=== PATIENT | female | born 1980 | race Caucasian/White ===

== ENCOUNTER 2017-06-18 19:14 | Emergency (ER) | payer OTHER ==
[~2017-06-18] VITALS: Ht 152.4 cm; Wt 79.8 kg
[2017-06-18 19:29] VITALS: Ht 152.4 cm; Wt 79.8 kg
[2017-06-18] MEDS ORDERED: ONDANSETRON INJ 2 MG/ML 2 ML VIAL IV STA (19:58)
[2017-06-18] MEDS ORDERED: SODIUM CHLORIDE 0.9% 1000ML 1,000 ML IV STA ×2 (19:58)
[2017-06-18] MEDS: HYDROmorphone INJ 2 MG/ML SYR/VIAL IV PRN ×2 (20:09→20:34)
[2017-06-18 20:10] LABS: URINE APPEARANCE CLEAR (CLEAR); URINE BILIRUBIN NEG (NEG); URINE COLOR YELLOW; URINE NITRITE NEG (NEG); URINE PH 6.5 (4.5-7.5); URINE SPECIFIC GRAVITY 1.011 (1.000-1.030); UROBILINOGEN NEG (NEG); ZZUR CULT IF INDIC CLEAN CATCH NO
[2017-06-18 20:11] LABS: HEMATOCRIT 41.1 % (37-47); MEAN CELL VOLUME 90.9 fL (80-100); MEAN CORPUSCULAR HEMOGLOBIN 30.3 pg (25-34); MEAN CORPUSCULAR HGB CONC 33.3 g/dl (32-36); MEAN PLATELET VOLUME 9.2 fL (7.4-10.4); PLATELET COUNT 303 K/uL (130-400); RED BLOOD COUNT 4.52 M/uL (4.2-5.4); WHITE BLOOD COUNT 5.73 K/uL (4.8-10.8)
[2017-06-18 20:19] LABS: MANUAL MICROSCOPIC REQUIRED? NO; REVIEW REQ? NO
[2017-06-18 20:36] LABS: ALB/GLOB RATIO 0.9 (0.9-2); BUN/CREATININE RATIO 13.2 (10-20); CALCIUM 9.4 mg/dl (8.5-10.1); CREATININE 0.98 mg/dl (0.60-1.20); POTASSIUM 3.8 mmol/L (3.5-5.1); PREG INTERNAL NEGATIVE QC NEG CLEAR BACKGROUND; PREG INTERNAL POSITIVE QC POS CONTROL LINE
--- NOTE | 2017-06-18 20:39 | DIAGNOSTIC IMAGING REPORT ---
ABDOMEN 2VIEW W/PA CHEST RTN CLINICAL HISTORY: ABDOMINAL PAIN/GI pain COMPARISON STUDY: No previous studies for comparison. FINDINGS: The soft tissues, psoas shadows, renal outlines and intestinal gas pattern appear normal. There is no evidence for bowel obstruction. There is no evidence for free intraperitoneal air. No abnormal abdominal calcifications are seen. A frontal view of the chest was performed and is unremarkable. IMPRESSION: Normal study. The above report was generated using voice recognition software. It may contain grammatical, syntax or spelling errors. Electronically signed by: Cruz Wilson M.D. 06/18/2017 8:37 PM Dictated Date/Time: 06/18/2017 8:37 PM
[2017-06-18 21:14] LABS: BASO % 0.3 %; BASO ABS # 0.02 K/uL (0-0.2); COMPLETE YES; EOS % 2.1 %; IG% 0.2 %; LYMPH % 52.7 %; LYMPH ABS # 3.02 K/uL (1.2-3.4); MONO % 4.9 %; NEUT % 39.8 %
[2017-06-18] MEDS ORDERED: LAMO200T38 PO (21:20)
[2017-06-18] MEDS ORDERED: AMPH20TA2 PO (21:20)
[2017-06-18] MEDS ORDERED: [UNRECOGNIZED DRUG - REMARK] (21:20)
[2017-06-18] MEDS ORDERED: ALPR-411 PO (21:20)
[2017-06-18] MEDS ORDERED: CITA10TA8 PO (21:20)
[2017-06-18] MEDS ORDERED: HYDROmorphone INJ 2 MG/ML SYR/VIAL IV STA (21:44)
[2017-06-18] MEDS ORDERED: ONDANSETRON HOME PACK 4MG OD TAB PO ONE (22:45)
[2017-06-18] MEDS ORDERED: OXYCODONE IR HOME PACK PO ONE (22:45)
--- NOTE | 2017-06-18 22:48 | EMERGENCY ROOM VISIT NOTE ---
History Report prepared by Francie: Gregoria Ramos Under the Supervision of: Dr. Ashwin Aguilar M.D. First contact with patient: 19:53 Chief Complaint: ABDOMINAL PAIN Stated Complaint: VOMITING, SEVERE STOMACH PAIN, NAUSEA Nursing Triage Summary: pt reports LUQ abdominal pain started at 1000 pt reports nausea hx of pancreatitis History of Present Illness The patient is a 36 year old female who presents to the Emergency Room with complaints of an episode of abdominal pain starting three hours ago. The patient notes a history of pancreatitis and states she was hospitalized in February of this year. She states that today she has been lethargic and she had diarrhea this morning. The patient reports that she went to an event today and noticed that she felt bloated, which she thought was odd since she hadn't eaten much today. She states on the way back to her boyfriend's place they stopped for ice cream. She reports that a half hour after the ice cream she started vomiting and having severe abdominal pain. She notes that the pain goes into her back. The patient currently rates her pain as an 8.5/10. She states that yesterday she felt fine. The patient denies urinary symptoms, vaginal discharge, cough, congestion, and chance of . The patient notes a history of a cholecystectomy, appendectomy, and a hernia repair. Source of History: patient Onset: 3 hours ago Position: abdomen Symptom Intensity: 8.5/10 Quality: other (bloating) Timing: other (episode) Associated Symptoms: + vomiting, + back pain, + diarrhea, No cough, No urinary symptoms Note: The patient complains of being lethargic. The patient denies vaginal discharge, congestion, and chance of . Review of Systems See HPI for pertinent positives & negatives. A total of 10 systems reviewed and were otherwise negative. Past Medical & Surgical Medical Problems: (1) Pancreatitis Surgical Problems: (1) H/O hernia repair (2) Hx of appendectomy (3) Hx of cholecystectomy Family History Patient reports no known family medical history. Social History Smoking Status: Never Smoker Alcohol Use: none Drug Use: none Marital Status: in relationship Housing Status: lives alone Occupation Status: employed Current/Historical Medications Scheduled Amphetamine-Dextroamphetamine 20MG (Adderall 20MG), 1 TAB PO DAILY Citalopram Hydrobromide (Celexa), 1 TAB PO DAILY Miscellaneous Medications Alprazolam (Xanax), 0.5 MG PO Lamotrigine (Lamictal), 200 MG PO [unknown seizure med] Allergies Coded Allergies: Ketorolac Tromethamine (Unverified Allergy, Unknown, rash, 06/18/17) Morphine (Unverified Allergy, Unknown, rash, 06/18/17) Tramadol (Unverified Allergy, Unknown, rash, 06/18/17) Uncoded Allergies: PENICILLIN (Allergy, Unknown, rash, 06/18/17) Physical Exam Vital Signs Date Time Temp Pulse Resp B/P (MAP) Pulse Ox O2 Delivery O2 Flow Rate FiO2 06/18/17 21:44 86 20 98 06/18/17 21:30 117/76 06/18/17 21:14 78 19 98 06/18/17 21:06 111/84 06/18/17 20:57 85 06/18/17 20:38 113/75 06/18/17 19:29 36.7 92 20 111/68 98 Room Air Physical Exam GENERAL: Patient is in no acute distress. HEENT: No acute trauma, normocephalic atraumatic, mucous membranes moist, no nasal congestion, no scleral icterus. NECK: No stridor, no adenopathy, no meningismus, trachea is midline. LUNGS: Clear to auscultation bilaterally, no wheeze, no rhonchi, breath sounds equal. HEART: Without murmurs gallops or rubs, regular rate and rhythm. ABDOMEN: Tender in the epigastrium and the entire left side. Soft. No peritonitis. No distention. Bandage to mid abdomen consistent with the recent abscess drainage. EXTREMITIES: No cyanosis or edema, full range of motion of all the joints without pain or difficulty, no signs for acute trauma. NEUROLOGIC: Oriented x 3, no acute motor or sensory deficits, no focal weakness. SKIN: No rash, no jaundice, no diaphoresis. Medical Decision & Procedures ER Provider Diagnostic Interpretation: Radiology results as stated below per my review and radiologist interpretation: ABDOMEN 2VIEW W/PA CHEST RTN CLINICAL HISTORY: ABDOMINAL PAIN/GI pain COMPARISON STUDY: No previous studies for comparison. FINDINGS: The soft tissues, psoas shadows, renal outlines and intestinal gas pattern appear normal. There is no evidence for bowel obstruction. There is no evidence for free intraperitoneal air. No abnormal abdominal calcifications are seen. A frontal view of the chest was performed and is unremarkable. IMPRESSION: Normal study. The above report was generated using voice recognition software. It may contain grammatical, syntax or spelling errors. Electronically signed by: Cruz Wilson M.D. 06/18/2017 8:37 PM Dictated Date/Time: 06/18/2017 8:37 PM Laboratory Results 06/18/17 19:45 Red Blood Count 4.52, Mean Corpuscular Volume 90.9, Mean Corpuscular Hemoglobin 30.3, Mean Corpuscular Hemoglobin Concent 33.3, Mean Platelet Volume 9.2, Neutrophils (%) (Auto) 39.8, Lymphocytes (%) (Auto) 52.7, Monocytes (%) (Auto) 4.9, Eosinophils (%) (Auto) 2.1, Basophils (%) (Auto) 0.3, Neutrophils # (Auto) 2.28, Lymphocytes # (Auto) 3.02, Monocytes # (Auto) 0.28, Eosinophils # (Auto) 0.12, Basophils # (Auto) 0.02 06/18/17 19:45 Test 06/18/17 19:45 06/18/17 22:01 White Blood Count 5.73 K/uL (4.8-10.8) Red Blood Count 4.52 M/uL (4.2-5.4) Hemoglobin 13.7 g/dL (12.0-16.0) Hematocrit 41.1 % (37-47) Mean Corpuscular Volume 90.9 fL (80-100) Mean Corpuscular Hemoglobin 30.3 pg (25-34) Mean Corpuscular Hemoglobin Concent 33.3 g/dl (32-36) Platelet Count 303 K/uL (130-400) Mean Platelet Volume 9.2 fL (7.4-10.4) Neutrophils (%) (Auto) 39.8 % Lymphocytes (%) (Auto) 52.7 % Monocytes (%) (Auto) 4.9 % Eosinophils (%) (Auto) 2.1 % Basophils (%) (Auto) 0.3 % Neutrophils # (Auto) 2.28 K/uL (1.4-6.5) Lymphocytes # (Auto) 3.02 K/uL (1.2-3.4) Monocytes # (Auto) 0.28 K/uL (0.11-0.59) Eosinophils # (Auto) 0.12 K/uL (0-0.5) Basophils # (Auto) 0.02 K/uL (0-0.2) RDW Standard Deviation 42.6 fL (36.4-46.3) RDW Coefficient of Variation 12.8 % (11.5-14.5) Immature Granulocyte % (Auto) 0.2 % Immature Granulocyte # (Auto) 0.01 K/uL (0.00-0.02) Urine Color YELLOW Urine Appearance CLEAR (CLEAR) Urine pH 6.5 (4.5-7.5) Urine Specific [place] 1.011 (1.000-1.030) Urine Protein NEG (NEG) Urine Glucose (UA) NEG (NEG) Urine Ketones NEG (NEG) Urine Occult Blood NEG (NEG) Urine Nitrite NEG (NEG) Urine Bilirubin NEG (NEG) Urine Urobilinogen NEG (NEG) Urine Leukocyte Esterase NEG (NEG) Anion Gap 5.0 mmol/L (3-11) Est Creatinine Clear Calc Drug Dose 75.6 ml/min Estimated GFR () 87.2 Estimated GFR (Non- 75.3 BUN/Creatinine Ratio 13.2 (10-20) Calcium Level 9.4 mg/dl (8.5-10.1) Total Bilirubin 0.3 mg/dl (0.2-1) Aspartate Amino Transf (AST/SGOT) 32 U/L (15-37) Alanine Aminotransferase (ALT/SGPT) 30 U/L (12-78) Alkaline Phosphatase 118 U/L (45-117) Total Protein 7.8 gm/dl (6.4-8.2) Albumin 3.8 gm/dl (3.4-5.0) Globulin 4.0 gm/dl (2.5-4.0) Albumin/Globulin Ratio 0.9 (0.9-2) Human Chorionic Gonadotropin, Qual NEG (NEG) Chemistry Specimen Hemolysis Lipase 304 U/L (73-393) Laboratory results reviewed by me. Medications Administered Medications (Trade) Dose Ordered Sig/Jannie Route Start Time Stop Time Status Last Admin Dose Admin Ondansetron HCl (Zofran Inj) 4 mg NOW STAT IV 06/18/17 19:58 06/18/17 20:00 DC 06/18/17 20:09 4 MG Sodium Chloride 1,000 ml @ 200 mls/hr Q5H STAT IV 06/18/17 19:58 06/19/17 00:57 06/18/17 19:58 200 MLS/HR Sodium Chloride 1,000 ml @ 999 mls/hr Q1H1M STAT IV 06/18/17 19:58 06/18/17 20:58 DC 06/18/17 20:10 999 MLS/HR Hydromorphone HCl (Dilaudid Inj) 0.5 mg Q15M PRN IV 06/18/17 20:00 07/02/17 19:59 06/18/17 20:34 0.5 MG Hydromorphone HCl (Dilaudid Inj) 1 mg NOW STAT IV 06/18/17 21:44 06/18/17 21:46 DC 06/18/17 22:16 1 MG ED Course 1953: The patient was evaluated in room A10. A complete history and physical exam was performed. 1957: Ordered NSS 1000 ml @ 999 mls/hr IV, NSS 1000 ml @ 200 mls/hr IV, Zofran Inj 4 mg IV. 1999: Ordered Dilaudid Inj 0.5 mg PRN IV pain. 2142: I reevaluated the patient and she is still in pain. 2143: Dilaudid Inj 0.5 mg was given for pain. 2229: Reevaluated the patient. Discussed results and discharge instructions: she verbalized understanding and agreement. The patient is ready for discharge. Medical Decision Differential diagnoses pancreatis, bowel obstruction, UTI, viral illness, pneumonia, dehydration, renal failure, . There is no leukocytosis or concerning anemia. No significant electrolyte abnormality, kidney failure or hepatitis. Initial lipase was mildly elevated, a repeat a few hours later showed the lipase to be normal. Urinalysis does not show hematuria or infection. Obstruction series does not show free air, pneumonia or bowel obstruction. On exam, there was no peritonitis. The patient was not febrile or toxic. The patient received IV saline, IV Zofran and IV Dilaudid. She required an additional dose of IV Dilaudid. She is comfortable. The patient's illness is likely viral as she did not feel well today and did have diarrhea earlier. She was reassured. I do think she can be discharged home with a bland diet, Zofran, a few oxycodone for severe pain. Rest and hydration were encouraged. She will follow with her doctors office. If worsening, she will return for reassessment or see the nearest ER if not in this area. [place] Drug Monitoring Program Search Results: patient reviewed within database Drug Monitoring Findings: The patient had 24 Tramadol tablet filled on May 25. Impression Primary Impression: Epigastric abdominal pain Additional Impression: Vomiting Scribe Attestation The scribe's documentation has been prepared under my direction and personally reviewed by me in its entirety. I confirm that the note above accurately reflects all work, treatment, procedures, and medical decision making performed by me. Departure Information Dispostion Home / Self-Care Referrals No Doctor, Assigned (PCP) Forms Call Back Authorization, HOME CARE DOCUMENTATION FORM, IMPORTANT VISIT INFORMATION Patient Instructions My [facility] [place] [employer] Additional Instructions bland diet for next 2 days---crackers, soup, toast, gatorade oxy ir 1 tab every 4 hours for severe pain zofran 1 tab every 6 hours for nausea rest stay well hydrated return of see nearest ER if worsening xrays and lab testing today were ok as discussed Problem Qualifiers
[2017-06-18 22:54] VITALS: BP 102/72; PULSE 91; TEMP 36.7; O2SAT 94
[2017-07-15] MEDS ORDERED: PANT40TA PO (10:57)
== END 2017-06-18 23:41 | disposition home or self-care (01) ==
LOC: C.EDB 19:16 → C.EDA 23:41
DX: R10.13 Epigastric pain (principal); R11.10 Vomiting, unspecified; K86.1 Other chronic pancreatitis; Z90.49 Acquired absence of other specified parts of digestive tract; Z98.890 Other specified postprocedural states; Z79.899 Other long term (current) drug therapy; Z88.5 Allergy status to narcotic agent

== ENCOUNTER 2017-06-21 23:39 | Emergency (ER) | payer OTHER ==
[~2017-06-21] VITALS: Ht 152.4 cm; Wt 82.3 kg
[~2017-06-21 23:39] MED LIST: ALPR-411 PO; AMPH20TA2 PO; CITA10TA8 PO; LAMO200T38 PO; [UNRECOGNIZED DRUG - REMARK]
[2017-06-21 23:45] VITALS: TEMP 36.7; Ht 152.4 cm; Wt 82.3 kg
[2017-06-21] MEDS ORDERED: ONDANSETRON INJ 2 MG/ML 2 ML VIAL IV STA (23:57)
[2017-06-22] MEDS ORDERED: ACETAMINOPHEN IV 100 ML IV ONE
[2017-06-22] MEDS ORDERED: SODIUM CHLORIDE 0.9% 1000ML 1,000 ML IV ONE
[2017-06-22 00:07] VITALS: O2SAT 98
[2017-06-22 00:45] LABS: BASO % 0.6 %; BASO ABS # 0.04 K/uL (0-0.2); COMPLETE YES; EOS % 1.3 %; HEMATOCRIT 35.8 % (37-47); IG% 0.3 %; LYMPH % 34.4 %; LYMPH ABS # 2.32 K/uL (1.2-3.4); MEAN CELL VOLUME 89.3 fL (80-100); MEAN CORPUSCULAR HEMOGLOBIN 30.4 pg (25-34); MEAN CORPUSCULAR HGB CONC 34.1 g/dl (32-36); MEAN PLATELET VOLUME 8.9 fL (7.4-10.4); MONO % 6.2 %; NEUT % 57.2 %; PLATELET COUNT 259 K/uL (130-400); RED BLOOD COUNT 4.01 M/uL (4.2-5.4); WHITE BLOOD COUNT 6.75 K/uL (4.8-10.8)
[2017-06-22 01:01] LABS: INR 0.9 (0.9-1.1); PROTHROMBIN TIME (PATIENT) 9.9 SECONDS (9.0-12.0)
[2017-06-22 01:23] LABS: CALCIUM 7.7 mg/dl (8.5-10.1); CREATININE 0.85 mg/dl (0.60-1.20); MAGNESIUM 1.8 mg/dl (1.8-2.4); POTASSIUM 3.6 mmol/L (3.5-5.1)
[2017-06-22 01:29] LABS: URINE APPEARANCE CLEAR (CLEAR); URINE BILIRUBIN NEG (NEG); URINE COLOR ORANGE; URINE EPITHELIAL CELL AUTO >30 /lpf (0-5); URINE NITRITE NEG (NEG); URINE SPECIFIC GRAVITY 1.018 (1.000-1.030); UROBILINOGEN NEG (NEG)
[2017-06-22 01:34] LABS: ALB/GLOB RATIO 0.9 (0.9-2); PHOSPHORUS 2.2 mg/dl (2.5-4.9); THYROID STIMULATING HORMONE 0.69 uIu/ml (0.300-4.500)
[2017-06-22 01:49] LABS: MANUAL MICROSCOPIC REQUIRED? NO; REVIEW REQ? YES
[2017-06-22 01:54] LABS: BENZODIAZEPINE, URINE POS (NEG); COCAINE,URINE NEG (NEG); PHENCYCLIDINE, URINE NEG (NEG)
[2017-06-22 02:18] VITALS: BP 130/81; PULSE 77; O2SAT 98
--- NOTE | 2017-06-22 04:54 | EMERGENCY ROOM VISIT NOTE ---
History First contact with patient: 23:43 Chief Complaint: SEIZURE Stated Complaint: SEIZURE Nursing Triage Summary: pt brought to main ED from home by ALS services for a seizure. pt has seizure hx and takes lamictal, states she has not missed any dose. last seizure was 6 weeks ago. pt reports tonight she got up to go to the bathroom and "I must have hit my head on the skin." SO reports seizure lasted <5 minutes with full body shaking. pt denies incontinence, states "I never do that." cut noted to bridge of nose, dried blood on left side of face. at this time pt c/o headache, nose pain/pressure, and nausea. pt alert and oriented x4. breathing WNL. no active bleeding from cut on nose at this time. History of Present Illness The patient is a 36 year old female who presents to the Emergency Room with complaints of seizure episode that occurred just prior to arrival. The patient arrives via ALS. She evidently has a history of epilepsy and states that she takes Lamictal for this on a daily basis. The patient states that she was in her bed, and got up to use the bathroom. She remembers being on the floor in the bathroom covered in blood. She is complaining of nasal and left-sided facial pain. According to the patient's significant other she had seizure-like activity with full body shaking for 1-2 minutes. The patient did not defecate herself or urinary herself. She did not have injury to her tongue. The patient states that she has had seizures for years and usually follows with neurology in [facility]. The patient lives in the [facility] but is visiting her boyfriend locally. She rates her discomfort a 9/10 primarily across her nose and left side of her face. She does not report other pain and has not taken anything [id number] for her symptoms. She denies chance of . Review of Systems More than 10 systems were reviewed and otherwise negative with the exception of history of present illness. Past Medical/Surgical History Medical Problems: (1) Pancreatitis Surgical Problems: (1) H/O hernia repair (2) Hx of appendectomy (3) Hx of cholecystectomy Family History Patient reports no known family medical history. Social History Smoking Status: Never Smoker Alcohol Use: none Drug Use: none Marital Status: in relationship Housing Status: lives alone Occupation Status: employed Current/Historical Medications Scheduled Citalopram Hydrobromide (Celexa), 10 MG PO DAILY Lamotrigine (Lamictal), 200 MG PO BID Scheduled PRN Alprazolam (Xanax), 0.5 MG PO UD PRN for Anxiety Physical Exam Vital Signs Date Time Temp Pulse Resp B/P (MAP) Pulse Ox O2 Delivery O2 Flow Rate FiO2 06/22/17 02:18 77 18 130/81 98 06/22/17 00:45 85 18 111/79 97 Room Air 06/22/17 00:07 98 Room Air 06/22/17 00:07 97 Room Air 06/22/17 00:07 98 Room Air 06/21/17 23:45 36.7 84 18 135/96 98 Room Air 06/21/17 23:45 88 Pain Rating (0-10): 8.0 Physical Exam VITALS: Vitals are noted on the nurse's note and reviewed by myself. Vital signs stable. GENERAL: Well-developed, well-nourished, white female, who is in no acute distress and resting comfortably. Patient is cooperative with the examination. GCS 15. HEAD: Normocephalic atraumatic. EARS: External ear normal. External auditory canals clear, tympanic membranes pearly garcia without erythema or effusion bilaterally. EYES: Pupils equal round and reactive to light and accommodation. Conjunctivae without injection, sclerae without icterus. Extraocular movements intact. NOSE: Patent, turbinates without inflammation or discharge. There is a very small linear laceration over the bridge of the nose. This laceration measures approximately 1.0 cm in length. It does not cause gaping of the skin and will not require formal closure. MOUTH: Mucous membranes moist. Tonsils are not enlarged. Pharynx without erythema, blood, or exudate. Uvula midline. Airway patent. No obvious dental injury. No injury to the tongue or lips. NECK: Supple without nuchal rigidity. No lymphadenopathy. No thyromegaly. Cervical spine is nontender. HEART: Regular rate and rhythm without murmurs gallops or rubs. LUNGS: Clear to auscultation bilaterally without wheezes, rales or rhonchi. No retractions or accessory muscle use. ABDOMEN: Positive normal bowel sounds x 4. Soft, nontender, without masses or organomegaly. No guarding or rebound tenderness. MUSCULOSKELETAL: No muscle atrophy, erythema, or edema noted. Full range of motion without joint tenderness in all extremities. NEURO: Patient was alert and oriented to person place and time. CN II through XII grossly intact. Deep tendon reflexes 2+ throughout. Medical Decision & Procedures ER Provider Diagnostic Interpretation: Preliminary Findings Only See Final Report For Complete Findings CT HEAD: Comparison: None. No evidence of acute infarct, hemorrhage, mass or edema. No acute osseous abnormality. Preliminary Findings Only See Final Report For Complete Findings CT FACIAL: No facial bone fracture identified. Globes and orbits are intact. Minimal mucosal thickening of the paranasal sinuses. Laboratory Results 06/22/17 00:27 Red Blood Count 4.01, Mean Corpuscular Volume 89.3, Mean Corpuscular Hemoglobin 30.4, Mean Corpuscular Hemoglobin Concent 34.1, Mean Platelet Volume 8.9, Neutrophils (%) (Auto) 57.2, Lymphocytes (%) (Auto) 34.4, Monocytes (%) (Auto) 6.2, Eosinophils (%) (Auto) 1.3, Basophils (%) (Auto) 0.6, Neutrophils # (Auto) 3.86, Lymphocytes # (Auto) 2.32, Monocytes # (Auto) 0.42, Eosinophils # (Auto) 0.09, Basophils # (Auto) 0.04 06/22/17 00:27 Test 06/22/17 00:27 06/22/17 01:04 White Blood Count 6.75 K/uL (4.8-10.8) Red Blood Count 4.01 M/uL (4.2-5.4) Hemoglobin 12.2 g/dL (12.0-16.0) Hematocrit 35.8 % (37-47) Mean Corpuscular Volume 89.3 fL (80-100) Mean Corpuscular Hemoglobin 30.4 pg (25-34) Mean Corpuscular Hemoglobin Concent 34.1 g/dl (32-36) Platelet Count 259 K/uL (130-400) Mean Platelet Volume 8.9 fL (7.4-10.4) Neutrophils (%) (Auto) 57.2 % Lymphocytes (%) (Auto) 34.4 % Monocytes (%) (Auto) 6.2 % Eosinophils (%) (Auto) 1.3 % Basophils (%) (Auto) 0.6 % Neutrophils # (Auto) 3.86 K/uL (1.4-6.5) Lymphocytes # (Auto) 2.32 K/uL (1.2-3.4) Monocytes # (Auto) 0.42 K/uL (0.11-0.59) Eosinophils # (Auto) 0.09 K/uL (0-0.5) Basophils # (Auto) 0.04 K/uL (0-0.2) RDW Standard Deviation 40.8 fL (36.4-46.3) RDW Coefficient of Variation 12.4 % (11.5-14.5) Immature Granulocyte % (Auto) 0.3 % Immature Granulocyte # (Auto) 0.02 K/uL (0.00-0.02) Prothrombin Time 9.9 SECONDS (9.0-12.0) Prothromb Time International Ratio 0.9 (0.9-1.1) Activated Partial Thromboplast Time 26.0 SECONDS (21.0-31.0) Partial Thromboplastin Ratio 1.0 Anion Gap 5.0 mmol/L (3-11) Est Creatinine Clear Calc Drug Dose 88.7 ml/min Estimated GFR () 103.6 Estimated GFR (Non- 89.4 BUN/Creatinine Ratio 16.0 (10-20) Bedside Glucose 114 mg/dl (70-90) Calcium Level 7.7 mg/dl (8.5-10.1) Phosphorus Level 2.2 mg/dl (2.5-4.9) Magnesium Level 1.8 mg/dl (1.8-2.4) Total Bilirubin 0.2 mg/dl (0.2-1) Aspartate Amino Transf (AST/SGOT) 19 U/L (15-37) Alanine Aminotransferase (ALT/SGPT) 25 U/L (12-78) Alkaline Phosphatase 98 U/L (45-117) Total Protein 6.4 gm/dl (6.4-8.2) Albumin 3.1 gm/dl (3.4-5.0) Globulin 3.3 gm/dl (2.5-4.0) Albumin/Globulin Ratio 0.9 (0.9-2) Thyroid Stimulating Hormone (TSH) 0.690 uIu/ml (0.300-4.500) Ethyl Alcohol mg/dL < 3.0 mg/dl (0-3) Urine Color ORANGE Urine Appearance CLEAR (CLEAR) Urine pH 7.0 (4.5-7.5) Urine Specific [place] 1.018 (1.000-1.030) Urine Protein 1+ (NEG) Urine Glucose (UA) NEG (NEG) Urine Ketones NEG (NEG) Urine Occult Blood 3+ (NEG) Urine Nitrite NEG (NEG) Urine Bilirubin NEG (NEG) Urine Urobilinogen NEG (NEG) Urine Leukocyte Esterase TRACE (NEG) Urine WBC (Auto) 1-5 /hpf (0-5) Urine RBC (Auto) >30 /hpf (0-4) Urine Hyaline Casts (Auto) 1-5 /lpf (0-5) Urine Epithelial Cells (Auto) >30 /lpf (0-5) Urine Bacteria (Auto) NEG (NEG) Urine Yeast (Auto) (NONE PRSENT) Urine Opiates Screen NEG (NEG) Urine Methadone, Qualitative NEG (NEG) Urine Barbiturates NEG (NEG) Urine Phencyclidine (PCP) Level NEG (NEG) Ur Amphetamine/Methamphetamine NEG (NEG) MDMA (Ecstasy) Screen NEG (NEG) Urine Benzodiazepines Screen POS (NEG) Urine Cocaine Metabolite NEG (NEG) Urine Marijuana (THC) NEG (NEG) Medications Administered Medications (Trade) Dose Ordered Sig/Jannie Route Start Time Stop Time Status Last Admin Dose Admin Ondansetron HCl (Zofran Inj) 4 mg NOW STAT IV 06/21/17 23:57 06/22/17 00:02 DC 06/22/17 00:16 4 MG Acetaminophen 100 ml @ 400 mls/hr NOW ONCE IV 06/22/17 00:00 06/22/17 00:14 DC 06/22/17 00:18 400 MLS/HR Sodium Chloride 1,000 ml @ 999 mls/hr Q1H1M ONCE IV 06/22/17 00:00 06/22/17 01:00 DC 06/22/17 00:16 999 MLS/HR ED Course Physical exam and history were performed. Nursing notes, EMR, and Medication List were personally reviewed. Patient appears to have had a report of seizure episode at her boyfriend's house this morning. On examination the patient is alert, oriented, and answering questions appropriately. She is able to spontaneously move her arms and legs without difficulty. She appears to have injury to the bridge of her nose as well as reports of left-sided facial discomfort. IV access was established and labs were obtained. Her wounds were cleansed and dressed by nursing. The patient was complaining of nausea and was given 4 mg IV Zofran [address] scan of the head was performed and the patient was placed on the cardiac rehabilitation specialist. She was cared for under seizure precautions. The patient's blood work is as above and was reviewed. She does not have a significantly elevated white blood cell count, gross anemia, bandemia, or significant electrolyte imbalance. Lipase and transaminases are nondiagnostic. Urine is without evidence of infection. CT scan did not show evidence of acute intracranial abnormality. The patient drug abuse screen was positive for benzodiazepines, which evidently she has prescribed for her. I did review the patient's [place] drug monitoring profile. She has had 39 controlled substance prescriptions given to her in the last 1 year. The patient requested pain medications on 5 separate occasions over the course of 2 hours while here in the ER. She is evidently allergic to Toradol, morphine, and tramadol. I explained that we would not be able to provide her additional pain medication. The patient's [facility] medical record was reviewed. The patient has eventually no showed for appointments with neurology for several months. According to the [facility] records the patient has not had refills on her seizure medication since 2013. She does regularly use their facility for pain- related complaints, and no longer receives narcotics through their facility. 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 Overall the patient appears stable for discharge home. She does not have significant acute traumatic injuries. She may use [id number] analgesics for pain control as I do not feel narcotics are appropriate at this time. The patient and I had a lengthy discussion about the importance of following with her neurologist for further care and management. She was otherwise invited back to the ER with any new, worsening, or concerning symptoms. She was understanding and rated her discomfort an 8/10 at the time of departure. She was discharged home under the care of her boyfriend who is able to watch her this evening. The chart was completed utilizing [employer] Voice Recognition Software. Grammatical errors, random word insertions, pronoun errors, and incomplete sentences are an occasional consequence of this system due to software limitations, ambient noise, and hardware issues. Any formal questions or concerns about the content, text, or information contained within the body of this dictation should be directly addressed to the provider for clarification. . Medical Decision Differential diagnosis: Etiologies such as infection, hypoglycemia, electrolyte abnormalities, cardiac sources, intracerebral event, trauma, toxicologic, neurologic, as well as others were entertained. [place] Drug Monitoring Program Search Results: patient reviewed within database, see additional documentation Head Trauma GCS Score: 15 Medication Reconcilliation Current Medication List: was personally reviewed by me Blood Pressure Screening Blood pressure disposition: Referred to PCP Impression Primary Impression: Seizure Additional Impressions: Facial injury Nasal laceration Departure Information Dispostion Home / Self-Care Condition GOOD Forms HOME CARE DOCUMENTATION FORM, IMPORTANT VISIT INFORMATION Patient Instructions [facility] Additional Instructions You were seen and evaluated today on an emergency basis only. This is not a substitute for, or an effort to provide, complete comprehensive medical care. It is not possible to recognize and treat all injuries or illnesses in a single emergency department visit. For this reason it is recommended that you followup with Neurology for ongoing care and evaluation. Continue medications as prescribed. You are welcome to return to the emergency department anytime with new, worsening, or concerning symptoms. Problem Qualifiers
--- NOTE | 2017-06-22 07:03 | DIAGNOSTIC IMAGING REPORT ---
MAXILLOFACIAL CT WITHOUT CONTRAST CLINICAL HISTORY: Seizure. Left-sided facial injury. COMPARISON STUDY: None. TECHNIQUE: A maxillofacial CT was performed without IV contrast. Coronal and sagittal reformats were viewed. A dose lowering technique was utilized adhering to the principles of ALARA. FINDINGS: No acute facial fracture is identified. The globes are intact. There is no retrobulbar hematoma. There is mild to moderate polypoid mucosal thickening of the sinuses. Alignment of the temporomandibular joints is anatomic. IMPRESSION: No acute facial fracture. Electronically signed by: Calvin Waller M.D. 06/22/2017 7:02 AM Dictated Date/Time: 06/22/2017 6:59 AM
--- NOTE | 2017-06-22 07:25 | DIAGNOSTIC IMAGING REPORT ---
HEAD CT NONCONTRAST CT DOSE: 638.56 mGycm HISTORY: SEIZURE TECHNIQUE: Multiaxial CT images of the head were performed without the use of intravenous contrast. Automated exposure control was utilized for this study. A dose lowering technique was utilized adhering to the principles of ALARA. Comparison: None. Findings: Small retention cysts within the right sphenoid sinus. The mastoid air cells are clear. The calvarium and skull base are intact. The ventricles and sulci are within normal limits. There is no mass, hematoma, midline shift, or acute infarct. Impression: No acute intracranial abnormality. If this is the patient's first reported seizure then a follow-up nonemergent brain MRI is recommended for further evaluation. Electronically signed by: Malcom Esteban M.D. 06/22/2017 7:24 AM Dictated Date/Time: 06/22/2017 7:20 AM
[2017-06-24 12:28] LABS: HYDROXYETHYLFLURAZEPAM CONF NEGATIVE NG/ML (CUTOFF=50); HYDROXYMIDAZOLAM NEGATIVE NG/ML (CUTOFF=50); HYDROXYTRIAZOLAM CONF NEGATIVE NG/ML (CUTOFF=50); TEMAZEPAM CONF NEGATIVE NG/ML (CUTOFF=50)
[2017-07-15] MEDS ORDERED: PANT40TA PO (10:57)
== END 2017-06-22 02:18 | disposition home or self-care (01) ==
LOC: EDBD 23:39 → C.EDA 23:40
DX: G40.909 Epilepsy, unspecified, not intractable, without status epilepticus (principal); S01.21XA Laceration without foreign body of nose, initial encounter; S09.93XA Unspecified injury of face, initial encounter; W19.XXXA Unspecified fall, initial encounter; Y92.89 Other specified places as the place of occurrence of the external cause; Z79.899 Other long term (current) drug therapy

== ENCOUNTER 2017-07-14 11:56 | Inpatient (IN) | payer OTHER ==
[~2017-07-14] VITALS: Ht 154.9 cm; Wt 84.0 kg
[~2017-07-14 11:56] MED LIST changes: -AMPH20TA2 PO; -[UNRECOGNIZED DRUG - REMARK]
[2017-07-14] MEDS ORDERED: SODIUM CHLORIDE 0.9% 1000ML 1,000 ML IV STA (12:11)
[2017-07-14] MEDS ORDERED: ONDANSETRON INJ 2 MG/ML 2 ML VIAL IV STA ×2 (12:11→14:57)
[2017-07-14] MEDS ORDERED: MoRPHine SULFATE 10 MG/ML CARP/VIAL IV STA (12:11)
[2017-07-14 12:40] LABS: URINE APPEARANCE CLEAR (CLEAR); URINE BILIRUBIN NEG (NEG); URINE COLOR YELLOW; URINE EPITHELIAL CELL AUTO >30 /lpf (0-5); URINE NITRITE NEG (NEG); URINE SPECIFIC GRAVITY 1.014 (1.000-1.030); UROBILINOGEN NEG (NEG); ZZUR CULT IF INDIC CLEAN CATCH YES
[2017-07-14 12:51] LABS: BASO % 0.4 %; BASO ABS # 0.02 K/uL (0-0.2); COMPLETE YES; EOS % 3.1 %; HEMATOCRIT 34.3 % (37-47); IG% 0.2 %; LYMPH % 31.1 %; LYMPH ABS # 1.51 K/uL (1.2-3.4); MEAN CELL VOLUME 90.5 fL (80-100); MEAN CORPUSCULAR HEMOGLOBIN 31.4 pg (25-34); MEAN CORPUSCULAR HGB CONC 34.7 g/dl (32-36); MEAN PLATELET VOLUME 8.9 fL (7.4-10.4); MONO % 3.9 %; NEUT % 61.3 %; PLATELET COUNT 224 K/uL (130-400); RED BLOOD COUNT 3.79 M/uL (4.2-5.4); WHITE BLOOD COUNT 4.85 K/uL (4.8-10.8)
[2017-07-14 12:54] LABS: MANUAL MICROSCOPIC REQUIRED? NO; REVIEW REQ? YES
[2017-07-14] MEDS ORDERED: LAMO100T16 PO (12:55)
[2017-07-14] MEDS ORDERED: PRLSR20 PO (12:55)
[2017-07-14 13:04] LABS: BUN/CREATININE RATIO 16.5 (10-20); CALCIUM 8.8 mg/dl (8.5-10.1); CREATININE 0.72 mg/dl (0.60-1.20); POTASSIUM 3.9 mmol/L (3.5-5.1)
--- NOTE | 2017-07-14 14:28 | DIAGNOSTIC IMAGING REPORT ---
ABDOMINAL ULTRASOUND, RIGHT UPPER QUADRANT HISTORY: abd pain in epigastric region . COMPARISON: None. FINDINGS: Pancreas: The pancreatic tail is obscured by overlying bowel gas. The remaining portions of the pancreas are within normal limits. Peripancreatic lymph node which measure subcentimeter in short axis diameter. This measures 1.4 x 0.9 cm. Therefore, this does not meet sonographic criteria for pathology. Liver: Unremarkable. Gallbladder: The gallbladder is surgically absent. CBD: 5 mm. Right kidney: No hydronephrosis. IMPRESSION: No significant abnormality identified within the right upper quadrant. Electronically signed by: Malcom Esteban M.D. 07/14/2017 2:27 PM Dictated Date/Time: 07/14/2017 2:25 PM
--- NOTE | 2017-07-14 14:40 | EMERGENCY ROOM VISIT NOTE ---
History Report prepared by Francie: Robyn Jain Under the Supervision of: Dr. Matt Ayala D.O. First contact with patient: 11:58 Stated Complaint: VOMITING History of Present Illness The patient is a 36 year old female who presents to the Emergency Room with complaints of intermittent vomiting for the past 3.5 hours. She woke up this morning with LUQ abdominal pain. She rates her pain as a 7/10 in severity. Her pain radiates into her upper back. 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 She has a history of pancreatitis and has had similar symptoms with that. The patient denies drinking any alcohol. Admits to a previous cholecystectomy and appendectomy. She notes that she has had close to 10 previous admissions for pancreatitis. Generally follows up with [facility]. She does admit to dark tarry stools earlier today. Admits to previous scopes. Denies any blood thinners. Previous cholecystectomy. 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 A total of 10 systems reviewed and were otherwise negative. Past Medical & Surgical Medical Problems: (1) Pancreatitis Surgical Problems: (1) H/O hernia repair (2) Hx of appendectomy (3) Hx of cholecystectomy Family History Patient reports no known family medical history. Social History Smoking Status: Never Smoker Alcohol Use: none Drug Use: none Marital Status: in relationship Housing Status: lives alone Occupation Status: employed Current/Historical Medications Scheduled Lamotrigine (Lamictal), 100 MG PO DAILY Omeprazole (Prilosec), 20 MG PO DAILY Scheduled PRN Alprazolam (Xanax), 0.5 MG PO UD PRN for Anxiety Allergies Coded Allergies: Ketorolac Tromethamine (Unverified Allergy, Unknown, rash, 07/14/17) Morphine (Unverified Allergy, Unknown, rash, 07/14/17) Penicillins (Verified Allergy, Unknown, rash, 07/14/17) Tramadol (Unverified Allergy, Unknown, rash, 06/22/17) Physical Exam Vital Signs Date Time Temp Pulse Resp B/P (MAP) Pulse Ox O2 Delivery O2 Flow Rate FiO2 07/14/17 12:03 36.8 92 20 143/86 97 Room Air Physical Exam GENERAL: alert, sitting up in bed, vomit within bag, well appearing, well nourished, minimal distress, non-toxic EYE EXAM: normal conjunctiva OROPHARYNX: no exudate, no erythema, lips, buccal mucosa, and tongue normal and mucous membranes are moist NECK: supple, no nuchal rigidity, no adenopathy, non-tender LUNGS: Clear to auscultation. Normal chest wall mechanics HEART: no murmurs, S1 normal and S2 normal ABDOMEN: abdomen soft, non-tender, normo-active bowel sounds, no masses, no rebound or guarding. BACK: Back is symmetrical on inspection and there is no deformity, no midline tenderness, no CVA tenderness. SKIN: no rashes and no bruising RECTAL: gross hem + UPPER EXTREMITIES: upper extremities are grossly normal. LOWER EXTREMITIES: No pitting edema. NEURO EXAM: Normal sensorium, cranial nerves II-XII grossly intact, normal speech, no gross weakness of arms, no gross weakness of legs. Medical Decision & Procedures ER Provider Diagnostic Interpretation: Radiology results as stated below per my review and the radiologist's interpretation: ABDOMINAL ULTRASOUND, RIGHT UPPER QUADRANT HISTORY: abd pain in epigastric region . COMPARISON: None. FINDINGS: Pancreas: The pancreatic tail is obscured by overlying bowel gas. The remaining portions of the pancreas are within normal limits. Peripancreatic lymph node which measure subcentimeter in short axis diameter. This measures 1.4 x 0.9 cm. Therefore, this does not meet sonographic criteria for pathology. Liver: Unremarkable. Gallbladder: The gallbladder is surgically absent. CBD: 5 mm. Right kidney: No hydronephrosis. IMPRESSION: No significant abnormality identified within the right upper quadrant. Electronically signed by: Malcom Esteban M.D. 07/14/2017 2:27 PM Dictated Date/Time: 07/14/2017 2:25 PM Laboratory Results 07/14/17 12:30 Red Blood Count 3.79, Mean Corpuscular Volume 90.5, Mean Corpuscular Hemoglobin 31.4, Mean Corpuscular Hemoglobin Concent 34.7, Mean Platelet Volume 8.9, Neutrophils (%) (Auto) 61.3, Lymphocytes (%) (Auto) 31.1, Monocytes (%) (Auto) 3.9, Eosinophils (%) (Auto) 3.1, Basophils (%) (Auto) 0.4, Neutrophils # (Auto) 2.97, Lymphocytes # (Auto) 1.51, Monocytes # (Auto) 0.19, Eosinophils # (Auto) 0.15, Basophils # (Auto) 0.02 07/14/17 12:30 Test 07/14/17 12:20 07/14/17 12:30 07/14/17 15:09 Urine Color YELLOW Urine Appearance CLEAR (CLEAR) Urine pH 6.0 (4.5-7.5) Urine Specific [place] 1.014 (1.000-1.030) Urine Protein NEG (NEG) Urine Glucose (UA) NEG (NEG) Urine Ketones NEG (NEG) Urine Occult Blood TRACE (NEG) Urine Nitrite NEG (NEG) Urine Bilirubin NEG (NEG) Urine Urobilinogen NEG (NEG) Urine Leukocyte Esterase TRACE (NEG) Urine WBC (Auto) 1-5 /hpf (0-5) Urine RBC (Auto) 0-4 /hpf (0-4) Urine Hyaline Casts (Auto) 1-5 /lpf (0-5) Urine Epithelial Cells (Auto) >30 /lpf (0-5) Urine Bacteria (Auto) NEG (NEG) Urine Yeast (Auto) BUDDING (NONE PRSENT) Urine Test NEG (NEG) White Blood Count 4.85 K/uL (4.8-10.8) Red Blood Count 3.79 M/uL (4.2-5.4) Hemoglobin 11.9 g/dL (12.0-16.0) Hematocrit 34.3 % (37-47) Mean Corpuscular Volume 90.5 fL (80-100) Mean Corpuscular Hemoglobin 31.4 pg (25-34) Mean Corpuscular Hemoglobin Concent 34.7 g/dl (32-36) Platelet Count 224 K/uL (130-400) Mean Platelet Volume 8.9 fL (7.4-10.4) Neutrophils (%) (Auto) 61.3 % Lymphocytes (%) (Auto) 31.1 % Monocytes (%) (Auto) 3.9 % Eosinophils (%) (Auto) 3.1 % Basophils (%) (Auto) 0.4 % Neutrophils # (Auto) 2.97 K/uL (1.4-6.5) Lymphocytes # (Auto) 1.51 K/uL (1.2-3.4) Monocytes # (Auto) 0.19 K/uL (0.11-0.59) Eosinophils # (Auto) 0.15 K/uL (0-0.5) Basophils # (Auto) 0.02 K/uL (0-0.2) RDW Standard Deviation 41.9 fL (36.4-46.3) RDW Coefficient of Variation 12.7 % (11.5-14.5) Immature Granulocyte % (Auto) 0.2 % Immature Granulocyte # (Auto) 0.01 K/uL (0.00-0.02) Anion Gap 7.0 mmol/L (3-11) Est Creatinine Clear Calc Drug Dose 104.0 ml/min Estimated GFR () 126.6 Estimated GFR (Non- 109.3 BUN/Creatinine Ratio 16.5 (10-20) Calcium Level 8.8 mg/dl (8.5-10.1) Total Bilirubin 0.3 mg/dl (0.2-1) Direct Bilirubin 0.1 mg/dl (0-0.2) Aspartate Amino Transf (AST/SGOT) 53 U/L (15-37) Alanine Aminotransferase (ALT/SGPT) 80 U/L (12-78) Alkaline Phosphatase 111 U/L (45-117) Total Protein 7.1 gm/dl (6.4-8.2) Albumin 3.6 gm/dl (3.4-5.0) Lipase 196 U/L (73-393) Laboratory results per my review. Medications Administered Medications (Trade) Dose Ordered Sig/Jannie Route Start Time Stop Time Status Last Admin Dose Admin Sodium Chloride 1,000 ml @ 999 mls/hr Q1H1M STAT IV 07/14/17 12:11 07/14/17 13:11 DC 07/14/17 12:31 999 MLS/HR Morphine Sulfate (MoRPHine SULFATE INJ) 6 mg NOW STAT IV 07/14/17 12:11 07/14/17 12:12 DC 07/14/17 12:32 6 MG Ondansetron HCl (Zofran Inj) 4 mg NOW STAT IV 07/14/17 12:11 07/14/17 12:12 DC 07/14/17 12:31 4 MG Ondansetron HCl (Zofran Inj) 4 mg NOW STAT IV 07/14/17 14:57 07/14/17 14:58 DC 07/14/17 14:57 4 MG Pantoprazole Sodium 80 mg/ Dextrose 120 ml @ 480 mls/hr ONE ONCE IV 07/14/17 15:15 07/14/17 15:29 DC 07/14/17 15:15 480 MLS/HR ED Course ED COURSE: Vital signs were reviewed and showed hypertensive. The patients medical record was reviewed The above diagnostic studies were performed and reviewed. ED treatments and interventions as stated above. 1158: The patient was evaluated in room C7. A complete history and physical examination was performed. 1211: Zofran 4 mg IV, Morphine sulfate 6 mg IV, NSS 1000 ml @ 999 mls/hr IV 1448: The patient states that she has been having dark tarry stools. She just had a large, bloody bowel movement. 1452: I discussed the case with BILL Castillo with GI. She will come to the ED to evaluate the patient. 1453: Upon reevaluation, the patient had another large bloody bowel movement. I discussed my findings with the patient and she understands and agrees with the treatment plan. Based on the patients age, coexisting illnesses, exam and lab findings the decision to treat as an inpatient was made. The patient remained stable while under my care. The patient will be evaluated for further management. 1457: Zofran 4 mg IV, Protonix IV bolus/drip 1502: I reviewed the patient's case with Dr. Abreu. [facility] will evaluate the patient for further management. Medical Decision Differential diagnoses includes but is not limited to gastritis, peptic ulcer disease, GERD, gallbladder disease, pancreatitis, small bowel obstruction, acute coronary syndrome, pericarditis, ischemic bowel, irritable bowel disease, irritable bowel syndrome, appendicitis, diverticulitis, malignancy, hernia, urinary tract infection, torsion, /ectopic , perforation, trauma, infectious. Patient is a 36-year-old female who presents to ER for epigastric abdominal pain associated with nausea and vomiting. She notes this feels like her previous bouts pancreatitis. No fevers. Previous cholecystectomy and appendectomy. No alcohol. Labs show a normal lipase. LFTs show a slight transaminitis. Ultrasound was unremarkable. Previous cholecystectomy. Denies alcohol. No blood thinners. Admits to dark tarry stools earlier today. 2 large bowel movements of bright red blood. Discussed with Chyna SANCHEZ as she has seen DANIEL Hoyt. They will evaluate her. Discussed with internal medicine. Patient was typed and screened. Internal medicine placed a CT abdomen and pelvis. Vitals remain stable. Patient was admitted to internal medicine with a GI bleed on Protonix drip and bolus without history of varices or on blood thinners. Medication Reconcilliation Current Medication List: was personally reviewed by me Blood Pressure Screening Patient's blood pressure: Elevated blood pressure Blood pressure disposition: Elevated BP felt to be situational Consults Time Called: 1450 Consulting Physician: BILL Castillo Returned Call: 1452 I discussed the case with BILL Castillo with GI. She will come to the ED to evaluate the patient. Additional Consults: Time Called: 1500 Consulted Physician: Dr. Abreu Returned Call: 1502 Additional Comments: I reviewed the patient's case with Dr. Abreu. [facility] will evaluate the patient for further management. Impression Primary Impression: GI bleed Additional Impression: Pancreatitis Scribe Attestation The scribe's documentation has been prepared under my direction and personally reviewed by me in its entirety. I confirm that the note above accurately reflects all work, treatment, procedures, and medical decision making performed by me. Departure Information Dispostion Being Evaluated By Hospitalist Referrals Thien Kohli D.O. (PCP) Problem Qualifiers Primary Impression: GI bleed GI bleed type/associated pathology: unspecified gastrointestinal hemorrhage type Qualified Codes: K92.2 - Gastrointestinal hemorrhage, unspecified Additional Impression: Pancreatitis Chronicity: acute Pancreatitis type: unspecified pancreatitis type Acute pancreatitis complication: unspecified Qualified Codes: K85.90 - Acute pancreatitis without necrosis or infection, unspecified
--- NOTE | 2017-07-14 15:13 | History and Physical ---
History & Physical Date & Time of Service: Jul 14, 2017 at 15:13 Chief Complaint: Vomiting Primary Care Physician: No Doctor, Assigned History of Present Illness Source: patient This is 36 yo F with hx of anxiety disorder , conversion disorder , Pseudoseizures , reported to be narcotic pain meds dependent -follows with GI at [place] presents to [facility] ED as she noticed two episodes of dark stool at home this morning associated with Nausea /vomiting and abdominal pain pt does not take Aspirin , takes Advil liquid gel occasionally during her period for lower abdominal cramps her last period was approx 23 days back , took advil 2 tabs every 6 hrs ( mentions of taking it with meals ) did not had any bleeding episode in past 1 week pt takes Nexium for her acid reflux , does not report any worsening of acid reflux in the ER she had another episode of bloody bowel movement no dizzy spell her HB remains stable , with stable vitals no tachycardia or hypotension normal BUN /Cr pt mentions that she had similar episode on March this yr was seen in ER in [place] , was discharged and asked to have EGD as out pt pt says she was never contacted to schedule for the EGD Family History Patient reports no known family medical history. Social History Smoking Status: Never Smoker Drug Use: none Marital Status: in relationship Occupational Status: employed Allergies Coded Allergies: Ketorolac Tromethamine (Unverified Allergy, Unknown, rash, 07/14/17) Morphine (Unverified Allergy, Unknown, rash, 07/14/17) Penicillins (Verified Allergy, Unknown, rash, 07/14/17) Tramadol (Unverified Allergy, Unknown, rash, 06/22/17) Home Medications Scheduled Lamotrigine (Lamictal), 100 MG PO DAILY Omeprazole (Prilosec), 20 MG PO DAILY Scheduled PRN Alprazolam (Xanax), 0.5 MG PO UD PRN for Anxiety Review of Systems Constitutional: + weakness, + fatigue Abdomen: + pain, + nausea, + vomiting, + GI bleeding Physical Exam Vital Signs Date Time Temp Pulse Resp B/P (MAP) Pulse Ox O2 Delivery O2 Flow Rate FiO2 07/14/17 12:03 36.8 92 20 143/86 97 Room Air General Appearance: no apparent distress Head: normocephalic, atraumatic Eyes: PERRL, EOMI, sclerae normal Neck: thyroid normal Respiratory/Chest: chest non-tender, lungs clear Cardiovascular: regular rate, rhythm Abdomen/GI: soft, + tenderness (in epigastric area ) Extremities/Musculoskelatal: no pedal edema Neurologic/Psych: no motor/sensory deficits, alert, normal mood/affect, + abnormal cerebellar tests Skin: normal color, warm/dry, no rash Diagnostics Laboratory Results Results Past 24 Hours Test 07/14/17 12:20 07/14/17 12:30 07/14/17 15:09 Range/Units Urine Color YELLOW Urine Appearance CLEAR CLEAR Urine pH 6.0 4.5-7.5 Urine Specific [place] 1.014 1.000-1.030 Urine Protein NEG NEG Urine Glucose (UA) NEG NEG Urine Ketones NEG NEG Urine Occult Blood TRACE NEG Urine Nitrite NEG NEG Urine Bilirubin NEG NEG Urine Urobilinogen NEG NEG Urine Leukocyte Esterase TRACE NEG Urine WBC (Auto) 1-5 0-5 /hpf Urine RBC (Auto) 0-4 0-4 /hpf Urine Hyaline Casts (Auto) 1-5 0-5 /lpf Urine Epithelial Cells (Auto) >30 0-5 /lpf Urine Bacteria (Auto) NEG NEG Urine Yeast (Auto) BUDDING NONE PRSENT Urine Test NEG NEG White Blood Count 4.85 4.8-10.8 K/uL Red Blood Count 3.79 4.2-5.4 M/uL Hemoglobin 11.9 12.0-16.0 g/dL Hematocrit 34.3 37-47 % Mean Corpuscular Volume 90.5 80-100 fL Mean Corpuscular Hemoglobin 31.4 25-34 pg Mean Corpuscular Hemoglobin Concent 34.7 32-36 g/dl Platelet Count 224 130-400 K/uL Mean Platelet Volume 8.9 7.4-10.4 fL Neutrophils (%) (Auto) 61.3 % Lymphocytes (%) (Auto) 31.1 % Monocytes (%) (Auto) 3.9 % Eosinophils (%) (Auto) 3.1 % Basophils (%) (Auto) 0.4 % Neutrophils # (Auto) 2.97 1.4-6.5 K/uL Lymphocytes # (Auto) 1.51 1.2-3.4 K/uL Monocytes # (Auto) 0.19 0.11-0.59 K/uL Eosinophils # (Auto) 0.15 0-0.5 K/uL Basophils # (Auto) 0.02 0-0.2 K/uL RDW Standard Deviation 41.9 36.4-46.3 fL RDW Coefficient of Variation 12.7 11.5-14.5 % Immature Granulocyte % (Auto) 0.2 % Immature Granulocyte # (Auto) 0.01 0.00-0.02 K/uL Sodium Level 139 136-145 mmol/L Potassium Level 3.9 3.5-5.1 mmol/L Chloride Level 105 98-107 mmol/L Carbon Dioxide Level 27 21-32 mmol/L Anion Gap 7.0 3-11 mmol/L Blood Urea Nitrogen 12 7-18 mg/dl Creatinine 0.72 0.60-1.20 mg/dl Est Creatinine Clear Calc Drug Dose 104.0 ml/min Estimated GFR () 126.6 Estimated GFR (Non- 109.3 BUN/Creatinine Ratio 16.5 10-20 Random Glucose 108 70-99 mg/dl Calcium Level 8.8 8.5-10.1 mg/dl Total Bilirubin 0.3 0.2-1 mg/dl Direct Bilirubin 0.1 0-0.2 mg/dl Aspartate Amino Transf (AST/SGOT) 53 15-37 U/L Alanine Aminotransferase (ALT/SGPT) 80 12-78 U/L Alkaline Phosphatase 111 45-117 U/L Total Protein 7.1 6.4-8.2 gm/dl Albumin 3.6 3.4-5.0 gm/dl Lipase 196 73-393 U/L Microbiology Results 07/14/17 Urine Culture, Received Pending Diagnostic Radiology ABDOMINAL ULTRASOUND, RIGHT UPPER QUADRANT IMPRESSION: No significant abnormality identified within the right upper quadrant. CT ABDOMEN /PELVIS : IMPRESSION: 1. No CT evidence of gastrointestinal hemorrhage. No evidence of acute intra-abdominal pathology. 2. Nonobstructive 2 mm calculus in the right kidney. Impression Assessment and Plan GI BLEED : not sure of the etiology reports of dark tarry stool at home and blood per rectum in ER no further bowel movement since admission H&H stable with normal BUN /cr doubt of any brisk bleeding CT abdomen /pelvis shows no evidence of GI bleed or diverticulosis pt had multiple visit in [facility], ER with similar episodes Had multiple EGDs - 03/2014, 11/2014, 12/2015 -normal study appreciate input form GI will continue with IV Protonix gtt , plan is to transition to PO Protonix tomorrow if no further GI bleed and H&H remains stable out pt GI work up ABDOMINAL PAIN : not sure of the etiology abdominal exam benign CT abdomen /pelvis -no pathology noted pt continues to asked for IV Dilaudid with request to increase dosing hx of narcotic pain dependency -no NSAID's due to concern for GI bleed will order IV Tylenol plan to transition to her oral regimen of pain meds tomorrow HX OF PSEUDOSEIZURE : cont Lamictal DEPRESSION /ANXIETY DISORDER: PRN Xanax as per home regimen FULL CODE DVT PROPHYLAXIS : SCD AND TEDS DISPOSITION : possible discharge home tomorrow if no further episode of GI bleed pt likes to establish care with [facility] out pt follow up with GI for further work up Level of Care Telemetry Resuscitation Status FULL RESUSCITATION VTE Prophylaxis VTE Risk Assessment Done? Y/N: Yes Risk Level: Moderate Given or contraindicated: T.E.D. Stockings, SCD's
[2017-07-14] MEDS ORDERED: OPTIRAY 320 IV PRN (15:15)
[2017-07-14] MEDS ORDERED: PANTOprazole INJ 80 MG in DEXTROSE 5% 100ML IV ONE (15:15)
[2017-07-14] MEDS ORDERED: HYDROmorphone INJ 1 MG/ML SYR IV STA (15:28)
[2017-07-14] MEDS ORDERED: ONDANSETRON INJ 2 MG/ML 2 ML VIAL IV PRN (15:30)
[2017-07-14] MEDS ORDERED: PANTOprazole INJ 40 MG in DEXTROSE 5% 100ML IV SCH (15:30)
--- NOTE | 2017-07-14 15:37 | Gastrointestinal Consultation ---
Gastrointestinal Consultation Date of Consultation: Jul 14, 2017 Attending Physician: ED Physician Consulting Physician: Dr. Edouard Reason for Consultation: Hematochezia History of Present Illness Patient is a 36 year old female of Dr. Thien Kohli, in [place] with a hx of recurrent, idiopathic, recurrent pancreatitis as well as epileptic seizures, obesity, anxiety. She has undergone EUS previously but not ERCP, she estimates that she has had approx 10 episodes of acute pancreatitis since 2004 (then at [facility]) while going to College at [employer]. Her most recent episode was October 2016 at [place]. The patient lives in [place], [place]. She was feeling well until this morning at 0830 after eating yogurt for breakfast around 0800. She had Eaten [employer] pizza for supper last night. The pain began abruptly at 0830 this morning, accompanied by nausea, sweating and bloody diarrhea. The pain initially was all LUQ then a few hrs later it had migrated to the periumbilical area as well as the LUQ. Since that time, she had a total of 3 bloody moderately large volume red/black BMs with some clots. One of these BMs was a few minutes ago, here in the ED. In addition to the diarrhea , she vomited about 6 or 7 times since this started, though the vomiting has stopped since arriving here and she did not have any hematemesis. She tells me that she experienced rectally once in March or April 2017 and experienced similar bloody diarrhea. At that time, she presented to the [facility] ED and was released with the plan to undergo endoscopy but she tells me that she was never contacted and this never occurred. She also mentions that she has had intermittent episodes abdominal pain ever since studying in [employer] in 2014. On arrival, she had elevated AST 53, ALT 80. Her Alk phos, bili, lipase, BUN and WBCs are normal. She is awake, alert, oriented, and continues in moderate to severe LUQ and periumbilical abdominal pain. She has had improvement in the nausea and resolution of the vomiting with Zofran. A Protonix bolus was given and drip is ordered. Past Medical/Surgical History Medical Problems: (1) Epigastric abdominal pain Status: Acute (2) GI bleed Status: Acute (3) Seizure Status: Acute (4) Vomiting Status: Acute Past Medical History: 1. Seizures 2. Recurrent acute pancreatitis Past Surgical History: 1. EUS 2. Appendectomy 3. Cholecystectomy 4. Left foot surgery Family History Patient reports no known family medical history. Social History Smoking Status: Never Smoker Alcohol Use: none Drug Use: none Marital Status: in relationship Housing Status: lives alone Occupation Status: employed Allergies Coded Allergies: Ketorolac Tromethamine (Unverified Allergy, Unknown, rash, 07/14/17) Morphine (Unverified Allergy, Unknown, rash, 07/14/17) Penicillins (Verified Allergy, Unknown, rash, 07/14/17) Tramadol (Unverified Allergy, Unknown, rash, 06/22/17) Current Medications Home Meds and Scripts Medications Dose Route/Sig Max Daily Dose Days Date Category Prilosec (Omeprazole) 20 Mg Capcr 20 Mg PO DAILY 07/14/17 Reported Lamictal (Lamotrigine) 100 Mg Tab 100 Mg PO DAILY 07/14/17 Reported Xanax (Alprazolam) 0.5 Mg Tab 0.5 Mg PO UD PRN 06/18/17 Reported Review of Systems Constitutional: + sweats, No fever, No chills, No weight loss, No weakness Eyes: No eye pain, No redness ENT: No sore throat, No trouble swallowing, No pain on swallowing Respiratory: No cough, No wheezing, No shortness of breath, No dyspnea on exertion Cardiac: No chest pain, No edema, No palpitations Abdomen: + see HPI, + pain, + nausea, + vomiting, + diarrhea, + GI bleeding Neuro: No memory loss, No weakness, No numbness/tingling, No vertigo, No balance problems Psych: No depression symptoms, No anxiety, No insomnia Heme: No abnormal bleeding/bruising, No night sweats Endo: No excessive thirst, No excessive urination Skin: No rash, No itch, No new/changing skin lesions, No jaundice Physical Exam Date Time Temp Pulse Resp B/P (MAP) Pulse Ox O2 Delivery O2 Flow Rate FiO2 07/14/17 12:03 36.8 92 20 143/86 97 Room Air General Appearance: no apparent distress Eyes: normal inspection, EOMI Neck: supple, no adenopathy, thyroid normal Respiratory/Chest: chest non-tender, lungs clear, normal breath sounds, no accessory muscle use Cardiovascular: regular rate, rhythm, no JVD, no murmur Abdomen: normal bowel sounds, soft, no organomegaly, + tenderness (moderate LUQ and periumbilical tenderness) Extremities: normal inspection, no pedal edema, normal capillary refill Neurologic/Psych: alert, normal mood/affect, oriented x 3 Skin: normal color, no jaundice, warm/dry, no rash Laboratory Results Last 24 Hours Test 07/14/17 12:20 07/14/17 12:30 Urine Color YELLOW Urine Appearance CLEAR Urine pH 6.0 Urine Specific [place] 1.014 Urine Protein NEG Urine Glucose (UA) NEG Urine Ketones NEG Urine Occult Blood TRACE Urine Nitrite NEG Urine Bilirubin NEG Urine Urobilinogen NEG Urine Leukocyte Esterase TRACE Urine WBC (Auto) 1-5 /hpf Urine RBC (Auto) 0-4 /hpf Urine Hyaline Casts (Auto) 1-5 /lpf Urine Epithelial Cells (Auto) >30 /lpf Urine Bacteria (Auto) NEG Urine Yeast (Auto) BUDDING Urine Test NEG White Blood Count 4.85 K/uL Red Blood Count 3.79 M/uL Hemoglobin 11.9 g/dL Hematocrit 34.3 % Mean Corpuscular Volume 90.5 fL Mean Corpuscular Hemoglobin 31.4 pg Mean Corpuscular Hemoglobin Concent 34.7 g/dl Platelet Count 224 K/uL Mean Platelet Volume 8.9 fL Neutrophils (%) (Auto) 61.3 % Lymphocytes (%) (Auto) 31.1 % Monocytes (%) (Auto) 3.9 % Eosinophils (%) (Auto) 3.1 % Basophils (%) (Auto) 0.4 % Neutrophils # (Auto) 2.97 K/uL Lymphocytes # (Auto) 1.51 K/uL Monocytes # (Auto) 0.19 K/uL Eosinophils # (Auto) 0.15 K/uL Basophils # (Auto) 0.02 K/uL RDW Standard Deviation 41.9 fL RDW Coefficient of Variation 12.7 % Immature Granulocyte % (Auto) 0.2 % Immature Granulocyte # (Auto) 0.01 K/uL Sodium Level 139 mmol/L Potassium Level 3.9 mmol/L Chloride Level 105 mmol/L Carbon Dioxide Level 27 mmol/L Anion Gap 7.0 mmol/L Blood Urea Nitrogen 12 mg/dl Creatinine 0.72 mg/dl Est Creatinine Clear Calc Drug Dose 104.0 ml/min Estimated GFR () 126.6 Estimated GFR (Non- 109.3 BUN/Creatinine Ratio 16.5 Random Glucose 108 mg/dl Calcium Level 8.8 mg/dl Total Bilirubin 0.3 mg/dl Direct Bilirubin 0.1 mg/dl Aspartate Amino Transf (AST/SGOT) 53 U/L Alanine Aminotransferase (ALT/SGPT) 80 U/L Alkaline Phosphatase 111 U/L Total Protein 7.1 gm/dl Albumin 3.6 gm/dl Lipase 196 U/L Impression Patient is a 36 year old female with hx of recurrent pancreatitis. She is experiencing the pain similar to pancreatitis and has mildly elevated LFTs, though lipase is normal. Pancreatic US is also normal. Evidence to suggest pancreatitis is limited, however, she is being admitted for hematochezia. Differentials considered are hemorrhoidal, diverticular, ischemic colitis. Though BUN is normal, upper GI bleeding from ulcer, small bowel AVM are also considered. Plan 1. One 1mg dose of dilaudid here iin the ED for pain. 2. Agree with Protonix drip and bolus. 3. IV fluids. 4. Ice chips po only. 5. Monitor outputs and Hb closely. 6. She will need eventual colonoscopy, though I am not sure of the timing. She should also have EGD as she has the upper abdomen pain with this rectal bleeding -especially if Hb drops. I have seen , examined and agree with the plan as outlined by BILL Xiong as above. -exam reveals soft abd -CT scan failed to show any evidence of inflammation around the pancreas around upper quadrant, and no evidence of ischemic bowel. -She's had no continued rectal bleeding and is tolerating liquid diet without issues. -Continue conservative care, this may be functional bowel disease less likely peptic ulcer disease or pancreaticobiliary pathology, not advance to solid food until not taking IV pain medication -Will need outpatient versus inpatient upper endoscopy if she is still here on Monday we'll plan on doing an upper endoscopy at that time.
[2017-07-14 16:46] LABS: INR 0.9 (0.9-1.1); PROTHROMBIN TIME (PATIENT) 9.8 SECONDS (9.0-12.0)
--- NOTE | 2017-07-14 16:57 | DIAGNOSTIC IMAGING REPORT ---
ABD/PELVIS IV CONTRAST ONLY CLINICAL HISTORY: 36 years-old Female presenting with abdominal pain /GI bleed . TECHNIQUE: Multidetector CT of the abdomen and pelvis was performed after the administration of intravenous contrast. IV contrast: 91 mL of Optiray 320. A dose lowering technique was used consistent with the principles of ALARA (as low as reasonably achievable). COMPARISON: Ultrasound performed earlier the same day. CT DOSE (mGy.cm): The estimated cumulative dose is 388.18 mGy.cm. 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 Lung bases: Lung bases clear. Normal heart size. No pericardial or pleural effusion. Liver: Normal morphology. No liver lesion. Patent hepatic vasculature. Biliary: Slight prominence of intrahepatic bile ducts likely a reservoir effect in the post cholecystectomy state. No dilatation of the common bile duct. Gallbladder surgically absent. Pancreas: Normal. Spleen: Normal. Adrenal glands: Normal. Kidneys and ureters: Nonobstructing 2 mm calculus at the interpolar region of the right kidney. Renal parenchyma normal. No hydronephrosis. Ureters normal. Bladder: Normal. Pelvic organs: Uterus and ovaries normal. Surgical clip noted in the region of the left adnexa, possibly along the fallopian tube. Bowel: Postsurgical changes of appendectomy. No bowel obstruction. Allowing for under distention of bowel, no convincing evidence of intraluminal high density material to suggest extravasated intravenous contrast to correlate with the patient's gastrointestinal hemorrhage. Peritoneal cavity: No free fluid or intraperitoneal gas. Vasculature: Aorta and IVC patent and normal in caliber. Lymph nodes: No enlarged lymph nodes in the abdomen or pelvis. Abdominal wall: Focal skin thickening along the midline lower abdomen may relate to injection of medication (series 2 image 61). Small fat-containing umbilical hernia. Musculoskeletal: Normal. IMPRESSION: 1. No CT evidence of gastrointestinal hemorrhage. No evidence of acute intra-abdominal pathology. 2. Nonobstructive 2 mm calculus in the right kidney. Electronically signed by: Abdi Lomas M.D. 07/14/2017 4:55 PM Dictated Date/Time: 07/14/2017 4:49 PM
[2017-07-14 17:46] VITALS: BP 119/79; PULSE 79; TEMP 37; O2SAT 97; Ht 154.9 cm; Wt 84.0 kg
[2017-07-14] MEDS ORDERED: HYDROmorphone INJ 1 MG/ML SYR IV PRN (18:00)
[2017-07-14 19:13] VITALS: BP 114/71; PULSE 79; TEMP 36.6; O2SAT 97
[2017-07-14 20:00] VITALS: O2SAT 97
[2017-07-14] MEDS ORDERED: INFLUENZA ADMINISTRATION CHARGE ONE (20:45)
[2017-07-14] MEDS ORDERED: INFLUENZA VIRUS QUAD VACCINE 0.5 ML SYR IM. ONE (20:45)
[2017-07-14] MEDS: HYDROmorphone INJ 1 MG/ML SYR IV PRN (21:30)
[2017-07-14] MEDS: PANTOprazole INJ 40 MG in DEXTROSE 5% 100ML IV SCH (21:31)
[2017-07-14 22:56] LABS: HEMATOCRIT 34.2 % (37-47)
[2017-07-14] MEDS: ALPRAZOLAM 0.5 MG TAB PO PRN (23:27)
[2017-07-14 23:38] VITALS: BP 121/74; PULSE 93; TEMP 36.7; O2SAT 97
[2017-07-15] MEDS: HYDROmorphone INJ 1 MG/ML SYR IV PRN ×3 (01:22→07:54)
[2017-07-15] MEDS: PANTOprazole INJ 40 MG in DEXTROSE 5% 100ML IV SCH ×2 (02:02→06:52)
[2017-07-15 04:18] VITALS: BP 114/68; PULSE 84; TEMP 36.7; O2SAT 98
[2017-07-15 06:11] LABS: HEMATOCRIT 33.7 % (37-47); MEAN CELL VOLUME 90.6 fL (80-100); MEAN CORPUSCULAR HEMOGLOBIN 31.5 pg (25-34); MEAN CORPUSCULAR HGB CONC 34.7 g/dl (32-36); MEAN PLATELET VOLUME 9.6 fL (7.4-10.4); PLATELET COUNT 182 K/uL (130-400); RED BLOOD COUNT 3.72 M/uL (4.2-5.4); WHITE BLOOD COUNT 4.79 K/uL (4.8-10.8)
[2017-07-15 06:49] LABS: BUN/CREATININE RATIO 9.5 (10-20); CREATININE 0.78 mg/dl (0.60-1.20); POTASSIUM 3.2 mmol/L (3.5-5.1)
[2017-07-15 07:27] VITALS: BP 135/84; PULSE 86; TEMP 36.7; O2SAT 97
[2017-07-15 08:00] VITALS: O2SAT 94
[2017-07-15] MEDS: ALPRAZOLAM 0.5 MG TAB PO PRN (10:33)
[2017-07-15] MEDS ORDERED: PANT40TA PO (10:57)
--- NOTE | 2017-07-15 10:58 | Discharge Instructions ---
Discharge Instructions Date of Service Jul 15, 2017. Admission Reason for Admission: Gi Bleed Discharge Discharge Diagnosis / Problem: ABDOMINAL PAIN /EPISODE OF GI BLEED RESOLVED Discharge Goals Goal(s): Decrease discomfort, Increase independence, Diagnostic testing Activity Recommendations Activity Limitations: resume your previous activity . Instructions / Follow-Up Instructions / Follow-Up HOSPITAL FOLLOW UP 07/19/2017 1:00 PM Dana Lovett DO [facility] Current Hospital Diet Patient's current hospital diet: Regular Diet Discharge Diet Recommended Diet: Regular Diet Pending Studies Studies pending at discharge: no Medical Emergencies . Who to Call and When: Medical Emergencies: If at any time you feel your situation is an emergency, please call 911 immediately. . Non-Emergent Contact Non-Emergency issues call your: Primary Care Provider . . "Provider Documentation" section prepared by Teresa Abreu. . VTE Core Measure Inpt VTE Proph given/why not?: Elba Baeza, SCD's
--- NOTE | 2017-07-15 11:00 | Progress Note ---
Progress Note Date of Service Jul 15, 2017. Progress Note PT's H&H and vitals remains stable no episode of GI bleed advanced diet to regular d/c PPI gtt daily Protonix PO D/C IV Dilaudid-no abdominal pathology noted in CT Abdomen stable to be discharged home today d/w pt over phone , pt will be seen later today in agreement with plan out pt follow up with family medicine scheduled with Dr Wan at [facility] on 07/19/2017 @ 1:00 PM will be discharged home if able to tolerated regular diet at lunch
[2017-07-15 12:20] VITALS: BP 116/74; PULSE 85; TEMP 36.8; O2SAT 95
--- NOTE | 2017-07-15 20:51 | Discharge Summary ---
Discharge Summary Date of Service Jul 15, 2017. Discharge Summary Admission Date: Jul 14, 2017 at 15:08 Discharge Date: Jul 15, 2017 Discharge Disposition: Home Principal Diagnosis: ABDOMINAL PAIN /EPISODE OF GI BLEED RESOLVED Consultations: GI Medication Reconciliation New Medications: Pantoprazole Sodium (Protonix) 40 Mg Tab 1 TAB PO DAILY for 30 Days, #30 TAB 5 Refills Continued Medications: Alprazolam (Xanax) 0.5 Mg Tab 0.5 MG PO UD PRN for Anxiety Lamotrigine (Lamictal) 100 Mg Tab 100 MG PO DAILY, TAB Discontinued Medications: Omeprazole (Prilosec) 20 Mg Capcr 20 MG PO DAILY, CAP Admission Information HPI (per Admitting provider): This is 36 yo F with hx of anxiety disorder , conversion disorder , Pseudoseizures , reported to be narcotic pain meds dependent -follows with GI at [place] presents to [facility] ED as she noticed two episodes of dark stool at home this morning associated with Nausea /vomiting and abdominal pain pt does not take Aspirin , takes Advil liquid gel occasionally during her period for lower abdominal cramps her last period was approx 23 days back , took advil 2 tabs every 6 hrs ( mentions of taking it with meals ) did not had any bleeding episode in past 1 week pt takes Nexium for her acid reflux , does not report any worsening of acid reflux in the ER she had another episode of bloody bowel movement no dizzy spell her HB remains stable , with stable vitals no tachycardia or hypotension normal BUN /Cr pt mentions that she had similar episode on March this yr was seen in ER in [place] , was discharged and asked to have EGD as out pt pt says she was never contacted to schedule for the EGD Physical Exam (per Admitting): General Appearance: no apparent distress Head: normocephalic, atraumatic Eyes: PERRL, EOMI, sclerae normal Neck: thyroid normal Respiratory/Chest: chest non-tender, lungs clear Cardiovascular: regular rate, rhythm Abdomen/GI: soft, + tenderness (in epigastric area ) Extremities/Musculoskelatal: no pedal edema Neurologic/Psych: no motor/sensory deficits, alert, normal mood/affect, + abnormal cerebellar tests Skin: normal color, warm/dry, no rash Hospital Course GI BLEED : no further bowel movement since admission H&H stable with normal BUN /cr doubt of any brisk bleeding CT abdomen /pelvis shows no evidence of GI bleed or diverticulosis pt had multiple visit [place] [facility] with similar episodes Had multiple EGDs - 03/2014, 11/2014, 12/2015 -normal study appreciate input form GI out pt EGD diet advanced to regular tolerating well stable to be discharged home today ABDOMINAL PAIN : CT abdomen /pelvis -no pathology noted pt continues to asked for IV Dilaudid with request to increase dosing hx of narcotic pain dependency will D/c all narcotics pt is counselled stable to be discharged home today HX OF PSEUDOSEIZURE : cont Lamictal DEPRESSION /ANXIETY DISORDER: PRN Xanax as per home regimen FULL CODE DVT PROPHYLAXIS : SCD AND TEDS DISPOSITION : discharge home today establish family physician follow up at [facility] Total time spent on discharge = 35 mi ns This includes examination of the patient, discharge planning, medication reconciliation, and communication with other providers. Discharge Instructions Discharge Instructions Date of Service Jul 15, 2017. Admission Reason for Admission: Gi Bleed Discharge Discharge Diagnosis / Problem: ABDOMINAL PAIN /EPISODE OF GI BLEED RESOLVED Discharge Goals Goal(s): Decrease discomfort, Increase independence, Diagnostic testing Activity Recommendations Activity Limitations: resume your previous activity . Instructions / Follow-Up Instructions / Follow-Up HOSPITAL FOLLOW UP 07/19/2017 1:00 PM Dana Lovett, [facility] Current Hospital Diet Patient's current hospital diet: Regular Diet Discharge Diet Recommended Diet: Regular Diet Pending Studies Studies pending at discharge: no Medical Emergencies . Who to Call and When: Medical Emergencies: If at any time you feel your situation is an emergency, please call 911 immediately. . Non-Emergent Contact Non-Emergency issues call your: Primary Care Provider . . "Provider Documentation" section prepared by Teresa Abreu. . VTE Core Measure Inpt VTE Proph given/why not?: Elba Baeza, SCD's Additional Copies To Dana Lovett D.O.
[2017-07-16] MEDS ORDERED: PANTOprazole SOD 40 MG TAB PO SCH (09:00)
== END 2017-07-15 12:34 | disposition home or self-care (01) | DRG 379 ==
LOC: EDBD 11:56 → C.EDC 11:57 → C.2T 15:08 → ENRESERV 15:47
PROVIDERS: ADMIT Hospitalist; ATTEND Hospitalist
DX: K92.1 Melena (principal); R10.9 Unspecified abdominal pain; F32.9 Major depressive disorder, single episode, unspecified; F41.9 Anxiety disorder, unspecified; E66.9 Obesity, unspecified; Z79.899 Other long term (current) drug therapy; Z68.35 Body mass index [BMI] 35.0-35.9, adult

== ENCOUNTER 2017-08-28 08:03 | Emergency (ER) | payer OTHER ==
[~2017-08-28] VITALS: Ht 154.9 cm; Wt 87.7 kg
[~2017-08-28 08:03] MED LIST changes: -CITA10TA8 PO; +CITA40TA12 PO; +LAMO100T16 PO; -LAMO200T38 PO; +PANT40TA PO
[2017-08-28 08:07] VITALS: TEMP 36.7; Ht 154.9 cm; Wt 87.7 kg
--- NOTE | 2017-08-28 08:20 | EMERGENCY ROOM VISIT NOTE ---
History First contact with patient: 08:05 Chief Complaint: FLANK PAIN Stated Complaint: NAUSEA/FLANK PAIN History of Present Illness The patient is a 36 year old female who presents to the Emergency Room with complaints of right-sided flank pain and nausea and vomiting that awoke her at 0400 today. She has passed a renal stone from the right 4 years ago and states this feels exactly the same. Rates pain at 9/10 currently. She also reports blood in her urine. LMP was 2 weeks ago, states no chance she could be . She reports pain on the right side in the back (CVA) radiating anteriorly to her right flank. She also reports burning on urination. She states her urine was dark yesterday despite adequate water intake. She is requesting zofran and dilauded, has adverse reaction to morphine. Review of Systems See HPI for pertinent positives and negatives. A total of ten systems were reviewed and were otherwise negative. Constitutional: No fever, No chills, No sweats, No weight loss, No weakness , No fatigue, No problem reported Eyes: No worsening of vision, No eye pain, No redness, No discharge, No diplopia, No problem reported ENT: No hearing loss, No unusual epistaxis, No nasal symptoms, No sore throat, No tinnitus, No dental problems, No trouble swallowing, No problem reported Respiratory: No cough, No sputum, No wheezing, No shortness of breath, No dyspnea on exertion, No dyspnea at rest, No hemoptysis, No problem reported Cardiovascular: No chest pain, No orthopnea, No PND, No edema, No claudication, No palpitations, No problem reported Abdomen: + pain, + nausea, + vomiting Genitourinary - Female: + dysuria, + urinary frequency, + hematuria Integumentary: No rash, No itch, No new/changing skin lesions, No color change, No bleeding, No problem reported Past Medical/Surgical History Medical Problems: (1) Pancreatitis Surgical Problems: (1) H/O hernia repair (2) Hx of appendectomy (3) Hx of cholecystectomy Family History Patient reports no known family medical history. Social History Smoking Status: Never Smoker Alcohol Use: none Drug Use: none Marital Status: in relationship Housing Status: lives alone Occupation Status: employed Current/Historical Medications Scheduled Citalopram Hydrobromide (Celexa), 40 MG PO DAILY Dicyclomine Hcl (Dicyclomine Hcl), 1 CAP PO TID Lamotrigine (Lamictal), 100 MG PO DAILY Pantoprazole (Protonix), 40 MG PO DAILY Sulfamethoxazole-Trimethoprim (Bactrim Ds 800MG/160MG), 1 TAB PO BID Scheduled PRN Alprazolam (Xanax), 1 MG PO TID PRN for Anxiety Physical Exam Vital Signs Date Time Temp Pulse Resp B/P (MAP) Pulse Ox O2 Delivery O2 Flow Rate FiO2 08/28/17 13:20 85 20 132/84 98 Room Air 08/28/17 12:35 76 18 132/85 97 Room Air 08/28/17 10:31 72 18 132/85 97 Room Air 08/28/17 08:07 36.7 90 18 127/80 98 Room Air Physical Exam see below General Appearance: WD/WN, + mild distress Head: normocephalic, atraumatic Eyes: normal inspection, EOMI, sclerae normal ENT: hearing grossly normal, pharynx normal Neck: supple, no adenopathy Respiratory/Chest: chest non-tender, lungs clear, normal breath sounds, no respiratory distress, no accessory muscle use Cardiovascular: regular rate, rhythm, no gallop, no murmur, normal peripheral pulses Abdomen / GI: normal bowel sounds, soft, + tenderness Back: normal inspection, + right CVA tenderness, + pertinent finding ( tattoo on lower back ) Extremities: no calf tenderness, no pedal edema Neurologic/Psych: no motor/sensory deficits, alert, normal mood/affect, normal reflexes, oriented x 3 Medical Decision & Procedures ER Provider Diagnostic Interpretation: ABDOMEN AND PELVIS CT WITHOUT CONTRAST CT DOSE: 1221.01 mGy.cm HISTORY: Right flank pain, PMH of renal calculi TECHNIQUE: Multiaxial CT images of the abdomen and pelvis were performed without the use of intravenous and oral contrast according to the standard department stone protocol. A dose lowering technique was utilized adhering to the principles of ALARA. COMPARISON STUDY: Abdomen and pelvis CT 08/11/2017. FINDINGS: The lung bases are clear. No pneumoperitoneum. No pneumatosis. Healing nondisplaced right anterior seventh and eighth rib fractures are again noted. Old, healed left anterior rib fractures. There are few punctate bilateral renal calculi, unchanged. No ureteral stones. No hydronephrosis. Cholecystectomy. The unenhanced liver again demonstrates a slightly nodular contour suggestive of early cirrhosis. No hepatic or splenic masses on this noncontrast study. The unenhanced adrenal glands and pancreas are unremarkable. No retroperitoneal lymphadenopathy. Bilateral ovarian cysts with the largest on the left measuring 2.7 cm. The right ovarian cyst measures 2.3 cm. No significant pelvic free fluid. Bladder wall thickening is likely due to underdistention. Suboptimal evaluation for bowel pathology due to the lack of intravenous and oral contrast. However, there is no definite bowel wall thickening or obstruction. The appendix appears surgically absent. IMPRESSION: 1. Stable bilateral nephrolithiasis. No ureteral stones. No hydronephrosis. 2. Redemonstration of the healing right anterior seventh and eighth rib fractures. 3. No definite bowel wall thickening or obstruction. 4. Evidence for prior appendectomy. 5. Bladder wall thickening is likely due to underdistention. Recommend correlation with urinalysis. ABDOMINAL ULTRASOUND, RIGHT UPPER QUADRANT HISTORY: Right upper quadrant abdominal pain. COMPARISON: Right upper quadrant ultrasound July 14, [address] of the abdomen and pelvis August 28, 2017. FINDINGS: Liver is sonographically normal. Common bile duct is slightly dilated, measuring 7 mm, status post cholecystectomy. No common bile duct calculi are identified although the distal common bile duct is obscured. There is no right hydronephrosis. The pancreatic body is normal. The head and tail are partially obscured. A 4 mm right renal calculus is noted. There is no right hydronephrosis. IMPRESSION: 1. Borderline dilatation of the common bile duct. This is likely related to prior cholecystectomy although could be correlated with obstructive liver function tests. 2. Right-sided nephrolithiasis. No right hydronephrosis. Laboratory Results 08/28/17 08:10 Red Blood Count 4.30, Mean Corpuscular Volume 90.2, Mean Corpuscular Hemoglobin 30.5, Mean Corpuscular Hemoglobin Concent 33.8, Mean Platelet Volume 8.8, Neutrophils (%) (Auto) 40.6, Lymphocytes (%) (Auto) 44.7, Monocytes (%) (Auto) 6.4, Eosinophils (%) (Auto) 7.1, Basophils (%) (Auto) 1.0, Neutrophils # (Auto) 1.71, Lymphocytes # (Auto) 1.88, Monocytes # (Auto) 0.27, Eosinophils # (Auto) 0.30, Basophils # (Auto) 0.04 08/28/17 08:10 Test 08/28/17 08:10 08/28/17 08:15 White Blood Count 4.21 K/uL (4.8-10.8) Red Blood Count 4.30 M/uL (4.2-5.4) Hemoglobin 13.1 g/dL (12.0-16.0) Hematocrit 38.8 % (37-47) Mean Corpuscular Volume 90.2 fL (80-100) Mean Corpuscular Hemoglobin 30.5 pg (25-34) Mean Corpuscular Hemoglobin Concent 33.8 g/dl (32-36) Platelet Count 262 K/uL (130-400) Mean Platelet Volume 8.8 fL (7.4-10.4) Neutrophils (%) (Auto) 40.6 % Lymphocytes (%) (Auto) 44.7 % Monocytes (%) (Auto) 6.4 % Eosinophils (%) (Auto) 7.1 % Basophils (%) (Auto) 1.0 % Neutrophils # (Auto) 1.71 K/uL (1.4-6.5) Lymphocytes # (Auto) 1.88 K/uL (1.2-3.4) Monocytes # (Auto) 0.27 K/uL (0.11-0.59) Eosinophils # (Auto) 0.30 K/uL (0-0.5) Basophils # (Auto) 0.04 K/uL (0-0.2) RDW Standard Deviation 41.9 fL (36.4-46.3) RDW Coefficient of Variation 12.8 % (11.5-14.5) Immature Granulocyte % (Auto) 0.2 % Immature Granulocyte # (Auto) 0.01 K/uL (0.00-0.02) Anion Gap 7.0 mmol/L (3-11) Est Creatinine Clear Calc Drug Dose 115.6 ml/min Estimated GFR () 131.6 Estimated GFR (Non- 113.6 BUN/Creatinine Ratio 13.1 (10-20) Calcium Level 8.8 mg/dl (8.5-10.1) Total Bilirubin 0.9 mg/dl (0.2-1) Direct Bilirubin 0.3 mg/dl (0-0.2) Aspartate Amino Transf (AST/SGOT) 85 U/L (15-37) Alanine Aminotransferase (ALT/SGPT) 113 U/L (12-78) Alkaline Phosphatase 128 U/L (45-117) Total Protein 7.4 gm/dl (6.4-8.2) Albumin 3.6 gm/dl (3.4-5.0) Lipase 147 U/L (73-393) Urine Color SARKIS Urine Appearance CLEAR (CLEAR) Urine pH (4.5-7.5) Urine Specific Steele 1.022 (1.000-1.030) Urine Protein POS (NEG) Urine Glucose (UA) (NEG) Urine Ketones (NEG) Urine Occult Blood (NEG) Urine Nitrite (NEG) Urine Bilirubin (NEG) Urine Urobilinogen (NEG) Urine Leukocyte Esterase (NEG) Urine RBC >30 /hpf (0-4) Urine WBC 5-10 /hpf (0-5) Urine Epithelial Cells >30 /lpf (0-5) Urine Bacteria NEG (NEG) Urine Test NEG (NEG) Medications Administered Medications (Trade) Dose Ordered Sig/Jannie Route Start Time Stop Time Status Last Admin Dose Admin Ondansetron HCl (Zofran Inj) 4 mg NOW STAT IV 08/28/17 08:26 08/28/17 08:36 DC 08/28/17 08:40 4 MG Ondansetron HCl (Zofran Inj) 4 mg Q4H PRN IV 08/28/17 08:30 09/27/17 08:29 08/28/17 12:35 4 MG Hydromorphone HCl (Dilaudid Inj) 0.5 mg STK-MED ONCE .ROUTE 08/28/17 08:39 08/28/17 08:40 DC 08/28/17 08:41 0.5 MG Sodium Chloride 999 ml @ 999 mls/hr Q1H IV 08/28/17 09:45 08/28/17 10:44 DC 08/28/17 09:36 999 MLS/HR Hydromorphone HCl (Dilaudid Inj) 0.5 mg NOW STAT IV 08/28/17 10:15 08/28/17 10:16 DC 08/28/17 10:33 0.5 MG Trimethoprim/ Sulfamethoxazole (Septra Ds 800/ 160MG Tab) 1 tab NOW STAT PO 08/28/17 12:58 08/28/17 12:59 DC 08/28/17 13:16 1 TAB ED Course 0815: obtained full H&P from patient 0830: ordered CT for stone, zofran 4 mg and dilauded 0.5 mg IV, and 1L bolus NSS 0930: patient reassessed, still reports continued pain. 1015: patient updated with scan results and laboratory results. Hepatic/RUQ USS ordered for elevated LFTs. second dose of 0.5 dilauded given 1240: Dr. ayala discussed the patient's case with Josseline Meyer, Gastroenterology [employer] who saw the patient. She feels that the patient is okay to go home. 1256: Upon reevaluation, the patient is resting comfortably. Dr. Ayala discussed findings with the patient and she understands and agrees with the treatment plan. Based on the patients age, coexisting illnesses, exam and lab findings the decision to treat as an outpatient was made. The patient remained stable while under our care. The patient appeared well at the time of discharge. 1258: ordered Trimethoprim/Sulfamethoxazole 1 tab PO. Medical Decision Prior records/ancillary studies reviewed. Triage Nursing notes reviewed. Additional history obtained from the family. The patient's history was concerning for right flank pain. Differential diagnosis: Etiologies such as renal colic, appendicitis, diverticulitis, mesenteric ischemia, aortic pathology, infections, inflammatory bowel disease, PUD, biliary pathology, UTI, as well as others were entertained. Physical examination findings: As above. ER treatment provided: zofran, 0.5 mg dilauded x 2 On reassessment the patient felt minimally better. Diagnostic interpretation by me: The labs revealed hypokalemia Urinalysis revealed negative . There was no sign of UTI. Imaging studies: CT of the abdomen and pelvis as above. Consultation: By the evaluation outlined above emergent etiologies such as appendicitis, diverticulitis, mesenteric ischemia, aortic pathology, infections, inflammatory bowel disease, PUD, biliary pathology, UTI, as well as others were deemed relatively unlikely. The patient was informed about the findings as listed above. All questions were answered and she was pleased with the treatment. Return instructions were outlined and the patient was discharged in stable condition. Outpatient prescription management: Sulfamethoxazole-Trimethoprim (Bactrim Ds 800MG/160MG) 1 Tab Tab 1 TAB PO BID for 7 Days, #14 TAB Prov: Matt Ayala DO Dicyclomine Hcl (DICYCLOMINE HCL) 10 Mg Cap 1 CAP PO TID for 10 Days, #30 CAP 0 Refills Prov: Matt Ayala DO The patient was referred back to their primary care physician for follow-up in 2 to 3 days for a recheck of the current condition. Blood Pressure Screening Patient's blood pressure: Normal blood pressure Impression Primary Impression: Right flank pain Departure Information Dispostion Home / Self-Care Condition GOOD Prescriptions Sulfamethoxazole-Trimethoprim (Bactrim Ds 800MG/160MG) 1 Tab Tab 1 TAB PO BID for 7 Days, #14 TAB Prov: Matt Ayala DO 08/28/17 Dicyclomine Hcl (DICYCLOMINE HCL) 10 Mg Cap 1 CAP PO TID for 10 Days, #30 CAP 0 Refills Prov: Matt Ayala, 08/28/17 Referrals No Doctor, Assigned (PCP) Patient Instructions ED Flank Pain Uncertain Cause, [facility] Resident Tracking Resident Involvement: Resident Care Provided Care Provided: Adult ED
[2017-08-28] MEDS ORDERED: ONDANSETRON INJ 2 MG/ML 2 ML VIAL IV STA (08:26)
[2017-08-28] MEDS ORDERED: HYDROmorphone INJ 0.5 MG/0.5 ML SYR IV STA ×3 (08:26→10:15)
[2017-08-28 08:30] LABS: BASO ABS # 0.04 K/uL (0-0.2); COMPLETE YES; EOS % 7.1 %; HEMATOCRIT 38.8 % (37-47); IG% 0.2 %; LYMPH % 44.7 %; LYMPH ABS # 1.88 K/uL (1.2-3.4); MEAN CELL VOLUME 90.2 fL (80-100); MEAN CORPUSCULAR HEMOGLOBIN 30.5 pg (25-34); MEAN CORPUSCULAR HGB CONC 33.8 g/dl (32-36); MEAN PLATELET VOLUME 8.8 fL (7.4-10.4); MONO % 6.4 %; NEUT % 40.6 %; PLATELET COUNT 262 K/uL (130-400); WHITE BLOOD COUNT 4.21 K/uL (4.8-10.8)
[2017-08-28] MEDS ORDERED: ONDANSETRON INJ 2 MG/ML 2 ML VIAL IV PRN (08:30)
[2017-08-28] MEDS ORDERED: HYDROmorphone INJ 0.5 MG/0.5 ML SYR ONE (08:39)
[2017-08-28 08:45] LABS: MANUAL MICROSCOPIC REQUIRED? YES; REVIEW REQ? NO
[2017-08-28] MEDS ORDERED: SODIUM CHLORIDE 0.9% 1000ML 1,000 ML IV ONE (08:45)
[2017-08-28 08:46] LABS: URINE COLOR AMBER
[2017-08-28 08:46] LABS: BUN/CREATININE RATIO 13.1 (10-20); CALCIUM 8.8 mg/dl (8.5-10.1); CREATININE 0.69 mg/dl (0.60-1.20); POTASSIUM 3.1 mmol/L (3.5-5.1)
[2017-08-28 08:48] LABS: URINE APPEARANCE CLEAR (CLEAR); URINE SPECIFIC GRAVITY 1.022 (1.000-1.030)
[2017-08-28 08:51] LABS: SULFASALICYLIC ACID POS (NEG)
[2017-08-28 08:54] LABS: URINE RBC >30 /hpf (0-4)
[2017-08-28 08:57] LABS: URINE BACTERIA NEG (NEG)
[2017-08-28 09:00] LABS: ZZUR CULT IF INDIC CLEAN CATCH NO
--- NOTE | 2017-08-28 09:08 | DIAGNOSTIC IMAGING REPORT ---
ABDOMEN AND PELVIS CT WITHOUT CONTRAST CT DOSE: 1221.01 mGy.cm HISTORY: Right flank pain, PMH of renal calculi TECHNIQUE: Multiaxial CT images of the abdomen and pelvis were performed without the use of intravenous and oral contrast according to the standard department stone protocol. A dose lowering technique was utilized adhering to the principles of ALARA. COMPARISON STUDY: Abdomen and pelvis CT 08/11/2017. FINDINGS: The lung bases are clear. No pneumoperitoneum. No pneumatosis. Healing nondisplaced right anterior seventh and eighth rib fractures are again noted. Old, healed left anterior rib fractures. There are few punctate bilateral renal calculi, unchanged. No ureteral stones. No hydronephrosis. Cholecystectomy. The unenhanced liver again demonstrates a slightly nodular contour suggestive of early cirrhosis. No hepatic or splenic masses on this noncontrast study. The unenhanced adrenal glands and pancreas are unremarkable. No retroperitoneal lymphadenopathy. Bilateral ovarian cysts with the largest on the left measuring 2.7 cm. The right ovarian cyst measures 2.3 cm. No significant pelvic free fluid. Bladder wall thickening is likely due to underdistention. Suboptimal evaluation for bowel pathology due to the lack of intravenous and oral contrast. However, there is no definite bowel wall thickening or obstruction. The appendix appears surgically absent. IMPRESSION: 1. Stable bilateral nephrolithiasis. No ureteral stones. No hydronephrosis. 2. Redemonstration of the healing right anterior seventh and eighth rib fractures. 3. No definite bowel wall thickening or obstruction. 4. Evidence for prior appendectomy. 5. Bladder wall thickening is likely due to underdistention. Recommend correlation with urinalysis. Electronically signed by: Malcom Esteban M.D. 08/28/2017 9:06 AM Dictated Date/Time: 08/28/2017 9:00 AM
[2017-08-28] MEDS ORDERED: ALPR1TAB3 PO (09:14)
[2017-08-28] MEDS ORDERED: SODIUM CHLORIDE 0.9% 1000ML 1,000 ML IV SCH (09:45)
--- NOTE | 2017-08-28 11:53 | DIAGNOSTIC IMAGING REPORT ---
ABDOMINAL ULTRASOUND, RIGHT UPPER QUADRANT HISTORY: Right upper quadrant abdominal pain. COMPARISON: Right upper quadrant ultrasound July 14, [address] of the abdomen and pelvis August 28, 2017. FINDINGS: Liver is sonographically normal. Common bile duct is slightly dilated, measuring 7 mm, status post cholecystectomy. No common bile duct calculi are identified although the distal common bile duct is obscured. There is no right hydronephrosis. The pancreatic body is normal. The head and tail are partially obscured. A 4 mm right renal calculus is noted. There is no right hydronephrosis. IMPRESSION: 1. Borderline dilatation of the common bile duct. This is likely related to prior cholecystectomy although could be correlated with obstructive liver function tests. 2. Right-sided nephrolithiasis. No right hydronephrosis. Electronically signed by: Calvin Waller M.D. 08/28/2017 11:52 AM Dictated Date/Time: 08/28/2017 11:50 AM
[2017-08-28] MEDS ORDERED: DICY10CA12 PO (12:40)
[2017-08-28] MEDS ORDERED: SULFAMETHOXAZOLE/TRIMETHOPRIM DS 800/160MG TAB PO STA (12:58)
[2017-08-28] MEDS ORDERED: SULF800T23 PO (12:59)
[2017-08-28 13:20] VITALS: BP 132/84; PULSE 85; O2SAT 98
--- NOTE | 2017-08-28 14:29 | EMERGENCY ROOM VISIT NOTE ---
History Report prepared by Francie: Roxana Culp Under the Supervision of: Dr. Matt Ayala D.O. First contact with patient: 08:04 Chief Complaint: FLANK PAIN Stated Complaint: NAUSEA/FLANK PAIN History of Present Illness The patient is a 36 year old female who presents to the Emergency Room with complaints of persistent right sided flank pain that began four hours prior to arrival. She currently rates her discomfort as a 10/10 in severity. The patient states that she has a history kidney stones, noting that her pain today feels similar to her pain she has had with previous kidney stones. She additionally reports nausea and vomiting. The patient states that she has been experiencing hematuria and burning with urination. She states that her last menstrual period was two weeks ago and denies any chance of . The patient notes that she was recently evaluated in the emergency department for abdominal pain, but states that her pain today feels different. She states that her pain is worsened with bending, turning, and twisting. She states that her pain today radiates into her right flank. The patient reports that she vomited 3-4 times today. The patient denies headache, change in vision, fevers , chest pain, shortness of breath, diarrhea, and melena. Source of History: patient Onset: four hours prior to arrival Position: other (right sided flank pain) Symptom Intensity: 10/10 Timing: other (persistent) Associated Symptoms: + nausea, + vomiting, + urinary symptoms (hematuria, burning with urination) Review of Systems See HPI for pertinent positives & negatives. A total of 10 systems reviewed and were otherwise negative. Past Medical & Surgical Medical Problems: (1) Pancreatitis Surgical Problems: (1) H/O hernia repair (2) Hx of appendectomy (3) Hx of cholecystectomy Family History Patient reports no known family medical history. Social History Smoking Status: Never Smoker Alcohol Use: none Drug Use: none Marital Status: in relationship Housing Status: lives alone Occupation Status: employed Current/Historical Medications Scheduled Citalopram Hydrobromide (Celexa), 40 MG PO DAILY Dicyclomine Hcl (Dicyclomine Hcl), 1 CAP PO TID Lamotrigine (Lamictal), 100 MG PO DAILY Pantoprazole (Protonix), 40 MG PO DAILY Sulfamethoxazole-Trimethoprim (Bactrim Ds 800MG/160MG), 1 TAB PO BID Scheduled PRN Alprazolam (Xanax), 1 MG PO TID PRN for Anxiety Allergies Coded Allergies: Ketorolac Tromethamine (Unverified Allergy, Unknown, rash, 08/28/17) Morphine (Unverified Allergy, Unknown, rash, 08/28/17) Penicillins (Verified Allergy, Unknown, rash, 08/28/17) Physical Exam Vital Signs Date Time Temp Pulse Resp B/P (MAP) Pulse Ox O2 Delivery O2 Flow Rate FiO2 08/28/17 13:20 85 20 132/84 98 Room Air 08/28/17 12:35 76 18 132/85 97 Room Air 08/28/17 10:31 72 18 132/85 97 Room Air 08/28/17 08:07 36.7 90 18 127/80 98 Room Air Physical Exam GENERAL: Sitting up in bed, disheveled, texting, alert, well appearing, well nourished, no distress, non-toxic EYE EXAM: normal conjunctiva. OROPHARYNX: no exudate, no erythema, lips, buccal mucosa, and tongue normal and mucous membranes are moist NECK: supple, no nuchal rigidity, no adenopathy, non-tender LUNGS: Clear to auscultation. Normal chest wall mechanics HEART: no murmurs, S1 normal and S2 normal ABDOMEN: abdomen soft, non-tender, normo-active bowel sounds, no masses, no rebound or guarding. BACK: Back is symmetrical on inspection and there is no deformity, acute reproducible tenderness in lower lumbar right paraspinal region SKIN: no rashes and no bruising UPPER EXTREMITIES: upper extremities are grossly normal. LOWER EXTREMITIES: No pitting edema. Calves are equal bilaterally NEURO EXAM: Normal sensorium, cranial nerves II-XII grossly intact, normal speech, no gross weakness of arms, no gross weakness of legs. Medical Decision & Procedures ER Provider Diagnostic Interpretation: Radiology results as stated below per my review and the radiologist's interpretation: ABDOMEN AND PELVIS CT WITHOUT CONTRAST CT DOSE: 1221.01 mGy.cm HISTORY: Right flank pain, PMH of renal calculi TECHNIQUE: Multiaxial CT images of the abdomen and pelvis were performed without the use of intravenous and oral contrast according to the standard department stone protocol. A dose lowering technique was utilized adhering to the principles of ALARA. COMPARISON STUDY: Abdomen and pelvis CT 08/11/2017. FINDINGS: The lung bases are clear. No pneumoperitoneum. No pneumatosis. Healing nondisplaced right anterior seventh and eighth rib fractures are again noted. Old, healed left anterior rib fractures. There are few punctate bilateral renal calculi, unchanged. No ureteral stones. No hydronephrosis. Cholecystectomy. The unenhanced liver again demonstrates a slightly nodular contour suggestive of early cirrhosis. No hepatic or splenic masses on this noncontrast study. The unenhanced adrenal glands and pancreas are unremarkable. No retroperitoneal lymphadenopathy. Bilateral ovarian cysts with the largest on the left measuring 2.7 cm. The right ovarian cyst measures 2.3 cm. No significant pelvic free fluid. Bladder wall thickening is likely due to underdistention. Suboptimal evaluation for bowel pathology due to the lack of intravenous and oral contrast. However, there is no definite bowel wall thickening or obstruction. The appendix appears surgically absent. IMPRESSION: 1. Stable bilateral nephrolithiasis. No ureteral stones. No hydronephrosis. 2. Redemonstration of the healing right anterior seventh and eighth rib fractures. 3. No definite bowel wall thickening or obstruction. 4. Evidence for prior appendectomy. 5. Bladder wall thickening is likely due to underdistention. Recommend correlation with urinalysis. Electronically signed by: Malcom Esteban M.D. 08/28/2017 9:06 AM Dictated Date/Time: 08/28/2017 9:00 AM ABDOMINAL ULTRASOUND, RIGHT UPPER QUADRANT HISTORY: Right upper quadrant abdominal pain. COMPARISON: Right upper quadrant ultrasound July 14, [address] of the abdomen and pelvis August 28, 2017. FINDINGS: Liver is sonographically normal. Common bile duct is slightly dilated, measuring 7 mm, status post cholecystectomy. No common bile duct calculi are identified although the distal common bile duct is obscured. There is no right hydronephrosis. The pancreatic body is normal. The head and tail are partially obscured. A 4 mm right renal calculus is noted. There is no right hydronephrosis. IMPRESSION: 1. Borderline dilatation of the common bile duct. This is likely related to prior cholecystectomy although could be correlated with obstructive liver function tests. 2. Right-sided nephrolithiasis. No right hydronephrosis. Electronically signed by: Calvin Waller M.D. 08/28/2017 11:52 AM Dictated Date/Time: 08/28/2017 11:50 AM Laboratory Results 08/28/17 08:10 Red Blood Count 4.30, Mean Corpuscular Volume 90.2, Mean Corpuscular Hemoglobin 30.5, Mean Corpuscular Hemoglobin Concent 33.8, Mean Platelet Volume 8.8, Neutrophils (%) (Auto) 40.6, Lymphocytes (%) (Auto) 44.7, Monocytes (%) (Auto) 6.4, Eosinophils (%) (Auto) 7.1, Basophils (%) (Auto) 1.0, Neutrophils # (Auto) 1.71, Lymphocytes # (Auto) 1.88, Monocytes # (Auto) 0.27, Eosinophils # (Auto) 0.30, Basophils # (Auto) 0.04 08/28/17 08:10 Test 08/28/17 08:10 08/28/17 08:15 White Blood Count 4.21 K/uL (4.8-10.8) Red Blood Count 4.30 M/uL (4.2-5.4) Hemoglobin 13.1 g/dL (12.0-16.0) Hematocrit 38.8 % (37-47) Mean Corpuscular Volume 90.2 fL (80-100) Mean Corpuscular Hemoglobin 30.5 pg (25-34) Mean Corpuscular Hemoglobin Concent 33.8 g/dl (32-36) Platelet Count 262 K/uL (130-400) Mean Platelet Volume 8.8 fL (7.4-10.4) Neutrophils (%) (Auto) 40.6 % Lymphocytes (%) (Auto) 44.7 % Monocytes (%) (Auto) 6.4 % Eosinophils (%) (Auto) 7.1 % Basophils (%) (Auto) 1.0 % Neutrophils # (Auto) 1.71 K/uL (1.4-6.5) Lymphocytes # (Auto) 1.88 K/uL (1.2-3.4) Monocytes # (Auto) 0.27 K/uL (0.11-0.59) Eosinophils # (Auto) 0.30 K/uL (0-0.5) Basophils # (Auto) 0.04 K/uL (0-0.2) RDW Standard Deviation 41.9 fL (36.4-46.3) RDW Coefficient of Variation 12.8 % (11.5-14.5) Immature Granulocyte % (Auto) 0.2 % Immature Granulocyte # (Auto) 0.01 K/uL (0.00-0.02) Anion Gap 7.0 mmol/L (3-11) Est Creatinine Clear Calc Drug Dose 115.6 ml/min Estimated GFR () 131.6 Estimated GFR (Non- 113.6 BUN/Creatinine Ratio 13.1 (10-20) Calcium Level 8.8 mg/dl (8.5-10.1) Total Bilirubin 0.9 mg/dl (0.2-1) Direct Bilirubin 0.3 mg/dl (0-0.2) Aspartate Amino Transf (AST/SGOT) 85 U/L (15-37) Alanine Aminotransferase (ALT/SGPT) 113 U/L (12-78) Alkaline Phosphatase 128 U/L (45-117) Total Protein 7.4 gm/dl (6.4-8.2) Albumin 3.6 gm/dl (3.4-5.0) Lipase 147 U/L (73-393) Urine Color SARKIS Urine Appearance CLEAR (CLEAR) Urine pH (4.5-7.5) Urine Specific [place] 1.022 (1.000-1.030) Urine Protein POS (NEG) Urine Glucose (UA) (NEG) Urine Ketones (NEG) Urine Occult Blood (NEG) Urine Nitrite (NEG) Urine Bilirubin (NEG) Urine Urobilinogen (NEG) Urine Leukocyte Esterase (NEG) Urine RBC >30 /hpf (0-4) Urine WBC 5-10 /hpf (0-5) Urine Epithelial Cells >30 /lpf (0-5) Urine Bacteria NEG (NEG) Urine Test NEG (NEG) Laboratory results per my review. Medications Administered Medications (Trade) Dose Ordered Sig/Jannie Route Start Time Stop Time Status Last Admin Dose Admin Ondansetron HCl (Zofran Inj) 4 mg NOW STAT IV 08/28/17 08:26 08/28/17 08:36 DC 08/28/17 08:40 4 MG Ondansetron HCl (Zofran Inj) 4 mg Q4H PRN IV 08/28/17 08:30 08/28/17 13:43 DC 08/28/17 12:35 4 MG Hydromorphone HCl (Dilaudid Inj) 0.5 mg STK-MED ONCE .ROUTE 08/28/17 08:39 08/28/17 08:40 DC 08/28/17 08:41 0.5 MG Sodium Chloride 999 ml @ 999 mls/hr Q1H IV 08/28/17 09:45 08/28/17 10:44 DC 08/28/17 09:36 999 MLS/HR Hydromorphone HCl (Dilaudid Inj) 0.5 mg NOW STAT IV 08/28/17 10:15 08/28/17 10:16 DC 08/28/17 10:33 0.5 MG Trimethoprim/ Sulfamethoxazole (Septra Ds 800/ 160MG Tab) 1 tab NOW STAT PO 08/28/17 12:58 08/28/17 12:59 DC 08/28/17 13:16 1 TAB ED Course ED COURSE: Vital signs were reviewed and showed normal vitals The patients medical record was reviewed The above diagnostic studies were performed and reviewed. ED treatments and interventions as stated above. 0806: The patient was evaluated in room B6 by Dr. Barton, Vehicle Body Sander. A complete history and physical examination was performed. 0826: Ordered Zofran Inj 4 mg IV, Dilaudid Inj 0.5 mg IV. 0831: The patient was evaluated in B6. A complete history and physical examination was performed. 0945: Ordered Sodium Chloride 999 ml @ 999 msl/hr IV. 1015: Ordered Dilaudid Inj 0.5 mg IV. 1204: I reevaluated the patient and updated her at this time. 1240: I discussed the patient's case with Josseline Meyer, Gastroenterology AUDIO VIDEO TECH who saw the patient. She feels that the patient is okay to go home. 1256: Upon reevaluation, the patient is resting comfortably.I discussed my findings with the patient and she understands and agrees with the treatment plan. Based on the patients age, coexisting illnesses, exam and lab findings the decision to treat as an outpatient was made. The patient remained stable while under my care. The patient appeared well at the time of discharge. 1258: ordered Trimethoprim/Sulfamethoxazole 1 tab PO. Medical Decision Differential diagnoses includes but is not limited to gastritis, peptic ulcer disease, GERD, gallbladder disease, pancreatitis, small bowel obstruction, acute coronary syndrome, pericarditis, ischemic bowel, irritable bowel disease, irritable bowel syndrome, appendicitis, diverticulitis, malignancy, hernia, urinary tract infection, torsion, /ectopic (if female), perforation, trauma, infectious. Patient is a 36-year-old female who presents to ER for right flank pain starting in her back radiating to right lower quadrant. She notes this feels exactly her previous kidney stones. CBC was unremarkable. BMP shows a mild hypokalemia at 3.1. LFTs were slightly elevated at 85/113. Recent LFTs in the past 2 visits were normal prior to this they were elevated and this was consistent with it. Lipase is normal. UA shows hematuria, white cells and epithelial cells. was negative. Ultrasound showed no obvious stone CBD. Previous cholecystectomy has previously documented. Discussed with GI who evaluated her at bedside. Recommended following up as an outpatient. Patient was given 2 doses of IV narcotics. She was given Bactrim due to the hematuria and possible UTI. She was discharged follow-up with GI. Discussed with Pt concerning signs and symptoms to watch out for. Pt was instructed to follow up with their PCP and discussed with the patient their option to return to the ED at anytime for persistent or worsening symptoms. The appropriate anticipatory guidance and out-patient management, including indications for return to the emergency department, were explained at length to the patient and understood. Medication Reconcilliation Current Medication List: was personally reviewed by me Blood Pressure Screening Patient's blood pressure: Normal blood pressure Blood pressure disposition: Did not require urgent referral Consults Time Called: 1235 Consulting Physician: Oswaldo Castillo Returned Call: 1240 I discussed the patient's case with Oswaldo Castillo who saw the patient. She feels that the patient is okay to go home. Impression Primary Impression: Right flank pain Additional Impressions: Transaminitis Hematuria Scribe Attestation The scribe's documentation has been prepared under my direction and personally reviewed by me in its entirety. I confirm that the note above accurately reflects all work, treatment, procedures, and medical decision making performed by me. Departure Information Dispostion Home / Self-Care Prescriptions Sulfamethoxazole-Trimethoprim (Bactrim Ds 800MG/160MG) 1 Tab Tab 1 TAB PO BID for 7 Days, #14 TAB Prov: Matt Ayala, DO 08/28/17 Dicyclomine Hcl (DICYCLOMINE HCL) 10 Mg Cap 1 CAP PO TID for 10 Days, #30 CAP 0 Refills Prov: AyalaMatt, DO 08/28/17 Referrals No Doctor, Assigned (PCP) Forms HOME CARE DOCUMENTATION FORM, IMPORTANT VISIT INFORMATION Patient Instructions ED Flank Pain Uncertain Cause, My [facility] Additional Instructions Please follow up with your primary care doctor or GI with in the next 24 hours. Any worsening of your symptoms, please return to the ED immediately. This includes any fevers greater than 100.4, worsening pain, chest pain, shortness breath, persistent nausea, vomiting, unable to eat or drink, dark tarry stools, blood in your stool, or any other concerning signs or symptoms from your standpoint. You were given medications during this visit that will inhibit your ability to drive, operate machinery and work. Please do NOT drive, operate machinery, drink alcohol or work for the next 12hrs. Please take the antibiotics as prescribed. Please have the hematuria and elevated LFTs/transaminitis followed up on. Problem Qualifiers Additional Impressions: Hematuria Hematuria type: unspecified type Qualified Codes: R31.9 - Hematuria, unspecified
== END 2017-08-28 13:20 | disposition home or self-care (01) ==
LOC: EDBD 08:03 → C.EDB 08:03
DX: R10.9 Unspecified abdominal pain (principal); R74.0 Nonspecific elevation of levels of transaminase and lactic acid dehydrogenase [LDH]; R31.9 Hematuria, unspecified; K85.90 Acute pancreatitis without necrosis or infection, unspecified; Z87.442 Personal history of urinary calculi; Z90.49 Acquired absence of other specified parts of digestive tract

== ENCOUNTER → 2017-09-12 | Outpatient (CLI) | payer OTHER ==
[~2017-09-12] MED LIST changes: -ALPR-411 PO; +ALPR1TAB3 PO; +DICY10CA12 PO
[2017-09-12 17:35] LABS: URINE APPEARANCE CLOUDY (CLEAR); URINE BILIRUBIN NEG (NEG); URINE COLOR YELLOW; URINE EPITHELIAL CELL AUTO >30 /lpf (0-5); URINE NITRITE NEG (NEG); URINE PH 6.5 (4.5-7.5); URINE SPECIFIC GRAVITY 1.024 (1.000-1.030); UROBILINOGEN NEG (NEG)
[2017-09-12 17:45] LABS: MANUAL MICROSCOPIC REQUIRED? NO; REVIEW REQ? YES
== END | disposition home or self-care (01) ==
LOC: C.LABBFT 15:45
PROVIDERS: ATTEND Physician Assistant Medical
DX: R74.0 Nonspecific elevation of levels of transaminase and lactic acid dehydrogenase [LDH] (principal); R31.9 Hematuria, unspecified

== ENCOUNTER 2017-10-09 01:10 | Emergency (ER) | payer OTHER ==
[~2017-10-09] VITALS: Ht 154.9 cm; Wt 87.2 kg
[~2017-10-09 01:10] MED LIST changes: -ALPR1TAB3 PO
[2017-10-09 01:15] VITALS: Ht 154.9 cm; Wt 87.2 kg
[2017-10-09] MEDS ORDERED: SODIUM CHLORIDE 0.9% 1000ML 1,000 ML IV STA (01:28)
[2017-10-09] MEDS ORDERED: ONDANSETRON INJ 2 MG/ML 2 ML VIAL ONE (02:06)
[2017-10-09 02:09] LABS: BASO % 0.5 %; BASO ABS # 0.03 K/uL (0-0.2); EOS % 4.3 %; EOS ABS # 0.28 K/uL (0-0.5); HEMATOCRIT 37.5 % (37-47); HEMOGLOBIN 13.1 g/dL (12.0-16.0); IG# 0.01 K/uL (0.00-0.02); LYMPH % 33.4 %; LYMPH ABS # 2.16 K/uL (1.2-3.4); MEAN CELL VOLUME 89.5 fL (80-100); MEAN CORPUSCULAR HEMOGLOBIN 31.3 pg (25-34); MEAN CORPUSCULAR HGB CONC 34.9 g/dl (32-36); MEAN PLATELET VOLUME 9.2 fL (7.4-10.4); MONO % 6.2 %; NEUT % 55.4 %; NEUT ABS # 3.59 K/uL (1.4-6.5); PLATELET COUNT 257 K/uL (130-400); RED CELL DISTRIBUTION WIDTH CV 13.2 % (11.5-14.5); WHITE BLOOD COUNT 6.47 K/uL (4.8-10.8)
[2017-10-09 02:42] LABS: ALBUMIN 3.5 gm/dl (3.4-5.0); ALKALINE PHOSPHATASE 132 U/L (45-117); ALT/SGPT 64 U/L (12-78); BLOOD UREA NITROGEN 5 mg/dl (7-18); CALCIUM 8.7 mg/dl (8.5-10.1); CARBON DIOXIDE 25 mmol/L (21-32); CREATININE 0.83 mg/dl (0.60-1.20); GLUCOSE 129 mg/dl (70-99); SODIUM 141 mmol/L (136-145); TOTAL PROTEIN 7.7 gm/dl (6.4-8.2)
[2017-10-09] MEDS ORDERED: TRAMADOL HCL 50 MG TAB PO STA (03:29)
[2017-10-09 03:35] LABS: AST/SGOT 27 U/L (15-37)
[2017-10-09 03:43] LABS: MONOSPOT NEG (NEG)
[2017-10-09] MEDS ORDERED: FENTANYL CITRATE INJ 50 MCG/1 ML 2 ML VIAL IV STA (04:00)
[2017-10-09] MEDS ORDERED: POTASSIUM CHLORIDE 10 MEQ TABCR PO STA (04:23)
[2017-10-09] MEDS ORDERED: DOXYCYCLINE HYCLATE 100 MG CAP PO ONE (04:30)
[2017-10-09] MEDS ORDERED: TRAMADOL HCL 50 MG HOME PACK PO ONE (04:45)
[2017-10-09] MEDS ORDERED: DOXY100C2 PO (04:46)
[2017-10-09 04:49] VITALS: BP 110/90; PULSE 82; TEMP 36.8; O2SAT 99
--- NOTE | 2017-10-09 04:54 | EMERGENCY ROOM VISIT NOTE ---
History First contact with patient: 01:22 Chief Complaint: NASAL PAIN/INJURY Stated Complaint: POSSIBLE ABSCESS - VERY PAINFUL IN RIGHT NOSTRIL History of Present Illness The patient is a 36 year old female who presents to the Emergency Room with complaints of right upper quadrant discomfort with fatigue for the past few weeks has a history of cirrhosis. Patient also complains of nose infection. Patient states her boyfriend's dog as been looking her nose and has dry skin to the area. Patient denies chest pain, dyspnea, fever, chills, cough, congestion , vomiting, diarrhea. Patient states she was treated for hep C in the past. Patient states she had a few alcohol drinks tonight nothing overly concerning. There is a history of a tick bite. Review of Systems See HPI for pertinent positives & negatives. A total of 10 systems reviewed and were otherwise negative. Past Medical/Surgical History Medical Problems: (1) Pancreatitis Surgical Problems: (1) H/O hernia repair (2) Hx of appendectomy (3) Hx of cholecystectomy Family History Patient reports no known family medical history. Social History Smoking Status: Never Smoker Alcohol Use: none Drug Use: none Marital Status: in relationship Housing Status: lives alone Occupation Status: employed Current/Historical Medications Scheduled Doxycycline Hyclate (Vibramycin), 100 MG PO BID Lamotrigine (Lamictal), 200 MG PO DAILY Pantoprazole (Protonix), 40 MG PO DAILY Scheduled PRN Alprazolam (Xanax), 1 MG PO TID PRN for Anxiety Physical Exam Vital Signs Date Time Temp Pulse Resp B/P (MAP) Pulse Ox O2 Delivery O2 Flow Rate FiO2 10/09/17 04:04 86 18 116/96 99 Room Air 10/09/17 02:59 81 18 127/70 99 Room Air 10/09/17 02:07 Room Air 10/09/17 02:07 Room Air 10/09/17 01:15 36.5 97 18 147/94 100 Room Air Physical Exam VITALS: Vitals are noted on the nurse's note and reviewed by myself. Vital signs stable. GENERAL: White female, in no acute distress, nondiaphoretic, well-developed well -nourished. SKIN: Tip of nose erythematous and edematous concerning for infection without palpable abscess The rest of the skin was without rashes, erythema, edema, or bruising. There is no tenting of the skin. Capillary reflex less than 2 seconds. HEAD: Normocephalic atraumatic. EARS: External auditory canals clear, tympanic membranes pearly garcia without erythema or effusion bilaterally. EYES: Pupils equal round and reactive to light and accommodation. Conjunctivae without injection, sclerae without icterus. Extraocular movements intact. NOSE: Patent, turbinates without abscess or discharge. No sinus tenderness. MOUTH: Mucous membranes moist. Pharynx without erythema or exudate. Uvula midline. Airway patent. Tongue does not deviate. NECK: Supple without nuchal rigidity. No lymphadenopathy. No thyromegaly. Cervical spine is nontender. No JVD. HEART: Regular rate and rhythm without murmurs gallops or rubs. LUNGS: Clear to auscultation bilaterally without wheezes, rales or rhonchi. No dullness to percussion. No retractions or accessory muscle use. ABDOMEN: Positive bowel sounds x 4. Normal tympanic percussion. Soft, minimally tender right upper quadrant, no CVA tenderness, without masses or organomegaly. Jj sign negative. No guarding or rebound tenderness. MUSCULOSKELETAL: No muscle atrophy, erythema, or edema noted. NEURO: Patient was alert and oriented to person place and time. Normal sensation to light and sharp touch. No focal neurological deficits. Medical Decision & Procedures Laboratory Results 10/09/17 01:56 Red Blood Count 4.19, Mean Corpuscular Volume 89.5, Mean Corpuscular Hemoglobin 31.3, Mean Corpuscular Hemoglobin Concent 34.9, Mean Platelet Volume 9.2, Neutrophils (%) (Auto) 55.4, Lymphocytes (%) (Auto) 33.4, Monocytes (%) (Auto) 6.2, Eosinophils (%) (Auto) 4.3, Basophils (%) (Auto) 0.5, Neutrophils # (Auto) 3.59, Lymphocytes # (Auto) 2.16, Monocytes # (Auto) 0.40, Eosinophils # (Auto) 0.28, Basophils # (Auto) 0.03 10/09/17 01:56 10/09/17 03:01 Test 10/09/17 01:56 10/09/17 02:05 10/09/17 03:01 White Blood Count 6.47 K/uL (4.8-10.8) Red Blood Count 4.19 M/uL (4.2-5.4) Hemoglobin 13.1 g/dL (12.0-16.0) Hematocrit 37.5 % (37-47) Mean Corpuscular Volume 89.5 fL (80-100) Mean Corpuscular Hemoglobin 31.3 pg (25-34) Mean Corpuscular Hemoglobin Concent 34.9 g/dl (32-36) Platelet Count 257 K/uL (130-400) Mean Platelet Volume 9.2 fL (7.4-10.4) Neutrophils (%) (Auto) 55.4 % Lymphocytes (%) (Auto) 33.4 % Monocytes (%) (Auto) 6.2 % Eosinophils (%) (Auto) 4.3 % Basophils (%) (Auto) 0.5 % Neutrophils # (Auto) 3.59 K/uL (1.4-6.5) Lymphocytes # (Auto) 2.16 K/uL (1.2-3.4) Monocytes # (Auto) 0.40 K/uL (0.11-0.59) Eosinophils # (Auto) 0.28 K/uL (0-0.5) Basophils # (Auto) 0.03 K/uL (0-0.2) RDW Standard Deviation 43.0 fL (36.4-46.3) RDW Coefficient of Variation 13.2 % (11.5-14.5) Immature Granulocyte % (Auto) 0.2 % Immature Granulocyte # (Auto) 0.01 K/uL (0.00-0.02) Anion Gap 8.0 mmol/L (3-11) Est Creatinine Clear Calc Drug Dose 95.8 ml/min Estimated GFR () 106.6 Estimated GFR (Non- 92.0 BUN/Creatinine Ratio 5.6 (10-20) Calcium Level 8.7 mg/dl (8.5-10.1) Total Bilirubin 0.2 mg/dl (0.2-1) Alanine Aminotransferase (ALT/SGPT) 64 U/L (12-78) Alkaline Phosphatase 132 U/L (45-117) Troponin I < 0.015 ng/ml (0-0.045) Total Protein 7.7 gm/dl (6.4-8.2) Albumin 3.5 gm/dl (3.4-5.0) Thyroid Stimulating Hormone (TSH) 1.830 uIu/ml (0.300-4.500) Human Chorionic Gonadotropin, Qual NEG (NEG) Ethyl Alcohol mg/dL < 3.0 mg/dl (0-3) Urine Color YELLOW Urine Appearance CLEAR (CLEAR) Urine pH 5.5 (4.5-7.5) Urine Specific [place]y 1.016 (1.000-1.030) Urine Protein NEG (NEG) Urine Glucose (UA) NEG (NEG) Urine Ketones NEG (NEG) Urine Occult Blood 2+ (NEG) Urine Nitrite NEG (NEG) Urine Bilirubin NEG (NEG) Urine Urobilinogen NEG (NEG) Urine Leukocyte Esterase NEG (NEG) Urine WBC (Auto) 1-5 /hpf (0-5) Urine RBC (Auto) 10-30 /hpf (0-4) Urine Hyaline Casts (Auto) 0 /lpf (0-5) Urine Epithelial Cells (Auto) 10-20 /lpf (0-5) Urine Bacteria (Auto) NEG (NEG) Direct Bilirubin < 0.1 mg/dl (0-0.2) Aspartate Amino Transf (AST/SGOT) 27 U/L (15-37) Lyme Disease IgG Antibody NEG (NEG) Monoscreen NEG (NEG) Medications Administered Medications (Trade) Dose Ordered Sig/Jannie Route Start Time Stop Time Status Last Admin Dose Admin Sodium Chloride 1,000 ml @ 999 mls/hr Q1H1M STAT IV 10/09/17 01:28 10/09/17 02:28 DC 10/09/17 01:28 999 MLS/HR Ondansetron HCl (Zofran Inj) 4 mg STK-MED ONCE .ROUTE 10/09/17 02:06 10/09/17 02:07 DC 10/09/17 02:06 4 MG Tramadol HCl (Ultram Tab) 50 mg ONE STAT PO 10/09/17 03:29 10/09/17 03:31 DC 10/09/17 03:38 50 MG Fentanyl Citrate (Fentanyl Inj) 50 mcg NOW STAT IV 10/09/17 04:00 10/09/17 04:01 DC 10/09/17 04:11 50 MCG Potassium Chloride (Klor-Con M10) 40 meq NOW STAT PO 10/09/17 04:23 10/09/17 04:24 DC 10/09/17 04:28 40 MEQ Doxycycline Hyclate (Vibramycin Cap) 100 mg ONE ONCE PO 10/09/17 04:30 10/09/17 04:31 DC 10/09/17 04:29 100 MG ED Course Prior records/ancillary studies reviewed and summarized above. Nursing notes reviewed. The patient's history was concerning for fatigue, nasal tip infection and abdominal discomfort. Differential diagnosis: Etiologies such as metabolic, infection, hypo/hyperglycemia, electrolyte abnormalities, cardiac sources, intracerebral event, toxicologic, neurologic, as well as others were entertained. Physical examination: As above. ER treatment provided: IV Lock Ultram, doxycycline On reassessment the patient felt better. Diagnostics interpretation by me: The labs revealed equivocal Lyme's test. Hypokalemia as his request orally, mild hyperglycemia without DKA Imaging studies: US GALLBLADDER: Absent gallbladder. Common bile duct measures 6 mm. No hydronephrosis involving the right kidney. Liver is coarse with increased echotexture, measuring 15.4 cm in length. No abnormal masses, ascites or fluid collections. Radiologist: Qasim Harris M.D. Exam and history seem consistent with nasal tip cellulitis with possible Lyme's disease. Patient was advised to follow-up family care for definitive results for the Lyme's test. She is advised take antibiotics for nose infection and for the possible Lyme's disease. She is advised to return to the ER immediately for abdominal pain, fevers, vomiting, worsening signs or symptoms or as needed. Patient did not have acute abdomen on exam. She is well- appearing. She is tolerating fluids. By the evaluation outlined above emergent etiologies such as cardiac sources, intracerebral event, toxologic, neurologic, abnormalities blood glucose, metabolic, as well as others were deemed relatively unlikely. The pt informed about the findings as listed above. All questions were answered and pleased with the treatment. Return instructions were outlined and the patient was discharged in stable condition. Outpatient prescription management: Doxycycline Referral: The patient was referred back to ENT and primary care physician for follow-up in 2 to 3 days for a recheck of the current condition. Case reviewed with my attending Medical Decision As above Medication Reconcilliation Current Medication List: was personally reviewed by me Blood Pressure Screening Patient's blood pressure: Normal blood pressure Impression Primary Impression: Abdominal pain Additional Impressions: Cellulitis of nasal tip Fatigue Hypokalemia Hyperglycemia Departure Information Dispostion Home / Self-Care Condition GOOD Prescriptions Doxycycline Hyclate (VIBRAMYCIN) 100 Mg Cap 100 MG PO BID for 28 Days, #56 CAP Prov: Flavia Eaton ., SONIA 10/09/17 Forms WORK / SCHOOL INSTRUCTIONS, HOME CARE DOCUMENTATION FORM, IMPORTANT VISIT INFORMATION Patient Instructions My [facility], Borrelia Antibody Blood Additional Instructions DO NOT drive, drink alcohol, operate machinery, or perform dangerous activities today. You were given medications in the ER that can affect your ability to safely function or operate a vehicle. Repeat your blood sugar with family care. It was Slightly high today. Doxycycline 100mg: Take one pill twice daily for 28 days for your infection. Take with food, but avoid dairy. Avoid prolonged sun exposure since this medication makes you temporarily more susceptible to sunburns. All antibiotics can cause diarrhea. If this occurs and you feel worse or it does not resolve in 1-2 days follow up with your doctor or return to the Emergency Department as this could be signs of serious underlying problems. Any medication can cause an allergic reaction, stop the pills immediately and return to the ER for rash, hives, breathing difficulties, or swelling. Rest and drink plenty of fluids. Avoid strenuous activity until your symptoms resolve. Continue current medications. Return to the ER for worsening abdominal pain, chest pain, difficulty breathing , persistent fevers, vomiting, worsening of your condition, or as needed. Follow-up with family care in 2-3 days and ENT. Call for an appointment. Review your Lyme test results with your family care doctor. Problem Qualifiers Primary Impression: Abdominal pain Abdominal location: right upper quadrant Qualified Codes: R10.11 - Right upper quadrant pain
--- NOTE | 2017-10-09 09:57 | DIAGNOSTIC IMAGING REPORT ---
ULTRASOUND RIGHT UPPER QUADRANT ABDOMEN CLINICAL HISTORY: Right upper quadrant abdominal pain. COMPARISON STUDY: Abdominal ultrasound and abdominal CT dated 08/28/2017. TECHNIQUE: Real-time, grayscale, and color flow sonography of the right upper quadrant of the abdomen was performed. Images are reviewed in the transverse and longitudinal planes. FINDINGS: Liver: The liver is normal in size and slightly heterogeneous in echotexture. There is no intrahepatic biliary ductal dilatation. The main portal vein is patent. Gallbladder: The gallbladder is surgically absent. The common bile duct measures up to 0.6 cm in diameter. Pancreas: Visualized portions of the pancreatic head and body are normal in appearance. Right kidney: Survey images of the right kidney demonstrate normal size and echotexture. There is no hydronephrosis. Ascites: None. IMPRESSION: No acute sonographic abnormality is identified in the right upper quadrant noting status post cholecystectomy. Electronically signed by: Ashwin Kathleen M.D. 10/09/2017 9:56 AM Dictated Date/Time: 10/09/2017 9:55 AM
[2018-01-06] MEDS ORDERED: LAMO200T35 PO ×2 (01:56→20:46)
[2018-01-06] MEDS ORDERED: ALPR1TAB3 PO ×2 (09:14→20:46)
[2018-01-08] MEDS ORDERED: OXYC-57 PO ×2 (11:51→12:04)
[2018-01-08] MEDS ORDERED: ONDA4TAB10 SL (12:06)
[2018-02-08] MEDS ORDERED: ZLF50 PO (12:14)
[2018-02-08] MEDS ORDERED: OXYC-57 PO (12:14)
[2018-02-08] MEDS ORDERED: KLN1 PO (12:17)
[2018-02-08] MEDS ORDERED: HYDR25SU20 PR (12:25)
[2018-03-06] MEDS ORDERED: ONDA4TAB10 SL (17:01)
[2018-03-12] MEDS ORDERED: ONDA4TAB10 SL (14:40)
[2018-03-31] MEDS ORDERED: OXYC-737 PO (14:43)
[2018-04-30] MEDS ORDERED: TRAM-453 PO (19:43)
[2018-04-30] MEDS ORDERED: SULF800T23 PO (19:43)
[2018-04-30] MEDS ORDERED: ONDA4TAB10 SL (19:44)
[2018-05-02] MEDS ORDERED: BUPRTAB51 PO (08:53)
[2018-05-02] MEDS ORDERED: PRLSR20 PO (08:53)
[2018-05-02] MEDS ORDERED: LAMO100T16 PO (08:53)
[2018-05-02] MEDS ORDERED: ALPR-411 PO (14:52)
[2018-05-02] MEDS ORDERED: ACET-1256 PO (15:11)
[2018-05-02] MEDS ORDERED: CYAN100T PO (19:03)
[2018-05-02] MEDS ORDERED: MULT-513 PO (19:03)
[2018-05-02] MEDS ORDERED: CRFL PO (22:41)
== END 2017-10-09 04:48 | disposition home or self-care (01) ==
LOC: C.EDB 01:11 → C.EDC 04:48
DX: R10.11 Right upper quadrant pain (principal); J34.0 Abscess, furuncle and carbuncle of nose; R53.83 Other fatigue; E87.6 Hypokalemia; R73.9 Hyperglycemia, unspecified; Z90.49 Acquired absence of other specified parts of digestive tract; Z90.89 Acquired absence of other organs

== ENCOUNTER 2017-11-06 15:12 | Emergency (ER) | payer OTHER ==
[~2017-11-06] VITALS: Ht 154.9 cm; Wt 88.0 kg
[~2017-11-06 15:12] MED LIST changes: +ALPR1TAB3 PO; -CITA40TA12 PO; -DICY10CA12 PO; +DOXY100C2 PO; -LAMO100T16 PO; +LAMO200T35 PO
[2017-11-06 15:23] VITALS: TEMP 36.9; Ht 154.9 cm; Wt 88.0 kg
[2017-11-06] MEDS ORDERED: MoRPHine SULFATE 4 MG/ML 1 ML CARP\\VIAL IV STA (17:51)
[2017-11-06] MEDS ORDERED: ONDANSETRON INJ 2 MG/ML 2 ML VIAL IV STA (17:51)
[2017-11-06] MEDS ORDERED: CITA40TA4 PO (18:29)
[2017-11-06 18:53] LABS: BASO % 0.3 %; BASO ABS # 0.02 K/uL (0-0.2); EOS % 1.2 %; EOS ABS # 0.07 K/uL (0-0.5); HEMATOCRIT 37.6 % (37-47); HEMOGLOBIN 13.1 g/dL (12.0-16.0); IG# 0.01 K/uL (0.00-0.02); LYMPH % 28.2 %; LYMPH ABS # 1.67 K/uL (1.2-3.4); MEAN CELL VOLUME 90.2 fL (80-100); MEAN CORPUSCULAR HEMOGLOBIN 31.4 pg (25-34); MEAN CORPUSCULAR HGB CONC 34.8 g/dl (32-36); MEAN PLATELET VOLUME 9.2 fL (7.4-10.4); MONO % 5.1 %; NEUT ABS # 3.86 K/uL (1.4-6.5); PLATELET COUNT 249 K/uL (130-400); RED CELL DISTRIBUTION WIDTH CV 12.7 % (11.5-14.5); RED CELL DISTRIBUTION WIDTH SD 41.7 fL (36.4-46.3); WHITE BLOOD COUNT 5.93 K/uL (4.8-10.8)
[2017-11-06] MEDS ORDERED: DiphenhydrAMINE HCL 50 MG/ML VIAL IV STA (18:57)
[2017-11-06] MEDS ORDERED: DiphenhydrAMINE HCL 50 MG/ML VIAL ONE (18:58)
[2017-11-06 19:10] LABS: ALBUMIN 3.5 gm/dl (3.4-5.0); ALT/SGPT 52 U/L (12-78); AST/SGOT 25 U/L (15-37); BLOOD UREA NITROGEN 4 mg/dl (7-18); CALCIUM 8.5 mg/dl (8.5-10.1); CARBON DIOXIDE 28 mmol/L (21-32); CREATININE 0.71 mg/dl (0.60-1.20); GLUCOSE 83 mg/dl (70-99); LIPASE 267 U/L (73-393); POTASSIUM 3.3 mmol/L (3.5-5.1); SODIUM 138 mmol/L (136-145)
[2017-11-06 19:13] LABS: ALKALINE PHOSPHATASE 115 U/L (45-117); TOTAL PROTEIN 7.6 gm/dl (6.4-8.2)
[2017-11-06] MEDS ORDERED: ALUMINUM/MAGNESIUM SUSP 30 ML UDC PO STA (19:24)
[2017-11-06] MEDS ORDERED: LIDOCAINE HCL 2% VISC SOLN 20 ML UDC PO STA (19:24)
--- NOTE | 2017-11-06 20:05 | DIAGNOSTIC IMAGING REPORT ---
SACRUM COCCYX MIN 2 VIEWS CLINICAL HISTORY: Pain status post trauma COMPARISON STUDY: No previous studies for comparison. FINDINGS: No sacral fractures are visualized. No destructive lesions are visualized. A metallic density as visualized in left hemipelvis, likely representing a surgical clip. IMPRESSION: No fractures are visualized. Electronically signed by: Jerrell Gomez M.D. 11/06/2017 8:03 PM Dictated Date/Time: 11/06/2017 8:02 PM
[2017-11-06] MEDS ORDERED: ONDANSETRON HOME PACK 4MG OD TAB PO ONE (20:15)
[2017-11-06 20:54] VITALS: BP 129/85; PULSE 78; O2SAT 98
--- NOTE | 2017-11-06 23:54 | EMERGENCY ROOM VISIT NOTE ---
History Report prepared by Francie: Ghulam Diallo Under the Supervision of: Dr. Mitch Stokes M.D. First contact with patient: 17:43 Chief Complaint: ABDOMINAL PAIN Stated Complaint: UPSET STOMACH, ABD PAINS (BROUGHT BY AMBULANCE) History of Present Illness The patient is a 37 year old female who presents to the Emergency Room with complaints of persistent abdominal pain that began last night. The patient describes her pain as a "sharp" sensation and notes that it is localized in the middle and left upper quadrant or her abdomen. This sensation is worsened by eating. There is radiation of the pain directly into her back. The patient is also experiencing persistent vomiting, and diarrhea. She denies noticing any blood or melena with the bouts of diarrhea. She was admitted to [facility] last week for Pancreatitis, and was treated with IV fluids and Morphine. She states that she did have a CAT scan of her abdomen pelvis when admitted. She states she does well with Morphine and is not allergic. The patient has a follow-up with Gastroenterology on the 01 of December to find a cause of her pancreatitis. She is not a drinker and has a history of cholecystectomy. Source of History: patient Onset: Last night Position: abdomen (LUQ) Quality: sharp Timing: other (persistent) Modifying Factors (Worsening): eating Associated Symptoms: + vomiting, + diarrhea, No melena, No hematochezia Review of Systems See HPI for pertinent positives & negatives. A total of 10 systems reviewed and were otherwise negative. Past Medical & Surgical Medical Problems: (1) Pancreatitis Surgical Problems: (1) H/O hernia repair (2) Hx of appendectomy (3) Hx of cholecystectomy Family History Patient reports no known family medical history. Social History Smoking Status: Never Smoker Alcohol Use: none Drug Use: none Marital Status: in relationship Housing Status: lives alone Occupation Status: employed Current/Historical Medications Scheduled Citalopram (Citalopram Hydrobromide), 1 TAB PO DAILY Lamotrigine (Lamictal), 200 MG PO DAILY Scheduled PRN Alprazolam (Xanax), 1 MG PO TID PRN for Anxiety Allergies Coded Allergies: Ibuprofen (Unverified Allergy, Unknown, UNKNOWN, 11/06/17) Ketorolac Tromethamine (Unverified Allergy, Unknown, rash, 10/09/17) Morphine (Unverified Allergy, Unknown, rash, 10/09/17) Penicillins (Verified Allergy, Unknown, rash, 10/09/17) Physical Exam Vital Signs Date Time Temp Pulse Resp B/P (MAP) Pulse Ox O2 Delivery O2 Flow Rate FiO2 11/06/17 20:54 78 18 129/85 98 11/06/17 19:20 18 96 Room Air 11/06/17 15:23 36.9 98 18 134/90 98 Room Air Physical Exam Constitutional: Vital signs reviewed. Eyes: Pupils are equal round reactive to light. Conjunctiva are noninjected. ENT: Pharynx is clear without erythema or exudate. Mucous membranes are moist. Neck supple without meningeal signs. Respiratory: Clear to auscultation bilaterally. Breath sounds are equal bilaterally. Cardiovascular: Regular rate and rhythm. No rubs or gallops. GI: Soft, nondistended. There is tenderness to the epigastric region and left upper quadrant. There is no guarding. Bowel sounds are present. Musculoskeletal: No peripheral edema. No CVA tenderness. Integumentary: No cyanosis. Neurological: The patient is awake and alert. No focal deficits. Psychiatric: Normal affect. Medical Decision & Procedures ER Provider Diagnostic Interpretation: Radiology results as stated below per my review and the radiologist's interpretation: SACRUM COCCYX MIN 2 VIEWS CLINICAL HISTORY: Pain status post trauma COMPARISON STUDY: No previous studies for comparison. FINDINGS: No sacral fractures are visualized. No destructive lesions are visualized. A metallic density as visualized in left hemipelvis, likely representing a surgical clip. IMPRESSION: No fractures are visualized. Electronically signed by: Jerrell Gomez M.D. 11/06/2017 8:03 PM Dictated Date/Time: 11/06/2017 8:02 PM Laboratory Results 11/06/17 18:35 Red Blood Count 4.17, Mean Corpuscular Volume 90.2, Mean Corpuscular Hemoglobin 31.4, Mean Corpuscular Hemoglobin Concent 34.8, Mean Platelet Volume 9.2, Neutrophils (%) (Auto) 65.0, Lymphocytes (%) (Auto) 28.2, Monocytes (%) (Auto) 5.1, Eosinophils (%) (Auto) 1.2, Basophils (%) (Auto) 0.3, Neutrophils # (Auto) 3.86, Lymphocytes # (Auto) 1.67, Monocytes # (Auto) 0.30, Eosinophils # (Auto) 0.07, Basophils # (Auto) 0.02 11/06/17 18:35 Test 11/06/17 18:30 11/06/17 18:35 Urine Color YELLOW Urine Appearance CLEAR (CLEAR) Urine pH 8.5 (4.5-7.5) Urine Specific [place] 1.014 (1.000-1.030) Urine Protein NEG (NEG) Urine Glucose (UA) NEG (NEG) Urine Ketones NEG (NEG) Urine Occult Blood NEG (NEG) Urine Nitrite NEG (NEG) Urine Bilirubin NEG (NEG) Urine Urobilinogen NEG (NEG) Urine Leukocyte Esterase TRACE (NEG) Urine WBC (Auto) 5-10 /hpf (0-5) Urine RBC (Auto) 0-4 /hpf (0-4) Urine Hyaline Casts (Auto) 1-5 /lpf (0-5) Urine Epithelial Cells (Auto) >30 /lpf (0-5) Urine Bacteria (Auto) NEG (NEG) Urine Test NEG (NEG) White Blood Count 5.93 K/uL (4.8-10.8) Red Blood Count 4.17 M/uL (4.2-5.4) Hemoglobin 13.1 g/dL (12.0-16.0) Hematocrit 37.6 % (37-47) Mean Corpuscular Volume 90.2 fL (80-100) Mean Corpuscular Hemoglobin 31.4 pg (25-34) Mean Corpuscular Hemoglobin Concent 34.8 g/dl (32-36) Platelet Count 249 K/uL (130-400) Mean Platelet Volume 9.2 fL (7.4-10.4) Neutrophils (%) (Auto) 65.0 % Lymphocytes (%) (Auto) 28.2 % Monocytes (%) (Auto) 5.1 % Eosinophils (%) (Auto) 1.2 % Basophils (%) (Auto) 0.3 % Neutrophils # (Auto) 3.86 K/uL (1.4-6.5) Lymphocytes # (Auto) 1.67 K/uL (1.2-3.4) Monocytes # (Auto) 0.30 K/uL (0.11-0.59) Eosinophils # (Auto) 0.07 K/uL (0-0.5) Basophils # (Auto) 0.02 K/uL (0-0.2) RDW Standard Deviation 41.7 fL (36.4-46.3) RDW Coefficient of Variation 12.7 % (11.5-14.5) Immature Granulocyte % (Auto) 0.2 % Immature Granulocyte # (Auto) 0.01 K/uL (0.00-0.02) Anion Gap 7.0 mmol/L (3-11) Est Creatinine Clear Calc Drug Dose 111.5 ml/min Estimated GFR () 127.9 Estimated GFR (Non- 110.4 BUN/Creatinine Ratio 5.7 (10-20) Calcium Level 8.5 mg/dl (8.5-10.1) Total Bilirubin 0.3 mg/dl (0.2-1) Direct Bilirubin < 0.1 mg/dl (0-0.2) Aspartate Amino Transf (AST/SGOT) 25 U/L (15-37) Alanine Aminotransferase (ALT/SGPT) 52 U/L (12-78) Alkaline Phosphatase 115 U/L (45-117) Total Protein 7.6 gm/dl (6.4-8.2) Albumin 3.5 gm/dl (3.4-5.0) Lipase 267 U/L (73-393) Laboratory results as reviewed by me. Medications Administered Medications (Trade) Dose Ordered Sig/Jannie Route Start Time Stop Time Status Last Admin Dose Admin Morphine Sulfate (MoRPHine SULFATE INJ) 4 mg ONE STAT IV 11/06/17 17:51 11/06/17 17:52 DC 11/06/17 18:52 4 MG Ondansetron HCl (Zofran Inj) 4 mg NOW STAT IV 11/06/17 17:51 11/06/17 17:52 DC 11/06/17 18:52 4 MG Diphenhydramine HCl (Benadryl Inj) 50 mg NOW STAT IV 11/06/17 18:57 11/06/17 18:58 DC 11/06/17 19:00 50 MG Lidocaine HCl (Viscous Lidocaine 2% Soln) 10 ml NOW STAT PO 11/06/17 19:24 11/06/17 19:25 DC 11/06/17 20:06 10 ML Al Hydroxide/Mg Hydroxide (Maalox Susp) 30 ml NOW STAT PO 11/06/17 19:24 11/06/17 19:25 DC 11/06/17 20:06 30 ML Ondansetron HCl (ZOFRAN ODT 4MG Home Pack) 1 homepack UD ONCE PO 11/06/17 20:15 11/06/17 20:16 DC 11/06/17 20:45 1 HOMEPACK ED Course 174: The patient was evaluated in room B12. A complete history and physical exam was performed. 1750: Ordered Zofran 4 mg IV, Morphine Sulfate 4 mg IV. 1854: The nursing staff has informed me that the patient developed some itching with the Morphine, even though she said she does well with Morphine. I will order Benadryl. 1856: Ordered Benadryl 50 mg IV. 1904: I checked on the patient. She was having some itching, but there is no significant erythema or any evidence of hives. 1922: The patient is now asking for an x-ray of her tailbone because she fell 1 month ago and is still having pain. 1923: Ordered Maalox Susp 30 mL PO, Lidocaine HCl 10 mL PO. 2012: I checked on the patient at this time. I updated her on test results. I recommended that she follow up with her PCP and GI as soon as possible. She requested another pain shot. I did not think this was a good idea given her previous allergic reaction to Morphine today. The patient will be discharged home. 2014: Ordered Zofran 1 homepack PO. Medical Decision This is a 37-year-old female who presents with upper abdominal pain. Differential diagnosis includes pancreatitis, peptic ulcer disease, duodenitis, gastritis, foodborne illness, gastroenteritis. I did perform a limited focused review of portions of the patient's old chart on the electronic medical record. The patient was in the hospital on October 09 for abdominal pain. Per HPI, the patient was admitted to [facility] last week for pancreatitis. I did evaluate the patient as noted above. The patient is presenting with upper abdominal pain. She was just admitted for pancreatitis last week. She states the pain is identical to the pain she had then. She is requesting something for pain and states that she can take morphine and is not allergic to it. IV access was established. The patient was treated with IV morphine and Zofran. I did order and personally review the patient's urine analysis as described above. Urine (test was negative. I did order and review the patient' s blood work as noted in the electronic medical record. Her white blood cell count was not elevated. Her lipase was not elevated as well. The patient developed itching and some mild erythema to her arm after the morphine. She was given Benadryl 50 mg IV. On reassessment the itching and erythema went away. She had told the nurse that she wished to have a tailbone x-ray as she fell about a month ago on her buttocks. I did order a x-ray of the sacrum and coccyx which was unremarkable. I did obtain records from [facility]. She did have an elevated lipase at that time. She did have a CT scan of the end pelvis which showed a normal pancreas. I did not feel any further imaging was indicated at this time. She was given a GI cocktail. She requested more pain medication but she is allergic to fentanyl and she requested more morphine but I did not feel this was prudent given her reaction to it earlier. She also asked for a prescription for tramadol to go home with but I felt this was not prudent as well. The [facility] physicians had noted that she has a history of drug abuse. I did recommend she follow up closely with her doctor and tissue rewinder. She was discharged and given return instructions as outlined below. Medication Reconcilliation Current Medication List: was personally reviewed by me Blood Pressure Screening Patient's blood pressure: Elevated blood pressure Impression Primary Impression: Upper abdominal pain Additional Impression: Allergic reaction to drug Scribe Attestation The scribe's documentation has been prepared under my direct and personally reviewed by me in its entirety. I confirm that the note above accurately reflects all work, treatment, procedures, and medical decision making performed by me. Departure Information Dispostion Home / Self-Care Referrals No Doctor, Assigned (PCP) Forms Call Back Authorization, HOME CARE DOCUMENTATION FORM, IMPORTANT VISIT INFORMATION Patient Instructions My [facility] Additional Instructions You have been examined and treated today on an emergency basis only. This is not a substitute for, or an effort to provide, complete comprehensive medical care. It is impossible to recognize and treat all injuries or illnesses in a single emergency department visit. It is therefore important that you follow up closely with your physician. Call as soon as possible for an appointment. Return for worsening symptoms or if you develop fever, black or tarry stools or any other concerning symptoms. Problem Qualifiers Additional Impression: Allergic reaction to drug Encounter type: initial encounter Qualified Codes: T78.40XA - Allergy, unspecified, initial encounter
== END 2017-11-06 20:50 | disposition home or self-care (01) ==
LOC: C.EDB 15:13
DX: R10.10 Upper abdominal pain, unspecified (principal); T40.2X5A Adverse effect of other opioids, initial encounter; K85.90 Acute pancreatitis without necrosis or infection, unspecified

== ENCOUNTER 2017-11-24 13:25 | Emergency (ER) | payer OTHER ==
[~2017-11-24] VITALS: Ht 154.9 cm; Wt 87.0 kg
[~2017-11-24 13:25] MED LIST changes: -DOXY100C2 PO; -PANT40TA PO
[2017-11-24 13:34] VITALS: TEMP 37.3; Ht 154.9 cm; Wt 87.0 kg
[2017-11-24] MEDS ORDERED: FAMOTIDINE 20MG/5ML IV PUSH IV STA (13:44)
[2017-11-24] MEDS ORDERED: SODIUM CHLORIDE 0.9% 1000ML 1,000 ML IV ONE (13:45)
[2017-11-24] MEDS ORDERED: ONDANSETRON INJ 2 MG/ML 2 ML VIAL IV PRN (13:45)
--- NOTE | 2017-11-24 13:50 | EMERGENCY ROOM VISIT NOTE ---
History First contact with patient: 13:34 Chief Complaint: ABDOMINAL PAIN Stated Complaint: ABDOMINAL PAIN Nursing Triage Summary: Pt c/o LUQ pain. 1 year history of pancreatitis. [facility]. Pt was feeling well on discharge then started to have abd pain this AM after eating a grilled cheese at 10am. Report she has been nauseous and vomiting. History of Present Illness The patient is a 37 year old female who presents to the Emergency Room with complaints of epigastric abdominal pain that she describes as a burning sensation that radiates to her back. This started at approximately 10 AM this morning. The patient was admitted earlier this week for 3 days for pancreatitis at [facility]. Her last bowel movement was this morning and reportedly normal. She reports having 5 episodes of vomiting this morning. No coffee-ground emesis. No bright red blood in her emesis. She denies any fever or chills. Review of Systems 10 system review performed and negative unless noted in HPI or below Past Medical/Surgical History Medical Problems: (1) Pancreatitis Surgical Problems: (1) H/O hernia repair (2) Hx of appendectomy (3) Hx of cholecystectomy Family History Patient reports no known family medical history. Social History Smoking Status: Never Smoker Alcohol Use: none Drug Use: none Marital Status: in relationship Housing Status: lives alone Occupation Status: employed Current/Historical Medications Scheduled Citalopram (Citalopram Hydrobromide), 40 MG PO DAILY Lamotrigine (Lamictal), 200 MG PO DAILY Scheduled PRN Acetaminophen (Tylenol), 1,000 MG PO Q6 PRN for Headache or Pain Alprazolam (Xanax), 1 MG PO TID PRN for Anxiety Hydrocodone/Acetaminophen 5MG/325MG ([place] 5MG/325MG), 1-2 TABLET PO Q4H PRN for Pain Tramadol (Ultram), 50 MG PO Q4H PRN for Pain Physical Exam Vital Signs Date Time Temp Pulse Resp B/P (MAP) Pulse Ox O2 Delivery O2 Flow Rate FiO2 11/24/17 17:03 78 20 153/89 98 Room Air 11/24/17 15:29 80 20 144/95 98 Room Air 11/24/17 14:23 80 17 135/94 98 Room Air 11/24/17 13:34 37.3 87 18 134/98 96 Room Air Physical Exam VITALS: Vitals are noted on the nurse's note and reviewed by myself. Vital signs stable. GENERAL: 37-year-old female, in no acute distress, nondiaphoretic, well- developed well-nourished. SKIN: The skin was without rashes, erythema, edema, or bruising. HEAD: Normocephalic atraumatic. MOUTH: Mucous membranes slightly dry NECK: Supple without nuchal rigidity. No JVD. HEART: Regular rate and rhythm without murmurs gallops or rubs. LUNGS: Clear to auscultation bilaterally without wheezes, rales or rhonchi. No accessory muscle use. ABDOMEN: Bowel sounds present, but hypoactive. Tenderness to palpation in the epigastric and left upper quadrant. Fullness also noted in this area. No guarding or rebound tenderness. MUSCULOSKELETAL: No muscle atrophy, erythema, or edema noted. . Strength 5/5 throughout. NEURO: Patient was alert and oriented to person place and time. Normal sensation to touch. No focal neurological deficits. Medical Decision & Procedures Laboratory Results 11/24/17 14:10 Red Blood Count 4.25, Mean Corpuscular Volume 87.5, Mean Corpuscular Hemoglobin 31.1, Mean Corpuscular Hemoglobin Concent 35.5, Mean Platelet Volume 8.9, Neutrophils (%) (Auto) 54.9, Lymphocytes (%) (Auto) 37.3, Monocytes (%) (Auto) 4.9, Eosinophils (%) (Auto) 2.1, Basophils (%) (Auto) 0.8, Neutrophils # (Auto) 2.12, Lymphocytes # (Auto) 1.44, Monocytes # (Auto) 0.19, Eosinophils # (Auto) 0.08, Basophils # (Auto) 0.03 11/24/17 14:10 Test 11/24/17 14:10 White Blood Count 3.86 K/uL (4.8-10.8) Red Blood Count 4.25 M/uL (4.2-5.4) Hemoglobin 13.2 g/dL (12.0-16.0) Hematocrit 37.2 % (37-47) Mean Corpuscular Volume 87.5 fL (80-100) Mean Corpuscular Hemoglobin 31.1 pg (25-34) Mean Corpuscular Hemoglobin Concent 35.5 g/dl (32-36) Platelet Count 242 K/uL (130-400) Mean Platelet Volume 8.9 fL (7.4-10.4) Neutrophils (%) (Auto) 54.9 % Lymphocytes (%) (Auto) 37.3 % Monocytes (%) (Auto) 4.9 % Eosinophils (%) (Auto) 2.1 % Basophils (%) (Auto) 0.8 % Neutrophils # (Auto) 2.12 K/uL (1.4-6.5) Lymphocytes # (Auto) 1.44 K/uL (1.2-3.4) Monocytes # (Auto) 0.19 K/uL (0.11-0.59) Eosinophils # (Auto) 0.08 K/uL (0-0.5) Basophils # (Auto) 0.03 K/uL (0-0.2) RDW Standard Deviation 40.4 fL (36.4-46.3) RDW Coefficient of Variation 12.5 % (11.5-14.5) Immature Granulocyte % (Auto) 0.0 % Immature Granulocyte # (Auto) 0.00 K/uL (0.00-0.02) Urine Color YELLOW Urine Appearance CLEAR (CLEAR) Urine pH 7.5 (4.5-7.5) Urine Specific [place] 1.015 (1.000-1.030) Urine Protein NEG (NEG) Urine Glucose (UA) NEG (NEG) Urine Ketones NEG (NEG) Urine Occult Blood 1+ (NEG) Urine Nitrite NEG (NEG) Urine Bilirubin NEG (NEG) Urine Urobilinogen NEG (NEG) Urine Leukocyte Esterase NEG (NEG) Urine WBC (Auto) 1-5 /hpf (0-5) Urine RBC (Auto) 5-10 /hpf (0-4) Urine Hyaline Casts (Auto) 1-5 /lpf (0-5) Urine Epithelial Cells (Auto) >30 /lpf (0-5) Urine Bacteria (Auto) NEG (NEG) Urine Test NEG (NEG) Anion Gap 6.0 mmol/L (3-11) Est Creatinine Clear Calc Drug Dose 112.4 ml/min Estimated GFR () 130.1 Estimated GFR (Non- 112.3 BUN/Creatinine Ratio 12.2 (10-20) Lactic Acid Level 1.0 mmol/L (0.4-2.0) Calcium Level 8.5 mg/dl (8.5-10.1) Total Bilirubin 0.3 mg/dl (0.2-1) Aspartate Amino Transf (AST/SGOT) 28 U/L (15-37) Alanine Aminotransferase (ALT/SGPT) 46 U/L (12-78) Alkaline Phosphatase 92 U/L (45-117) Total Protein 7.3 gm/dl (6.4-8.2) Albumin 3.5 gm/dl (3.4-5.0) Globulin 3.8 gm/dl (2.5-4.0) Albumin/Globulin Ratio 0.9 (0.9-2) Lipase 396 U/L (73-393) Medications Administered Medications (Trade) Dose Ordered Sig/Jannie Route Start Time Stop Time Status Last Admin Dose Admin Sodium Chloride 1,000 ml @ 999 mls/hr Q1H1M ONCE IV 11/24/17 13:45 11/24/17 14:45 DC 11/24/17 13:51 999 MLS/HR Morphine Sulfate (MoRPHine SULFATE INJ) 4 mg Q1H PRN IV 11/24/17 13:45 11/24/17 17:40 DC 11/24/17 17:00 4 MG Famotidine (Pepcid 20mg Iv Push) 20 mg ONE STAT IV 11/24/17 13:44 11/24/17 13:46 DC 11/24/17 14:20 20 MG Ondansetron HCl (Zofran Inj) 4 mg Q2H PRN IV 11/24/17 13:45 11/24/17 17:40 DC 11/24/17 14:19 4 MG Diphenhydramine HCl (Benadryl Inj) 50 mg NOW STAT IV 11/24/17 14:29 11/24/17 14:31 DC 11/24/17 14:34 50 MG Potassium Chloride (Kcl 10 Meq / Wtr) 10 meq NOW STAT IV 11/24/17 15:07 11/24/17 15:08 DC 11/24/17 15:26 10 MEQ Sodium Chloride 500 ml @ 999 mls/hr Q31M STAT IV 11/24/17 16:08 11/24/17 16:38 DC 11/24/17 16:08 999 MLS/HR ED Course Patient was seen and examined Vital signs including blood pressure were reviewed medications list was verified with patient Labs were obtained, and a saline lock was established The patient was medicated with morphine and Zofran. She was hydrated with 1 L normal saline. Imaging was performed and reviewed Upon reevaluation, the patient's pain was improved. We discussed the results of her workup. She voiced understanding. The patient was ordered potassium 10 mEq IV. She was also ordered an additional 500 mL normal saline bolus. The case was discussed with supervising physician. I discussed disposition options with the patient. She voiced understanding, and was comfortable being discharged home. I reviewed discharge instructions the patient. They voiced understanding and had no further questions. Medical Decision Differential diagnosis: Pancreatitis, viral GI illness, bowel obstruction, inflammatory bowel disease, retained stone, gastritis This patient is a 37-year-old female that presents to the emergency department with epigastric abdominal pain. On exam, she was tender in the epigastric and left upper quadrant. Her lipase is slightly elevated just under 400. This was compared with documentation from [facility]. Her lipase at [facility] was 525. The patient otherwise is nontoxic in appearance. She is tolerating liquids. I believe she is stable to be discharged home with close follow-up and pain medication. She is comfortable with this plan. She agrees to return to the emergency department with any new or worsening symptoms. Of note, documentation from [facility] reports likely drug-seeking behavior. She was provided a short course of [place]. I also gave her a short prescription of Ultram. This chart was completed in part utilizing [employer] Speech Voice Recognition software. Attempts were made to minimize the grammatical errors, random word insertions, pronoun errors and incomplete sentences. Any formal questions or concerns about the content, text or information contained within the body of this dictation should be directly addressed to the provider for clarification. [place] Drug Monitoring Program Search Results: patient reviewed within database, see additional documentation Medication Reconcilliation Current Medication List: was personally reviewed by me Blood Pressure Screening Patient's blood pressure: Elevated blood pressure Blood pressure disposition: Did not require urgent referral Impression Primary Impression: Pancreatitis Departure Information Dispostion Home / Self-Care Condition FAIR Prescriptions Tramadol (Ultram) 50 Mg Tab 50 MG PO Q4H Y for Pain, #10 TAB Prov: Chikis Connor PA-C 11/24/17 Hydrocodone/Acetaminophen 5MG/325MG ([place] 5MG/325MG) Tab 1-2 TABLET PO Q4H Y for Pain, #12 TAB For Initial Treatment Prov: Chikis Connor PA-C 11/24/17 Referrals Raquel Cervantes D.O. (PCP) Patient Instructions ED Pancreatitis, My [facility] Additional Instructions You were evaluated in the emergency department for abdominal pain and vomiting. This is likely due to pancreatitis. Your lipase has come down when compared to your admission at [facility]. Please follow a clear liquid diet for 24 hours. This includes things like water , Gatorade and broth. Please continue tramadol as prescribed For severe pain, please take [place] one to 2 tabs every 4 hours as needed. Please do not take additional acetaminophen with this medication. It is very important for you to follow up closely within the next 24-48 hours for recheck with your primary care physician/GI specialist. Call tomorrow morning for a follow up appointment Do not hesitate to return to the emergency department with any new, worsening or concerning symptoms; especially, fever, worsening pain or uncontrolled vomiting Work Instructions Return To Work: 2 days
[2017-11-24] MEDS: MoRPHine SULFATE 4 MG/ML 1 ML CARP\\VIAL IV PRN ×3 (14:21→17:00)
[2017-11-24 14:28] LABS: BASO % 0.8 %; BASO ABS # 0.03 K/uL (0-0.2); EOS % 2.1 %; EOS ABS # 0.08 K/uL (0-0.5); HEMATOCRIT 37.2 % (37-47); HEMOGLOBIN 13.2 g/dL (12.0-16.0); LYMPH % 37.3 %; LYMPH ABS # 1.44 K/uL (1.2-3.4); MEAN CELL VOLUME 87.5 fL (80-100); MEAN CORPUSCULAR HEMOGLOBIN 31.1 pg (25-34); MEAN CORPUSCULAR HGB CONC 35.5 g/dl (32-36); MEAN PLATELET VOLUME 8.9 fL (7.4-10.4); MONO % 4.9 %; MONO ABS # 0.19 K/uL (0.11-0.59); NEUT % 54.9 %; NEUT ABS # 2.12 K/uL (1.4-6.5); PLATELET COUNT 242 K/uL (130-400); RED CELL DISTRIBUTION WIDTH CV 12.5 % (11.5-14.5); RED CELL DISTRIBUTION WIDTH SD 40.4 fL (36.4-46.3); WHITE BLOOD COUNT 3.86 K/uL (4.8-10.8)
[2017-11-24] MEDS ORDERED: DiphenhydrAMINE HCL 50 MG/ML VIAL IV STA (14:29)
[2017-11-24 14:47] LABS: ALBUMIN 3.5 gm/dl (3.4-5.0); CALCIUM 8.5 mg/dl (8.5-10.1); CREATININE 0.7 mg/dl (0.60-1.20)
[2017-11-24 14:50] LABS: TOTAL PROTEIN 7.3 gm/dl (6.4-8.2)
[2017-11-24] MEDS ORDERED: POTASSIUM CHLORIDE 10 MEQ / 100ML WTR IV STA (15:07)
[2017-11-24] MEDS ORDERED: ACET-1256 PO (15:11)
[2017-11-24] MEDS ORDERED: SODIUM CHLORIDE 0.9% 500ML 500 ML IV STA (16:08)
[2017-11-24] MEDS ORDERED: HYDR-5688 PO (16:28)
[2017-11-24] MEDS ORDERED: TRAM-10 PO (16:50)
[2017-11-24 17:03] VITALS: BP 153/89; PULSE 78; O2SAT 98
[2017-11-24] MEDS ORDERED: CITA40TA4 PO (18:29)
== END 2017-11-24 17:21 | disposition home or self-care (01) ==
LOC: EDBD 13:25 → C.EDA 13:26
DX: K85.90 Acute pancreatitis without necrosis or infection, unspecified (principal)

== ENCOUNTER 2017-12-10 10:27 | Emergency (ER) | payer OTHER ==
[~2017-12-10] VITALS: Ht 154.9 cm; Wt 84.1 kg
[~2017-12-10 10:27] MED LIST changes: +ACET-1256 PO; +CITA40TA4 PO; +HYDR-5688 PO; +TRAM-10 PO
[2017-12-10 10:38] VITALS: TEMP 36.7; Ht 154.9 cm; Wt 84.1 kg
[2017-12-10] MEDS ORDERED: SODIUM CHLORIDE 0.9% 1000ML 1,000 ML IV STA (10:53)
[2017-12-10] MEDS ORDERED: ONDANSETRON INJ 2 MG/ML 2 ML VIAL IV STA (10:53)
[2017-12-10] MEDS ORDERED: MoRPHine SULFATE 4 MG/ML 1 ML CARP\\VIAL IV STA (11:26)
[2017-12-10 11:33] LABS: BASO % 0.4 %; BASO ABS # 0.03 K/uL (0-0.2); EOS % 0.3 %; EOS ABS # 0.02 K/uL (0-0.5); HEMATOCRIT 40.4 % (37-47); HEMOGLOBIN 14.3 g/dL (12.0-16.0); IG# 0.03 K/uL (0.00-0.02); LYMPH % 25.6 %; MEAN CELL VOLUME 86.5 fL (80-100); MEAN CORPUSCULAR HEMOGLOBIN 30.6 pg (25-34); MEAN CORPUSCULAR HGB CONC 35.4 g/dl (32-36); MEAN PLATELET VOLUME 8.6 fL (7.4-10.4); MONO % 5.4 %; MONO ABS # 0.38 K/uL (0.11-0.59); NEUT % 67.9 %; NEUT ABS # 4.76 K/uL (1.4-6.5); PLATELET COUNT 297 K/uL (130-400); RED CELL DISTRIBUTION WIDTH CV 12.3 % (11.5-14.5); RED CELL DISTRIBUTION WIDTH SD 39.3 fL (36.4-46.3); WHITE BLOOD COUNT 7.02 K/uL (4.8-10.8)
[2017-12-10 11:52] LABS: ALBUMIN 3.7 gm/dl (3.4-5.0); CALCIUM 8.3 mg/dl (8.5-10.1); CREATININE 0.68 mg/dl (0.60-1.20); POTASSIUM 3.1 mmol/L (3.5-5.1)
[2017-12-10 11:54] LABS: TOTAL PROTEIN 7.9 gm/dl (6.4-8.2)
--- NOTE | 2017-12-10 11:57 | EMERGENCY ROOM VISIT NOTE ---
History First contact with patient: 10:44 Chief Complaint: ABDOMINAL PAIN Stated Complaint: NAUSEA, STOAMCH PAIN Nursing Triage Summary: Left abdominal pain since this am. History of Present Illness The patient is a 37 year old female who presents to the Emergency Room with complaints of epigastric and left upper quadrant abdominal pain which began approximately 1 hour prior to arrival. Patient reports a history of chronic pancreatitis with flareups frequently. She states the pain she is experiencing is consistent with previous episodes of pancreatitis. She is unclear of any obvious triggers of her pancreatitis. She states associated with her abdominal pain, she is also experiencing some nausea. There has been no vomiting or diarrhea. Her bowel movements have been regular. She denies any bloody stools. She denies any fever, chills, chest pain, difficulty breathing, recent illness, weakness, or paresthesias. She does have an appointment scheduled with her civil cad designer at [facility] next Monday. Review of Systems A complete 10 point review of systems was reviewed with the patient with pertinent positives and negatives as per history of present illness. All else were negative. Past Medical/Surgical History Medical Problems: (1) Pancreatitis Surgical Problems: (1) H/O hernia repair (2) Hx of appendectomy (3) Hx of cholecystectomy Family History Patient reports no known family medical history. Social History Smoking Status: Former Smoker Alcohol Use: none Drug Use: none Marital Status: in relationship Housing Status: lives alone Occupation Status: employed Current/Historical Medications Scheduled Citalopram (Citalopram Hydrobromide), 40 MG PO HS Lamotrigine (Lamictal), 200 MG PO BID Pantoprazole (Protonix), 40 MG PO DAILY Scheduled PRN Acetaminophen (Tylenol), 1,000 MG PO Q6 PRN for Headache or Pain Alprazolam (Xanax), 1 MG PO TID PRN for Anxiety Physical Exam Vital Signs Date Time Temp Pulse Resp B/P (MAP) Pulse Ox O2 Delivery O2 Flow Rate FiO2 12/10/17 13:24 64 18 135/85 99 Room Air 12/10/17 12:28 79 18 141/87 96 Room Air 12/10/17 10:38 36.7 97 18 152/110 97 Room Air Physical Exam VITALS: Vitals are noted on the nurse's note and reviewed by myself. Vital signs stable. GENERAL: This is a 37-year-old white female, in no acute distress, nondiaphoretic, well-developed well-nourished. SKIN: The skin was without rashes, erythema, edema, or bruising. There is no tenting of the skin. Capillary reflex less than 2 seconds. HEAD: Normocephalic atraumatic. EARS: External auditory canals clear, tympanic membranes pearly garcia without erythema or effusion bilaterally. EYES: Pupils equal round and reactive to light and accommodation. Conjunctivae without injection, sclerae without icterus. Extraocular movements intact. NOSE: Patent, turbinates without inflammation or discharge. No sinus tenderness. MOUTH: Mucous membranes moist. Tonsils are not enlarged. Pharynx without erythema or exudate. Uvula midline. Airway patent. Tongue does not deviate. NECK: Supple without nuchal rigidity. No lymphadenopathy. No thyromegaly. Cervical spine is nontender. No JVD. HEART: Regular rate and rhythm without murmurs gallops or rubs. LUNGS: Clear to auscultation bilaterally without wheezes, rales or rhonchi. No dullness to percussion. No retractions or accessory muscle use. ABDOMEN: Positive bowel sounds x 4. Normal tympanic percussion. Mild epigastric and left upper quadrant tenderness. The abdomen was otherwise soft, nontender, without masses or organomegaly. Jj sign negative. No guarding or rebound tenderness. No CVA tenderness bilaterally. MUSCULOSKELETAL: No muscle atrophy, erythema, or edema noted. Full range of motion without joint tenderness in all extremities. No tenderness to palpation. Normal gait. Strength 5/5 throughout. NEURO: Patient was alert and oriented to person place and time. Normal sensation to light and sharp touch. Deep tendon reflexes 2+ throughout. No focal neurological deficits. Medical Decision & Procedures Laboratory Results 12/10/17 11:17 Red Blood Count 4.67, Mean Corpuscular Volume 86.5, Mean Corpuscular Hemoglobin 30.6, Mean Corpuscular Hemoglobin Concent 35.4, Mean Platelet Volume 8.6, Neutrophils (%) (Auto) 67.9, Lymphocytes (%) (Auto) 25.6, Monocytes (%) (Auto) 5.4, Eosinophils (%) (Auto) 0.3, Basophils (%) (Auto) 0.4, Neutrophils # (Auto) 4.76, Lymphocytes # (Auto) 1.80, Monocytes # (Auto) 0.38, Eosinophils # (Auto) 0.02, Basophils # (Auto) 0.03 12/10/17 11:17 Test 12/10/17 11:17 White Blood Count 7.02 K/uL (4.8-10.8) Red Blood Count 4.67 M/uL (4.2-5.4) Hemoglobin 14.3 g/dL (12.0-16.0) Hematocrit 40.4 % (37-47) Mean Corpuscular Volume 86.5 fL (80-100) Mean Corpuscular Hemoglobin 30.6 pg (25-34) Mean Corpuscular Hemoglobin Concent 35.4 g/dl (32-36) Platelet Count 297 K/uL (130-400) Mean Platelet Volume 8.6 fL (7.4-10.4) Neutrophils (%) (Auto) 67.9 % Lymphocytes (%) (Auto) 25.6 % Monocytes (%) (Auto) 5.4 % Eosinophils (%) (Auto) 0.3 % Basophils (%) (Auto) 0.4 % Neutrophils # (Auto) 4.76 K/uL (1.4-6.5) Lymphocytes # (Auto) 1.80 K/uL (1.2-3.4) Monocytes # (Auto) 0.38 K/uL (0.11-0.59) Eosinophils # (Auto) 0.02 K/uL (0-0.5) Basophils # (Auto) 0.03 K/uL (0-0.2) RDW Standard Deviation 39.3 fL (36.4-46.3) RDW Coefficient of Variation 12.3 % (11.5-14.5) Immature Granulocyte % (Auto) 0.4 % Immature Granulocyte # (Auto) 0.03 K/uL (0.00-0.02) Anion Gap 8.0 mmol/L (3-11) Est Creatinine Clear Calc Drug Dose 113.6 ml/min Estimated GFR () 131.3 Estimated GFR (Non- 113.3 BUN/Creatinine Ratio 17.8 (10-20) Calcium Level 8.3 mg/dl (8.5-10.1) Total Bilirubin 0.8 mg/dl (0.2-1) Aspartate Amino Transf (AST/SGOT) 27 U/L (15-37) Alanine Aminotransferase (ALT/SGPT) 50 U/L (12-78) Alkaline Phosphatase 96 U/L (45-117) Total Protein 7.9 gm/dl (6.4-8.2) Albumin 3.7 gm/dl (3.4-5.0) Globulin 4.2 gm/dl (2.5-4.0) Albumin/Globulin Ratio 0.9 (0.9-2) Lipase 174 U/L (73-393) Medications Administered Medications (Trade) Dose Ordered Sig/Jannie Route Start Time Stop Time Status Last Admin Dose Admin Sodium Chloride 1,000 ml @ 999 mls/hr Q1H1M STAT IV 12/10/17 10:53 12/10/17 11:53 DC 12/10/17 11:37 999 MLS/HR Ondansetron HCl (Zofran Inj) 4 mg NOW STAT IV 12/10/17 10:53 12/10/17 10:58 DC 12/10/17 11:37 4 MG Morphine Sulfate (MoRPHine SULFATE INJ) 4 mg NOW STAT IV 12/10/17 11:26 12/10/17 11:27 DC 12/10/17 11:37 4 MG Famotidine (Pepcid 20mg Iv Push) 20 mg NOW STAT IV 12/10/17 12:20 12/10/17 12:21 DC 12/10/17 12:28 20 MG Diphenhydramine HCl (Benadryl Inj) 50 mg NOW STAT IV 12/10/17 12:20 12/10/17 12:21 DC 12/10/17 12:28 50 MG ED Course The patient was seen and evaluated as above. IV access obtained, labs drawn. The patient was given 1 L normal saline solution, 4 mg morphine, 4 mg Zofran for her symptoms. Previous EMR reviewed. At the patient's last visit, in addition to the above medications, she was also given 20 mg Pepcid and 50 mg Benadryl IV. She did experience significant improvement in her symptoms with these medications. The patient did request further pain management. I gave her Pepcid and Benadryl as listed above. Laboratory results are reviewed. I discussed the case with my attending, who is in agreement with the assessment and plan. The patient was reassessed and is feeling much better. Discharge instructions reviewed, the patient was discharged home in good condition. Medical Decision This is a 37-year-old obese white female with significant past medical history for chronic pancreatitis. The patient states the abdominal pain she has been experiencing for approximately the past 1 hour is consistent with flareups of acute pancreatitis. The patient's pain significantly resolved with IV morphine , Zofran, Pepcid, and diphenhydramine. In the absence of an elevated lipase or CBC tests and the patient's ability to tolerate p.o. fluids, I suspect a possible gastritis versus early acute pancreatitis. I do feel that the patient can reasonably be treated outpatient, as she does have a follow-up appointment scheduled with her established civil cad designer next Monday. She has gotten several prescriptions for tramadol recently from several different providers, and her the last emergency department note, the patient's civil cad designer was concerned for possible drug-seeking behavior. I discussed with the patient that I will not provide her with narcotics for her chronic pain, and that she will need to work with her civil cad designer to find a reasonable treatment regimen. I will switch the patient from omeprazole to Protonix in case of a gastritis. The patient was agreeable to this change. The patient's potassium was noted to be low here in the emergency department, and I did offer to provide her with a potassium supplement. Patient declines this, and states she will eat some high potassium foods and liquids at home. All questions were answered to her satisfaction. Etiologies such as appendicitis, diverticulitis, obstruction, inflammatory bowel disease, renal colic, PUD, biliary pathology, pancreatitis, mesenteric ischemia, aortic pathology, infections, genitourinary, UTI, perforated viscus, drug-seeking behavior, malignancy, as well as others were entertained. Medication Reconcilliation Current Medication List: was personally reviewed by mt Blood Pressure Screening Patient's blood pressure: Normal blood pressure Impression Primary Impression: Upper abdominal pain Departure Information Dispostion Home / Self-Care Condition GOOD Prescriptions Pantoprazole (Protonix) 40 Mg Tab 40 MG PO DAILY, #30 TAB Prov: Berenice Key PA-C 12/10/17 Referrals Raquel Cervantes D.O. (PCP) Patient Instructions ED Abdominal Pain Unkn Cause, ED Gastritis, My [facility] Additional Instructions You have been treated in the Emergency Department your Abdominal Pain. Laboratory results and imaging studies have ruled out any emergent causes for your abdominal pain which would warrant admission or surgery. As discussed, lipase testing was negative for acute pancreatitis. You were given medication here in the emergency department which makes it illegal for you to drive or operate machinery. You have been prescribed Protonix to take in place of the omeprazole you were previously prescribed. Please take this medication as directed. Pleas inform your civil cad designer of this change. Use the Zofran you have at home for nausea and vomiting. For pain control, you can use the following [id number] medicines (if >12 yo): Acetaminophen(Tylenol) may be used for fever or pain. Use 1000mg every six hours as needed. Avoid using more than 3000mg in a 24 hour period. Drink plenty of water and stay well hydrated. Clear liquid diet 24 hours. Slowly advance the diet as tolerated. As with any trip to the Emergency Department, you should follow-up with your Primary Care Provider from today's visit. Follow-up with your civil cad designer at your regularly scheduled appointment next week. Return to the emergency department if your symptoms persist despite treatment plan outlined above or if the following symptoms occur: increased fevers, chills , worsening nausea/vomiting, blood in your stool or urine.
[2017-12-10] MEDS ORDERED: DiphenhydrAMINE HCL 50 MG/ML VIAL IV STA (12:20)
[2017-12-10] MEDS ORDERED: FAMOTIDINE 20MG/5ML IV PUSH IV STA (12:20)
[2017-12-10] MEDS ORDERED: PANT40TA PO (13:12)
[2017-12-10 13:24] VITALS: BP 135/85; PULSE 64; O2SAT 99
== END 2017-12-10 13:29 | disposition home or self-care (01) ==
LOC: C.EDB 10:30 → C.EDC 13:29
DX: R10.10 Upper abdominal pain, unspecified (principal); K86.1 Other chronic pancreatitis; Z87.891 Personal history of nicotine dependence; Z79.899 Other long term (current) drug therapy

== ENCOUNTER 2018-01-06 18:15 | Inpatient (IN) | payer OTHER ==
[~2018-01-06] VITALS: Ht 154.9 cm; Wt 87.0 kg
[~2018-01-06 18:15] MED LIST changes: -CITA40TA4 PO; -HYDR-5688 PO; +PANT40TA PO; -TRAM-10 PO
[2018-01-06] MEDS ORDERED: SODIUM CHLORIDE 0.9% 1000ML 1,000 ML IV STA (18:23)
[2018-01-06] MEDS ORDERED: ONDANSETRON INJ 2 MG/ML 2 ML VIAL IV STA ×2 (18:23→20:01)
[2018-01-06] MEDS ORDERED: HYDROmorphone INJ 1 MG/ML SYR IV STA (18:26)
[2018-01-06] MEDS ORDERED: CITA40TA4 PO (18:29)
--- NOTE | 2018-01-06 18:36 | EMERGENCY ROOM VISIT NOTE ---
History Report prepared by Francie: Krzysztof Cortez Under the Supervision of: Dr. Melo Mathis M.D. First contact with patient: 18:22 Chief Complaint: GI ASSESSMENT Stated Complaint: PAIN IN STOMACH,VOMITING BLOOD,NAUSEA,PANCRETITIS Nursing Triage Summary: Hx pancreatitis Had EGD and US on 01/03, found scarring on pancreas. Today pt vomited what she thinks is blood. Abdominal pain 04/17. History of Present Illness The patient is a 37 year old female who presents to the Emergency Room with complaints of constant epigastric abdominal pain beginning today. The patient states that she has been having epigastric abdominal pain and has vomited twice today. She notes that her second episode of vomiting contained bright red blood. She denies having any blood in her urine/stool and states that there is no chance that she is . She reports that she has a history of pancreatitis and has had a cholecystectomy and appendectomy. The patient states that she had an EGD done 4 days ago for her pancreatitis which showed scarring on her pancreas but did not find any stones. Source of History: patient Onset: today Position: abdomen (epigastric) Timing: constant Associated Symptoms: + vomiting (x2) Note: The patient states that her second episode of vomiting contained bright red blood. She denies any blood in her urine/stool. Review of Systems See HPI for pertinent positives and negatives. A total of ten systems were reviewed and were otherwise negative. Past Medical & Surgical Medical Problems: (1) Pancreatitis Surgical Problems: (1) H/O hernia repair (2) Hx of appendectomy (3) Hx of cholecystectomy Family History Patient reports no known family medical history. Social History Smoking Status: Former Smoker Alcohol Use: none Drug Use: none Marital Status: single Housing Status: lives alone Occupation Status: employed Current/Historical Medications Scheduled Citalopram (Citalopram Hydrobromide), 40 MG PO HS Cyanocobalamin (Vitamin B-12), 1 TAB PO DAILY Lamotrigine (Lamictal), 200 MG PO BID Multivitamins/Minerals (Mvi With Minerals), 1 TAB PO DAILY Pantoprazole (Protonix), 40 MG PO DAILY Scheduled PRN Acetaminophen (Tylenol), 1,000 MG PO Q6 PRN for Headache or Pain Alprazolam (Xanax), 1 MG PO TID PRN for Anxiety Allergies Coded Allergies: Fentanyl (Unverified Allergy, Severe, RASH, 12/10/17) Ibuprofen (Unverified Allergy, Unknown, UNKNOWN, 12/10/17) Ketorolac Tromethamine (Unverified Allergy, Unknown, rash, 12/10/17) Penicillins (Verified Allergy, Unknown, rash, 12/10/17) Physical Exam Vital Signs Date Time Temp Pulse Resp B/P (MAP) Pulse Ox O2 Delivery O2 Flow Rate FiO2 01/06/18 20:35 90 01/06/18 20:16 89 18 139/85 97 Room Air 01/06/18 18:18 36.8 107 18 141/75 99 Room Air Physical Exam Physical Exam GENERAL: She is oriented to person, place, and time. She appears well- developed and well-nourished. She does not appear distressed. HENT: Exam performed. Head: Normocephalic and atraumatic. Right Ear: External ear normal. No mastoid tenderness. Left Ear: External ear normal. No mastoid tenderness. Mouth/Throat: The oropharynx is clear and moist. No trismus in the jaw. No dental abscesses or uvula swelling. No oropharyngeal exudate or tonsillar abscesses. EYES: Conjunctivae and EOM are normal. Pupils are equal, round, and reactive to light. Right eye exhibits no discharge. Left eye exhibits no discharge. No scleral icterus. NECK: Normal range of motion. Neck supple. No JVD present. No spinous process tenderness present. No carotid bruit present. No rigidity. No tracheal deviation and normal range of motion present. No Brudzinski's sign and no Kernig 's sign noted. CV: Normal rate, regular rhythm, normal heart sounds and intact distal pulses. There is no peripheral edema. Palpable radial pulses bue. PULM/CHEST: Effort normal and breath sounds normal. No respiratory distress. No stridor. She has no wheezes. She has no rales. Chest Wall: She exhibits no tenderness. ABD: The abdomen is soft. Bowel sounds are normal. She has no distension. No mass is present. There is no rebound, no guarding, no Jj's sign and no tenderness at McBurney's point. Rovsig negative. Pain to palpation in the epigastric area. MUSC/SKEL: Normal range of motion. There is no peripheral edema, tenderness or deformity. LYMPH: No cervical adenopathy. NEURO: She is alert and oriented to person, place, and time. She has normal strength. No cranial nerve deficit or sensory deficit. Coordination and gait normal. GCS eye subscore is 4. GCS verbal subscore is 5. GCS motor subscore is 6. Cerebellar tests wnl. SKIN: Skin is warm and dry. She is not diaphoretic. PSYCH: She has a normal mood and affect. Her behavior is normal. Judgment and thought content normal. Medical Decision & Procedures ER Provider Diagnostic Interpretation: Radiology results as stated below per my review and radiologist interpretation: PA CHEST WITH ABDOMINAL SERIES FINDINGS: A PA chest radiograph is compared to study dated 08/17/2017. The cardiomediastinal silhouette is unremarkable. The lungs and pleural spaces are clear. No pneumothorax is seen. The bony thorax is grossly intact. Supine and erect abdominal radiographs are correlated with abdominal CT dated 08/28/2017. Cholecystectomy clips are noted in the right upper quadrant. There is a nonobstructed abdominal bowel gas pattern. Moderate colonic fecal retention is noted. No evidence of intraperitoneal free air is seen. There are no abnormal abdominal calcifications. A surgical clip and suture material is seen in the right lower quadrant. A surgical clip is also seen in the left hemipelvis. There are calcified pelvic phleboliths. The lumbosacral spine and bony pelvis appear intact. IMPRESSION: 1. No active disease in the chest. 2. Nonobstructed abdominal bowel gas pattern noting moderate colonic fecal retention. Electronically signed by: Ashwin Kathleen M.D. 01/06/2018 7:56 PM Laboratory Results 01/06/18 17:00 Red Blood Count 4.07, Mean Corpuscular Volume 88.0, Mean Corpuscular Hemoglobin 30.5, Mean Corpuscular Hemoglobin Concent 34.6, Mean Platelet Volume 8.7, Neutrophils (%) (Auto) 58.3, Lymphocytes (%) (Auto) 35.2, Monocytes (%) (Auto) 5.5, Eosinophils (%) (Auto) 0.4, Basophils (%) (Auto) 0.3, Neutrophils # (Auto) 4.38, Lymphocytes # (Auto) 2.64, Monocytes # (Auto) 0.41, Eosinophils # (Auto) 0.03, Basophils # (Auto) 0.02 3/31/18 17:00 Test 01/06/18 17:00 01/06/18 18:40 White Blood Count 7.50 K/uL (4.8-10.8) Red Blood Count 4.07 M/uL (4.2-5.4) Hemoglobin 12.4 g/dL (12.0-16.0) Hematocrit 35.8 % (37-47) Mean Corpuscular Volume 88.0 fL (80-100) Mean Corpuscular Hemoglobin 30.5 pg (25-34) Mean Corpuscular Hemoglobin Concent 34.6 g/dl (32-36) Platelet Count 244 K/uL (130-400) Mean Platelet Volume 8.7 fL (7.4-10.4) Neutrophils (%) (Auto) 58.3 % Lymphocytes (%) (Auto) 35.2 % Monocytes (%) (Auto) 5.5 % Eosinophils (%) (Auto) 0.4 % Basophils (%) (Auto) 0.3 % Neutrophils # (Auto) 4.38 K/uL (1.4-6.5) Lymphocytes # (Auto) 2.64 K/uL (1.2-3.4) Monocytes # (Auto) 0.41 K/uL (0.11-0.59) Eosinophils # (Auto) 0.03 K/uL (0-0.5) Basophils # (Auto) 0.02 K/uL (0-0.2) RDW Standard Deviation 40.9 fL (36.4-46.3) RDW Coefficient of Variation 12.7 % (11.5-14.5) Immature Granulocyte % (Auto) 0.3 % Immature Granulocyte # (Auto) 0.02 K/uL (0.00-0.02) Anion Gap 5.0 mmol/L (3-11) Est Creatinine Clear Calc Drug Dose 85.7 ml/min Estimated GFR () 91.1 Estimated GFR (Non- 78.6 BUN/Creatinine Ratio 6.9 (10-20) Calcium Level 8.0 mg/dl (8.5-10.1) Total Bilirubin 0.4 mg/dl (0.2-1) Direct Bilirubin 0.1 mg/dl (0-0.2) Aspartate Amino Transf (AST/SGOT) 24 U/L (15-37) Alanine Aminotransferase (ALT/SGPT) 33 U/L (12-78) Alkaline Phosphatase 95 U/L (45-117) Total Protein 7.4 gm/dl (6.4-8.2) Albumin 3.5 gm/dl (3.4-5.0) Lipase 1153 U/L (73-393) Urine Color YELLOW Urine Appearance CLOUDY (CLEAR) Urine pH 6.0 (4.5-7.5) Urine Specific [place] 1.009 (1.000-1.030) Urine Protein NEG (NEG) Urine Glucose (UA) NEG (NEG) Urine Ketones NEG (NEG) Urine Occult Blood 3+ (NEG) Urine Nitrite NEG (NEG) Urine Bilirubin NEG (NEG) Urine Urobilinogen NEG (NEG) Urine Leukocyte Esterase MODERATE (NEG) Urine WBC (Auto) 10-30 /hpf (0-5) Urine RBC (Auto) >30 /hpf (0-4) Urine Hyaline Casts (Auto) 1-5 /lpf (0-5) Urine Epithelial Cells (Auto) >30 /lpf (0-5) Urine Bacteria (Auto) 1+ (NEG) Urine Test NEG (NEG) Laboratory results reviewed by me Medications Administered Medications (Trade) Dose Ordered Sig/Jannie Route Start Time Stop Time Status Last Admin Dose Admin Sodium Chloride 1,000 ml @ 999 mls/hr Q1H1M STAT IV 01/06/18 18:23 01/06/18 19:23 DC 01/06/18 18:48 999 MLS/HR Ondansetron HCl (Zofran Inj) 4 mg NOW STAT IV 01/06/18 18:23 01/06/18 18:27 DC 01/06/18 18:49 4 MG Hydromorphone HCl (Dilaudid Inj) 1 mg ONE STAT IV 01/06/18 18:26 01/06/18 18:27 DC 01/06/18 18:50 1 MG Hydromorphone HCl (Dilaudid Inj) 1 mg ONE PRN IV 01/06/18 19:45 01/20/18 19:44 01/06/18 20:03 1 MG Potassium Chloride (Kcl 10 Meq / Wtr) 20 meq NOW STAT IV 01/06/18 19:59 01/06/18 20:00 DC 01/06/18 20:13 20 MEQ Ondansetron HCl (Zofran Inj) 4 mg NOW STAT IV 01/06/18 20:01 01/06/18 20:02 DC 01/06/18 20:04 4 MG ED Course 1821: The patient was evaluated in room B3. A complete history and physical exam was performed. 1822: Zofran Inj 4mg IV, Sodium Chloride 1000 ml @ 999 mls/hr IV 1825: Dilaudid Inj 1mg IV 1958: Potassium Chloride 20meq IV 2000: Zofran Inj 4mg IV 1956: Upon reevaluation, the patient's vitals were stable. Imaging within normal limits. Labs within normal limits with the exception of lipase of 1153 and potassium of 3.3. She continues to have epigastric pain but has not vomited since she has been in the emergency room. Discussed the patient's case with Chyna Patel, will admit for pancreatitis..The patient will be evaluated for further management. Medical Decision patient's vitals were stable. Imaging within normal limits. Labs within normal limits with the exception of lipase of 1153 and potassium of 3.3. She continues to have epigastric pain but has not vomited since she has been in the emergency room. Discussed the patient's case with Chyna Patel, will admit for pancreatitis..The patient will be evaluated for further management. Medication Reconcilliation Current Medication List: was personally reviewed by me Blood Pressure Screening Patient's blood pressure: Elevated blood pressure Blood pressure disposition: Elevated BP felt to be situational Consults Time Called: 1954 Consulting Physician: Chyna Patel Returned Call: 1956 Discussed the patient's case. The patient will be evaluated for further treatment and disposition. Impression Primary Impression: Pancreatitis Additional Impression: Hypokalemia Scribe Attestation The scribe's documentation has been prepared under my direction and personally reviewed by me in its entirety. I confirm that the note above accurately reflects all work, treatment, procedures, and medical decision making performed by me. The chart was completed utilizing [employer] voice recognition software. Grammatical errors, random word insertions, pronoun errors, and incomplete sentences are an occasional consequence of this system due to software limitations, ambient noise, and hardware issues. Any formal questions or concerns about the content, text, or information contained within the body of this dictation should be directly addressed to the physician for clarification. Departure Information Dispostion Being Evaluated By Hospitalist Referrals Thien Kohli D.O. (PCP) Patient Instructions My [facility] Problem Qualifiers Primary Impression: Pancreatitis Chronicity: acute Pancreatitis type: unspecified pancreatitis type Acute pancreatitis complication: unspecified Qualified Codes: K85.90 - Acute pancreatitis without necrosis or infection, unspecified
[2018-01-06] MEDS ORDERED: MULT-513 PO (19:03)
[2018-01-06] MEDS ORDERED: CYAN100T PO (19:03)
[2018-01-06 19:10] LABS: BASO % 0.3 %; BASO ABS # 0.02 K/uL (0-0.2); EOS % 0.4 %; EOS ABS # 0.03 K/uL (0-0.5); HEMATOCRIT 35.8 % (37-47); HEMOGLOBIN 12.4 g/dL (12.0-16.0); IG# 0.02 K/uL (0.00-0.02); LYMPH % 35.2 %; LYMPH ABS # 2.64 K/uL (1.2-3.4); MEAN CORPUSCULAR HEMOGLOBIN 30.5 pg (25-34); MEAN CORPUSCULAR HGB CONC 34.6 g/dl (32-36); MEAN PLATELET VOLUME 8.7 fL (7.4-10.4); MONO % 5.5 %; MONO ABS # 0.41 K/uL (0.11-0.59); NEUT % 58.3 %; NEUT ABS # 4.38 K/uL (1.4-6.5); PLATELET COUNT 244 K/uL (130-400); RED CELL DISTRIBUTION WIDTH CV 12.7 % (11.5-14.5); RED CELL DISTRIBUTION WIDTH SD 40.9 fL (36.4-46.3)
[2018-01-06 19:33] LABS: ALBUMIN 3.5 gm/dl (3.4-5.0); CREATININE 0.94 mg/dl (0.60-1.20); POTASSIUM 3.3 mmol/L (3.5-5.1)
[2018-01-06 19:36] LABS: TOTAL PROTEIN 7.4 gm/dl (6.4-8.2)
[2018-01-06] MEDS ORDERED: HYDROmorphone INJ 1 MG/ML SYR IV PRN (19:45)
--- NOTE | 2018-01-06 19:57 | DIAGNOSTIC IMAGING REPORT ---
PA CHEST WITH ABDOMINAL SERIES CLINICAL HISTORY: Hematemesis. Vomiting. FINDINGS: A PA chest radiograph is compared to study dated 08/17/2017. The cardiomediastinal silhouette is unremarkable. The lungs and pleural spaces are clear. No pneumothorax is seen. The bony thorax is grossly intact. Supine and erect abdominal radiographs are correlated with abdominal CT dated 08/28/2017. Cholecystectomy clips are noted in the right upper quadrant. There is a nonobstructed abdominal bowel gas pattern. Moderate colonic fecal retention is noted. No evidence of intraperitoneal free air is seen. There are no abnormal abdominal calcifications. A surgical clip and suture material is seen in the right lower quadrant. A surgical clip is also seen in the left hemipelvis. There are calcified pelvic phleboliths. The lumbosacral spine and bony pelvis appear intact. IMPRESSION: 1. No active disease in the chest. 2. Nonobstructed abdominal bowel gas pattern noting moderate colonic fecal retention. Electronically signed by: Ashwin Kathleen M.D. 01/06/2018 7:56 PM Dictated Date/Time: 01/06/2018 7:55 PM
[2018-01-06] MEDS ORDERED: POTASSIUM CHLORIDE 10 MEQ / 100ML WTR IV STA (19:59)
--- NOTE | 2018-01-06 20:12 | History and Physical ---
History & Physical Date & Time of Service: Jan 06, 2018 at 20:12 Chief Complaint: Pain In Stomach,Vomiting Blood,Nausea,Pancretitis Primary Care Physician: Thien Kohli D.O. History of Present Illness Source: patient Patient is a 37 yr female with PMH of Conversion disorder, JUAN FRANCISCO, Pseudoseizures , recurrent idiopathic pancreatitis and other problems presents with history of nausea, vomiting, abdominal pain which started this morning. Patient states she was admitted at [facility] 1 month ago with pancreatitis. States having epigastric, LUQ sharp pain, 8/10 intensity, constant, radiates to back. Patient states she had 4 episodes of vomiting today and reports noticing small amount of blood mixed with vomitus on one occasion. Reports remote peptic ulcer disease and takes PPI regularly. She had endoscopic ultrasound 01/03/18 at [facility] which was normal and showed no signs of chronic pancreatitis or CBD pathology. She had history of appendectomy and cholecystectomy. Also reports having 1 episode of diarrhea today but denies any blood in stools. Denies any history of chest pain, shortness of breath, cough, fever, dysuria, hematuria or increased Urinary frequency. She states her father had a CABG recently and so she is undergoing through a lot of stress lately. Past Medical/Surgical History Medical Problems: (1) Abdominal pain (2) Allergic reaction to drug (3) Cellulitis of nasal tip (4) Contusion of multiple sites (5) Epigastric abdominal pain (6) Facial injury (7) Fall (8) Fatigue (9) GI bleed (10) Hematuria (11) Hematuria (12) Hyperglycemia (13) Hypokalemia (14) Hypokalemia (15) Nasal laceration (16) Pancreatitis (17) Right flank pain (18) Right flank pain (19) Right rib fracture (20) Right sided abdominal pain (21) Seizure (22) Seizure (23) Transaminitis (24) Transaminitis (25) Upper abdominal pain (26) Vomiting Surgical Problems: (1) H/O hernia repair (2) Hx of appendectomy (3) Hx of cholecystectomy Family History Patient reports no known family medical history. Father: CAD Mother: HTN Social History Smoking Status: Former Smoker (States smoking intermittently) Alcohol Use: socially Drug Use: none Marital Status: single Occupational Status: employed Allergies Coded Allergies: Fentanyl (Unverified Allergy, Severe, RASH, 12/10/17) Ibuprofen (Unverified Allergy, Unknown, UNKNOWN, 12/10/17) Ketorolac Tromethamine (Unverified Allergy, Unknown, rash, 12/10/17) Penicillins (Verified Allergy, Unknown, rash, 12/10/17) Home Medications Scheduled Citalopram (Citalopram Hydrobromide), 40 MG PO HS Cyanocobalamin (Vitamin B-12), 1 TAB PO DAILY Lamotrigine (Lamictal), 200 MG PO DAILY Multivitamins/Minerals (Mvi With Minerals), 1 TAB PO DAILY Pantoprazole (Protonix), 40 MG PO DAILY Scheduled PRN Acetaminophen (Tylenol), 1,000 MG PO Q6 PRN for Headache or Pain Alprazolam (Xanax), 0.5 MG PO TID PRN for Anxiety Review of Systems See HPI for pertinent positives & negatives. A total of 10 systems reviewed and were otherwise negative. Physical Exam Vital Signs Date Time Temp Pulse Resp B/P (MAP) Pulse Ox O2 Delivery O2 Flow Rate FiO2 01/06/18 18:18 36.8 107 18 141/75 99 Room Air General Appearance: no apparent distress, + obese Head: normocephalic, atraumatic Eyes: normal inspection, PERRL, EOMI, sclerae normal ENT: normal ENT inspection, hearing grossly normal Neck: supple, trachea midline Respiratory/Chest: chest non-tender, lungs clear, normal breath sounds, no respiratory distress, no accessory muscle use Cardiovascular: regular rate, rhythm, no edema, no murmur Abdomen/GI: normal bowel sounds, soft, + tenderness (Epigastric, LUQ) Back: normal inspection Extremities/Musculoskelatal: normal inspection, no pedal edema Neurologic/Psych: measurement psychologist II-XII nml as tested, no motor/sensory deficits, alert, normal mood/affect, oriented x 3 Skin: normal color, warm/dry Diagnostics Laboratory Results Results Past 24 Hours Test 01/06/18 17:00 01/06/18 18:40 Range/Units White Blood Count 7.50 4.8-10.8 K/uL Red Blood Count 4.07 4.2-5.4 M/uL Hemoglobin 12.4 12.0-16.0 g/dL Hematocrit 35.8 37-47 % Mean Corpuscular Volume 88.0 80-100 fL Mean Corpuscular Hemoglobin 30.5 25-34 pg Mean Corpuscular Hemoglobin Concent 34.6 32-36 g/dl Platelet Count 244 130-400 K/uL Mean Platelet Volume 8.7 7.4-10.4 fL Neutrophils (%) (Auto) 58.3 % Lymphocytes (%) (Auto) 35.2 % Monocytes (%) (Auto) 5.5 % Eosinophils (%) (Auto) 0.4 % Basophils (%) (Auto) 0.3 % Neutrophils # (Auto) 4.38 1.4-6.5 K/uL Lymphocytes # (Auto) 2.64 1.2-3.4 K/uL Monocytes # (Auto) 0.41 0.11-0.59 K/uL Eosinophils # (Auto) 0.03 0-0.5 K/uL Basophils # (Auto) 0.02 0-0.2 K/uL RDW Standard Deviation 40.9 36.4-46.3 fL RDW Coefficient of Variation 12.7 11.5-14.5 % Immature Granulocyte % (Auto) 0.3 % Immature Granulocyte # (Auto) 0.02 0.00-0.02 K/uL Sodium Level 139 136-145 mmol/L Potassium Level 3.3 3.5-5.1 mmol/L Chloride Level 106 98-107 mmol/L Carbon Dioxide Level 28 21-32 mmol/L Anion Gap 5.0 3-11 mmol/L Blood Urea Nitrogen 7 7-18 mg/dl Creatinine 0.94 0.60-1.20 mg/dl Est Creatinine Clear Calc Drug Dose 85.7 ml/min Estimated GFR () 91.1 Estimated GFR (Non- 78.6 BUN/Creatinine Ratio 6.9 10-20 Random Glucose 71 70-99 mg/dl Calcium Level 8.0 8.5-10.1 mg/dl Total Bilirubin 0.4 0.2-1 mg/dl Direct Bilirubin 0.1 0-0.2 mg/dl Aspartate Amino Transf (AST/SGOT) 24 15-37 U/L Alanine Aminotransferase (ALT/SGPT) 33 12-78 U/L Alkaline Phosphatase 95 45-117 U/L Total Protein 7.4 6.4-8.2 gm/dl Albumin 3.5 3.4-5.0 gm/dl Lipase 1153 73-393 U/L Urine Color YELLOW Urine Appearance CLOUDY CLEAR Urine pH 6.0 4.5-7.5 Urine Specific [place] 1.009 1.000-1.030 Urine Protein NEG NEG Urine Glucose (UA) NEG NEG Urine Ketones NEG NEG Urine Occult Blood 3+ NEG Urine Nitrite NEG NEG Urine Bilirubin NEG NEG Urine Urobilinogen NEG NEG Urine Leukocyte Esterase MODERATE NEG Urine WBC (Auto) 10-30 0-5 /hpf Urine RBC (Auto) >30 0-4 /hpf Urine Hyaline Casts (Auto) 1-5 0-5 /lpf Urine Epithelial Cells (Auto) >30 0-5 /lpf Urine Bacteria (Auto) 1+ NEG Urine Test NEG NEG Microbiology Results 01/06/18 Urine Culture, Received Pending Diagnostic Radiology Chest/Abdominal X ray: 1. No active disease in the chest. 2. Nonobstructed abdominal bowel gas pattern noting moderate colonic fecal retention. Impression Assessment and Plan Recurrent Idiopathic Pancreatitis: Patient had multiple endoscopies in the past Endoscopic Ultrasound on 01/03/18: Normal. No signs of pancreatitis or CBD pathology Last Endoscopy in 12/14/15:normal Abdominal X ray:Nonobstructed abdominal bowel gas pattern noting moderate colonic fecal retention Lipase levels:1153 Mild hematemesis likely secondary to esophagitis (Noted on Endoscopy in 2013) NPO IV fluids, IV Protonix BID Monitor Hb Last alcohol drink was in September 2017 as per patient Smokes Tobacco occasionally No indication for antibiotics Check Lipid panel Pain control Diarrhea likely overflow secondary to constipation Start bowel regimen consider PPI ggt if recurrence of hematemesis Hypokalemia: Secondary to GI loses replace and monitor Abnormal UA: Denies Urinary symptoms No fever or leukocytosis Urine culture Hold antibiotics for now Conversion disorder: JUAN FRANCISCO: Continue Celexa, Ativan PRN Pseudoseizures: Continue Lamictal Follows with Neurology DVT Px: SCDs Re: hematemesis Code Status: Full Code Disposition: Expect to discharge home when stable Resuscitation Status VTE Prophylaxis Will order VTE Prophylaxis: Yes
[2018-01-06] MEDS ORDERED: POTASSIUM CHLORIDE 10 MEQ TABCR PO STA (20:39)
[2018-01-06] MEDS ORDERED: ACETAMINOPHEN 325 MG TAB PO PRN (20:45)
[2018-01-06] MEDS ORDERED: ALPR1TAB3 PO (20:46)
[2018-01-06] MEDS ORDERED: LAMO200T35 PO (20:46)
[2018-01-06] MEDS ORDERED: LORAZEPAM 2 MG/ML 1 ML VIAL IV PRN (21:00)
[2018-01-06] MEDS ORDERED: LORAZEPAM INJ 1 MG in SYRINGE 0.5 ML IV PRN (21:30)
[2018-01-06 22:00] VITALS: BP 135/88; PULSE 90; TEMP 37.1; O2SAT 97; Ht 154.9 cm; Wt 87.0 kg
[2018-01-06] MEDS: SODIUM CHLORIDE 0.9% 1000ML 1,000 ML IV SCH (22:12)
[2018-01-06] MEDS: DOCUSATE SODIUM 100 MG CAP PO SCH (22:26)
[2018-01-06] MEDS: CITALOPRAM 40 MG TAB PO SCH (22:26)
[2018-01-06] MEDS: ALPRAZOLAM 0.5 MG TAB PO PRN (22:26)
[2018-01-06] MEDS: MoRPHine SULFATE 2 MG/ML CARP IV PRN (22:27)
[2018-01-06 23:14] VITALS: BP 147/56; PULSE 88; TEMP 37.2; O2SAT 94
[2018-01-07] MEDS: FAMOTIDINE IV INJ 20 MG in SYRINGE 3 ML IV SCH ×2 (00:28→12:02)
[2018-01-07] MEDS: ONDANSETRON INJ 2 MG/ML 2 ML VIAL IV PRN ×2 (02:30→20:41)
[2018-01-07] MEDS: MoRPHine SULFATE 2 MG/ML CARP IV PRN ×2 (02:30→06:33)
[2018-01-07] MEDS: SODIUM CHLORIDE 0.9% 1000ML 1,000 ML IV SCH ×3 (05:07→20:41)
[2018-01-07 06:56] LABS: HEMATOCRIT 35.6 % (37-47); HEMOGLOBIN 12.3 g/dL (12.0-16.0); MEAN CELL VOLUME 87.7 fL (80-100); MEAN CORPUSCULAR HEMOGLOBIN 30.3 pg (25-34); MEAN CORPUSCULAR HGB CONC 34.6 g/dl (32-36); MEAN PLATELET VOLUME 8.7 fL (7.4-10.4); PLATELET COUNT 240 K/uL (130-400); RED CELL DISTRIBUTION WIDTH CV 12.7 % (11.5-14.5); RED CELL DISTRIBUTION WIDTH SD 41.1 fL (36.4-46.3); WHITE BLOOD COUNT 6.09 K/uL (4.8-10.8)
[2018-01-07 07:03] VITALS: BP 129/86; PULSE 90; TEMP 36.8; O2SAT 95
[2018-01-07] MEDS: DOCUSATE SODIUM 100 MG CAP PO SCH ×2 (07:10→20:41)
[2018-01-07] MEDS: ALPRAZOLAM 0.5 MG TAB PO PRN ×3 (07:13→22:55)
[2018-01-07] MEDS ORDERED: NURSING VERBAL MED ORDER ONE (07:15)
[2018-01-07 07:32] LABS: CALCIUM 7.9 mg/dl (8.5-10.1); CREATININE 0.77 mg/dl (0.60-1.20); POTASSIUM 3.3 mmol/L (3.5-5.1)
[2018-01-07] MEDS ORDERED: MoRPHine SULFATE 2 MG/ML CARP ONE (10:53)
[2018-01-07] MEDS ORDERED: MoRPHine SULFATE 2 MG/ML CARP IV PRN (11:00)
[2018-01-07] MEDS ORDERED: POTASSIUM CHLORIDE 20 MEQ TABCR PO ONE (14:45)
--- NOTE | 2018-01-07 14:46 | Progress Note ---
Medicine Progress Note Date & Time of Visit: Jan 07, 2018 at 14:32. Subjective Pt was seen and examined Lying in bed with no distress working in her cell phone Pt said that she continues to have tenderness in her abdomen She said that the pain med does not help She would like to try clear liquid diet She had a BM today Denies any chest pain, palpitation and sob Objective Last 8 Hrs Date Time Temp Pulse Resp B/P (MAP) Pulse Ox O2 Delivery O2 Flow Rate FiO2 01/07/18 07:10 Room Air 01/07/18 07:03 36.8 90 16 129/86 (100) 95 Room Air Physical Exam: General- No acute distress Head- atraumatic Eyes- PERRL, EOMI ENT- oropharynx clear Neck- supple, no JVD Lungs- clear to auscultation Heart- regular rhythm; no murmur Abdomen- normal bowel sounds, non distended Extremities- no pretibial edema, no calf tenderness Neuro- alert, oriented x 3; PERRL, EOMI; no facial palsy; no dysarthria Skin- warm & dry Laboratory Results: Last 24 Hours Test 01/06/18 17:00 01/06/18 18:40 01/07/18 06:12 White Blood Count 7.50 K/uL 6.09 K/uL Red Blood Count 4.07 M/uL 4.06 M/uL Hemoglobin 12.4 g/dL 12.3 g/dL Hematocrit 35.8 % 35.6 % Mean Corpuscular Volume 88.0 fL 87.7 fL Mean Corpuscular Hemoglobin 30.5 pg 30.3 pg Mean Corpuscular Hemoglobin Concent 34.6 g/dl 34.6 g/dl Platelet Count 244 K/uL 240 K/uL Mean Platelet Volume 8.7 fL 8.7 fL Neutrophils (%) (Auto) 58.3 % Lymphocytes (%) (Auto) 35.2 % Monocytes (%) (Auto) 5.5 % Eosinophils (%) (Auto) 0.4 % Basophils (%) (Auto) 0.3 % Neutrophils # (Auto) 4.38 K/uL Lymphocytes # (Auto) 2.64 K/uL Monocytes # (Auto) 0.41 K/uL Eosinophils # (Auto) 0.03 K/uL Basophils # (Auto) 0.02 K/uL RDW Standard Deviation 40.9 fL 41.1 fL RDW Coefficient of Variation 12.7 % 12.7 % Immature Granulocyte % (Auto) 0.3 % Immature Granulocyte # (Auto) 0.02 K/uL Sodium Level 139 mmol/L 138 mmol/L Potassium Level 3.3 mmol/L 3.3 mmol/L Chloride Level 106 mmol/L 105 mmol/L Carbon Dioxide Level 28 mmol/L 27 mmol/L Anion Gap 5.0 mmol/L 6.0 mmol/L Blood Urea Nitrogen 7 mg/dl 5 mg/dl Creatinine 0.94 mg/dl 0.77 mg/dl Est Creatinine Clear Calc Drug Dose 85.7 ml/min 102.2 ml/min Estimated GFR () 91.1 115.9 Estimated GFR (Non- 78.6 100.0 BUN/Creatinine Ratio 6.9 6.4 Random Glucose 71 mg/dl 87 mg/dl Calcium Level 8.0 mg/dl 7.9 mg/dl Total Bilirubin 0.4 mg/dl Direct Bilirubin 0.1 mg/dl Aspartate Amino Transf (AST/SGOT) 24 U/L Alanine Aminotransferase (ALT/SGPT) 33 U/L Alkaline Phosphatase 95 U/L Total Protein 7.4 gm/dl Albumin 3.5 gm/dl Lipase 1153 U/L 127 U/L Urine Color YELLOW Urine Appearance CLOUDY Urine pH 6.0 Urine Specific [place] 1.009 Urine Protein NEG Urine Glucose (UA) NEG Urine Ketones NEG Urine Occult Blood 3+ Urine Nitrite NEG Urine Bilirubin NEG Urine Urobilinogen NEG Urine Leukocyte Esterase MODERATE Urine WBC (Auto) 10-30 /hpf Urine RBC (Auto) >30 /hpf Urine Hyaline Casts (Auto) 1-5 /lpf Urine Epithelial Cells (Auto) >30 /lpf Urine Bacteria (Auto) 1+ Urine Test NEG Magnesium Level 1.9 mg/dl Triglycerides Level 116 mg/dl Cholesterol Level 157 mg/dl HDL Cholesterol 46 mg/dl LDL Cholesterol, Calculated 88 mg/dl VLDL Cholesterol, Calculated 23 mg/dl Cholesterol/HDL Ratio 3.4 Date/Time Source Procedure Growth Status 01/06/18 18:40 Urine , Clean Catch Urine Culture - Final MORE THAN THREE TYPES OF ORGANISMS IN... Complete Assessment & Plan Recurrent Idiopathic Pancreatitis: Patient had multiple endoscopies in the past Endoscopic Ultrasound on 01/03/18: Normal. No signs of pancreatitis or CBD pathology Last Endoscopy in 12/14/15:normal Abdominal X ray on admission showed non obstructed abdominal bowel gas pattern noting moderate colonic fecal retention Lipase on admission 1153 that trending down to normal today Starting on clear liquid diet Will change Protonix to PO Continue pain management Continue IVF Hypokalemia Secondary to GI loses K 3.3 today K replaced Monitor BMP Abnormal UA: Denies Urinary symptoms No fever or leukocytosis Urine culture contaminated Conversion disorder/JUAN FRANCISCO: Continue Celexa, Ativan PRN Stable Pseudoseizures: Continue Lamictal Follows with Neurology as an outpatient Seizure precaution DVT Px: SCDs ( questionable hematemesis ) Code Status Full Code Disposition: Possible Discharge home when stable tomorrow Current Inpatient Medications: Current Inpatient Medications Medications (Trade) Dose Ordered Sig/Jannie Route Start Time Stop Time Status Last Admin Dose Admin Acetaminophen (Tylenol Tab) 650 mg Q4H PRN PO 01/06/18 20:45 02/05/18 20:44 Ondansetron HCl (Zofran Inj) 4 mg Q6H PRN IV 01/06/18 20:45 02/05/18 20:44 01/07/18 02:30 4 MG Sodium Chloride 1,000 ml @ 125 mls/hr Q8H IV 01/06/18 20:45 02/05/18 20:44 01/07/18 12:01 125 MLS/HR Famotidine 20 mg/ Syringe 5 ml @ 2.5 mls/min Q12H IV 01/07/18 00:00 02/06/18 00:00 01/07/18 12:02 2.5 MLS/MIN Alprazolam (Xanax Tab) 0.5 mg TID PRN PO 01/06/18 20:45 02/05/18 20:44 01/07/18 07:13 0.5 MG Citalopram Hydrobromide (celeXA TAB) 40 mg HS PO 01/06/18 21:00 02/05/18 20:59 01/06/18 22:26 40 MG Lorazepam (Ativan Inj) 1 mg Q2H PRN IV 01/06/18 21:00 02/05/18 20:59 Docusate Sodium (coLACE CAP) 100 mg BID PO 01/06/18 21:00 02/05/18 20:59 01/07/18 07:10 100 MG Lorazepam 1 mg/ Syringe 1 ml @ 1 mls/min Q2H PRN IV 01/06/18 21:30 02/05/18 21:29 Diphenhydramine HCl (Benadryl Cap) 25 mg Q6H PRN PO 01/07/18 05:15 02/06/18 05:14 01/07/18 12:19 25 MG Lamotrigine (Lamictal Tab) 100 mg BID PO 01/07/18 21:00 02/06/18 20:59 Morphine Sulfate (MoRPHine SULFATE INJ) 2 mg Q4H PRN IV 01/07/18 11:00 01/20/18 20:59
[2018-01-07 14:51] VITALS: BP 156/96; PULSE 90; TEMP 37; O2SAT 95
[2018-01-07] MEDS ORDERED: DiphenhydrAMINE 2%/ZINC 0.1% CREAM 28GM TUBE EXT PRN (17:45)
[2018-01-07] MEDS ORDERED: DiphenhydrAMINE INJ 12.5 MG in SYRINGE 0 ML IV PRN (17:45)
[2018-01-07] MEDS: DiphenhydrAMINE HCL 50 MG/ML VIAL IV PRN (18:55)
[2018-01-07] MEDS: OXYCODONE/ACETAMINOPHEN 5-325 TAB PO PRN (20:11)
[2018-01-07] MEDS: CITALOPRAM 40 MG TAB PO SCH (20:41)
[2018-01-07 22:52] VITALS: BP 154/96; PULSE 83; TEMP 37.2; O2SAT 96
[2018-01-08] MEDS: FAMOTIDINE IV INJ 20 MG in SYRINGE 3 ML IV SCH (00:27)
[2018-01-08] MEDS: DiphenhydrAMINE HCL 50 MG/ML VIAL IV PRN ×2 (01:08→07:16)
[2018-01-08] MEDS: OXYCODONE/ACETAMINOPHEN 5-325 TAB PO PRN ×2 (04:08→08:29)
[2018-01-08] MEDS: SODIUM CHLORIDE 0.9% 1000ML 1,000 ML IV SCH (04:26)
[2018-01-08 07:01] VITALS: BP 159/99; PULSE 86; TEMP 37; O2SAT 96
[2018-01-08 07:34] LABS: CALCIUM 8.1 mg/dl (8.5-10.1); CREATININE 0.73 mg/dl (0.60-1.20); POTASSIUM 3.3 mmol/L (3.5-5.1)
[2018-01-08] MEDS: ONDANSETRON INJ 2 MG/ML 2 ML VIAL IV PRN (08:28)
[2018-01-08] MEDS: ALPRAZOLAM 0.5 MG TAB PO PRN (08:28)
[2018-01-08] MEDS: DOCUSATE SODIUM 100 MG CAP PO SCH (08:29)
[2018-01-08] MEDS ORDERED: POTASSIUM CHLORIDE 10 MEQ TABCR PO ONE (09:00)
[2018-01-08 10:43] VITALS: BP_SYST 133; BP_SYST 159; BP_DIAS 88; BP_DIAS 99; PULSE 86; TEMP 37; O2SAT 96
[2018-01-08] MEDS ORDERED: MoRPHine SULFATE 2 MG/ML CARP IV PRN (11:30)
--- NOTE | 2018-01-08 11:48 | Progress Note ---
Medicine Progress Note Date & Time of Visit: Jan 08, 2018 at 11:37. Subjective Pt was seen examined Sitting in chair comfortable talking on the phone Upon entering her room pt said that she is having some abdominal discomfort She said that she tolerated her diet She is asking for one time of IV morphine before discharge home Denies any chest pain, palpitation, dizziness and SOB Objective Last 8 Hrs Date Time Temp Pulse Resp B/P (MAP) Pulse Ox O2 Delivery O2 Flow Rate FiO2 01/08/18 10:43 37.0 86 16 96 Room Air 01/08/18 07:40 Room Air 01/08/18 07:01 37.0 86 16 159/99 (119) 96 Room Air Physical Exam: General- No acute distress Head- atraumatic Eyes- PERRL, EOMI ENT- oropharynx clear Neck- supple, no JVD Lungs- clear to auscultation Heart- regular rhythm; no murmur Abdomen- normal bowel sounds, non distended Extremities- no pretibial edema, no calf tenderness Neuro- alert, oriented x 3; PERRL, EOMI; no facial palsy; no dysarthria Skin- warm & dry Laboratory Results: Last 24 Hours Test 01/07/18 14:50 01/08/18 06:30 Bedside Glucose 92 mg/dl Sodium Level 137 mmol/L Potassium Level 3.3 mmol/L Chloride Level 102 mmol/L Carbon Dioxide Level 29 mmol/L Anion Gap 6.0 mmol/L Blood Urea Nitrogen 4 mg/dl Creatinine 0.73 mg/dl Est Creatinine Clear Calc Drug Dose 107.8 ml/min Estimated GFR () 123.7 Estimated GFR (Non- 106.7 BUN/Creatinine Ratio 5.2 Random Glucose 95 mg/dl Calcium Level 8.1 mg/dl Assessment & Plan Recurrent Idiopathic Pancreatitis: Patient had multiple endoscopies in the past Endoscopic Ultrasound on 01/03/18: Normal. No signs of pancreatitis or CBD pathology Last Endoscopy in 12/14/15:normal Abdominal X ray on admission showed non obstructed abdominal bowel gas pattern noting moderate colonic fecal retention Lipase on admission 1153 that trending down to normal today Starting on clear liquid diet Will change Protonix to PO Continue pain management Continue IVF 4/ Tolerated regular diet Pain improved Will discharge home today Follow up with your primary care provider Hypokalemia Secondary to GI loses K 3.3 today K replaced Monitor BMP Abnormal UA: Denies Urinary symptoms No fever or leukocytosis Urine culture contaminated Conversion disorder/JUAN FRANCISCO: Continue Celexa, Ativan PRN Stable Pseudoseizures: Continue Lamictal Follows with Neurology as an outpatient Seizure precaution DVT Px: SCDs ( questionable hematemesis ) Code Status Full Code Disposition: Will discharge home today Current Inpatient Medications: Current Inpatient Medications Medications (Trade) Dose Ordered Sig/Jannie Route Start Time Stop Time Status Last Admin Dose Admin Acetaminophen (Tylenol Tab) 650 mg Q4H PRN PO 01/06/18 20:45 02/05/18 20:44 Ondansetron HCl (Zofran Inj) 4 mg Q6H PRN IV 01/06/18 20:45 02/05/18 20:44 01/08/18 08:28 4 MG Sodium Chloride 1,000 ml @ 125 mls/hr Q8H IV 01/06/18 20:45 02/05/18 20:44 01/08/18 04:26 125 MLS/HR Famotidine 20 mg/ Syringe 5 ml @ 2.5 mls/min Q12H IV 01/07/18 00:00 02/06/18 00:00 01/08/18 00:27 2.5 MLS/MIN Alprazolam (Xanax Tab) 0.5 mg TID PRN PO 01/06/18 20:45 02/05/18 20:44 01/08/18 08:28 0.5 MG Citalopram Hydrobromide (celeXA TAB) 40 mg HS PO 01/06/18 21:00 02/05/18 20:59 01/07/18 20:41 40 MG Lorazepam (Ativan Inj) 1 mg Q2H PRN IV 01/06/18 21:00 02/05/18 20:59 Docusate Sodium (coLACE CAP) 100 mg BID PO 01/06/18 21:00 02/05/18 20:59 01/07/18 07:10 100 MG Lorazepam 1 mg/ Syringe 1 ml @ 1 mls/min Q2H PRN IV 01/06/18 21:30 02/05/18 21:29 Lamotrigine (Lamictal Tab) 100 mg BID PO 01/07/18 21:00 02/06/18 20:59 01/08/18 08:29 100 MG Oxycodone/ Acetaminophen (Percocet 5-325mg Tab) 1 tab Q6HWA PRN PO 01/07/18 17:45 01/21/18 17:44 01/08/18 08:29 1 TAB Diphenhydramine HCl (Benadryl Inj) 12.5 mg Q6HWA PRN IV 01/07/18 18:00 02/06/18 17:59 01/08/18 07:16 12.5 MG Morphine Sulfate (MoRPHine SULFATE INJ) 1 mg ONE PRN IV 01/08/18 11:30 01/08/18 23:59 01/08/18 11:23 1 MG Oxycodone/ Acetaminophen (Percocet 5-325mg Tab) 1 tab ONE ONCE PO 01/09/18 08:30 01/09/18 08:31
[2018-01-08] MEDS ORDERED: OXYC-57 PO ×2 (11:51→12:04)
--- NOTE | 2018-01-08 12:02 | Discharge Instructions ---
Discharge Instructions Date of Service Jan 08, 2018. Admission Reason for Admission: Hypokalemia, Pancreatitis Discharge Discharge Diagnosis / Problem: Recurrent Idiopathic Pancreatitis, Hypokalemia Discharge Goals Goal(s): Decrease discomfort, Improve function, Improve disease control Activity Recommendations Activity Limitations: resume your previous activity . Instructions / Follow-Up Instructions / Follow-Up Follow up with your primary care provider Dr. Neumann (Already had an appointment schedule) Increase potassium intake in your diet with food such as Banana, yogurt, beans, potatoes, fish...) Check BMP in 1 week to monitor your electrolytes Hold next dose of Percocet or Xanax if you develop any drowsiness or lethargy Do not take Percocet and Xanax at the same time ( Please weight 3-4 hours between) Do not drive or operate any machine after taking Percocet. Fall precaution and seizure precaution Current Hospital Diet Patient's current hospital diet: Regular Diet Discharge Diet Recommended Diet: Regular Diet Pending Studies Studies pending at discharge: no Laboratory Results Lipid Panel Test 01/07/18 06:12 Range/Units Triglycerides Level 116 0-150 mg/dl Cholesterol Level 157 0-200 mg/dl HDL Cholesterol 46 mg/dl Cholesterol/HDL Ratio 3.4 LDL Cholesterol, Calculated 88 mg/dl Medical Emergencies . Who to Call and When: Medical Emergencies: If at any time you feel your situation is an emergency, please call 911 immediately. . Non-Emergent Contact Non-Emergency issues call your: Primary Care Provider Call Non-Emergent contact if: you have any medication questions . . "Provider Documentation" section prepared by Ponce Haile. . [place] Drug Monitoring Program Search Results: patient reviewed within database
[2018-01-08] MEDS ORDERED: ONDA4TAB10 SL (12:06)
[2018-01-08 12:07] VITALS: BP 133/88
--- NOTE | 2018-01-09 07:54 | Discharge Summary ---
Discharge Summary Date of Service Jan 09, 2018. Discharge Summary Admission Date: Jan 06, 2018 at 20:39 Discharge Date: Jan 08, 2018 Discharge Disposition: Home Principal Diagnosis: Recurrent Idiopathic Pancreatitis Secondary Diagnoses/Problems: Hypokalemia Conversion disorder JUAN FRANCISCO Pseudoseizures: Procedures: [~ rep ct add3]] PA CHEST WITH ABDOMINAL SERIES CLINICAL HISTORY: Hematemesis. Vomiting. FINDINGS: A PA chest radiograph is compared to study dated 08/17/2017. The cardiomediastinal silhouette is unremarkable. The lungs and pleural spaces are clear. No pneumothorax is seen. The bony thorax is grossly intact. Supine and erect abdominal radiographs are correlated with abdominal CT dated 08/28/2017. Cholecystectomy clips are noted in the right upper quadrant. There is a nonobstructed abdominal bowel gas pattern. Moderate colonic fecal retention is noted. No evidence of intraperitoneal free air is seen. There are no abnormal abdominal calcifications. A surgical clip and suture material is seen in the right lower quadrant. A surgical clip is also seen in the left hemipelvis. There are calcified pelvic phleboliths. The lumbosacral spine and bony pelvis appear intact. IMPRESSION: 1. No active disease in the chest. 2. Nonobstructed abdominal bowel gas pattern noting moderate colonic fecal retention. Electronically signed by: Ashwin Kathleen M.D. 01/06/2018 7:56 PM Dictated Date/Time: 01/06/2018 7:55 PM Medication Reconciliation New Medications: Ondasetron Odt (Zofran Odt) 4 Mg Tab 4 MG SL Q12 PRN for Nausea, #10 TAB Oxycodone/Acetaminophen 5MG/325MG (Percocet 5MG/325MG) Tab 1 TAB PO Q12 PRN for Pain, #5 TAB hold for lethargy and drowsiness Continued Medications: Acetaminophen (Tylenol) 500 Mg Tab 1000 MG PO Q6 PRN for Headache or Pain Alprazolam (Xanax) 1 Mg Tab 0.5 MG PO TID PRN for Anxiety for 1 Day, #1 Citalopram (Citalopram Hydrobromide) 40 Mg Tab 40 MG PO HS Cyanocobalamin (Vitamin B-12) Unknown Strength Tab 1 TAB PO DAILY, TAB Lamotrigine (Lamictal) 200 Mg Tab 200 MG PO DAILY for 1 Day, #1 TAB Multivitamins/Minerals (Mvi With Minerals) Tab 1 TAB PO DAILY, TAB Pantoprazole (Protonix) 40 Mg Tab 40 MG PO DAILY, #30 TAB Admission Information HPI (per Admitting provider): Patient is a 37 yr female with PMH of Conversion disorder, JUAN FRANCISCO, Pseudoseizures , recurrent idiopathic pancreatitis and other problems presents with history of nausea, vomiting, abdominal pain which started this morning. Patient states she was admitted at [facility] 1 month ago with pancreatitis. States having epigastric, LUQ sharp pain, 8/10 intensity, constant, radiates to back. Patient states she had 4 episodes of vomiting today and reports noticing small amount of blood mixed with vomitus on one occasion. Reports remote peptic ulcer disease and takes PPI regularly. She had endoscopic ultrasound 01/03/18 at [facility] which was normal and showed no signs of chronic pancreatitis or CBD pathology. She had history of appendectomy and cholecystectomy. Also reports having 1 episode of diarrhea today but denies any blood in stools. Denies any history of chest pain, shortness of breath, cough, fever, dysuria, hematuria or increased Urinary frequency. She states her father had a CABG recently and so she is undergoing through a lot of stress lately. 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 No signs of pancreatitis or CBD pathology Last Endoscopy in 12/14/15:normal Abdominal X ray on admission showed non obstructed abdominal bowel gas pattern noting moderate colonic fecal retention Lipase on admission 1153 that trending down to normal today Starting on clear liquid diet Will change Protonix to PO Continue pain management Continue IVF 4/2 Tolerated regular diet Pain improved Will discharge home today Follow up with your primary care provider Hypokalemia Secondary to GI loses K 3.3 today K replaced Monitor BMP Abnormal UA: Denies Urinary symptoms No fever or leukocytosis Urine culture contaminated Conversion disorder/JUAN FRANCISCO: Continue Celexa, Ativan PRN Stable Pseudoseizures: Continue Lamictal Follows with Neurology as an outpatient Seizure precaution DVT Px: SCDs ( questionable hematemesis ) Code Status Full Code Disposition: Will discharge home today Total time spent on discharge = 35 minutes This includes examination of the patient, discharge planning, medication reconciliation, and communication with other providers. Discharge Instructions Discharge Instructions Date of Service Jan 08, 2018. Admission Reason for Admission: Hypokalemia, Pancreatitis Discharge Discharge Diagnosis / Problem: Recurrent Idiopathic Pancreatitis, Hypokalemia Discharge Goals Goal(s): Decrease discomfort, Improve function, Improve disease control Activity Recommendations Activity Limitations: resume your previous activity . Instructions / Follow-Up Instructions / Follow-Up Follow up with your primary care provider Dr. Seun Neumann (Already had an appointment schedule) Increase potassium intake in your diet with food such as Banana, yogurt, beans, potatoes, fish...) Check BMP in 1 week to monitor your electrolytes Hold next dose of Percocet or Xanax if you develop any drowsiness or lethargy Do not take Percocet and Xanax at the same time ( Please weight 3-4 hours between) Do not drive or operate any machine after taking Percocet. Fall precaution and seizure precaution Current Hospital Diet Patient's current hospital diet: Regular Diet Discharge Diet Recommended Diet: Regular Diet Pending Studies Studies pending at discharge: no Laboratory Results Lipid Panel Test 01/07/18 06:12 Range/Units Triglycerides Level 116 0-150 mg/dl Cholesterol Level 157 0-200 mg/dl HDL Cholesterol 46 mg/dl Cholesterol/HDL Ratio 3.4 LDL Cholesterol, Calculated 88 mg/dl Medical Emergencies . Who to Call and When: Medical Emergencies: If at any time you feel your situation is an emergency, please call 911 immediately. . Non-Emergent Contact Non-Emergency issues call your: Primary Care Provider Call Non-Emergent contact if: you have any medication questions . . "Provider Documentation" section prepared by Ponce Haile. . [place] Drug Monitoring Program Search Results: patient reviewed within database Additional Copies To Thien Kohli D.O.
[2018-01-09] MEDS ORDERED: OXYCODONE/ACETAMINOPHEN 5-325 TAB PO ONE (08:30)
== END 2018-01-08 12:55 | disposition home or self-care (01) | DRG 440 ==
LOC: C.EDB 18:17 → C.MSN 20:39 → ENRESERV 21:39
PROVIDERS: ADMIT Internal Medicine; ATTEND Internal Medicine
DX: K86.1 Other chronic pancreatitis (principal); K20.9 Esophagitis, unspecified; K59.00 Constipation, unspecified; E87.6 Hypokalemia; R82.90 Unspecified abnormal findings in urine; F44.5 Conversion disorder with seizures or convulsions; F41.1 Generalized anxiety disorder; F17.200 Nicotine dependence, unspecified, uncomplicated; Z90.49 Acquired absence of other specified parts of digestive tract; Z79.899 Other long term (current) drug therapy; Z88.0 Allergy status to penicillin; Z88.5 Allergy status to narcotic agent; Z88.6 Allergy status to analgesic agent; Z82.49 Family history of ischemic heart disease and other diseases of the circulatory system; K27.9 Peptic ulcer, site unspecified, unspecified as acute or chronic, without hemorrhage or perforation

== ENCOUNTER 2018-01-10 08:20 | Emergency (ER) | payer OTHER ==
[~2018-01-10] VITALS: Ht 154.9 cm; Wt 89.1 kg
[~2018-01-10 08:20] MED LIST changes: +CITA40TA4 PO; +CYAN100T PO; +MULT-513 PO; +ONDA4TAB10 SL; +OXYC-57 PO
[2018-01-10 08:26] VITALS: TEMP 37.2; Ht 154.9 cm; Wt 89.1 kg
[2018-01-10] MEDS ORDERED: SODIUM CHLORIDE 0.9% 1000ML 1,000 ML IV STA (09:18)
[2018-01-10] MEDS ORDERED: MoRPHine SULFATE 4 MG/ML 1 ML CARP\\VIAL IV STA ×2 (09:18→10:18)
[2018-01-10] MEDS ORDERED: ONDANSETRON INJ 2 MG/ML 2 ML VIAL IV STA (09:18)
[2018-01-10 09:31] LABS: BASO % 0.7 %; BASO ABS # 0.03 K/uL (0-0.2); EOS % 3.5 %; EOS ABS # 0.14 K/uL (0-0.5); HEMATOCRIT 37.9 % (37-47); HEMOGLOBIN 13.2 g/dL (12.0-16.0); IG# 0.01 K/uL (0.00-0.02); LYMPH % 41.6 %; LYMPH ABS # 1.67 K/uL (1.2-3.4); MEAN CELL VOLUME 87.7 fL (80-100); MEAN CORPUSCULAR HEMOGLOBIN 30.6 pg (25-34); MEAN CORPUSCULAR HGB CONC 34.8 g/dl (32-36); MEAN PLATELET VOLUME 8.9 fL (7.4-10.4); MONO % 5.7 %; MONO ABS # 0.23 K/uL (0.11-0.59); NEUT % 48.3 %; NEUT ABS # 1.93 K/uL (1.4-6.5); PLATELET COUNT 266 K/uL (130-400); RED CELL DISTRIBUTION WIDTH CV 12.6 % (11.5-14.5); WHITE BLOOD COUNT 4.01 K/uL (4.8-10.8)
[2018-01-10 09:38] LABS: ALBUMIN 3.5 gm/dl (3.4-5.0); ALT/SGPT 31 U/L (12-78); BLOOD UREA NITROGEN 7 mg/dl (7-18); CALCIUM 8.9 mg/dl (8.5-10.1); CARBON DIOXIDE 30 mmol/L (21-32); CREATININE 0.71 mg/dl (0.60-1.20); GLUCOSE 102 mg/dl (70-99); LIPASE 163 U/L (73-393); POTASSIUM 3.5 mmol/L (3.5-5.1); SODIUM 136 mmol/L (136-145)
[2018-01-10 09:41] LABS: ALKALINE PHOSPHATASE 107 U/L (45-117); AST/SGOT 24 U/L (15-37); TOTAL PROTEIN 7.5 gm/dl (6.4-8.2)
[2018-01-10] MEDS ORDERED: TRAM-10 PO (10:58)
[2018-01-10] MEDS ORDERED: ONDA4TAB10 SL (10:58)
--- NOTE | 2018-01-10 11:07 | EMERGENCY ROOM VISIT NOTE ---
History First contact with patient: 09:07 Chief Complaint: VOMITING Stated Complaint: ILLNESS Nursing Triage Summary: Pt arrives to ER via BLS with c/o nausea/vomitting that began approx 1.5 hours ago. Pt recently admitted for pancreatitis, feel this is the same. Pt took 1 zofran ODT prior to EMS arriving at her home. Pt also c/o L sided abdominal pain rated 8/10 that radiates into her back. History of Present Illness The patient is a 37 year old female who presents to the Emergency Room with complaints of abdominal pain, nausea, vomiting, chills and sweats. The patient reports that she was admitted to our hospital over the weekend for acute pancreatitis. She was discharged on Monday, 2 days ago, and reports that she was improving until this morning. The patient ate some yogurt around 6:30 AM, and started to develop escalating pain, currently rated an 8 out of 10. The patient denies any coffee-ground emesis, change in appearance or consistency of her stools. She currently rates her discomfort an 8 out of 10. The patient was transported here via BLS ambulance for further evaluation. The patient did take a Zofran ODT prior to transportation. Review of Systems HEENT: Denies dizziness, visual problems, hearing loss, tinnitus. Denies difficulty swallowing or oral lesions. PULMONARY: Denies cough, shortness of breath, sputum production or hemoptysis. CARDIOVASCULAR: Denies chest pain, palpitations, dyspnea on exertion, orthopnea or peripheral edema. GASTROINTESTINAL: See HPI. GENITOURINARY: Denies dysuria, frequency, urgency or nocturia. NEUROLOGIC: Denies history of epilepsy, CVA, TIA or chronic headaches. MUSCULOSKELETAL: Denies history of joint tenderness/swelling. SKIN: Denies rashes or lesions. PSYCHIATRIC: Denies history of depression or mental illness. ENDOCRINE: Denies history of diabetes or thyroid disorders. Past Medical/Surgical History Medical Problems: (1) Pancreatitis Surgical Problems: (1) H/O hernia repair (2) Hx of appendectomy (3) Hx of cholecystectomy Family History Patient reports no known family medical history. Social History Smoking Status: Never Smoker Alcohol Use: none Drug Use: none Marital Status: single Housing Status: lives alone Occupation Status: employed Current/Historical Medications Scheduled Citalopram (Citalopram Hydrobromide), 40 MG PO HS Cyanocobalamin (Vitamin B-12), 1 TAB PO DAILY Lamotrigine (Lamictal), 200 MG PO DAILY Multivitamins/Minerals (Mvi With Minerals), 1 TAB PO DAILY Ondasetron Odt (Zofran Odt), 4 MG SL Q6H Scheduled PRN Acetaminophen (Tylenol), 1,000 MG PO Q6 PRN for Headache or Pain Alprazolam (Xanax), 0.5 MG PO TID PRN for Anxiety Ondasetron Odt (Zofran Odt), 4 MG SL Q12 PRN for Nausea Oxycodone/Acetaminophen 5MG/325MG (Percocet 5MG/325MG), 1 TAB PO Q12 PRN for Pain Tramadol (Ultram), 1-2 TAB PO Q4H PRN for Pain Physical Exam Vital Signs Date Time Temp Pulse Resp B/P (MAP) Pulse Ox O2 Delivery O2 Flow Rate FiO2 01/10/18 10:47 84 16 150/100 96 Room Air 01/10/18 09:43 83 18 152/96 97 Room Air 01/10/18 08:26 37.2 96 22 163/87 99 Room Air Physical Exam CONSTITUTIONAL: Healthy and well nourished. Alert and oriented X 3 with positive affect. Patient appears in moderate discomfort from pain and nausea. HEENT: Normocephalic, atraumatic. Pupils equal, round and reactive. Ears and nares are clear. No scleral icterus or conjunctival injection/pallor. OROPHARYNX: Mucous membranes are dry. No tonsillar hypertrophy or exudates. NECK: Full active range of motion without discomfort. RESPIRATORY: Clear to auscultation bilaterally with no wheezing, crackles, rhonchi or stridor. CARDIOVASCULAR: Regular rate and rhythm with no murmurs, rubs or gallops. GASTROINTESTINAL: Bowel sounds present in all quadrants. Patient has generalized left upper quadrant and epigastric tenderness to palpation. No hepatosplenomegaly. No abdominal rigidity, guarding or rebound. Negative CVA tenderness. MUSCULOSKELETAL: Full range of motion of all joints without discomfort. No tenderness to palpation across the anterior chest wall or costochondral joints. INTEGUMENTARY: No rash or other significant dermatologic conditions noted. HEMATOLOGIC: No ecchymosis or petechiae noted. NEUROLOGIC: No focal neurologic deficits noted. Medical Decision & Procedures Laboratory Results 01/10/18 08:30 Red Blood Count 4.32, Mean Corpuscular Volume 87.7, Mean Corpuscular Hemoglobin 30.6, Mean Corpuscular Hemoglobin Concent 34.8, Mean Platelet Volume 8.9, Neutrophils (%) (Auto) 48.3, Lymphocytes (%) (Auto) 41.6, Monocytes (%) (Auto) 5.7, Eosinophils (%) (Auto) 3.5, Basophils (%) (Auto) 0.7, Neutrophils # (Auto) 1.93, Lymphocytes # (Auto) 1.67, Monocytes # (Auto) 0.23, Eosinophils # (Auto) 0.14, Basophils # (Auto) 0.03 01/10/18 08:30 Test 01/10/18 08:30 01/10/18 08:35 White Blood Count 4.01 K/uL (4.8-10.8) Red Blood Count 4.32 M/uL (4.2-5.4) Hemoglobin 13.2 g/dL (12.0-16.0) Hematocrit 37.9 % (37-47) Mean Corpuscular Volume 87.7 fL (80-100) Mean Corpuscular Hemoglobin 30.6 pg (25-34) Mean Corpuscular Hemoglobin Concent 34.8 g/dl (32-36) Platelet Count 266 K/uL (130-400) Mean Platelet Volume 8.9 fL (7.4-10.4) Neutrophils (%) (Auto) 48.3 % Lymphocytes (%) (Auto) 41.6 % Monocytes (%) (Auto) 5.7 % Eosinophils (%) (Auto) 3.5 % Basophils (%) (Auto) 0.7 % Neutrophils # (Auto) 1.93 K/uL (1.4-6.5) Lymphocytes # (Auto) 1.67 K/uL (1.2-3.4) Monocytes # (Auto) 0.23 K/uL (0.11-0.59) Eosinophils # (Auto) 0.14 K/uL (0-0.5) Basophils # (Auto) 0.03 K/uL (0-0.2) RDW Standard Deviation 41.0 fL (36.4-46.3) RDW Coefficient of Variation 12.6 % (11.5-14.5) Immature Granulocyte % (Auto) 0.2 % Immature Granulocyte # (Auto) 0.01 K/uL (0.00-0.02) Anion Gap 6.0 mmol/L (3-11) Est Creatinine Clear Calc Drug Dose 112.3 ml/min Estimated GFR () 127.9 Estimated GFR (Non- 110.4 BUN/Creatinine Ratio 10.2 (10-20) Calcium Level 8.9 mg/dl (8.5-10.1) Total Bilirubin 0.3 mg/dl (0.2-1) Direct Bilirubin < 0.1 mg/dl (0-0.2) Aspartate Amino Transf (AST/SGOT) 24 U/L (15-37) Alanine Aminotransferase (ALT/SGPT) 31 U/L (12-78) Alkaline Phosphatase 107 U/L (45-117) Total Creatine Kinase 113 U/L (26-192) Total Protein 7.5 gm/dl (6.4-8.2) Albumin 3.5 gm/dl (3.4-5.0) Amylase Level 38 U/L (25-115) Lipase 163 U/L (73-393) Urine Color YELLOW Urine Appearance CLEAR (CLEAR) Urine pH 6.5 (4.5-7.5) Urine Specific [place] 1.011 (1.000-1.030) Urine Protein NEG (NEG) Urine Glucose (UA) NEG (NEG) Urine Ketones NEG (NEG) Urine Occult Blood 1+ (NEG) Urine Nitrite NEG (NEG) Urine Bilirubin NEG (NEG) Urine Urobilinogen NEG (NEG) Urine Leukocyte Esterase TRACE (NEG) Urine WBC (Auto) 5-10 /hpf (0-5) Urine RBC (Auto) 0-4 /hpf (0-4) Urine Hyaline Casts (Auto) 1-5 /lpf (0-5) Urine Epithelial Cells (Auto) >30 /lpf (0-5) Urine Bacteria (Auto) 1+ (NEG) The above labs were reviewed and were grossly normal. Urinalysis shows a contaminated sample. No nitrites noted. Medications Administered Medications (Trade) Dose Ordered Sig/Jannie Route Start Time Stop Time Status Last Admin Dose Admin Sodium Chloride 1,000 ml @ 999 mls/hr Q1H1M STAT IV 01/10/18 09:18 01/10/18 10:18 DC 01/10/18 09:43 999 MLS/HR Ondansetron HCl (Zofran Inj) 4 mg NOW STAT IV 01/10/18 09:18 01/10/18 09:20 DC 01/10/18 09:42 4 MG Morphine Sulfate (MoRPHine SULFATE INJ) 4 mg NOW STAT IV 01/10/18 09:18 01/10/18 09:20 DC 01/10/18 09:42 4 MG Morphine Sulfate (MoRPHine SULFATE INJ) 4 mg NOW STAT IV 01/10/18 10:18 01/10/18 10:20 DC 01/10/18 10:46 4 MG ED Course Patient history and physical exam were performed. Nurse's notes were reviewed. Vital signs were reviewed, showing an elevated blood pressure of 163/87. The patient is afebrile. The patient appears in moderate discomfort. I also reviewed documentation from the past hospital admission. The patient did have an abdomen and chest x-ray performed with no other imaging studies. She did have a moderately elevated lipase on that admission. IV access was established, and labs were drawn. The patient was hydrated with normal saline, and was administered IV morphine and Zofran for pain and nausea. Review of labs did not show any significant abnormalities. Prior to completion of labs, the patient's nurse reported that she was requesting more pain medication. She was administered an additional morphine 4 mg IVP. Labs were reviewed with the patient. The case was also discussed with Dr. Estrella, ED attending physician. Review of the [place] Prescription Drug Monitoring Program shows that over the past year, the patient has filled 42 different prescriptions from controlled substances. These prescriptions were from 11 different providers, and filled at 11 different pharmacies. Prescriptions have come from multiple areas of [place]. Upon final reevaluation, the patient was requesting something for pain. She reports that she was only provided 5 Percocets from her last admission. She reports that the Percocets she make her nauseated on the stomach. She wanted to know if there was any other pain medications that do not have Tylenol in them. 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 I also suggested that she call her electric locomotive crane operator to arrange further close follow-up. If she has any aggressively worsening symptoms, I did encourage her to go to [facility] in [place] so that she may be evaluated there by gastroenterology as needed. The patient voiced understanding of all discharge instructions, and rated her overall discomfort a 4 out of 10 at the conclusion of my exam. Medical Decision She presents with complaint of left upper quadrant and epigastric pain that the patient reports is similar to when she was admitted over the weekend for pancreatitis. Her numbers today have normalized. Review of prior medical records shows that she has had multiple imaging studies in the past; I do not feel that further imaging studies are warranted today. The case was also discussed with Dr. Estrella, ED attending physician, who is in agreement. I do not suspect bowel obstruction. The patient is currently afebrile and has no leukocytosis to suggest infectious etiology. [place] Drug Monitoring Program Search Results: patient reviewed within database, see additional documentation Medication Reconcilliation Current Medication List: was personally reviewed by me Blood Pressure Screening Patient's blood pressure: Normal blood pressure Impression Primary Impression: Chronic abdominal pain Departure Information Prescriptions Ondasetron Odt (ZOFRAN ODT) 4 Mg Tab 4 MG SL Q6H for Nausea, #15 TAB Prov: Glenroy Espinoza PA 01/10/18 Tramadol (Ultram) 50 Mg Tab 1-2 TAB PO Q4H Y for Pain, #20 TAB For Initial Treatment Prov: Glenroy Espinoza PA 01/10/18 Referrals Thien Kohli DAnahiOAnahi (PCP) Patient Instructions My [facility]
[2018-01-10 11:10] LABS: PHOSPHORUS 2.2 mg/dl (2.5-4.9)
[2018-01-10 11:23] VITALS: BP 124/104; PULSE 86; O2SAT 95
== END 2018-01-10 11:25 | disposition home or self-care (01) ==
LOC: EDSEX 08:20 → EDBD 08:20 → C.EDA 08:22
DX: R10.9 Unspecified abdominal pain (principal); G89.29 Other chronic pain; Z90.49 Acquired absence of other specified parts of digestive tract; Z90.89 Acquired absence of other organs

== ENCOUNTER 2018-02-06 08:21 | Observation (INO) | payer OTHER ==
[~2018-02-06] VITALS: Ht 154.9 cm; Wt 95.4 kg
[~2018-02-06 08:21] MED LIST changes: -PANT40TA PO; +TRAM-10 PO
[2018-02-06] MEDS ORDERED: OXYCODONE HCL IR 5 MG TAB (IMMEDIATE RELEASE) PO STA (08:50)
[2018-02-06] MEDS ORDERED: BUPRTAB51 PO ×2 (08:53)
[2018-02-06] MEDS ORDERED: PRLSR20 PO ×2 (08:53)
[2018-02-06] MEDS ORDERED: LAMO100T16 PO ×2 (08:53)
[2018-02-06] MEDS ORDERED: ONDANSETRON INJ 2 MG/ML 2 ML VIAL IV STA ×2 (08:55→09:56)
[2018-02-06] MEDS ORDERED: SODIUM CHLORIDE 0.9% 1000ML 1,000 ML IV STA (08:55)
[2018-02-06] MEDS ORDERED: MoRPHine SULFATE 4 MG/ML 1 ML CARP\\VIAL IV STA (08:55)
--- NOTE | 2018-02-06 09:02 | EMERGENCY ROOM VISIT NOTE ---
History First contact with patient: 08:32 Chief Complaint: FOOT PAIN Stated Complaint: LT FOOT IS EXTREMELY SORE AND SWOLLEN, SO IS BACK History of Present Illness The patient is a 37 year old female who presents to the Emergency Room via private vehicle accompanied by male with complaints of "left foot is extremely sore and swollen, so is back". The patient states that she fell down 4 steps 4 days ago. She notes that her dogs tripped her. She was seen by her family doctor yesterday and was informed that her left foot was fractured. She states that if it worsens she is to go to the emergency department. She has been taking Aleve with minimal relief. There is no radiation of the pain it is localized to the left foot and left ankle. She also notes minimal back pain from the fall. She also complains of epigastric abdominal pain noting a history of pancreatitis. She states this feels identical to previous. She rates the overall pain as a 6/10. Review of Systems A complete 10-point Review of Systems was discussed with the patient, with pertinent positives and negatives listed in the History of Present Illness. All remaining Review of Systems questions can be considered negative unless otherwise specified. Past Medical/Surgical History Medical Problems: (1) Depression with anxiety (2) Hepatitis C (3) Idiopathic pancreatitis (4) Migraine (5) Pseudoseizure Surgical Problems: (1) H/O hernia repair (2) Hx of appendectomy (3) Hx of cholecystectomy Family History Patient reports no known family medical history. Social History Smoking Status: Never Smoker Alcohol Use: none Drug Use: none Marital Status: single Housing Status: lives alone Occupation Status: employed Current/Historical Medications Scheduled Bupropion (Wellbutrin-Xl), 300 MG PO QAM Cyanocobalamin (Vitamin B-12), 1 TAB PO DAILY Lamotrigine (Lamictal), 100 MG PO BID Multivitamins/Minerals (Mvi With Minerals), 1 TAB PO DAILY Omeprazole (Prilosec), 4 MG PO QAM Ondasetron Odt (Zofran Odt), 4 MG SL Q6H Scheduled PRN Acetaminophen (Tylenol), 1,000 MG PO Q6 PRN for Headache or Pain Alprazolam (Xanax), 0.5 MG PO TID PRN for Anxiety Physical Exam Vital Signs Date Time Temp Pulse Resp B/P (MAP) Pulse Ox O2 Delivery O2 Flow Rate FiO2 02/06/18 11:13 99 Room Air 02/06/18 10:58 102 16 151/99 99 Room Air 02/06/18 08:25 37.0 89 18 153/98 98 Room Air Physical Exam VITAL SIGNS - Vital signs and nursing notes were reviewed. Stable. Afebrile. GENERAL -37-year-old female appearing her stated age who is in no acute distress. Communicates well with provider and answers questions appropriately. SKIN -skin is intact overlying left ankle and foot. It is edematous overlying the top of the left foot with ecchymosis. No bony deformity noted. HEAD - NC/AT. EYES - PERRL with EOMI bilaterally. Sclera anicteric. EARS - No deformities of external structures noted on gross examination bilaterally. NOSE - Midline and without cyanosis. No epistaxis or purulent drainage noted. MOUTH/OROPHARYNX - Without perioral cyanosis. Buccal mucosa pink and moist and without leukoplakia. Tongue midline with equal elevation of palate bilaterally. No tonsillar hypertrophy, erythema, or exudates noted. Fair dentition noted. NECK - Neck with FROM. Supple to palpation. No lymphadenopathy noted. No nuchal rigidity. LUNGS - Chest wall symmetric without accessory muscle use, intercostals retractions, or central cyanosis. Normal vesicular breath sounds CTA B/L. No wheezes, rales, or rhonchi appreciated. CARDIAC - RRR with S1/S2. No murmur, rubs, or gallops appreciated. ABDOMEN - Abdominal contour normal without pulsations or visible masses. BS normoactive all four quadrants. Epigastric abdominal tenderness noted per no palpable masses, hepatosplenomegaly, or ascites noted. EXTREMITIES - No clubbing or peripheral cyanosis. No pretibial edema present. +5 /5 strength noted in UE/LE bilaterally. NEUROLOGIC - Cranial nerves II through XII grossly intact. Sensory intact to light touch throughout. PSYCH - A&O, and cooperates fully with examiner. Pt is very pleasant and interacts well with examiner. Medical Decision & Procedures ER Provider Diagnostic Interpretation: LEFT ANKLE 3 VIEWS CLINICAL HISTORY: Fall several days ago. Left ankle pain. FINDINGS: 3 views of the left ankle are obtained. No prior studies are available for comparison at the time of dictation. The skeletal structures are well mineralized. No fracture is seen. The ankle mortise is intact. There is a joint effusion, and soft tissue edema is present on the ankle. There is a large dorsal calcaneal enthesophyte. Mild degenerative spurring is seen along the dorsal aspect of the tarsal bones. IMPRESSION: Soft tissue swelling and joint effusion with no left ankle fracture identified. Electronically signed by: Ashwin Kathleen M.D. 02/06/2018 9:48 AM Dictated Date/Time: 02/06/2018 9:47 AM L FOOT MIN 3 VIEWS ROUTINE CLINICAL HISTORY: Left ankle and foot pain following fall 4 days ago. COMPARISON: None FINDINGS: Tarsometatarsal joints are intact. There is an old, healed fracture of the distal shaft of the left fifth metatarsal. There is a lucency within the distal phalanx of the left fourth toe which may reflect an acute fracture with tiny adjacent fracture fragment. There is also lucency within the distal tuft of the distal phalanx of the left fifth toe which may reflect an additional fracture or vascular channel. IMPRESSION: 1. Suspected acute fracture of the distal phalanx of the left fourth toe with tiny adjacent fracture fragment. 2. Possible acute nondisplaced fracture the distal tuft of the distal phalanx of the left fifth toe. Electronically signed by: Calvin Waller M.D. 02/06/2018 9:56 AM Dictated Date/Time: 02/06/2018 9:53 AM Laboratory Results 02/06/18 09:17 Red Blood Count 3.61, Mean Corpuscular Volume 89.8, Mean Corpuscular Hemoglobin 30.5, Mean Corpuscular Hemoglobin Concent 34.0, Mean Platelet Volume 8.4, Neutrophils (%) (Auto) 77.6, Lymphocytes (%) (Auto) 15.8, Monocytes (%) (Auto) 4.5, Eosinophils (%) (Auto) 1.9, Basophils (%) (Auto) 0.1, Neutrophils # (Auto) 6.18, Lymphocytes # (Auto) 1.26, Monocytes # (Auto) 0.36, Eosinophils # (Auto) 0.15, Basophils # (Auto) 0.01 02/06/18 09:17 Test 02/06/18 09:17 White Blood Count 7.97 K/uL (4.8-10.8) Red Blood Count 3.61 M/uL (4.2-5.4) Hemoglobin 11.0 g/dL (12.0-16.0) Hematocrit 32.4 % (37-47) Mean Corpuscular Volume 89.8 fL (80-100) Mean Corpuscular Hemoglobin 30.5 pg (25-34) Mean Corpuscular Hemoglobin Concent 34.0 g/dl (32-36) Platelet Count 241 K/uL (130-400) Mean Platelet Volume 8.4 fL (7.4-10.4) Neutrophils (%) (Auto) 77.6 % Lymphocytes (%) (Auto) 15.8 % Monocytes (%) (Auto) 4.5 % Eosinophils (%) (Auto) 1.9 % Basophils (%) (Auto) 0.1 % Neutrophils # (Auto) 6.18 K/uL (1.4-6.5) Lymphocytes # (Auto) 1.26 K/uL (1.2-3.4) Monocytes # (Auto) 0.36 K/uL (0.11-0.59) Eosinophils # (Auto) 0.15 K/uL (0-0.5) Basophils # (Auto) 0.01 K/uL (0-0.2) RDW Standard Deviation 43.8 fL (36.4-46.3) RDW Coefficient of Variation 13.3 % (11.5-14.5) Immature Granulocyte % (Auto) 0.1 % Immature Granulocyte # (Auto) 0.01 K/uL (0.00-0.02) Absolute Reticulocyte Count 0.08 10^6/uL (0.02-0.10) Percent Reticulocyte Count 2.1 % (0.5-2.0) Prothrombin Time 10.2 SECONDS (9.0-12.0) Prothromb Time International Ratio 1.0 (0.9-1.1) Activated Partial Thromboplast Time 26.2 SECONDS (21.0-31.0) Partial Thromboplastin Ratio 1.0 Anion Gap 5.0 mmol/L (3-11) Est Creatinine Clear Calc Drug Dose 111.8 ml/min Estimated GFR () 119.7 Estimated GFR (Non- 103.3 BUN/Creatinine Ratio 9.3 (10-20) Calcium Level 8.3 mg/dl (8.5-10.1) Magnesium Level 2.0 mg/dl (1.8-2.4) Iron Level 25 mcg/dl (35-150) Total Iron Binding Capacity 404 mcg/dl (250-450) Transferrin 327 mg/dl (200-360) Transferrin % Saturation 5 % (15-50) Ferritin 24.4 ng/ml (8.0-388.0) Total Bilirubin 0.4 mg/dl (0.2-1) Aspartate Amino Transf (AST/SGOT) 36 U/L (15-37) Alanine Aminotransferase (ALT/SGPT) 53 U/L (12-78) Alkaline Phosphatase 82 U/L (45-117) Total Protein 7.4 gm/dl (6.4-8.2) Albumin 3.8 gm/dl (3.4-5.0) Globulin 3.6 gm/dl (2.5-4.0) Albumin/Globulin Ratio 1.1 (0.9-2) Amylase Level 26 U/L (25-115) Lipase 82 U/L (73-393) Medications Administered Medications (Trade) Dose Ordered Sig/Jannie Route Start Time Stop Time Status Last Admin Dose Admin Morphine Sulfate (MoRPHine SULFATE INJ) 4 mg NOW STAT IV 02/06/18 08:55 02/06/18 08:57 DC 02/06/18 09:17 4 MG Ondansetron HCl (Zofran Inj) 4 mg NOW STAT IV 02/06/18 08:55 02/06/18 08:57 DC 02/06/18 09:16 4 MG Sodium Chloride 1,000 ml @ 999 mls/hr Q1H1M STAT IV 02/06/18 08:55 02/06/18 09:55 DC 02/06/18 09:16 999 MLS/HR Ondansetron HCl (Zofran Inj) 4 mg NOW STAT IV 02/06/18 09:56 02/06/18 09:57 DC 02/06/18 10:14 4 MG Pantoprazole Sodium (Protonix IV Bolus/Drip) 1 ea NOW STAT IV 02/06/18 11:04 02/06/18 11:05 DC 02/06/18 11:43 1 EA Pantoprazole Sodium 80 mg/ Dextrose 120 ml @ 480 mls/hr NOW ONCE IV 02/06/18 11:15 02/06/18 11:29 DC 02/06/18 11:43 480 MLS/HR Pantoprazole Sodium 40 mg/ Dextrose 100 ml @ 20 mls/hr Q5H IV 02/06/18 11:30 02/06/18 11:45 DC 02/06/18 11:43 20 MLS/HR Medical Decision Patient was seen and evaluated as above in room a 11. Primary complaint is foot pain however she also notes abdominal pain. Review was performed of nursing notes and vital signs. After obtaining a thorough history and physical examination the above work up was performed. IV access was initiated after she requested evaluation for her abdominal pain. It is epigastric. She states this feels identical to previous pancreatitis flares. CBC does reveal interval decrease of hemoglobin by more than 2 points. No leukocytosis. No evidence of kidney or liver failure. X-ray does reveal fracture. This is in the toes. She will be given a postop shoe and crutches. Because of her 2.0 drop in hemoglobin. She notes a 2 week history of black stools. She also had bright red blood per rectum while here. She will be made for further evaluation and management of her decreasing hemoglobin and rectal bleeding. IV Protonix bolus and drip was ordered secondary to the black stools and hemoglobin drop with abdominal pain. Case was discussed with the attending. Subsequently the hospitalist. In the evaluation and treatment of this patient the following differential diagnoses were entertained: foot fracture, dislocation, pancreatitis, gi bleed, among others. Impression Primary Impression: Foot pain Additional Impressions: Anemia Hypokalemia Fracture of metatarsal bone Departure Information Referrals Thien Kohli D.O. (PCP) Patient Instructions [facility] Problem Qualifiers
[2018-02-06 09:28] LABS: BASO % 0.1 %; BASO ABS # 0.01 K/uL (0-0.2); EOS % 1.9 %; EOS ABS # 0.15 K/uL (0-0.5); HEMATOCRIT 32.4 % (37-47); IG# 0.01 K/uL (0.00-0.02); LYMPH % 15.8 %; LYMPH ABS # 1.26 K/uL (1.2-3.4); MEAN CELL VOLUME 89.8 fL (80-100); MEAN CORPUSCULAR HEMOGLOBIN 30.5 pg (25-34); MEAN PLATELET VOLUME 8.4 fL (7.4-10.4); MONO % 4.5 %; MONO ABS # 0.36 K/uL (0.11-0.59); NEUT % 77.6 %; NEUT ABS # 6.18 K/uL (1.4-6.5); PLATELET COUNT 241 K/uL (130-400); RED CELL DISTRIBUTION WIDTH CV 13.3 % (11.5-14.5); RED CELL DISTRIBUTION WIDTH SD 43.8 fL (36.4-46.3); WHITE BLOOD COUNT 7.97 K/uL (4.8-10.8)
--- NOTE | 2018-02-06 09:50 | DIAGNOSTIC IMAGING REPORT ---
LEFT ANKLE 3 VIEWS CLINICAL HISTORY: Fall several days ago. Left ankle pain. FINDINGS: 3 views of the left ankle are obtained. No prior studies are available for comparison at the time of dictation. The skeletal structures are well mineralized. No fracture is seen. The ankle mortise is intact. There is a joint effusion, and soft tissue edema is present on the ankle. There is a large dorsal calcaneal enthesophyte. Mild degenerative spurring is seen along the dorsal aspect of the tarsal bones. IMPRESSION: Soft tissue swelling and joint effusion with no left ankle fracture identified. Electronically signed by: Ashwin Kathleen M.D. 02/06/2018 9:48 AM Dictated Date/Time: 02/06/2018 9:47 AM
[2018-02-06 09:54] LABS: ALBUMIN 3.8 gm/dl (3.4-5.0); CALCIUM 8.3 mg/dl (8.5-10.1); CREATININE 0.75 mg/dl (0.60-1.20); POTASSIUM 3.2 mmol/L (3.5-5.1)
[2018-02-06 09:56] LABS: TOTAL PROTEIN 7.4 gm/dl (6.4-8.2)
--- NOTE | 2018-02-06 09:58 | DIAGNOSTIC IMAGING REPORT ---
L FOOT MIN 3 VIEWS ROUTINE CLINICAL HISTORY: Left ankle and foot pain following fall 4 days ago. COMPARISON: None FINDINGS: Tarsometatarsal joints are intact. There is an old, healed fracture of the distal shaft of the left fifth metatarsal. There is a lucency within the distal phalanx of the left fourth toe which may reflect an acute fracture with tiny adjacent fracture fragment. There is also lucency within the distal tuft of the distal phalanx of the left fifth toe which may reflect an additional fracture or vascular channel. IMPRESSION: 1. Suspected acute fracture of the distal phalanx of the left fourth toe with tiny adjacent fracture fragment. 2. Possible acute nondisplaced fracture the distal tuft of the distal phalanx of the left fifth toe. Electronically signed by: Calvin Waller M.D. 02/06/2018 9:56 AM Dictated Date/Time: 02/06/2018 9:53 AM
[2018-02-06 11:13] VITALS: O2SAT 99; Ht 154.9 cm; Wt 95.4 kg
[2018-02-06] MEDS ORDERED: PANTOprazole INJ 80 MG in DEXTROSE 5% 100ML IV ONE (11:15)
[2018-02-06] MEDS ORDERED: ACETAMINOPHEN 325 MG TAB PO PRN (11:30)
[2018-02-06] MEDS ORDERED: PANTOprazole INJ 40 MG in DEXTROSE 5% 100ML IV SCH (11:30)
[2018-02-06] MEDS ORDERED: ONDANSETRON INJ 2 MG/ML 2 ML VIAL IV PRN (11:30)
[2018-02-06 11:32] LABS: PTT PATIENT 26.2 SECONDS (21.0-31.0)
[2018-02-06] MEDS ORDERED: IV FLUIDS COMPLETED PRN (12:00)
[2018-02-06 12:10] LABS: RETIC COUNT % 2.1 % (0.5-2.0)
[2018-02-06] MEDS ORDERED: POTASSIUM CHLORIDE 20 MEQ TABCR PO ONE (12:15)
[2018-02-06 12:32] VITALS: BP 132/83; PULSE 98; TEMP 36.6; O2SAT 99
--- NOTE | 2018-02-06 12:47 | History and Physical ---
History & Physical Date & Time of Service: February 06, 2018 ~ 11:00 Chief Complaint: Left foot pain Primary Care Physician: Kathe SILVA M.D. History of Present Illness 37-year-old female who presents to the ED with a chief complaint of left foot pain. Patient reports that approximately 1 week ago, she was walking down the stairs with her dogs whenever she tripped and fell. She was seen as an outpatient and found to have left fourth and fifth toe fractures. Patient presents to the ED with increasing foot pain and swelling. While in the ED, patient developed bright red bleeding per rectum. After this episode she reports she has been having vomiting for the past 3 days. She describes her emesis as dark and with old blood. She also reports that her stools have been black for the past week. She reports generalized abdominal pain for the past 3 days as well. Patient has history of recurrent pancreatitis felt as though symptoms were secondary to that however labs show normal LFTs and lipase. She reports using Aleve every other day. No fevers or chills. She denies chest pain shortness of breath. She has had some mild lightheadedness but denies dizziness or syncopal event. She denies any urinary symptoms. In the ED, repeat foot x-ray was obtained that showing distal left fourth and fifth phalanges fractures. Labs were obtained that showed a hemoglobin of 11.0 and potassium 3.2, other labs are unremarkable. Vital signs are stable. Patient was given oxycodone, IV morphine, IVF, IV Zofran, and started on IV Protonix drip. Past Medical/Surgical History Medical Problems: (1) Depression with anxiety Status: Chronic (2) Hepatitis C Status: Chronic (3) Idiopathic pancreatitis Status: Chronic (4) Migraine Status: Chronic (5) Pseudoseizure Status: Chronic Surgical Problems: (1) H/O hernia repair Status: Chronic (2) Hx of appendectomy Status: Chronic (3) Hx of cholecystectomy Status: Chronic Family History FH: CAD (coronary artery disease) GRANDFATHER FH: breast cancer GRANDMOTHER Social History Smoking Status: Never Smoker Alcohol Use: none Immunizations History of Influenza Vaccine: Yes Influenza Vaccine Date: Aug 09, 2017 History of Tetanus Vaccine?: Yes Tetanus Immunization Date: Jul 17, 2013 Allergies Coded Allergies: Fentanyl (Unverified Allergy, Severe, RASH, 02/06/18) Ibuprofen (Unverified Allergy, Unknown, UNKNOWN, 02/06/18) Ketorolac Tromethamine (Unverified Allergy, Unknown, rash, 02/06/18) Penicillins (Verified Allergy, Unknown, rash, 02/06/18) Home Medications Scheduled Bupropion (Wellbutrin-Xl), 300 MG PO QAM Cyanocobalamin (Vitamin B-12), 1 TAB PO DAILY Lamotrigine (Lamictal), 100 MG PO BID Multivitamins/Minerals (Mvi With Minerals), 1 TAB PO DAILY Omeprazole (Prilosec), 40 MG PO QAM Ondasetron Odt (Zofran Odt), 4 MG SL Q6H Scheduled PRN Acetaminophen (Tylenol), 1,000 MG PO Q6 PRN for Headache or Pain Alprazolam (Xanax), 0.5 MG PO TID PRN for Anxiety Review of Systems ROS per HPI, all other systems reviewed and negative Physical Exam Vital Signs Date Time Temp Pulse Resp B/P (MAP) Pulse Ox O2 Delivery O2 Flow Rate FiO2 02/06/18 12:08 102 16 151/99 99 02/06/18 11:13 99 Room Air 02/06/18 10:58 102 16 151/99 99 Room Air 02/06/18 08:25 37.0 89 18 153/98 98 Room Air General Appearance: WD/WN, no apparent distress Head: normocephalic, atraumatic Eyes: normal inspection, EOMI, sclerae normal ENT: hearing grossly normal, + pertinent finding (Mucous membranes moist) Neck: supple, no JVD, trachea midline Respiratory/Chest: lungs clear, normal breath sounds, no respiratory distress Cardiovascular: regular rate, rhythm, no edema, normal peripheral pulses Abdomen/GI: normal bowel sounds, soft, no organomegaly, + tenderness (Mild, generalized) Extremities/Musculoskelatal: no calf tenderness, normal capillary refill, + pertinent finding (Left foot edematous, with ecchymosis over the toes) Neurologic/Psych: no motor/sensory deficits, alert, normal mood/affect, oriented x 3 Skin: normal color, warm/dry Diagnostics Laboratory Results Results Past 24 Hours Test 02/06/18 09:17 02/06/18 11:43 02/06/18 11:59 Range/Units White Blood Count 7.97 4.8-10.8 K/uL Red Blood Count 3.61 4.2-5.4 M/uL Hemoglobin 11.0 12.0-16.0 g/dL Hematocrit 32.4 37-47 % Mean Corpuscular Volume 89.8 80-100 fL Mean Corpuscular Hemoglobin 30.5 25-34 pg Mean Corpuscular Hemoglobin Concent 34.0 32-36 g/dl Platelet Count 241 130-400 K/uL Mean Platelet Volume 8.4 7.4-10.4 fL Neutrophils (%) (Auto) 77.6 % Lymphocytes (%) (Auto) 15.8 % Monocytes (%) (Auto) 4.5 % Eosinophils (%) (Auto) 1.9 % Basophils (%) (Auto) 0.1 % Neutrophils # (Auto) 6.18 1.4-6.5 K/uL Lymphocytes # (Auto) 1.26 1.2-3.4 K/uL Monocytes # (Auto) 0.36 0.11-0.59 K/uL Eosinophils # (Auto) 0.15 0-0.5 K/uL Basophils # (Auto) 0.01 0-0.2 K/uL RDW Standard Deviation 43.8 36.4-46.3 fL RDW Coefficient of Variation 13.3 11.5-14.5 % Immature Granulocyte % (Auto) 0.1 % Immature Granulocyte # (Auto) 0.01 0.00-0.02 K/uL Absolute Reticulocyte Count 0.08 0.02-0.10 10^6/uL Percent Reticulocyte Count 2.1 0.5-2.0 % Prothrombin Time 10.2 9.0-12.0 SECONDS Prothromb Time International Ratio 1.0 0.9-1.1 Activated Partial Thromboplast Time 26.2 21.0-31.0 SECONDS Partial Thromboplastin Ratio 1.0 Sodium Level 139 136-145 mmol/L Potassium Level 3.2 3.5-5.1 mmol/L Chloride Level 104 98-107 mmol/L Carbon Dioxide Level 30 21-32 mmol/L Anion Gap 5.0 3-11 mmol/L Blood Urea Nitrogen 7 7-18 mg/dl Creatinine 0.75 0.60-1.20 mg/dl Est Creatinine Clear Calc Drug Dose 111.8 ml/min Estimated GFR () 119.7 Estimated GFR (Non- 103.3 BUN/Creatinine Ratio 9.3 10-20 Random Glucose 100 70-99 mg/dl Calcium Level 8.3 8.5-10.1 mg/dl Total Bilirubin 0.4 0.2-1 mg/dl Aspartate Amino Transf (AST/SGOT) 36 15-37 U/L Alanine Aminotransferase (ALT/SGPT) 53 12-78 U/L Alkaline Phosphatase 82 45-117 U/L Total Protein 7.4 6.4-8.2 gm/dl Albumin 3.8 3.4-5.0 gm/dl Globulin 3.6 2.5-4.0 gm/dl Albumin/Globulin Ratio 1.1 0.9-2 Amylase Level 26 25-115 U/L Lipase 82 73-393 U/L Transferrin % Saturation 15-50 % Diagnostic Radiology LEFT FOOT XR IMPRESSION: 1. Suspected acute fracture of the distal phalanx of the left fourth toe with tiny adjacent fracture fragment. 2. Possible acute nondisplaced fracture the distal tuft of the distal phalanx of the left fifth toe. LEFT ANKLE X-RAY IMPRESSION: Soft tissue swelling and joint effusion with no left ankle fracture identified. Impression Assessment and Plan POSSIBLE GI BLEED -Admit to telemetry -Patient initially presenting with increasing left foot pain however while in the ED developed an episode of bright red bleeding per rectum -Hemoglobin noted to be 11.0 (recent baseline hemoglobin running between 11.8 and 13) -Patient reporting black stools and "old blood" emesis; has been taking Aleve every other day for left foot pain -Started on Protonix drip in the ED -Case discussed with BILL Brasher -Will change Protonix to 40 mg IV twice daily -EUS 01/03/18 - Normal esophagus, A small amount of food (residue) in the stomach , Normal examined duodenum. LEFT FOURTH AND FIFTH DISTAL PHALANGEAL FRACTURES -Podiatry consult -would like to avoid narcotics given patient's drug abuse and drug-seeking history HISTORY RECURRENT PANCREATITIS -Normal LFTs and lipase PSEUDOSEIZURES -Continue Lamictal DEPRESSION -Continue bupropion DVT PROPHYLAXIS -SCDs due to possible GI bleed DISPOSITION -The patient will be placed as observation status for now until further work up is complete. Attending addendum Patient was seen and examined. Agreed with Jacy KHAN exam, assessment and plan. 37-year-old female with multiple ER visit for pancreatitis, history of hep C presents to the ED with a chief complaint of left foot pain. Patient said about a week ago she fell down the steps after she got tripped by her dog. She was seen as an outpatient and found to have fracture of the fourth and fifth toes. Patient said that she has been having a lot of foot pain. Also while in the ER patient said that she developed bright red bleeding per rectum. Patient said that she has been taking Aleve about 2 tabs daily in the last few days. She also complained of abdominal tenderness. She had a KUB done that showed nonobstructed abdominal bowel gas pattern noting moderate constipation. Her hemoglobin on admission was 11 with baseline between 12-13. Case discussed with GI recommended stool laxative. We will do tramadol for pain. Monitor H&H. Will keep on clear liquid diet for now since patient vomited after her diet was advanced to full liquid. consult podiatry for the toes fracture. MD Lazara Advanced Directives Existing Living Will: No Existing Power of Window Tinter: No Resuscitation Status VTE Prophylaxis Will order VTE Prophylaxis: Yes
--- NOTE | 2018-02-06 12:49 | Gastrointestinal Consultation ---
Gastrointestinal Consultation Date of Consultation: February 06, 2018 Attending Physician: Ponce Haile Consulting Physician: Allen Nicole Reason for Consultation: Rectal bleeding History of Present Illness Patient is a 37 year old female who presented to ED w c/o L foot pain. Had tripped and fell down stairs a few days ago, and L foot is getting painful and swollen. Xray showed L toes fractures. She was about to get discharged from ED, then started to say that she's been having abd pain and rectal bleeding when attempted to have BM. Also noticed her stools have been "black" but solid. Denies any iron supplements or ingestion of Pepto Bismol recently. Hx of HCV (treated and achieved SVR), chronic abd pain, drug/med abuse hx. She normally is followed by [facility] GI service, last seen in clinic there in November by Ziyad Rivers for f/u pancreatitis. Between October and now, she's had 7 ED visits and admissions total for abd pain or pancreatitis. Last admission in December, lipase was elevated then. She's had EUS evaluation on 01/03/18 which showed small residue of food in stomach, otherwise normal exam. Autoimmune studies including IgG subclasses, AMA previously normal. Autoimmune pancreatitis markers were planned to be checked when she was last seen in GI clinic. This time her labs showed mild anemia H/H . This is not abnormal for her. Her H/H fluctuates between mild anemia to normal count and currently it's at her baseline. LFTs and Lipase was normal. She reports to have taken Aleve every other day & Tylenol for her L foot pain. She started to have rectal bleeding in ED as noted above. No n/v. Past Medical/Surgical History Medical Problems: (1) Abdominal pain Status: Acute (2) Cellulitis of nasal tip Status: Acute (3) Chronic abdominal pain Status: Acute (4) Contusion of multiple sites Status: Acute (5) Epigastric abdominal pain Status: Acute (6) Fall Status: Acute (7) Fatigue Status: Acute (8) Hematuria Status: Acute (9) Hyperglycemia Status: Acute (10) Hypokalemia Status: Acute (11) Hypokalemia Status: Acute (12) Hypokalemia Status: Acute (13) Right flank pain Status: Acute (14) Right rib fracture Status: Acute (15) Right sided abdominal pain Status: Acute (16) Seizure Status: Acute (17) Transaminitis Status: Acute (18) Vomiting Status: Acute Past Medical History: See above Past Surgical History: Appendectomy Cholecystectomy Hernia repair Family History Patient reports no known family medical history. Social History Smoking Status: Never Smoker Alcohol Use: none Drug Use: none Marital Status: single Housing Status: lives alone Occupation Status: employed Allergies Coded Allergies: Fentanyl (Unverified Allergy, Severe, RASH, 02/06/18) Ibuprofen (Unverified Allergy, Unknown, UNKNOWN, 02/06/18) Ketorolac Tromethamine (Unverified Allergy, Unknown, rash, 02/06/18) Penicillins (Verified Allergy, Unknown, rash, 02/06/18) Current Medications Home Meds and Scripts Medications Dose Route/Sig Max Daily Dose Days Date Category Prilosec (Omeprazole) 20 Mg Capcr 4 Mg PO QAM 02/06/18 Reported Lamictal (Lamotrigine) 100 Mg Tab 100 Mg PO BID 02/06/18 Reported Wellbutrin-Xl (Bupropion HCl) 300 Mg Tabcr 300 Mg PO QAM 02/06/18 Reported Zofran Odt (Ondansetron HCl) 4 Mg Tab 4 Mg SL Q6H 01/10/18 Rx Xanax (Alprazolam) 1 Mg Tab 0.5 Mg PO TID PRN 1 01/06/18 Rx Mvi With Minerals (Multivitamins/Minerals) Tab 1 Tab PO DAILY 01/06/18 Reported Vitamin B-12 (Cyanocobalamin) Unknown Strength Tab 1 Tab PO DAILY 01/06/18 Reported Tylenol (Acetaminophen) 500 Mg Tab 1,000 Mg PO Q6 PRN 11/24/17 Reported Review of Systems Constitutional: No fever, No chills Respiratory: No cough, No shortness of breath Cardiac: No chest pain Abdomen: + see HPI, + pain, + GI bleeding, No nausea, No vomiting Physical Exam Date Time Temp Pulse Resp B/P (MAP) Pulse Ox O2 Delivery O2 Flow Rate FiO2 02/06/18 12:08 102 16 151/99 99 02/06/18 11:13 99 Room Air 02/06/18 10:58 102 16 151/99 99 Room Air 02/06/18 08:25 37.0 89 18 153/98 98 Room Air General Appearance: WD/WN, no apparent distress, + obese Eyes: normal inspection, PERRL, EOMI Neck: supple, no JVD, trachea midline Respiratory/Chest: normal breath sounds, no respiratory distress, no accessory muscle use Cardiovascular: regular rate, rhythm, no gallop, no murmur Abdomen: normal bowel sounds, soft, + tenderness (LUQ ), + pertinent finding ( Rectal exam: external non thrombosed hemorrhoids, internal exam w/o masses but + marroon colored blood, and solid stool felt at tip of finger) Extremities: normal inspection, no pedal edema, no calf tenderness Neurologic/Psych: alert, normal mood/affect, oriented x 3 Skin: normal color, no jaundice, no rash Laboratory Results Last 24 Hours Test 02/06/18 09:17 02/06/18 11:43 02/06/18 11:59 White Blood Count 7.97 K/uL Red Blood Count 3.61 M/uL Hemoglobin 11.0 g/dL Hematocrit 32.4 % Mean Corpuscular Volume 89.8 fL Mean Corpuscular Hemoglobin 30.5 pg Mean Corpuscular Hemoglobin Concent 34.0 g/dl Platelet Count 241 K/uL Mean Platelet Volume 8.4 fL Neutrophils (%) (Auto) 77.6 % Lymphocytes (%) (Auto) 15.8 % Monocytes (%) (Auto) 4.5 % Eosinophils (%) (Auto) 1.9 % Basophils (%) (Auto) 0.1 % Neutrophils # (Auto) 6.18 K/uL Lymphocytes # (Auto) 1.26 K/uL Monocytes # (Auto) 0.36 K/uL Eosinophils # (Auto) 0.15 K/uL Basophils # (Auto) 0.01 K/uL RDW Standard Deviation 43.8 fL RDW Coefficient of Variation 13.3 % Immature Granulocyte % (Auto) 0.1 % Immature Granulocyte # (Auto) 0.01 K/uL Prothrombin Time 10.2 SECONDS Prothromb Time International Ratio 1.0 Activated Partial Thromboplast Time 26.2 SECONDS Partial Thromboplastin Ratio 1.0 Sodium Level 139 mmol/L Potassium Level 3.2 mmol/L Chloride Level 104 mmol/L Carbon Dioxide Level 30 mmol/L Anion Gap 5.0 mmol/L Blood Urea Nitrogen 7 mg/dl Creatinine 0.75 mg/dl Est Creatinine Clear Calc Drug Dose 111.8 ml/min Estimated GFR () 119.7 Estimated GFR (Non- 103.3 BUN/Creatinine Ratio 9.3 Random Glucose 100 mg/dl Calcium Level 8.3 mg/dl Total Bilirubin 0.4 mg/dl Aspartate Amino Transf (AST/SGOT) 36 U/L Alanine Aminotransferase (ALT/SGPT) 53 U/L Alkaline Phosphatase 82 U/L Total Protein 7.4 gm/dl Albumin 3.8 gm/dl Globulin 3.6 gm/dl Albumin/Globulin Ratio 1.1 Amylase Level 26 U/L Lipase 82 U/L Transferrin % Saturation % Impression Patient is a 37 year old female who presented to ED w L foot pain secondary to toe fractures after fall; started to develop abd pain and rectal bleeding when she's about to get discharged. Currently admitted for further evaluation. Rectal exam showed non thrombosed external hemorrhoids, w evidence of marroon blood in rectal vault, solid hard stool. DDx: hemorrhoidal bleed, stercoral ulcer bleed, fissure. She did mention taking Aleve for L foot pain and noticed stools are black in color but not loose, and thus less likely it's melena. Plan - Hx of HCV (treated, sustained virologic response achieved), chronic abd pain, pancreatitis last admitted in December for this. EUS eval normal. Autoimmune workup pending. She is tender on LUQ on exam w mild pressure from stethoscope. Suspect likely chronic pain. She's asking for Morphine in ED. Avoid narcotics given drug/med abuse history - No indication for PPI gtt, change to Protonix 40mg BID dosing - Obtain KUB and if showing constipation, pls start laxatives such as Miralax 17g daily - Will send [facility] service a message to arrange for f/u and possible outpt colonoscopy eval if rectal bleeding continues. - Primary team to workup anemia with iron studies, FA, B12 I saw and evaluated the patient. We are consulted for evaluation of scant hematochezia. The symptoms have been persistent over several weeks and seem to be of an anorectal etiology. The patient also notes having abdominal discomfort and has had several evaluations at [facility] by Dr.Amit Hines. Of note review of her outpatient medical record does indicate she has a narcotic seeking behavior. The pain did ask for pain medication several times during our evaluation today PE: NAD No icterus Impression Scant hematochezia likely anorectal etiology from internal hemorrhoids Recommendations Colace 100 mg twice daily Outpatient colonoscopy to be scheduled Please call with any questions or concerns
[2018-02-06] MEDS: SODIUM CHLORIDE 0.9% 1000ML 1,000 ML IV SCH (12:57)
--- NOTE | 2018-02-06 14:26 | DIAGNOSTIC IMAGING REPORT ---
KUB CLINICAL HISTORY: Generalized abdominal pain. FINDINGS: 3 AP supine abdominal radiographs are compared to study dated 01/06/2018 and correlated with abdominal CT dated 08/28/2017. There is a nonobstructed abdominal bowel gas pattern noting moderate colonic fecal retention. No evidence of intra-axial free air is seen on these supine images. Cholecystectomy clips are identified in the right upper quadrant. Surgical clips are also seen in the right midabdomen and the left pelvis. No abnormal abdominal calcifications are identified. Phleboliths are noted in the left hemipelvis and unchanged from previous. The bony structures appear intact. The lung bases are clear as imaged. IMPRESSION: Nonobstructed abdominal bowel gas pattern noting moderate constipation. Electronically signed by: Ashwin Kathleen M.D. 02/06/2018 2:24 PM Dictated Date/Time: 02/06/2018 2:23 PM
[2018-02-06] MEDS ORDERED: POLYETHYLENE (MIRALAX) 17 GM PACK PO ONE (14:54)
[2018-02-06 15:55] VITALS: BP 105/67; PULSE 87; TEMP 36.3; O2SAT 94
[2018-02-06 16:00] VITALS: O2SAT 94
[2018-02-06] MEDS ORDERED: TRAMADOL HCL 50 MG TAB PO STA (16:11)
[2018-02-06] MEDS ORDERED: ALPRAZOLAM 0.5 MG TAB PO PRN (16:15)
[2018-02-06] MEDS: FERROUS SULFATE 325 MG TAB PO SCH (16:56)
[2018-02-06] MEDS: PROMETHAZINE HCL INJ 25 MG in SODIUM CHLORIDE 0.9% 50ML 50 ML IV PRN (18:43)
[2018-02-06 19:56] VITALS: BP 155/94; PULSE 99; TEMP 36.6; O2SAT 98
[2018-02-06 20:00] VITALS: O2SAT 98
[2018-02-06] MEDS: PANTOprazole INJ 40 MG in SYRINGE 0 ML IV SCH (21:00)
[2018-02-06 21:14] LABS: HEMATOCRIT 33.7 % (37-47); HEMOGLOBIN 11.2 g/dL (12.0-16.0)
[2018-02-06] MEDS ORDERED: NALOXONE HCL 0.4 MG/1 ML VIAL/CARP IV ONE (22:00)
[2018-02-07] VITALS (10 sets, daily range): BP systolic 112–182; BP diastolic 73–112; PULSE 90–116; TEMP 36.4–37; O2SAT 92–99
[2018-02-07] MEDS ORDERED: NURSING VERBAL MED ORDER ONE (05:45)
[2018-02-07] MEDS: SODIUM CHLORIDE 0.9% 1000ML 1,000 ML IV SCH ×2 (06:08→17:59)
[2018-02-07 06:12] LABS: HEMATOCRIT 30.9 % (37-47); HEMOGLOBIN 10.3 g/dL (12.0-16.0); MEAN CELL VOLUME 90.6 fL (80-100); MEAN CORPUSCULAR HEMOGLOBIN 30.2 pg (25-34); MEAN CORPUSCULAR HGB CONC 33.3 g/dl (32-36); MEAN PLATELET VOLUME 8.2 fL (7.4-10.4); PLATELET COUNT 202 K/uL (130-400); RED CELL DISTRIBUTION WIDTH CV 13.7 % (11.5-14.5); RED CELL DISTRIBUTION WIDTH SD 45.4 fL (36.4-46.3); WHITE BLOOD COUNT 4.27 K/uL (4.8-10.8)
[2018-02-07 06:46] LABS: CALCIUM 7.6 mg/dl (8.5-10.1); CREATININE 0.61 mg/dl (0.60-1.20); POTASSIUM 3.6 mmol/L (3.5-5.1)
[2018-02-07] MEDS ORDERED: CALCIUM GLUCONATE 10% 1,000 MG in SODIUM CHLORIDE 0.9% 50ML 50 ML IV STA (07:29)
--- NOTE | 2018-02-07 08:03 | Podiatry Consultation ---
Podiatry Consultation Date of Consultation: February 07, 2018. Attending Physician: Oskar Meng M.D. Reason for Consultation: Left foot pain/swelling/4th and 5th distal phalanx fractures History of Present Illness Patient is a 37 y/o female patient that presented to the ED due to worsening pain associated with the left foot after sustaining a fall. Patient stated that her entire foot hurt today, as well as any movements of the digits of the left foot. Patient also stated that she is having abdominal pain and constipation, which is secondary to the foot pain. Patient stated she received an offloading shoe from the ED, that is comfort to wear and helps her foot pain. Patient related no other problems or abnormalities associated with the left foot. Past Medical/Surgical History Medical Problems: (1) Abdominal pain Status: Acute (2) Anemia Status: Acute (3) Cellulitis of nasal tip Status: Acute (4) Chronic abdominal pain Status: Acute (5) Contusion of multiple sites Status: Acute (6) Epigastric abdominal pain Status: Acute (7) Fall Status: Acute (8) Fatigue Status: Acute (9) Foot pain Status: Acute (10) Fracture of metatarsal bone Status: Acute (11) Hematuria Status: Acute (12) Hyperglycemia Status: Acute (13) Hypokalemia Status: Acute (14) Hypokalemia Status: Acute (15) Hypokalemia Status: Acute (16) Hypokalemia Status: Acute (17) Right flank pain Status: Acute (18) Right rib fracture Status: Acute (19) Right sided abdominal pain Status: Acute (20) Seizure Status: Acute (21) Transaminitis Status: Acute (22) Vomiting Status: Acute Family History FH: CAD (coronary artery disease) GRANDFATHER FH: breast cancer GRANDMOTHER Social History Smoking Status: Never Smoker Alcohol Use: none Drug Use: none Marital Status: single Housing Status: lives alone Occupation Status: employed Allergies Coded Allergies: Fentanyl (Unverified Allergy, Severe, RASH, 02/06/18) Ibuprofen (Unverified Allergy, Unknown, UNKNOWN, 02/06/18) Ketorolac Tromethamine (Unverified Allergy, Unknown, rash, 02/06/18) Penicillins (Verified Allergy, Unknown, rash, 02/06/18) Home Medications Scheduled Bupropion (Wellbutrin-Xl), 300 MG PO QAM Cyanocobalamin (Vitamin B-12), 1 TAB PO DAILY Lamotrigine (Lamictal), 100 MG PO BID Multivitamins/Minerals (Mvi With Minerals), 1 TAB PO DAILY Omeprazole (Prilosec), 40 MG PO QAM Ondasetron Odt (Zofran Odt), 4 MG SL Q6H Scheduled PRN Acetaminophen (Tylenol), 1,000 MG PO Q6 PRN for Headache or Pain Alprazolam (Xanax), 0.5 MG PO TID PRN for Anxiety Current Inpatient Medications Current Inpatient Medications Medications (Trade) Dose Ordered Sig/Jannie Route Start Time Stop Time Status Last Admin Dose Admin Acetaminophen (Tylenol Tab) 650 mg Q4H PRN PO 02/06/18 11:30 03/08/18 11:29 02/06/18 13:17 650 MG Ondansetron HCl (Zofran Inj) 4 mg Q6H PRN IV 02/06/18 11:30 03/08/18 11:29 02/06/18 17:39 4 MG Pantoprazole Sodium 40 mg/ Syringe 10 ml @ 5 mls/min BID@0900,2100 IV 02/06/18 21:00 03/08/18 20:59 02/06/18 21:00 5 MLS/MIN Sodium Chloride 1,000 ml @ 80 mls/hr [id number] IV 02/06/18 13:00 03/08/18 12:59 02/07/18 06:08 80 MLS/HR Miscellaneous (Iv Fluids Completed) 1 ea PRN PRN N/A 02/06/18 12:00 02/06/19 11:59 Ferrous Sulfate (Feosol Tab) 325 mg BIDM PO 02/06/18 17:00 03/08/18 16:59 02/06/18 16:56 325 MG Polyethylene (Miralax Powder Packet) 17 gm DAILY PO 02/07/18 09:00 03/09/18 08:59 Alprazolam (Xanax Tab) 0.5 mg TID PRN PO 02/06/18 16:15 03/08/18 16:14 02/06/18 16:56 0.5 MG Bupropion HCl (Wellbutrin-Xl Tab) 300 mg QAM PO 02/07/18 09:00 03/09/18 08:59 Lamotrigine (Lamictal Tab) 100 mg BID PO 02/06/18 21:00 03/08/18 20:59 02/06/18 21:00 100 MG Multivitamins/ Minerals (Multivitamin W/ Minerals Tab) 1 tab DAILY PO 02/07/18 09:00 03/09/18 08:59 Cyanocobalamin (Vitamin B-12 Tab) 1 mcg DAILY PO 02/07/18 09:00 03/09/18 08:59 Promethazine HCl 25 mg/Sodium Chloride 51 ml @ 204 mls/hr Q6H PRN IV 02/06/18 18:30 03/08/18 18:29 02/06/18 18:43 204 MLS/HR Review of Systems Musculoskeletal: + joint pain, + muscle pain, + swelling, + calf pain, + problem reported (pain noted of the left foot and left foot digits, most severe of the 4th and 5th digits.) Physical Exam Date Time Temp Pulse Resp B/P (MAP) Pulse Ox O2 Delivery O2 Flow Rate FiO2 02/07/18 04:20 36.4 96 16 118/77 (91) 99 Room Air 02/07/18 04:00 Room Air 02/07/18 00:00 Room Air 02/07/18 00:00 36.9 93 17 129/83 (98) 95 Room Air 02/06/18 20:00 98 Room Air 02/06/18 19:56 36.6 99 20 155/94 (114) 98 02/06/18 16:00 94 Room Air 02/06/18 15:55 36.3 87 20 105/67 (80) 94 02/06/18 12:32 36.6 98 18 132/83 (99) 99 02/06/18 12:08 102 16 151/99 99 02/06/18 11:13 99 Room Air 02/06/18 10:58 102 16 151/99 99 Room Air 02/06/18 08:25 37.0 89 18 153/98 98 Room Air - left foot with swelling noted of the 4th and 5th digits, pain with ROM, patient unable to bend toes at this time - pedal pulses are palpable, 2/4 DP and PT pulses with good capillary refill time less than 3 seconds, good turgor pressure, pedal hair present, foot warm/ dry/well perfused - no open wounds or lesions present - gross sensation intact to left foot - digits 4 and 5 in anatomical position with x-rays reviewed from the ED and show fractures of the distal phalanx of the digit, with no dislocation Skin: normal color, warm/dry, no rash Laboratory Results Last 24 Hours Test 02/06/18 09:17 02/06/18 11:59 02/06/18 13:50 02/06/18 20:58 White Blood Count 7.97 K/uL Red Blood Count 3.61 M/uL Hemoglobin 11.0 g/dL 11.2 g/dL Hematocrit 32.4 % 33.7 % Mean Corpuscular Volume 89.8 fL Mean Corpuscular Hemoglobin 30.5 pg Mean Corpuscular Hemoglobin Concent 34.0 g/dl Platelet Count 241 K/uL Mean Platelet Volume 8.4 fL Neutrophils (%) (Auto) 77.6 % Lymphocytes (%) (Auto) 15.8 % Monocytes (%) (Auto) 4.5 % Eosinophils (%) (Auto) 1.9 % Basophils (%) (Auto) 0.1 % Neutrophils # (Auto) 6.18 K/uL Lymphocytes # (Auto) 1.26 K/uL Monocytes # (Auto) 0.36 K/uL Eosinophils # (Auto) 0.15 K/uL Basophils # (Auto) 0.01 K/uL RDW Standard Deviation 43.8 fL RDW Coefficient of Variation 13.3 % Immature Granulocyte % (Auto) 0.1 % Immature Granulocyte # (Auto) 0.01 K/uL Absolute Reticulocyte Count 0.08 10^6/uL Percent Reticulocyte Count 2.1 % Prothrombin Time 10.2 SECONDS Prothromb Time International Ratio 1.0 Activated Partial Thromboplast Time 26.2 SECONDS Partial Thromboplastin Ratio 1.0 Sodium Level 139 mmol/L Potassium Level 3.2 mmol/L Chloride Level 104 mmol/L Carbon Dioxide Level 30 mmol/L Anion Gap 5.0 mmol/L Blood Urea Nitrogen 7 mg/dl Creatinine 0.75 mg/dl Est Creatinine Clear Calc Drug Dose 111.8 ml/min Estimated GFR () 119.7 Estimated GFR (Non- 103.3 BUN/Creatinine Ratio 9.3 Random Glucose 100 mg/dl Calcium Level 8.3 mg/dl Magnesium Level 2.0 mg/dl Iron Level 25 mcg/dl Total Iron Binding Capacity 404 mcg/dl Transferrin 327 mg/dl Transferrin % Saturation 5 % Ferritin 24.4 ng/ml Total Bilirubin 0.4 mg/dl Aspartate Amino Transf (AST/SGOT) 36 U/L Alanine Aminotransferase (ALT/SGPT) 53 U/L Alkaline Phosphatase 82 U/L Total Protein 7.4 gm/dl Albumin 3.8 gm/dl Globulin 3.6 gm/dl Albumin/Globulin Ratio 1.1 Amylase Level 26 U/L Lipase 82 U/L Vitamin B12 Level 499 pg/mL Folate 11.26 ng/mL Bedside Glucose 78 mg/dl Test 02/07/18 05:53 White Blood Count 4.27 K/uL Red Blood Count 3.41 M/uL Hemoglobin 10.3 g/dL Hematocrit 30.9 % Mean Corpuscular Volume 90.6 fL Mean Corpuscular Hemoglobin 30.2 pg Mean Corpuscular Hemoglobin Concent 33.3 g/dl RDW Standard Deviation 45.4 fL RDW Coefficient of Variation 13.7 % Platelet Count 202 K/uL Mean Platelet Volume 8.2 fL Sodium Level 140 mmol/L Potassium Level 3.6 mmol/L Chloride Level 109 mmol/L Carbon Dioxide Level 29 mmol/L Anion Gap 3.0 mmol/L Blood Urea Nitrogen 4 mg/dl Creatinine 0.61 mg/dl Est Creatinine Clear Calc Drug Dose 137.5 ml/min Estimated GFR () 136.1 Estimated GFR (Non- 117.5 BUN/Creatinine Ratio 5.9 Random Glucose 97 mg/dl Calcium Level 7.6 mg/dl Assessment & Plan (1) Foot pain 1. Left foot acute fractures of the left 4th and 5th digits - 4th and 5th digits are in anatomical position, there is pain noted with any movements of the digits, patient has offloading shoe at bedside and was instructed to wear the shoe, patient was also shown how to apply a maury splint to the left 4th and 5th digits, she was instructed to apply this daily as well as to wear the shoe - patient inquired about pain medication, I do not recommend narcotic medication at this time given the constipation and GI upset already present - instructed patient that offloading and resting the foot with ice, elevation, compression from the maury splint will improve the pain, this is not a fracture that requires any type of surgical intervention, the toes are in anatomic with no dislocation present - patient is instructed to make follow up appointment with [facility] and orthopedics with me after discharge, - patient had all questions answered to her satisfaction Problem Qualifiers (1) Foot pain: Laterality: left Qualified Codes: M79.672 - Pain in left foot
[2018-02-07] MEDS: PANTOprazole INJ 40 MG in SYRINGE 0 ML IV SCH (08:14)
[2018-02-07] MEDS: POLYETHYLENE (MIRALAX) 17 GM PACK PO SCH (08:15)
[2018-02-07] MEDS: BuPROPion XL 300 MG TABCR PO SCH (08:16)
[2018-02-07] MEDS: FERROUS SULFATE 325 MG TAB PO SCH ×2 (08:17→17:28)
[2018-02-07] MEDS: CEROVITE ADV FORMULA TAB PO SCH (08:17)
[2018-02-07] MEDS ORDERED: CYANOCOBALAMIN 100 MCG TAB (VIT B-12) PO SCH (09:00)
[2018-02-07] MEDS ORDERED: TRAMADOL HCL 50 MG TAB PO STA ×2 (09:10→10:38)
[2018-02-07] MEDS ORDERED: HYDROmorphone INJ 0.5 MG/0.5 ML SYR IV STA ×2 (09:10→16:37)
[2018-02-07] MEDS ORDERED: KETOROLAC TROMETHAMINE 15 MG/ML VIAL IM STA (10:31)
[2018-02-07] MEDS ORDERED: ACETAMINOPHEN IV 100 ML IV PRN (10:45)
[2018-02-07] MEDS ORDERED: DiphenhydrAMINE INJ 12.5 MG in SYRINGE 0 ML IV PRN (10:45)
[2018-02-07] MEDS ORDERED: ACETAMINOPHEN IV 100 ML IV ONE (10:46)
[2018-02-07] MEDS ORDERED: DiphenhydrAMINE HCL 50 MG/ML VIAL IV PRN (11:00)
[2018-02-07] MEDS: CYANOCOBALAMIN 100 MCG TAB (VIT B-12) PO SCH (11:10)
--- NOTE | 2018-02-07 11:22 | Gastroenterology Progress Note ---
Progress Note Date of Service: February 07, 2018 Subjective Pt evaluation today including: conversation w/ patient, physical exam, chart review, lab review, review of inpatient medication list Pt had an uneventful night, was about to get discharged then had solid BMs with rectal bleeding. H/H from yesterday to this AM had been stable. She is asking for more pain meds for her L foot. Review of Systems Constitutional: No fever, No chills Respiratory: No cough, No shortness of breath Cardiac: No chest pain Abdomen: + see HPI, + GI bleeding, No pain, No nausea, No vomiting Musculoskeletal: + problem reported (L foot pain ) Medications Current Inpatient Medications Medications (Trade) Dose Ordered Sig/Jannie Route Start Time Stop Time Status Last Admin Dose Admin Ondansetron HCl (Zofran Inj) 4 mg Q6H PRN IV 02/06/18 11:30 03/08/18 11:29 02/06/18 17:39 4 MG Pantoprazole Sodium 40 mg/ Syringe 10 ml @ 5 mls/min BID@0900,2100 IV 02/06/18 21:00 03/08/18 20:59 02/07/18 08:14 5 MLS/MIN Sodium Chloride 1,000 ml @ 80 mls/hr [id number] IV 02/06/18 13:00 03/08/18 12:59 02/07/18 06:08 80 MLS/HR Miscellaneous (Iv Fluids Completed) 1 ea PRN PRN N/A 02/06/18 12:00 02/06/19 11:59 Ferrous Sulfate (Feosol Tab) 325 mg BIDM PO 02/06/18 17:00 03/08/18 16:59 02/07/18 08:17 325 MG Polyethylene (Miralax Powder Packet) 17 gm DAILY PO 02/07/18 09:00 03/09/18 08:59 02/07/18 08:15 17 GM Alprazolam (Xanax Tab) 0.5 mg TID PRN PO 02/06/18 16:15 03/08/18 16:14 02/06/18 16:56 0.5 MG Bupropion HCl (Wellbutrin-Xl Tab) 300 mg QAM PO 02/07/18 09:00 03/09/18 08:59 02/07/18 08:16 300 MG Lamotrigine (Lamictal Tab) 100 mg BID PO 02/06/18 21:00 03/08/18 20:59 02/07/18 08:16 100 MG Multivitamins/ Minerals (Multivitamin W/ Minerals Tab) 1 tab DAILY PO 02/07/18 09:00 03/09/18 08:59 02/07/18 08:17 1 TAB Promethazine HCl 25 mg/Sodium Chloride 51 ml @ 204 mls/hr Q6H PRN IV 02/06/18 18:30 03/08/18 18:29 02/06/18 18:43 204 MLS/HR Cyanocobalamin (Vitamin B-12 Tab) 100 mcg DAILY PO 02/07/18 09:00 03/09/18 08:59 02/07/18 11:10 100 MCG Gabapentin (Neurontin Tab) 200 mg TID PO 02/07/18 14:00 03/09/18 13:59 Acetaminophen 100 ml @ 400 mls/hr Q8H PRN IV 02/07/18 10:45 03/09/18 10:44 Diphenhydramine HCl (Benadryl Inj) 12.5 mg Q6H PRN IV 02/07/18 11:00 03/09/18 10:59 Bisacodyl (Dulcolax Tab) 20 mg TODAY@1700 ONCE PO 02/07/18 17:00 02/07/18 17:01 Polyethylene (Polyethylene Glycol) 119 gm TODAY@1700,2100 PO 02/07/18 17:00 02/07/18 21:01 Objective Vital Signs Date Time Temp Pulse Resp B/P (MAP) Pulse Ox O2 Delivery O2 Flow Rate FiO2 02/07/18 08:04 36.5 90 22 112/73 (86) 94 02/07/18 08:00 99 Room Air 02/07/18 04:20 36.4 96 16 118/77 (91) 99 Room Air 02/07/18 04:00 Room Air 02/07/18 00:00 Room Air 02/07/18 00:00 36.9 93 17 129/83 (98) 95 Room Air 02/06/18 20:00 98 Room Air 02/06/18 19:56 36.6 99 20 155/94 (114) 98 02/06/18 16:00 94 Room Air 02/06/18 15:55 36.3 87 20 105/67 (80) 94 02/06/18 12:32 36.6 98 18 132/83 (99) 99 02/06/18 12:08 102 16 151/99 99 Physical Exam General Appearance: WD/WN, no apparent distress Eyes: normal inspection, PERRL, EOMI Neck: supple, no JVD, trachea midline Respiratory/Chest: normal breath sounds, no respiratory distress, no accessory muscle use Cardiovascular: regular rate, rhythm, no gallop, no murmur Abdomen: normal bowel sounds, non tender, soft Extremities: normal inspection, no pedal edema, no calf tenderness Neurologic/Psych: alert, normal mood/affect, oriented x 3 Skin: normal color, no jaundice, no rash Laboratory Results Last 24 Hours Test 02/06/18 11:59 02/06/18 13:50 02/06/18 20:58 02/07/18 05:53 Vitamin B12 Level 499 pg/mL Folate 11.26 ng/mL Bedside Glucose 78 mg/dl Hemoglobin 11.2 g/dL 10.3 g/dL Hematocrit 33.7 % 30.9 % White Blood Count 4.27 K/uL Red Blood Count 3.41 M/uL Mean Corpuscular Volume 90.6 fL Mean Corpuscular Hemoglobin 30.2 pg Mean Corpuscular Hemoglobin Concent 33.3 g/dl RDW Standard Deviation 45.4 fL RDW Coefficient of Variation 13.7 % Platelet Count 202 K/uL Mean Platelet Volume 8.2 fL Sodium Level 140 mmol/L Potassium Level 3.6 mmol/L Chloride Level 109 mmol/L Carbon Dioxide Level 29 mmol/L Anion Gap 3.0 mmol/L Blood Urea Nitrogen 4 mg/dl Creatinine 0.61 mg/dl Est Creatinine Clear Calc Drug Dose 137.5 ml/min Estimated GFR () 136.1 Estimated GFR (Non- 117.5 BUN/Creatinine Ratio 5.9 Random Glucose 97 mg/dl Calcium Level 7.6 mg/dl Assessment and Plan Patient is a 37 year old female who presented to ED w L foot pain secondary to toe fractures after fall; started to develop abd pain and rectal bleeding when she's about to get discharged. Currently admitted for further evaluation. Rectal exam showed non thrombosed external hemorrhoids, w evidence of marroon blood in rectal vault, solid hard stool. DDx: hemorrhoidal bleed, stercoral ulcer bleed, fissure. She did mention taking Aleve for L foot pain and noticed stools are black in color but not loose, and thus less likely it's melena. Initially was to get DC'd home this AM but had BM w rectal bleeding again. Going to be kept overnight again for monitoring. Plans - Hx of HCV (treated, sustained virologic response achieved), chronic abd pain, pancreatitis last admitted in December for this. EUS eval normal. Autoimmune workup pending. She is tender on LUQ on exam w mild pressure from stethoscope. Suspect likely chronic pain. She's asking for Morphine in ED. Avoid narcotics given drug/med abuse history - No indication for PPI gtt, change to Protonix 40mg BID dosing - Miralax 17g daily for constipation - CL diet, NPO after midnight for colonoscopy tomorrow 02/08. Bowel prep ordered. - Primary team to workup anemia with iron studies, FA, B12 -> low iron and trans sat I saw and evaluated the patient. We are consulted for evaluation of recurrent hematochezia. This sounds like it will be most likely an anorectal etiology and we are happy to do a colonoscopy during this admission given the recurrent symptoms.
[2018-02-07] MEDS: PROMETHAZINE HCL INJ 25 MG in SODIUM CHLORIDE 0.9% 50ML 50 ML IV PRN ×2 (12:34→23:37)
[2018-02-07] MEDS ORDERED: SERTRALINE HCL 50 MG TAB PO ONE (13:17)
[2018-02-07] MEDS ORDERED: CLONAZEPAM 1 MG TAB PO ONE (13:17)
--- NOTE | 2018-02-07 13:17 | Psychiatric Consultation ---
Consultation Date of Consultation February 07, 2018. Identifying Data 37-year-old woman who presented to the emergency department with worsening left foot pain status post fall with fractures. While in the ER developed rectal bleeding and is admitted for medical workup. We are consulted to evaluate anxiety and possible substance abuse. Information is gathered from the patient and the electronic medical record, and both considered to be reliable. Chief Complaint "Yes I have anxiety.". History of Present Illness The patient is a 37-year-old woman from [facility], here in [place] visiting her boyfriend. She apparently fell down the stairs several days ago after getting tangled up with her dogs. She was seen as an outpatient , diagnosed with 2 phalangeal fractures. Apparently the pain in her foot was increasing which is the reason for her ER visit here. While in the emergency room she had an episode of rectal bleeding and it turns out the patient is also reporting a weeks history of nausea possible hematemesis. Psychiatrically, the patient admits to dealing with depression and severe anxiety for years. She sees Dr. Jackson, a psychiatrist in [facility], with last visit 2 weeks ago. She had complained that she had a 30-40 pound weight gain over the last 7 months while on Celexa and so that was tapered down while titrating up on Wellbutrin XL 300 mg daily. She denies any worsening to her anxiety, but does not see that it has helped her mood any. She reports that her mood has been "anxious" for the last 3 years ever since a friend committed suicide with a handgun. She reports long-standing social anxiety, saying that she gets anxious anytime she is in a public space. She has had at least 2 panic attacks in her life. Her sleep is good, generally getting 8 hours per night. Her appetite is "too good". She denies any auditory or visual hallucinations. She denies any discrete episodes of euphoric mood, sleeplessness or pleasure seeking behaviors that would be congruent with a bipolar disorder. She denies suicidal homicidal ideation or self-injurious behaviors. The patient admits that her anxiety has been so bad that for the last 6 months she has been taking 5 or 6 Xanax pills per day when only 3 are prescribed. She recognizes that this is wrong and she needs to do something to better address her anxiety. Nursing reports that there was concern because there was a bottle of Xanax in her purse, and her boyfriend expressed concern that she was taking too many. Past Psychiatric History Current OP Treatment: psychiatrist (Yes I have anxiety. Dr. Jackson in [facility]) Prior OP Treatment: therapist Prior Psych Hospitalizations: other Access to a Gun: No Suicide Attempts: No Past Medication Trials Celexa weight gain- Past Medical/Surgical History History of Concussion/Seizure: Yes (Last seizure October 08) (1) Hepatitis C (2) Pseudoseizure (3) Idiopathic pancreatitis (4) Migraine Allergies Allergies: Coded Allergies: Fentanyl (Unverified Allergy, Severe, RASH, 02/06/18) Ibuprofen (Unverified Allergy, Unknown, UNKNOWN, 02/06/18) Ketorolac Tromethamine (Unverified Allergy, Unknown, rash, 02/06/18) Penicillins (Verified Allergy, Unknown, rash, 02/06/18) Home Medications Scheduled Bupropion (Wellbutrin-Xl), 300 MG PO QAM Cyanocobalamin (Vitamin B-12), 1 TAB PO DAILY Lamotrigine (Lamictal), 100 MG PO BID Multivitamins/Minerals (Mvi With Minerals), 1 TAB PO DAILY Omeprazole (Prilosec), 40 MG PO QAM Ondasetron Odt (Zofran Odt), 4 MG SL Q6H Scheduled PRN Acetaminophen (Tylenol), 1,000 MG PO Q6 PRN for Headache or Pain Alprazolam (Xanax), 0.5 MG PO TID PRN for Anxiety Family History FH: CAD (coronary artery disease) GRANDFATHER FH: breast cancer GRANDMOTHER History of Suicide: No History of Substance Abuse: Yes (Sister alcohol) Psychiatric History: Yes (Mother depression) Alcohol Use Alcohol Use In Past 12 Months: No Smoking Use Smoking Status: Never Smoker Substance History Marijuana and LSD when in college Personal History Lives in: [facility] Childhood: Grew up in [place], [place] and [facility]. Raised by both parents. 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 Relationship History: never Children: None Legal History: none Review of Systems Constitutional: denies no symptoms reported, denies see HPI, denies chills, denies diaphoresis, denies fever, denies malaise, denies weakness, denies other Eyes: denies: no symptoms, as stated in HPI, eye pain, tearing, itching, redness, discharge, double vision, visual changes, blurred vision, photophobia, other ENT: denies: no symptoms reported, see HPI, ear pain, ear discharge, loss of hearing, tinnitus, nasal pain, nasal congestion, rhinorrhea, epistaxis, sore throat, stidor, throat swelling, mouth pain, mouth swelling, dental pain, gum swelling, other Cardiovascular: reports: palpitations (With anxiety) Respiratory: reports: short of breath (With anxiety) Gastrointestinal: other (Rectal bleeding) Genitourinary - Female: denies: no symptoms, see HPI, rash, amenorrhea, dysmenorrhea, menorrhagia, metrorrhagia, , vaginal bleeding, vaginal itching, vaginal discharge, vulvadynia, other Musculoskeletal: other (Left foot pain, severe) Integumentary: denies no symptoms reported, denies see HPI, denies change in color, denies change in hair/nails, denies dryness, denies lesions, denies lumps , denies rash, denies other Neurologic: reports: seizure (Last September 2017) Endocrine: denies: no symptoms, as stated in HPI, cold intolerance, heat intolerance, hair changes, goiter, polydipsia, polyuria, skin changes, other Hematologic / Lymphatic: denies: no symptoms, as stated in HPI, abnormal clotting, adenopathy, anemia, easy bleeding, easy bruising, gums bleeding, petechiae, other Examination Vital Signs Vital Signs Past 12 Hours Date Time Temp Pulse Resp B/P (MAP) Pulse Ox O2 Delivery O2 Flow Rate FiO2 02/07/18 11:52 37.0 102 20 144/80 (101) 92 Room Air 02/07/18 08:04 36.5 90 22 112/73 (86) 94 02/07/18 08:00 99 Room Air 02/07/18 04:20 36.4 96 16 118/77 (91) 99 Room Air 02/07/18 04:00 Room Air Laboratory Results Last 24 Hours Test 02/06/18 13:50 02/06/18 20:58 02/07/18 05:53 Bedside Glucose 78 mg/dl Hemoglobin 11.2 g/dL 10.3 g/dL Hematocrit 33.7 % 30.9 % White Blood Count 4.27 K/uL Red Blood Count 3.41 M/uL Mean Corpuscular Volume 90.6 fL Mean Corpuscular Hemoglobin 30.2 pg Mean Corpuscular Hemoglobin Concent 33.3 g/dl RDW Standard Deviation 45.4 fL RDW Coefficient of Variation 13.7 % Platelet Count 202 K/uL Mean Platelet Volume 8.2 fL Sodium Level 140 mmol/L Potassium Level 3.6 mmol/L Chloride Level 109 mmol/L Carbon Dioxide Level 29 mmol/L Anion Gap 3.0 mmol/L Blood Urea Nitrogen 4 mg/dl Creatinine 0.61 mg/dl Est Creatinine Clear Calc Drug Dose 137.5 ml/min Estimated GFR () 136.1 Estimated GFR (Non- 117.5 BUN/Creatinine Ratio 5.9 Random Glucose 97 mg/dl Calcium Level 7.6 mg/dl Mental Examination During interview pt is: alert and oriented, cooperative Appearance: disheveled Eye contact is: good Motor behavior is: psychomotor agitation (Nervous, dropping things) Speech: normal in rate, rhythm & volume Affect: anxious Mood is: anxious Thought process: goal directed Thought content: reality based without delusions Suicidal thought are: denied Homicidal thoughts are: denied Hallucinations: denies auditory, denies visual Cognition: memory grossly intact, attention grossly intact, language grossly intact Intelligence estimated to be: average Insight: poor Judgement: poor Impression / Recommendations Impression 37-year-old woman admitted medically with GI bleed. We are consulted to evaluate anxiety and possible substance abuse. The patient readily admits to using 5 or 6 Xanax pills daily for the last 6 months to medicate her anxiety. She was just taken off Celexa, and SSRI used to treat anxiety, 2 weeks ago because of weight gain. I have suggested we restart another SSRI that might have less weight gain potential along with the Wellbutrin which may help her actually to lose some of the weight she put on. She will need a follow-up appointment with Dr. Jackson within the next 2 weeks which the patient agrees to make for herself. I am obviously concerned about the patient's overuse of Xanax and suggest that we use Klonopin, a longer acting benzodiazepine, to taper her down and to prevent the risk of seizures. I will start her on 1 mg twice daily which can be tapered down. I discharge summary should go to her outpatient psychiatrist so that she is aware of the medication changes we have made. I will start Zoloft 25 mg today increasing to 50 mg tomorrow. She meets no criteria for inpatient mental health treatment. Recommendations (1) Major depressive disorder, recurrent, moderate 5/2 - continue current Wellbutrin dose - Add Zoloft 25 mg today increasing to 50 mg. tomorrow to target long standing anxiety - Will need an appt with her psychiatrist within 2 weeks, which the patient says she will make herself. (2) Social anxiety disorder 5/2 - Concern for BZD abuse. Would recommend converting to Klonopin 1 mg. BID and taper to 1 mg. HS in 2 days - PDMP checked. Is getting regular rx's for xanax, as well as tramadol - Will start Zoloft as above to target social anxiety. - Would benefit from therapy to help her with her chronic anxiety and mood. Dr. Shannan Cottrell has personally been involved in the review of this case and development of recommendations.
[2018-02-07] MEDS ORDERED: GABAPENTIN 600 MG TAB PO SCH (14:00)
--- NOTE | 2018-02-07 14:00 | Progress Note ---
Internal Med Progress Note Date of Service: February 07, 2018. Provider Documentation: SUBJECTIVE: Patient was evaluated by psychiatry today because concern that she was taking Xanax excessively on her own while in the hospital. Afterwards in the morning, nurse called medical doctor to show the blood in the toilet which was after patient defecated Patient denies abdominal pain. Patient denies shortness of breath. The blood in stool was also shown to the gastroenterology service. OBJECTIVE: Exam: General- no acute distress Eyes- EOMI Neck- no JVD Lungs- lungs clear to ascultation, no wheezing Heart- regular rate Abdomen- soft, nontender, + bowel sounds Extremities- Left foot edematous with ecchymosis over the toes, no calf tenderness Neuro- awake and alert ASSESSMENT & PLAN: GI BLEED -On telemetry -Patient initially presenting with increasing left foot pain however while in the ED developed an episode of bright red bleeding per rectum -Patient reported black stools and "old blood" emesis; has been taking Aleve every other day for left foot pain -Started on Protonix -Patient had witnessed episode of blood in toilet when on telemetry [facility] on -on Clear diet, NPO after midnight for colonoscopy tomorrow 02/08. Bowel prep ordered Left foot acute fractures of the left 4th and 5th digits -Patient seen by podiatry Lovely Rivera on 02/07/18 -4th and 5th digits are in anatomical position, there is pain noted with any movements of the digits -Patient has offloading shoe at bedside and was instructed to wear the shoe, patient was also shown how to apply a maury splint to the left 4th and 5th digits, she was instructed to apply this daily as well as to wear the shoe -Patient was instructed by podiatry offloading and resting the foot with ice, elevation, compression from the maury splint will improve the pain, this is not a fracture that requires any type of surgical intervention, the toes are in anatomic with no dislocation present -Patient was instructed to make follow up appointment with [facility] and [facility]opedics with Lovely Rivera after discharge, Substance Misuse / Mood disorders -minimize narcotics for the foot pain -Patient seen by psychiatry on 02/07/18 and diagnosis of: (1) Major depressive disorder, recurrent, moderate - continue current Wellbutrin dose - Add Zoloft 25 mg today increasing to 50 mg. tomorrow to target long standing anxiety - Will need an appt with her psychiatrist within 2 weeks, which the patient says she will make herself. (2) Social anxiety disorder - Concern for BZD abuse. Would recommend converting to Klonopin 1 mg. BID and taper to 1 mg. HS in 2 days - PDMP checked. Is getting regular rx's for xanax, as well as tramadol - Will start Zoloft as above to target social anxiety. - Would benefit from therapy to help her with her chronic anxiety and mood. HISTORY RECURRENT PANCREATITIS -Normal LFTs and lipase PSEUDOSEIZURES -Continue Lamictal DVT PROPHYLAXIS -SCDs Vital Signs: Date Time Temp Pulse Resp B/P (MAP) Pulse Ox O2 Delivery O2 Flow Rate FiO2 02/07/18 12:00 92 Room Air 02/07/18 11:52 37.0 102 20 144/80 (101) 92 Room Air 02/07/18 08:04 36.5 90 22 112/73 (86) 94 02/07/18 08:00 99 Room Air 02/07/18 04:20 36.4 96 16 118/77 (91) 99 Room Air 02/07/18 04:00 Room Air 02/07/18 00:00 Room Air 02/07/18 00:00 36.9 93 17 129/83 (98) 95 Room Air 02/06/18 20:00 98 Room Air 02/06/18 19:56 36.6 99 20 155/94 (114) 98 02/06/18 16:00 94 Room Air 02/06/18 15:55 36.3 87 20 105/67 (80) 94 Lab Results: Results Past 24 Hours Test 02/06/18 20:58 02/07/18 05:53 02/07/18 14:11 Range/Units Hemoglobin 11.2 10.3 12.0-16.0 g/dL Hematocrit 33.7 30.9 37-47 % White Blood Count 4.27 4.8-10.8 K/uL Red Blood Count 3.41 4.2-5.4 M/uL Mean Corpuscular Volume 90.6 80-100 fL Mean Corpuscular Hemoglobin 30.2 25-34 pg Mean Corpuscular Hemoglobin Concent 33.3 32-36 g/dl RDW Standard Deviation 45.4 36.4-46.3 fL RDW Coefficient of Variation 13.7 11.5-14.5 % Platelet Count 202 130-400 K/uL Mean Platelet Volume 8.2 7.4-10.4 fL Sodium Level 140 136-145 mmol/L Potassium Level 3.6 3.5-5.1 mmol/L Chloride Level 109 98-107 mmol/L Carbon Dioxide Level 29 21-32 mmol/L Anion Gap 3.0 3-11 mmol/L Blood Urea Nitrogen 4 7-18 mg/dl Creatinine 0.61 0.60-1.20 mg/dl Est Creatinine Clear Calc Drug Dose 137.5 ml/min Estimated GFR () 136.1 Estimated GFR (Non- 117.5 BUN/Creatinine Ratio 5.9 10-20 Random Glucose 97 70-99 mg/dl Calcium Level 7.6 8.5-10.1 mg/dl
[2018-02-07 14:54] LABS: HEMATOCRIT 31.9 % (37-47); HEMOGLOBIN 10.4 g/dL (12.0-16.0); MEAN CELL VOLUME 90.1 fL (80-100); MEAN CORPUSCULAR HEMOGLOBIN 29.4 pg (25-34); MEAN PLATELET VOLUME 8.5 fL (7.4-10.4); PLATELET COUNT 228 K/uL (130-400); RED CELL DISTRIBUTION WIDTH CV 13.5 % (11.5-14.5); RED CELL DISTRIBUTION WIDTH SD 44.6 fL (36.4-46.3); WHITE BLOOD COUNT 4.26 K/uL (4.8-10.8)
[2018-02-07] MEDS ORDERED: ALUMINUM/MAGNESIUM SUSP 30 ML UDC PO STA (15:28)
[2018-02-07 15:43] LABS: MEAN CORPUSCULAR HGB CONC 32.6 g/dl (32-36)
[2018-02-07] MEDS: GABAPENTIN 100 MG CAP PO SCH ×2 (15:43→20:50)
[2018-02-07] MEDS ORDERED: BISACODYL 5 MG TABEC PO ONE (17:00)
[2018-02-07] MEDS ORDERED: POLYETHYLENE (MIRALAX) 17 GM PACK PO ONE ×2 (17:00→21:00)
[2018-02-07] MEDS: POLYETHYLENE GLYCER PWD 238 GM BTL PO SCH ×2 (17:58→20:49)
[2018-02-07] MEDS: PANTOprazole SOD 40 MG TAB PO SCH (20:51)
[2018-02-07] MEDS: CLONAZEPAM 1 MG TAB PO SCH (20:55)
[2018-02-07] MEDS: HYDROmorphone INJ 0.5 MG/0.5 ML SYR IV PRN (23:38)
[2018-02-08] MEDS: HYDROmorphone INJ 0.5 MG/0.5 ML SYR IV PRN (05:47)
[2018-02-08] MEDS: PROMETHAZINE HCL INJ 25 MG in SODIUM CHLORIDE 0.9% 50ML 50 ML IV PRN (05:59)
[2018-02-08] MEDS: SODIUM CHLORIDE 0.9% 1000ML 1,000 ML IV SCH (06:00)
[2018-02-08 06:42] LABS: HEMOGLOBIN 11.4 g/dL (12.0-16.0); MEAN CORPUSCULAR HEMOGLOBIN 29.8 pg (25-34); MEAN CORPUSCULAR HGB CONC 33.5 g/dl (32-36); MEAN PLATELET VOLUME 8.5 fL (7.4-10.4); PLATELET COUNT 238 K/uL (130-400); RED CELL DISTRIBUTION WIDTH CV 13.5 % (11.5-14.5); RED CELL DISTRIBUTION WIDTH SD 44.4 fL (36.4-46.3); WHITE BLOOD COUNT 4.98 K/uL (4.8-10.8)
[2018-02-08 07:49] VITALS: BP 140/93; PULSE 99; TEMP 36.6; O2SAT 99
[2018-02-08] MEDS ORDERED: MIDAZOLAM HCL 1 MG/ML 2ML VIAL ONE (08:57)
[2018-02-08] MEDS ORDERED: LIDOCAINE HCL 2% 2 ML VIAL (20MG/ML) ONE (08:57)
[2018-02-08] MEDS ORDERED: PROPOFOL IV EMULSION 10 MG/ML 20 ML VIAL ONE (08:57)
[2018-02-08] MEDS ORDERED: SERTRALINE HCL 50 MG TAB PO SCH (09:00)
[2018-02-08] MEDS: POLYETHYLENE (MIRALAX) 17 GM PACK PO SCH (09:00)
--- NOTE | 2018-02-08 09:06 | History & Physical Bridge Note ---
H&P Re-Evaluation Bridge Note: I have examined the patient, reviewed the History & Physical and in the interval since the performance of the History & Physical I have noted the following changes of clinical significance: No changes noted
--- NOTE | 2018-02-08 09:25 | GI REPORT ---
Patient Name: Roxana Bai Procedure Date: 02/08/2018 9:05 AM Date of : 1980 Admit Type: Inpatient Age: 37 Gender: Female Attending MD: Allen Nicole DO Procedure: Colonoscopy Providers: Allen Nicole DO Referring MD: Oskar Meng M.D. Indications: Hematochezia Medicines: Monitored Anesthesia Care Complications: No immediate complications. Estimated blood loss: Minimal. Estimated Blood Loss: Estimated blood loss was minimal. Procedure: Pre-Anesthesia Assessment: - Prior to the procedure, a History and Physical was performed, and patient medications, allergies and sensitivities were reviewed. The patient's tolerance of previous anesthesia was reviewed. - The risks and benefits of the procedure and the sedation options and risks were discussed with the patient. All questions were answered and informed consent was obtained. - Patient identification and proposed procedure were verified prior to the procedure by the physician, the nurse and the remanufacturing technician. The procedure was verified in the procedure room. - Pre-procedure physical examination revealed no contraindications to sedation. - ASA Grade Assessment: III - A patient with severe systemic disease. - After reviewing the risks and benefits, the patient was deemed in satisfactory condition to undergo the procedure. - The anesthesia plan was to use monitored anesthesia care (MAC). - Immediately prior to administration of medications, the patient was re-assessed for adequacy to receive sedatives. - The heart rate, respiratory rate, oxygen saturations, blood pressure, adequacy of pulmonary ventilation, and response to care were monitored throughout the procedure. - The physical status of the patient was re-assessed after the procedure. After I obtained informed consent, the scope was passed under direct vision. Throughout the procedure, the patient's blood pressure, pulse, and oxygen saturations were monitored continuously. The Scope was introduced through the anus and advanced to the cecum, identified by appendiceal orifice and ileocecal valve. The colonoscopy was performed without difficulty. The patient tolerated the procedure well. The quality of the bowel preparation was fair. Findings: The perianal and digital rectal examinations were normal. Pertinent negatives include normal sphincter tone. Internal hemorrhoids were found during retroflexion. The hemorrhoids were mild. The exam was otherwise without abnormality. Impression: - Preparation of the colon was fair. - Internal hemorrhoids. - The examination was otherwise normal. - No specimens collected. Recommendation: - Return patient to [facility] for ongoing care. - Advance diet as tolerated. - Hematochezia appears to be related to Internal hemorrhoids. - Repeat colonoscopy in 6 - 12 months because the bowel preparation was suboptimal. Allen Nicole D.O. Allen Nicole, 02/08/2018 9:25:20 AM This report has been signed electronically. Note Initiated On: 02/08/2018 9:05 AM Number of Addenda: 0 I attest to the content of the Intraoperative Record and orders documented therein, exceptions below {[id number]}
--- NOTE | 2018-02-08 09:48 | Anesthesiology Progress Note ---
Anesthesia Post Op Note Date & Time February 08, 2018 at 09:48 Vital Signs Pain Intensity: 0 Vital Signs Past 12 Hours Date Time Temp Pulse Resp B/P (MAP) Pulse Ox O2 Delivery O2 Flow Rate FiO2 02/08/18 09:42 97 20 149/96 (113) 98 Room Air 02/08/18 09:27 96 16 132/88 (103) 97 Room Air 02/08/18 09:01 36.9 104 20 138/94 (109) 96 Room Air 02/08/18 08:00 Room Air 02/08/18 07:49 36.6 99 18 140/93 (109) 99 02/08/18 04:05 Room Air 02/08/18 00:05 Room Air 02/07/18 22:40 36.9 99 20 135/82 (99) 99 Room Air Notes Mental Status: alert / awake / arousable, participated in evaluation Pt Amnestic to Procedure: Yes Nausea / Vomiting: adequately controlled Pain: adequately controlled Airway Patency, RR, SpO2: stable & adequate BP & HR: stable & adequate Hydration State: stable & adequate Anesthetic Complications: no major complications apparent
[2018-02-08] MEDS: PANTOprazole SOD 40 MG TAB PO SCH (10:14)
[2018-02-08] MEDS: BuPROPion XL 300 MG TABCR PO SCH (10:14)
[2018-02-08] MEDS: CLONAZEPAM 1 MG TAB PO SCH (10:14)
[2018-02-08] MEDS: GABAPENTIN 100 MG CAP PO SCH (10:15)
[2018-02-08] MEDS: CYANOCOBALAMIN 100 MCG TAB (VIT B-12) PO SCH (10:15)
[2018-02-08] MEDS: CEROVITE ADV FORMULA TAB PO SCH (10:15)
[2018-02-08] MEDS: FERROUS SULFATE 325 MG TAB PO SCH (10:15)
[2018-02-08 10:20] VITALS: BP 135/91; PULSE 101; TEMP 36.8; O2SAT 97
[2018-02-08] MEDS ORDERED: HYDROmorphone INJ 0.5 MG/0.5 ML SYR IV STA (10:39)
[2018-02-08] MEDS ORDERED: OXYCODONE/ACETAMINOPHEN 5-325 TAB PO PRN (10:45)
[2018-02-08] MEDS ORDERED: ZLF50 PO ×2 (12:14)
[2018-02-08] MEDS ORDERED: OXYC-57 PO ×2 (12:14)
[2018-02-08] MEDS ORDERED: ANUSOL SUPP 1 EA PR PRN (12:15)
[2018-02-08 12:17] VITALS: BP 135/91; PULSE 101; TEMP 36.8; O2SAT 97
[2018-02-08] MEDS ORDERED: KLN1 PO ×2 (12:17)
[2018-02-08] MEDS ORDERED: HYDR25SU20 PR ×2 (12:25)
--- NOTE | 2018-02-08 12:40 | Progress Note ---
Internal Med Progress Note Date of Service: February 08, 2018. Provider Documentation: SUBJECTIVE: Patient s/p colonoscopy today and found to have internal hemorrhoids. Patient with some pain of the left foot. Otherwise no other complaints OBJECTIVE: Exam: General- no acute distress Eyes- EOMI Neck- no JVD Lungs- lungs clear to ascultation, no wheezing Heart- regular rate Abdomen- soft, nontender, + bowel sounds Extremities- Left foot edematous with ecchymosis over the toes, no calf tenderness Neuro- awake and alert ASSESSMENT & PLAN: Hospital Course and Discharge Instructions GI BLEED which was determined to be internal hemorrhoids -On telemetry -Patient initially presenting with increasing left foot pain however while in the ED developed an episode of bright red bleeding per rectum -Patient reported black stools and "old blood" emesis; has been taking Aleve every other day for left foot pain -Started on Protonix -Patient had witnessed episode of blood in toilet when on telemetry [facility] on -colonoscopy 02/08/18: Hematochezia appears to be related to Internal hemorrhoids , Gastroenterology recommends repeat colonoscopy in 6 - 12 months because the bowel preparation was suboptimal. Left foot acute fractures of the left 4th and 5th digits -Patient seen by podiatry Lovely Rivera on 02/07/18 -4th and 5th digits are in anatomical position, there is pain noted with any movements of the digits -Patient has offloading shoe at bedside and was instructed to wear the shoe, patient was also shown how to apply a maury splint to the left 4th and 5th digits, she was instructed to apply this daily as well as to wear the shoe -Patient was instructed by podiatry offloading and resting the foot with ice, elevation, compression from the maury splint will improve the pain, this is not a fracture that requires any type of surgical intervention, the toes are in anatomic with no dislocation present -Patient was instructed to make follow up appointment with [facility] and orthopedics with Lovely Rivera after discharge, -patient to be discharged with Percocet for pain control Substance Misuse / Mood disorders -Patient seen by psychiatry on 02/07/18 and diagnosis of: (1) Major depressive disorder, recurrent, moderate - continue current Wellbutrin dose - Zoloft 50 mg daily - Will need an appt with her psychiatrist within 2 weeks, which the patient says she will make herself. (2) Social anxiety disorder - Concern for Benzodiazepine abuse. Xanax stopped, replace with Klonopin 1 mg qHS - Zoloft 50 mg daily for social anxiety. - Would benefit from therapy to help her with her chronic anxiety and mood. HISTORY RECURRENT PANCREATITIS -Normal LFTs and lipase PSEUDOSEIZURES -Continue Lamictal Discharge Instructions Patient to be discharged to home and follow appointments to primary care doctor and other medical providers. Patient to stop Xanax and use the Klonopin ( Clonazepam) instead for now 02/12/2018 11:20 AM Kathe Soriano MD General Internal Medicine [facility] Patient instructed to make follow up appointment with [facility] medicine and orthopedics with Lovely Rivera after discharge, Patient instructed to make follow up appointment with her psychiatrist within 2 weeks Gastroenterology recommends repeat colonoscopy in 6 - 12 months because the bowel preparation was suboptimal. Vital Signs: Date Time Temp Pulse Resp B/P (MAP) Pulse Ox O2 Delivery O2 Flow Rate FiO2 02/08/18 10:20 36.8 101 18 135/91 (106) 97 Room Air 02/08/18 09:57 95 20 156/95 (115) 98 Room Air 02/08/18 09:42 97 20 149/96 (113) 98 Room Air 02/08/18 09:27 96 16 132/88 (103) 97 Room Air 02/08/18 09:01 36.9 104 20 138/94 (109) 96 Room Air 02/08/18 08:00 Room Air 02/08/18 07:49 36.6 99 18 140/93 (109) 99 02/08/18 04:05 Room Air 02/08/18 00:05 Room Air 02/07/18 22:40 36.9 99 20 135/82 (99) 99 Room Air 02/07/18 20:05 Room Air 02/07/18 19:39 36.8 116 20 165/98 (120) 94 Room Air 02/07/18 16:00 96 Room Air 02/07/18 15:34 36.6 104 20 148/88 (108) 96 Lab Results: Results Past 24 Hours Test 02/07/18 14:27 02/08/18 05:52 Range/Units White Blood Count 4.26 4.98 4.8-10.8 K/uL Red Blood Count 3.54 3.82 4.2-5.4 M/uL Hemoglobin 10.4 11.4 12.0-16.0 g/dL Hematocrit 31.9 34.0 37-47 % Mean Corpuscular Volume 90.1 89.0 80-100 fL Mean Corpuscular Hemoglobin 29.4 29.8 25-34 pg Mean Corpuscular Hemoglobin Concent 32.6 33.5 32-36 g/dl RDW Standard Deviation 44.6 44.4 36.4-46.3 fL RDW Coefficient of Variation 13.5 13.5 11.5-14.5 % Platelet Count 228 238 130-400 K/uL Mean Platelet Volume 8.5 8.5 7.4-10.4 fL
--- NOTE | 2018-02-08 12:42 | Discharge Instructions ---
Discharge Instructions Date of Service February 08, 2018. Admission Reason for Admission: Rectal Bleeding Discharge Discharge Diagnosis / Problem: GI bleed from internal hemorrhoids, Left foot acute fracture Discharge Goals Goal(s): Decrease discomfort, Improve function Activity Recommendations Activity Limitations: per Instructions/Follow-up section Shower/Bathe: no limitations . Instructions / Follow-Up Instructions / Follow-Up Hospital Course and Discharge Instructions GI BLEED which was determined to be internal hemorrhoids -On telemetry -Patient initially presenting with increasing left foot pain however while in the ED developed an episode of bright red bleeding per rectum -Patient reported black stools and "old blood" emesis; has been taking Aleve every other day for left foot pain -Started on Protonix -Patient had witnessed episode of blood in toilet when on telemetry [facility] on -colonoscopy 02/08/18: Hematochezia appears to be related to Internal hemorrhoids , Gastroenterology recommends repeat colonoscopy in 6 - 12 months because the bowel preparation was suboptimal. Left foot acute fractures of the left 4th and 5th digits -Patient seen by podiatry Lovely Rivera on 02/07/18 -4th and 5th digits are in anatomical position, there is pain noted with any movements of the digits -Patient has offloading shoe at bedside and was instructed to wear the shoe, patient was also shown how to apply a maury splint to the left 4th and 5th digits, she was instructed to apply this daily as well as to wear the shoe -Patient was instructed by podiatry offloading and resting the foot with ice, elevation, compression from the maury splint will improve the pain, this is not a fracture that requires any type of surgical intervention, the toes are in anatomic with no dislocation present -Patient was instructed to make follow up appointment with [facility] medicine and orthopedics with Lovely Rivera after discharge, -patient to be discharged with Percocet for pain control Substance Misuse / Mood disorders -Patient seen by psychiatry on 02/07/18 and diagnosis of: (1) Major depressive disorder, recurrent, moderate - continue current Wellbutrin dose - Zoloft 50 mg daily - Will need an appt with her psychiatrist within 2 weeks, which the patient says she will make herself. (2) Social anxiety disorder - Concern for Benzodiazepine abuse. Xanax stopped, replace with Klonopin 1 mg qHS - Zoloft 50 mg daily for social anxiety. - Would benefit from therapy to help her with her chronic anxiety and mood. HISTORY RECURRENT PANCREATITIS -Normal LFTs and lipase PSEUDOSEIZURES -Continue Lamictal Discharge Instructions Patient to be discharged to home and follow appointments to primary care doctor and other medical providers. Patient to stop Xanax and use the Klonopin ( Clonazepam) instead for now 02/12/2018 11:20 AM Kathe Soriano MD General Internal Medicine [facility] Patient instructed to make follow up appointment with [facility] and orthopedics with Lovely Rivera after discharge, Patient instructed to make follow up appointment with her psychiatrist within 2 weeks Gastroenterology recommends repeat colonoscopy in 6 - 12 months because the bowel preparation was suboptimal. Current Hospital Diet Patient's current hospital diet: Regular Diet Discharge Diet Recommended Diet: Regular Diet Procedures Procedures Performed: colonoscopy Pending Studies Studies pending at discharge: no Laboratory Results 02/08/18 05:52 02/07/18 05:53 Test 02/06/18 09:17 02/06/18 11:59 02/06/18 13:50 02/07/18 05:53 Immature Granulocyte % (Auto) 0.1 % White Blood Count 7.97 K/uL (4.8-10.8) Red Blood Count 3.61 M/uL (4.2-5.4) Hemoglobin 11.0 g/dL (12.0-16.0) Hematocrit 32.4 % (37-47) Mean Corpuscular Volume 89.8 fL (80-100) Mean Corpuscular Hemoglobin 30.5 pg (25-34) Mean Corpuscular Hemoglobin Concent 34.0 g/dl (32-36) Platelet Count 241 K/uL (130-400) Mean Platelet Volume 8.4 fL (7.4-10.4) Neutrophils (%) (Auto) 77.6 % Lymphocytes (%) (Auto) 15.8 % Monocytes (%) (Auto) 4.5 % Eosinophils (%) (Auto) 1.9 % Basophils (%) (Auto) 0.1 % Neutrophils # (Auto) 6.18 K/uL (1.4-6.5) Lymphocytes # (Auto) 1.26 K/uL (1.2-3.4) Monocytes # (Auto) 0.36 K/uL (0.11-0.59) Eosinophils # (Auto) 0.15 K/uL (0-0.5) Basophils # (Auto) 0.01 K/uL (0-0.2) Immature Granulocyte # (Auto) 0.01 K/uL (0.00-0.02) Absolute Reticulocyte Count 0.08 10^6/uL (0.02-0.10) Percent Reticulocyte Count 2.1 % (0.5-2.0) Prothrombin Time 10.2 SECONDS (9.0-12.0) Prothromb Time International Ratio 1.0 (0.9-1.1) Activated Partial Thromboplast Time 26.2 SECONDS (21.0-31.0) Partial Thromboplastin Ratio 1.0 Magnesium Level 2.0 mg/dl (1.8-2.4) Iron Level 25 mcg/dl (35-150) Total Iron Binding Capacity 404 mcg/dl (250-450) Transferrin 327 mg/dl (200-360) Transferrin % Saturation 5 % (15-50) Ferritin 24.4 ng/ml (8.0-388.0) Total Bilirubin 0.4 mg/dl (0.2-1) Aspartate Amino Transf (AST/SGOT) 36 U/L (15-37) Alanine Aminotransferase (ALT/SGPT) 53 U/L (12-78) Alkaline Phosphatase 82 U/L (45-117) Total Protein 7.4 gm/dl (6.4-8.2) Albumin 3.8 gm/dl (3.4-5.0) Globulin 3.6 gm/dl (2.5-4.0) Albumin/Globulin Ratio 1.1 (0.9-2) Amylase Level 26 U/L (25-115) Lipase 82 U/L (73-393) Vitamin B12 Level 499 pg/mL (211-911) Folate 11.26 ng/mL (>5.38) Bedside Glucose 78 mg/dl (70-90) Anion Gap 3.0 mmol/L (3-11) Est Creatinine Clear Calc Drug Dose 137.5 ml/min Estimated GFR () 136.1 Estimated GFR (Non- 117.5 BUN/Creatinine Ratio 5.9 (10-20) Calcium Level 7.6 mg/dl (8.5-10.1) Test 02/08/18 05:52 Red Blood Count 3.82 M/uL (4.2-5.4) Mean Corpuscular Volume 89.0 fL (80-100) Mean Corpuscular Hemoglobin 29.8 pg (25-34) Mean Corpuscular Hemoglobin Concent 33.5 g/dl (32-36) RDW Standard Deviation 44.4 fL (36.4-46.3) RDW Coefficient of Variation 13.5 % (11.5-14.5) Mean Platelet Volume 8.5 fL (7.4-10.4) Lipid Panel Test 01/07/18 06:12 Range/Units Triglycerides Level 116 0-150 mg/dl Cholesterol Level 157 0-200 mg/dl HDL Cholesterol 46 mg/dl Cholesterol/HDL Ratio 3.4 LDL Cholesterol, Calculated 88 mg/dl Medical Emergencies . Who to Call and When: Medical Emergencies: If at any time you feel your situation is an emergency, please call 911 immediately. . Non-Emergent Contact Non-Emergency issues call your: Primary Care Provider, Specialist Call Non-Emergent contact if: you have any medication questions . . "Provider Documentation" section prepared by Oskar Meng. .
--- NOTE | 2018-02-08 12:52 | Discharge Summary ---
Discharge Summary Date of Service February 08, 2018. Discharge Summary Admission Date: February 06, 2018 at 11:33 Discharge Date: February 08, 2018 Discharge Disposition: Home Principal Diagnosis: GI bleed secondary to internal hemorrhoids, Left foot pain from Left foot acute fractures of the left 4th and 5th digits, Substance misuse (Xanax), Major Depression, Social Anxiety Medication Reconciliation New Medications: Hydrocortisone Acetate (Rectal (Anusol-Hc) 25 Mg Sup 1 SUPP SD BID for hemorrhoid discomfort for 7 Days, #14 SUPP Clonazepam (Clonazepam) 1 Mg Tab 1 MG PO HS for 10 Days, #10 TAB Oxycodone/Acetaminophen 5MG/325MG (Percocet 5MG/325MG) Tab 1 TAB PO Q4H PRN for Pain for 4 Days, #24 TAB PAIN Sertraline HCl (Sertraline HCl) 50 Mg Tab 50 MG PO QAM for 30 Days, #30 TAB Continued Medications: Acetaminophen (Tylenol) 500 Mg Tab 1000 MG PO Q6 PRN for Headache or Pain Bupropion (Wellbutrin-Xl) 300 Mg Tabcr 300 MG PO QAM, TAB Cyanocobalamin (Vitamin B-12) Unknown Strength Tab 1 TAB PO DAILY, TAB Lamotrigine (Lamictal) 100 Mg Tab 100 MG PO BID, TAB Multivitamins/Minerals (Mvi With Minerals) Tab 1 TAB PO DAILY, TAB Omeprazole (Prilosec) 20 Mg Capcr 40 MG PO QAM, CAP Ondasetron Odt (Zofran Odt) 4 Mg Tab 4 MG SL Q6H for Nausea, #15 TAB Discontinued Medications: Alprazolam (Xanax) 1 Mg Tab 0.5 MG PO TID PRN for Anxiety for 1 Day, #1 Admission Information HPI (per Admitting provider): 37-year-old female who presents to the ED with a chief complaint of left foot pain. Patient reports that approximately 1 week ago, she was walking down the stairs with her dogs whenever she tripped and fell. She was seen as an outpatient and found to have left fourth and fifth toe fractures. Patient presents to the ED with increasing foot pain and swelling. While in the ED, patient developed bright red bleeding per rectum. After this episode she reports she has been having vomiting for the past 3 days. She describes her emesis as dark and with old blood. She also reports that her stools have been black for the past week. She reports generalized abdominal pain for the past 3 days as well. Patient has history of recurrent pancreatitis felt as though symptoms were secondary to that however labs show normal LFTs and lipase. She reports using Aleve every other day. No fevers or chills. She denies chest pain shortness of breath. She has had some mild lightheadedness but denies dizziness or syncopal event. She denies any urinary symptoms. In the ED, repeat foot x-ray was obtained that showing distal left fourth and fifth phalanges fractures. Labs were obtained that showed a hemoglobin of 11.0 and potassium 3.2, other labs are unremarkable. Vital signs are stable. Patient was given oxycodone, IV morphine, IVF, IV Zofran, and started on IV Protonix drip. Physical Exam (per Admitting): General Appearance: WD/WN, no apparent distress Head: normocephalic, atraumatic Eyes: normal inspection, EOMI, sclerae normal ENT: hearing grossly normal, + pertinent finding (Mucous membranes moist) Neck: supple, no JVD, trachea midline Respiratory/Chest: lungs clear, normal breath sounds, no respiratory distress Cardiovascular: regular rate, rhythm, no edema, normal peripheral pulses Abdomen/GI: normal bowel sounds, soft, no organomegaly, + tenderness (Mild, generalized) Extremities/Musculoskelatal: no calf tenderness, normal capillary refill, + pertinent finding (Left foot edematous, with ecchymosis over the toes) Neurologic/Psych: no motor/sensory deficits, alert, normal mood/affect, oriented x 3 Skin: normal color, warm/dry Hospital Course Hospital Course and Discharge Instructions GI BLEED which was determined to be internal hemorrhoids -On telemetry -Patient initially presenting with increasing left foot pain however while in the ED developed an episode of bright red bleeding per rectum -Patient reported black stools and "old blood" emesis; has been taking Aleve every other day for left foot pain -Started on Protonix -Patient had witnessed episode of blood in toilet when on telemetry [facility] on -colonoscopy 02/08/18: Hematochezia appears to be related to Internal hemorrhoids , Gastroenterology recommends repeat colonoscopy in 6 - 12 months because the bowel preparation was suboptimal. Left foot acute fractures of the left 4th and 5th digits -Patient seen by podiatry Lovely Rivera on 02/07/18 -4th and 5th digits are in anatomical position, there is pain noted with any movements of the digits -Patient has offloading shoe at bedside and was instructed to wear the shoe, patient was also shown how to apply a maury splint to the left 4th and 5th digits, she was instructed to apply this daily as well as to wear the shoe -Patient was instructed by podiatry offloading and resting the foot with ice, elevation, compression from the maury splint will improve the pain, this is not a fracture that requires any type of surgical intervention, the toes are in anatomic with no dislocation present -Patient was instructed to make follow up appointment with [facility] medicine and orthopedics with Lovely Rivera after discharge, -patient to be discharged with Percocet for pain control Substance Misuse / Mood disorders -Patient seen by psychiatry on 02/07/18 and diagnosis of: (1) Major depressive disorder, recurrent, moderate - continue current Wellbutrin dose - Zoloft 50 mg daily - Will need an appt with her psychiatrist within 2 weeks, which the patient says she will make herself. (2) Social anxiety disorder - Concern for Benzodiazepine abuse. Xanax stopped, replace with Klonopin 1 mg qHS - Zoloft 50 mg daily for social anxiety. - Would benefit from therapy to help her with her chronic anxiety and mood. HISTORY RECURRENT PANCREATITIS -Normal LFTs and lipase PSEUDOSEIZURES -Continue Lamictal Discharge Instructions Patient to be discharged to home and follow appointments to primary care doctor and other medical providers. Patient to stop Xanax and use the Klonopin ( Clonazepam) instead for now 02/12/2018 11:20 AM Kathe Soriano MD General Internal Medicine [facility] Patient instructed to make follow up appointment with [facility] medicine and orthopedics with Lovely Rivera after discharge, Patient instructed to make follow up appointment with her psychiatrist within 2 weeks Gastroenterology recommends repeat colonoscopy in 6 - 12 months because the bowel preparation was suboptimal. Total time spent on discharge = 40 minutes This includes examination of the patient, discharge planning, medication reconciliation, and communication with other providers. Discharge Instructions see above
== END 2018-02-08 13:45 | disposition home or self-care (01) ==
LOC: C.EDB 08:22 → C.MED 11:33 → ENRESERV 11:51 → CANRESERV 11:51 → ENRESERV 12:12
PROVIDERS: ADMIT Internal Medicine; ATTEND Hospitalist
DX: K92.2 Gastrointestinal hemorrhage, unspecified (principal); K92.1 Melena; K64.8 Other hemorrhoids; M79.672 Pain in left foot; F19.99 Other psychoactive substance use, unspecified with unspecified psychoactive substance-induced disorder; F32.9 Major depressive disorder, single episode, unspecified; F41.8 Other specified anxiety disorders; Z86.19 Personal history of other infectious and parasitic diseases; Z88.0 Allergy status to penicillin; Z88.6 Allergy status to analgesic agent; Z90.89 Acquired absence of other organs; Z90.49 Acquired absence of other specified parts of digestive tract; Z82.49 Family history of ischemic heart disease and other diseases of the circulatory system; Z80.3 Family history of malignant neoplasm of breast; E66.9 Obesity, unspecified; Z68.41 Body mass index [BMI] 40.0-44.9, adult

== ENCOUNTER 2018-02-11 18:00 | Emergency (ER) | payer OTHER ==
[~2018-02-11] VITALS: Ht 154.9 cm; Wt 94.1 kg
[~2018-02-11 18:00] MED LIST changes: +BUPRTAB51 PO; +HYDR25SU20 PR; +KLN1 PO; +LAMO100T16 PO; +PRLSR20 PO; +ZLF50 PO
[2018-02-11 18:17] VITALS: BP 147/82; PULSE 98; TEMP 36.8; O2SAT 99; Ht 154.9 cm; Wt 94.1 kg
[2018-02-11] MEDS ORDERED: ONDANSETRON 4MG OD TAB PO ONE (18:45)
--- NOTE | 2018-02-11 19:20 | EMERGENCY ROOM VISIT NOTE ---
History First contact with patient: 18:22 Chief Complaint: HEAD INJURY (MINOR) Stated Complaint: HIT HEAD ON SINK CORNER, NUMBNESS IN L LEG History of Present Illness The patient is a 37 year old female who presents to the Emergency Room with complaints of a head injury and scalp laceration after her left leg gave out and she fell. The patient reports that she was sitting on the toilet for approximately 5 minutes. Her reports that it is more like 10-15 minutes. When she got up, she reports that her foot was numb and she fell, hitting her head on the corner of a sink. reports that she did have a cut to the scalp that bled minimally. The patient denies any loss of consciousness or neck pain. She does complain of a mild headache and nausea. She does have Zofran ODT at home, but did not take any prior to leaving home. The patient reports that she is currently being treated for a left foot fracture. She has an appointment with orthopedics in a few days. She does have crutches, but does not have them with her at this time. The patient reports that she has had swelling of the foot since she fractured it last week. She currently rates her overall discomfort a 6 out of 10. Tetanus immunization is up-to-date. Review of Systems 10 system review was performed and was negative except for pertinent positives and negatives as indicated in history of present illness Past Medical/Surgical History Medical Problems: (1) Depression with anxiety (2) Hepatitis C (3) Idiopathic pancreatitis (4) Major depressive disorder, recurrent, moderate (5) Migraine (6) Pseudoseizure (7) Social anxiety disorder Surgical Problems: (1) H/O hernia repair (2) Hx of appendectomy (3) Hx of cholecystectomy Family History FH: CAD (coronary artery disease) GRANDFATHER FH: breast cancer GRANDMOTHER Social History Smoking Status: Never Smoker Alcohol Use: none Drug Use: none Marital Status: single Housing Status: lives alone Occupation Status: employed Current/Historical Medications Scheduled Bupropion (Wellbutrin-Xl), 300 MG PO QAM Clonazepam (Clonazepam), 1 MG PO HS Cyanocobalamin (Vitamin B-12), 1 TAB PO DAILY Hydrocortisone Acetate (Rectal (Anusol-Hc), 1 SUPP WI BID Lamotrigine (Lamictal), 100 MG PO BID Multivitamins/Minerals (Mvi With Minerals), 1 TAB PO DAILY Omeprazole (Prilosec), 40 MG PO QAM Ondasetron Odt (Zofran Odt), 4 MG SL Q6H Sertraline HCl (Sertraline HCl), 50 MG PO QAM Scheduled PRN Acetaminophen (Tylenol), 1,000 MG PO Q6 PRN for Headache or Pain Oxycodone/Acetaminophen 5MG/325MG (Percocet 5MG/325MG), 1 TAB PO Q4H PRN for Pain Physical Exam Vital Signs Date Time Temp Pulse Resp B/P (MAP) Pulse Ox O2 Delivery O2 Flow Rate FiO2 02/11/18 18:17 36.8 98 18 147/82 99 Room Air Physical Exam CONSTITUTIONAL: Healthy and well nourished. Alert and oriented X 3 with positive affect. GCS 15. Patient does not appear in any acute distress except for mild nausea. HEENT: Examination of the left frontal scalp shows a 5 cm partial dermal thickness laceration without any gaping or hematoma formation. There is no active bleeding. Pupils equal, round and reactive. No subconjunctival hemorrhage, facial abrasions/ecchymosis, hemotympanum, raccoon's eyes or temple sign. NECK: Full active range of motion without discomfort. RESPIRATORY: Clear to auscultation bilaterally with no wheezing, crackles, rhonchi or stridor. CARDIOVASCULAR: Regular rate and rhythm with no murmurs, rubs or gallops. MUSCULOSKELETAL: Examination of the left foot shows edema and ecchymosis. The patient is not wearing any type of postop shoe, nor does she have crutches with her. INTEGUMENTARY: No rash or other significant dermatologic conditions noted. NEUROLOGIC: Cranial nerves II-XII grossly intact. No focal neurologic deficits noted. No ataxia with ambulation. Negative pronator drift. Medical Decision & Procedures Medications Administered Medications (Trade) Dose Ordered Sig/Jannie Route Start Time Stop Time Status Last Admin Dose Admin Ondansetron HCl (Zofran Odt) 4 mg ONE ONCE PO 02/11/18 18:45 02/11/18 18:46 DC 02/11/18 18:48 4 MG ED Course Patient history and physical exam were performed. Nurse's notes were reviewed. Vital signs were reviewed and were normal. The patient is complaining of nausea, and was administered Zofran 4 mg ODT. Through shared medical decision making, I did discuss typical workup for head injuries. Because she does have persistent discomfort and nausea, I did explain that she does have a concussion. I explained risks for intracranial bleed, and utilization of CT studies to rule out fracture or intracranial bleed. The patient deferred CT scan as she has had multiple imaging studies in the past. Patient was advised that the laceration does not require primary closure with sutures. She was encouraged to intermittently apply ice to the scalp. The wound was cleansed and bacitracin was applied. The patient was encouraged to take Tylenol as needed for pain. She was encouraged to take her Zofran ODT as needed for nausea. She was encouraged to follow-up with orthopedics and her PCP for further management. She was instructed to return to the emergency department for any progressively worsening headache, vomiting, coordination issues or other concerning neurologic symptoms. The patient was happy with plan of care, voiced understanding of all discharge instructions, and rated her overall discomfort a 4 out of 10 at the conclusion of my exam. Medical Decision Medication Reconcilliation Current Medication List: was personally reviewed by me Blood Pressure Screening Patient's blood pressure: Normal blood pressure Impression Primary Impression: Concussion Additional Impressions: Scalp laceration Left leg paresthesias Departure Information Dispostion Home / Self-Care Forms HOME CARE DOCUMENTATION FORM, IMPORTANT VISIT INFORMATION Patient Instructions My [facility] Additional Instructions Keep scalp wound clean and covered with an antibiotic ointment until it heals. Intermittently apply ice for swelling. Tylenol 1000 mg every 6-8 hours for pain. Take your home Zofran as needed for nausea. Follow-up with your family doctor tomorrow as scheduled. Follow-up with orthopedics for further treatment of your foot fracture. Suggest ice and elevation of the foot, and minimizing weight on the foot with use of your crutches. Problem Qualifiers Primary Impression: Concussion Encounter type: initial encounter Loss of consciousness presence/duration: without LOC Qualified Codes: S06.0X0A - Concussion without loss of consciousness, initial encounter Additional Impressions: Scalp laceration Encounter type: initial encounter Qualified Codes: S01.01XA - Laceration without foreign body of scalp, initial encounter
== END 2018-02-11 19:19 | disposition home or self-care (01) ==
LOC: C.EDB 18:01 → C.EDD 19:19
DX: S06.0X0A Concussion without loss of consciousness, initial encounter (principal); S01.01XA Laceration without foreign body of scalp, initial encounter; R20.2 Paresthesia of skin; W22.8XXA Striking against or struck by other objects, initial encounter; Y92.091 Bathroom in other non-institutional residence as the place of occurrence of the external cause; F32.9 Major depressive disorder, single episode, unspecified; F41.8 Other specified anxiety disorders; Z79.899 Other long term (current) drug therapy; Z82.49 Family history of ischemic heart disease and other diseases of the circulatory system; Z80.3 Family history of malignant neoplasm of breast

== ENCOUNTER 2018-03-03 17:33 | Emergency (ER) | payer OTHER ==
[~2018-03-03] VITALS: Ht 154.9 cm; Wt 92.7 kg
[~2018-03-03 17:33] MED LIST changes: -ALPR1TAB3 PO; -CITA40TA4 PO; -HYDR25SU20 PR; -LAMO200T35 PO; -TRAM-10 PO
[2018-03-03 17:35] VITALS: TEMP 36.7; Ht 154.9 cm; Wt 92.7 kg
[2018-03-03] MEDS ORDERED: ONDANSETRON INJ 2 MG/ML 2 ML VIAL IV STA (17:54)
[2018-03-03] MEDS ORDERED: SODIUM CHLORIDE 0.9% 500ML 500 ML IV STA (17:54)
[2018-03-03] MEDS ORDERED: HYDROmorphone INJ 1 MG/ML SYR IV ONE (18:00)
--- NOTE | 2018-03-03 18:19 | EMERGENCY ROOM VISIT NOTE ---
History First contact with patient: 17:40 Chief Complaint: ABDOMINAL PAIN Stated Complaint: BROKEN TOES BC SHE FELL ON HER FOOT AGAIN History of Present Illness The patient is a 37 year old female who presents to the Emergency Room with complaints of left upper abdominal pain that she describes as a sharp, stabbing sensation that started last night. The pain is worse with eating. She has tried Tylenol and ibuprofen with no relief. She also reports nausea with a few episodes of vomiting. The patient has a history of chronic pancreatitis. She says that this pain feels similar to her past flares. No changes in bowel habits. No fever or chills. The patient is also reporting pain over the dorsum of the left foot. She accidentally kicked something this morning and bend her toes downwards. The patient reports breaking 2 of her toes a few months ago. She denies any other injuries. Review of Systems 10 system review performed and negative unless noted in HPI or below Past Medical/Surgical History Medical Problems: (1) Depression with anxiety (2) Hepatitis C (3) Idiopathic pancreatitis (4) Major depressive disorder, recurrent, moderate (5) Migraine (6) Pseudoseizure (7) Social anxiety disorder Surgical Problems: (1) H/O hernia repair (2) Hx of appendectomy (3) Hx of cholecystectomy Family History FH: CAD (coronary artery disease) GRANDFATHER FH: breast cancer GRANDMOTHER Social History Smoking Status: Never Smoker Alcohol Use: none Drug Use: none Marital Status: single Housing Status: lives alone Occupation Status: employed Current/Historical Medications Scheduled Bupropion (Wellbutrin-Xl), 300 MG PO QAM Clonazepam (Clonazepam), 1 MG PO HS Cyanocobalamin (Vitamin B-12), 1 TAB PO DAILY Lamotrigine (Lamictal), 100 MG PO BID Multivitamins/Minerals (Mvi With Minerals), 1 TAB PO DAILY Omeprazole (Prilosec), 40 MG PO QAM Ondasetron Odt (Zofran Odt), 4 MG SL Q6H Sertraline HCl (Sertraline HCl), 50 MG PO QAM Tramadol Hcl (Ultram), 50 MG PO Q4H Scheduled PRN Acetaminophen (Tylenol), 1,000 MG PO Q6 PRN for Headache or Pain Oxycodone/Acetaminophen 5MG/325MG (Percocet 5MG/325MG), 1 TAB PO Q4H PRN for Pain Physical Exam Vital Signs Date Time Temp Pulse Resp B/P (MAP) Pulse Ox O2 Delivery O2 Flow Rate FiO2 03/03/18 19:38 107 15 166/97 94 03/03/18 17:35 36.7 118 18 137/90 94 Room Air Physical Exam VITALS: Vitals are noted on the nurse's note and reviewed by myself. Vital signs stable. GENERAL: 37-year-old female, in no acute distress, nondiaphoretic, well- developed well-nourished. SKIN: The skin was intact HEAD: Normocephalic atraumatic. EYES: Conjunctivae without injection, sclerae without icterus. Extraocular movements intact. MOUTH: Mucous membranes slightly dry NECK: Supple without nuchal rigidity. No lymphadenopathy. Cervical spine is nontender. No JVD. HEART: Regular rate and rhythm without murmurs gallops or rubs. LUNGS: Clear to auscultation bilaterally without wheezes, rales or rhonchi. No accessory muscle use. ABDOMEN: Bowel sounds present, but slightly hypoactive soft, nontender, without organomegaly. No guarding or rebound tenderness. MUSCULOSKELETAL: LLE: Mild edema and tenderness noted to the distal aspect of the dorsum of the left foot. DP pulse +2. Slight old ecchymosis noted of the left fourth toe. Capillary refill less than 2 seconds. Dorsiflexion and plantarflexion intact. Strength 5/5 throughout. NEURO: Patient was alert and oriented to person place and time. Normal sensation to touch. No focal neurological deficits. Medical Decision & Procedures ER Provider Diagnostic Interpretation: Left foot x-ray IMPRESSION: 1. No change in alignment of a suspected nondisplaced fracture of the distal phalanx of the left fourth toe since exam of February 06, 2018. 2. Lucency within the distal phalanx of the left fifth toe which is unchanged since prior exam and may reflect an additional fracture. Electronically signed by: Calvin Waller M.D. 03/03/2018 6:35 PM Dictated Date/Time: 03/03/2018 6:31 PM Laboratory Results 03/03/18 18:25 Red Blood Count 4.19, Mean Corpuscular Volume 86.6, Mean Corpuscular Hemoglobin 30.1, Mean Corpuscular Hemoglobin Concent 34.7, Mean Platelet Volume 8.7, Neutrophils (%) (Auto) 58.4, Lymphocytes (%) (Auto) 34.3, Monocytes (%) (Auto) 5.9, Eosinophils (%) (Auto) 0.7, Basophils (%) (Auto) 0.5, Neutrophils # (Auto) 3.50, Lymphocytes # (Auto) 2.05, Monocytes # (Auto) 0.35, Eosinophils # (Auto) 0.04, Basophils # (Auto) 0.03 03/03/18 18:25 Test 03/03/18 18:25 White Blood Count 5.98 K/uL (4.8-10.8) Red Blood Count 4.19 M/uL (4.2-5.4) Hemoglobin 12.6 g/dL (12.0-16.0) Hematocrit 36.3 % (37-47) Mean Corpuscular Volume 86.6 fL (80-100) Mean Corpuscular Hemoglobin 30.1 pg (25-34) Mean Corpuscular Hemoglobin Concent 34.7 g/dl (32-36) Platelet Count 263 K/uL (130-400) Mean Platelet Volume 8.7 fL (7.4-10.4) Neutrophils (%) (Auto) 58.4 % Lymphocytes (%) (Auto) 34.3 % Monocytes (%) (Auto) 5.9 % Eosinophils (%) (Auto) 0.7 % Basophils (%) (Auto) 0.5 % Neutrophils # (Auto) 3.50 K/uL (1.4-6.5) Lymphocytes # (Auto) 2.05 K/uL (1.2-3.4) Monocytes # (Auto) 0.35 K/uL (0.11-0.59) Eosinophils # (Auto) 0.04 K/uL (0-0.5) Basophils # (Auto) 0.03 K/uL (0-0.2) RDW Standard Deviation 41.6 fL (36.4-46.3) RDW Coefficient of Variation 13.0 % (11.5-14.5) Immature Granulocyte % (Auto) 0.2 % Immature Granulocyte # (Auto) 0.01 K/uL (0.00-0.02) Anion Gap 6.0 mmol/L (3-11) Est Creatinine Clear Calc Drug Dose 92.6 ml/min Estimated GFR () 98.7 Estimated GFR (Non- 85.1 BUN/Creatinine Ratio 13.8 (10-20) Calcium Level 8.6 mg/dl (8.5-10.1) Total Bilirubin 0.4 mg/dl (0.2-1) Aspartate Amino Transf (AST/SGOT) 27 U/L (15-37) Alanine Aminotransferase (ALT/SGPT) 30 U/L (12-78) Alkaline Phosphatase 69 U/L (45-117) Total Protein 7.8 gm/dl (6.4-8.2) Albumin 3.7 gm/dl (3.4-5.0) Globulin 4.1 gm/dl (2.5-4.0) Albumin/Globulin Ratio 0.9 (0.9-2) Lipase 114 U/L (73-393) Medications Administered Medications (Trade) Dose Ordered Sig/Jannie Route Start Time Stop Time Status Last Admin Dose Admin Ondansetron HCl (Zofran Inj) 4 mg NOW STAT IV 03/03/18 17:54 03/03/18 17:57 DC 03/03/18 18:27 4 MG Hydromorphone HCl (Dilaudid Inj) 0.5 mg ONE ONCE IV 03/03/18 18:00 03/03/18 18:01 DC 03/03/18 18:27 0.5 MG Sodium Chloride 500 ml @ 999 mls/hr Q31M STAT IV 03/03/18 17:54 03/03/18 18:24 DC 03/03/18 18:28 999 MLS/HR Tramadol HCl (Ultram Tab) 50 mg NOW STAT PO 03/03/18 19:16 03/03/18 19:17 DC 03/03/18 19:30 50 MG ED Course Patient was seen and examined Vital signs including blood pressure were reviewed medications list was verified with patient Labs were obtained, and a saline lock was established The patient was medicated with Dilaudid 0.5 mg IV and Zofran 4 mg IV. She was hydrated with 500 cc of normal saline Imaging was performed and reviewed Upon reevaluation, she was requesting pain medication. She was ordered tramadol 50 mg p.o. We discussed her workup. She voiced understanding, was comfortable being discharged home. I reviewed discharge instructions the patient. They voiced understanding and had no further questions. Medical Decision Differential diagnosis: Acute on chronic abdominal pain, chronic pancreatitis, acute pancreatitis, gastritis, gastric ulcer, viral GI illness, bowel obstruction, ileus, foot contusion, fracture, strain This patient is a 37-year-old female that presents to the emergency department complaining of abdominal pain and foot pain. On exam, her abdomen is benign. She did appear slightly dehydrated. There is some swelling of the dorsum of the foot. Imaging the left foot did not show any changes from prior studies. Her lipase is normal. I do not suspect acute pancreatitis. I believe she is stable to be discharged home. The patient's PDMP was reviewed. She has gotten multiple controlled substances from numerous providers and filled numerous pharmacies. The patient did request pain medication upon discharge. She was given a short prescription for tramadol. The last time she had a controlled substance filled was on February 08 for Percocet. She was comfortable with this plan. She will ice and elevate the foot. She was encouraged to follow-up with her GI doctor and also her primary care physician. She will return with any concerning symptoms. This chart was completed in part utilizing [employer] Speech Voice Recognition software. Attempts were made to minimize the grammatical errors, random word insertions, pronoun errors and incomplete sentences. Any formal questions or concerns about the content, text or information contained within the body of this dictation should be directly addressed to the provider for clarification. Impression Primary Impression: Abdominal pain Departure Information Dispostion Home / Self-Care Condition GOOD Prescriptions Tramadol Hcl (ULTRAM) 50 Mg Tab 50 MG PO Q4H for Pain, #20 TAB PRN PAIN Prov: Chikis Connor PA-C 03/03/18 Referrals Kathe SILVA M.D. (PCP) Patient Instructions My [facility] Additional Instructions You had been evaluated in the emergency department for abdominal pain and foot pain. Your lipase was within normal limits. There were no acute findings with the x-rays of the foot. Please try to stay well-hydrated. I would follow a clear liquid diet such as Gatorade, water and broth for this evening. If you are feeling better in the morning, you may advance to a bland diet Ibuprofen 800 mg and/or Tylenol 1000 mg every 8 hours as needed for pain. You may also alternate these medications for more effective pain relief: Ibuprofen --4 HRS--> Tylenol --4 HRS--> ibuprofen --4 HRS--> Tylenol .... Please take tramadol 1 tab every 4 hours for severe pain only. This medication may be taken with the medications stated above. Please apply ice for 20 minute intervals and elevate the foot as much as possible over the next 48 hours Please follow-up closely with your GI doctor in addition to your primary care physician. Call Monday for a follow-up appointment. Do not hesitate to return to the emergency department with any new, worsening or concerning symptoms It was a pleasure participating in your care this evening
[2018-03-03 18:36] LABS: BASO % 0.5 %; BASO ABS # 0.03 K/uL (0-0.2); EOS % 0.7 %; EOS ABS # 0.04 K/uL (0-0.5); HEMATOCRIT 36.3 % (37-47); HEMOGLOBIN 12.6 g/dL (12.0-16.0); IG# 0.01 K/uL (0.00-0.02); LYMPH % 34.3 %; LYMPH ABS # 2.05 K/uL (1.2-3.4); MEAN CELL VOLUME 86.6 fL (80-100); MEAN CORPUSCULAR HEMOGLOBIN 30.1 pg (25-34); MEAN CORPUSCULAR HGB CONC 34.7 g/dl (32-36); MEAN PLATELET VOLUME 8.7 fL (7.4-10.4); MONO % 5.9 %; MONO ABS # 0.35 K/uL (0.11-0.59); NEUT % 58.4 %; PLATELET COUNT 263 K/uL (130-400); RED CELL DISTRIBUTION WIDTH SD 41.6 fL (36.4-46.3); WHITE BLOOD COUNT 5.98 K/uL (4.8-10.8)
--- NOTE | 2018-03-03 18:36 | DIAGNOSTIC IMAGING REPORT ---
L FOOT MIN 3 VIEWS ROUTINE CLINICAL HISTORY: Left foot pain over distal aspect of the dorsum. COMPARISON: Left foot radiograph February 06, 2018. FINDINGS: Tarsometatarsal joints are intact. There is an old fracture the distal shaft of the left fifth metatarsal. Note is again made of a suspected fracture of the distal phalanx of the left fourth toe which was shown on exam of February 06, 2018. Fracture alignment is unchanged. There is a lucency within the distal phalanx of the left fifth toe which is also unchanged. This may reflect an additional fracture. No additional fractures are identified. No erosions are identified. There is minimal osteoarthritis of the left first metatarsophalangeal joint. IMPRESSION: 1. No change in alignment of a suspected nondisplaced fracture of the distal phalanx of the left fourth toe since exam of February 06, 2018. 2. Lucency within the distal phalanx of the left fifth toe which is unchanged since prior exam and may reflect an additional fracture. Electronically signed by: Calvin Waller M.D. 03/03/2018 6:35 PM Dictated Date/Time: 03/03/2018 6:31 PM
[2018-03-03 19:01] LABS: ALBUMIN 3.7 gm/dl (3.4-5.0); CALCIUM 8.6 mg/dl (8.5-10.1); CREATININE 0.88 mg/dl (0.60-1.20); POTASSIUM 3.3 mmol/L (3.5-5.1); TOTAL PROTEIN 7.8 gm/dl (6.4-8.2)
[2018-03-03] MEDS ORDERED: TRAMADOL HCL 50 MG TAB PO STA (19:16)
[2018-03-03] MEDS ORDERED: TRAM-453 PO (19:19)
[2018-03-03 19:38] VITALS: BP 166/97; PULSE 107; O2SAT 94
[2018-03-06] MEDS ORDERED: ALPR-411 PO (14:52)
[2018-03-06] MEDS ORDERED: ONDA4TAB10 SL (17:01)
== END 2018-03-03 19:39 | disposition home or self-care (01) ==
LOC: C.EDB 17:35
DX: R10.12 Left upper quadrant pain (principal); M79.672 Pain in left foot; K86.1 Other chronic pancreatitis; F41.8 Other specified anxiety disorders; F32.9 Major depressive disorder, single episode, unspecified; B19.20 Unspecified viral hepatitis C without hepatic coma; Z90.49 Acquired absence of other specified parts of digestive tract; Z82.49 Family history of ischemic heart disease and other diseases of the circulatory system; Z80.3 Family history of malignant neoplasm of breast; Z79.899 Other long term (current) drug therapy

== ENCOUNTER 2018-05-03 16:57 | Observation (INO) | payer OTHER ==
[~2018-05-03] VITALS: Ht 154.9 cm; Wt 93.3 kg
[~2018-05-03 16:57] MED LIST changes: +ALPR-411 PO; +CRFL PO; -KLN1 PO; -OXYC-57 PO; +SULF800T23 PO; +TRAM-453 PO; -ZLF50 PO
[2018-05-03] MEDS ORDERED: SODIUM CHLORIDE 0.9% 1000ML 1,000 ML IV STA (17:43)
--- NOTE | 2018-05-03 17:43 | EMERGENCY ROOM VISIT NOTE ---
History Report prepared by Francie: Jeannine Philippe Under the Supervision of: Dr. Natalie Curiel D.O. 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 She notes that 1.5 weeks ago, she began having melena. She notes that this morning, she had hematemesis which she has never had before. The patient reports she vomited a total of 3 times. She also states she had a fever but it resolved with Tylenol but denies any SOB. The patient has a history of pancreatitis and epilepsy. Patient seen here twice within the last week, and did have melena which was heme positive, but normal labs and normal CT abdomen and pelvis. 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 A total of 10 systems reviewed and were otherwise negative. Past Medical & Surgical Medical Problems: (1) Depression with anxiety (2) Hematemesis (3) Hepatitis C (4) Idiopathic pancreatitis (5) Major depressive disorder, recurrent, moderate (6) Migraine (7) Pancreatitis (8) Pseudoseizure (9) Social anxiety disorder Surgical Problems: (1) H/O hernia repair (2) Hx of appendectomy (3) Hx of cholecystectomy Family History FH: CAD (coronary artery disease) GRANDFATHER FH: breast cancer GRANDMOTHER Social History Smoking Status: Never Smoker Alcohol Use: none Drug Use: none Marital Status: single Housing Status: lives alone Occupation Status: employed Current/Historical Medications Scheduled Bupropion (Wellbutrin), 100 MG PO DAILY Cyanocobalamin (Vitamin B-12), 1 TAB PO DAILY Lamotrigine (Lamictal), 100 MG PO BID Multivitamins/Minerals (Mvi With Minerals), 1 TAB PO DAILY Omeprazole (Prilosec), 40 MG PO QAM Scheduled PRN Acetaminophen (Tylenol), 1,000 MG PO Q6H PRN for Headache or Pain Alprazolam (Xanax), 0.5 MG PO TID PRN for Anxiety Allergies Coded Allergies: Fentanyl (Unverified Allergy, Severe, RASH, 05/03/18) Ibuprofen (Unverified Allergy, Unknown, UNKNOWN, 05/03/18) Ketorolac Tromethamine (Unverified Allergy, Unknown, rash, 05/03/18) Penicillins (Verified Allergy, Unknown, rash, 05/03/18) Physical Exam Vital Signs Date Time Temp Pulse Resp B/P (MAP) Pulse Ox O2 Delivery O2 Flow Rate FiO2 05/03/18 21:05 80 20 147/92 98 Room Air 05/03/18 19:39 81 20 138/82 100 Room Air 05/03/18 18:21 77 18 123/68 95 Room Air 05/03/18 17:20 37.1 79 19 126/71 95 Room Air Physical Exam GENERAL: alert, well appearing, well nourished, no distress, non-toxic EYE EXAM: normal conjunctiva, PERRL and EOM's grossly intact OROPHARYNX: no exudate, no erythema, lips, buccal mucosa, and tongue normal and mucous membranes are moist NECK: supple, no nuchal rigidity, no adenopathy, non-tender LUNGS: Clear to auscultation. Normal chest wall mechanics HEART: no murmurs, S1 normal and S2 normal ABDOMEN: abdomen soft, epigastric tenderness, normo-active bowel sounds, no masses, no rebound or guarding. BACK: Back is symmetrical on inspection and there is no deformity, no midline tenderness, no CVA tenderness. SKIN: no rashes and no bruising UPPER EXTREMITIES: upper extremities are grossly normal. LOWER EXTREMITIES: No pitting edema. NEURO EXAM: Normal sensorium, cranial nerves II-XII grossly intact, normal speech, no gross weakness of arms, no gross weakness of legs. Medical Decision & Procedures Laboratory Results Test 05/03/18 17:50 Human Chorionic Gonadotropin, Qual NEG (NEG) Laboratory results per my review. Medications Administered Medications (Trade) Dose Ordered Sig/Jannie Route Start Time Stop Time Status Last Admin Dose Admin Sodium Chloride 1,000 ml @ 999 mls/hr Q1H1M STAT IV 05/03/18 17:43 05/03/18 18:43 DC 05/03/18 18:21 999 MLS/HR Pantoprazole Sodium 40 mg/ Syringe 10 ml @ 5 mls/min NOW ONCE IV 05/03/18 17:45 05/03/18 17:46 DC 05/03/18 18:21 5 MLS/MIN Ondansetron HCl (Zofran Inj) 4 mg NOW STAT IV 05/03/18 17:45 05/03/18 17:46 DC 05/03/18 18:21 4 MG Acetaminophen 100 ml @ 400 mls/hr NOW STAT IV 05/03/18 18:48 05/03/18 19:02 DC 05/03/18 19:02 400 MLS/HR Dicyclomine HCl (Bentyl Inj) 20 mg NOW ONCE IM 05/03/18 20:00 05/03/18 20:01 DC 05/03/18 19:54 20 MG Hydromorphone HCl (Dilaudid Inj) 0.5 mg NOW STAT IV 05/03/18 20:21 05/03/18 20:22 DC 05/03/18 20:29 0.5 MG Ondansetron HCl (Zofran Inj) 4 mg Q6H PRN IV 05/03/18 21:45 05/05/18 12:17 DC 05/04/18 18:42 4 MG Acetaminophen 100 ml @ 400 mls/hr Q8H PRN IV 05/03/18 21:45 05/05/18 12:17 DC 05/04/18 22:15 400 MLS/HR ED Course 1735: The patient was evaluated in room B3. A complete history and physical exam was performed. 1743: Ordered Sodium Chloride 1000 ml @ 999 mls/hr IV 1745: Ordered Zofran Inj 4 mg IV, Pantoprazole Sodium 40 mg/Syringe 1848: Ordered Acetaminophen 100 ml @ 400 mls/hr Protocol IV 2015: I reviewed the patient's case with Dr. Antelmo Bartholomew, [facility]ist. He will evaluate the patient for further management. Medical Decision Differential diagnosis: Etiologies such as diverticulosis, AVM, coagulopathy, colitis, inflammatory bowel disease, malignancy, Isabel-Davis tear, esophagitis, peptic ulcer disease , variceal bleed, gastritis, epistaxis, fissure, hemorrhoids, as well as others were entertained. Patient well-appearing here, stable despite recent melena and hematemesis. H&H stable patient not in need of emergent transfusion. Given patient is already increased PPI to twice daily and is on Carafate and has not had recurrent bleeding, discussed case with hospitalist for admission and likely GI consult. Patient aware of all results and plan. Patient complained of persistent epigastric pain. Patient did have CT done within the last 24 hours which did not reveal any acute abnormalities. I have a lower suspicion for perforation, mesenteric ischemia, esophageal varices, or Boerhaave's. Medication Reconcilliation Current Medication List: was personally reviewed by me Blood Pressure Screening Patient's blood pressure: Normal blood pressure Blood pressure disposition: Did not require urgent referral Consults Time Called: 2009 Consulting Physician: Dr. Antelmo Bartholomew [facility] Returned Call: 2014 I reviewed the patient's case with Dr. Antelmo Bartholomew [facility]. He will evaluate the patient for further management. Impression Primary Impression: GI bleed Additional Impression: Epigastric abdominal pain Scribe Attestation The scribe's documentation has been prepared under my direction and personally reviewed by me in its entirety. I confirm that the note above accurately reflects all work, treatment, procedures, and medical decision making performed by me. Departure Information Dispostion Being Evaluated By Hospitalist (Dr. Antelmo Bartholomew, [facility]ist) Referrals Ninfa Bustamante C.R.N.P. (PCP) Patient Instructions [facility] Problem Qualifiers Primary Impression: GI bleed GI bleed type/associated pathology: unspecified gastrointestinal hemorrhage type Qualified Codes: K92.2 - Gastrointestinal hemorrhage, unspecified
[2018-05-03] MEDS ORDERED: PANTOprazole INJ 40 MG in SYRINGE 0 ML IV ONE (17:45)
[2018-05-03] MEDS ORDERED: ONDANSETRON INJ 2 MG/ML 2 ML VIAL IV STA (17:45)
[2018-05-03] MEDS ORDERED: ACETAMINOPHEN IV 100 ML IV STA (18:48)
[2018-05-03] MEDS ORDERED: BUPR-83 PO (18:52)
[2018-05-03 19:31] LABS: BASO % 0.2 %; BASO ABS # 0.01 K/uL (0-0.2); EOS % 1.6 %; EOS ABS # 0.09 K/uL (0-0.5); HEMATOCRIT 36.6 % (37-47); HEMOGLOBIN 12.3 g/dL (12.0-16.0); IG# 0.01 K/uL (0.00-0.02); LYMPH % 34.6 %; MEAN CELL VOLUME 84.1 fL (80-100); MEAN CORPUSCULAR HEMOGLOBIN 28.3 pg (25-34); MEAN CORPUSCULAR HGB CONC 33.6 g/dl (32-36); MONO % 4.6 %; MONO ABS # 0.25 K/uL (0.11-0.59); NEUT % 58.8 %; NEUT ABS # 3.23 K/uL (1.4-6.5); PLATELET COUNT 217 K/uL (130-400); RED CELL DISTRIBUTION WIDTH CV 13.3 % (11.5-14.5); RED CELL DISTRIBUTION WIDTH SD 40.8 fL (36.4-46.3); WHITE BLOOD COUNT 5.49 K/uL (4.8-10.8)
[2018-05-03 19:52] LABS: ALBUMIN 3.4 gm/dl (3.4-5.0); CALCIUM 7.7 mg/dl (8.5-10.1); CREATININE 0.94 mg/dl (0.60-1.20); POTASSIUM 3.4 mmol/L (3.5-5.1); TOTAL PROTEIN 7.3 gm/dl (6.4-8.2)
[2018-05-03] MEDS ORDERED: DICYCLOMINE HCL 10 MG/ML 2 ML AMP IM ONE (20:00)
[2018-05-03] MEDS ORDERED: HYDROmorphone INJ 0.5 MG/0.5 ML SYR IV STA (20:21)
--- NOTE | 2018-05-03 20:44 | History and Physical ---
History & Physical Date & Time of Service: May 03, 2018 at 20:43 Chief Complaint: Abd Pain Primary Care Physician: Ninfa Bustamante C.R.N.P. Past Medical/Surgical History Medical Problems: (1) Abdominal pain (2) Abdominal pain (3) Abdominal pain (4) Abdominal pain (5) Anemia (6) Bleeding hemorrhoids (7) Bleeding hemorrhoids (8) Cellulitis of nasal tip (9) Chronic abdominal pain (10) Chronic abdominal pain (11) Chronic abdominal pain (12) Concussion (13) Contusion of multiple sites (14) Depression with anxiety (15) Elevated transaminase level (16) Elevated transaminase level (17) Epigastric abdominal pain (18) Epigastric abdominal pain (19) Epigastric abdominal pain (20) Epigastric pain (21) Fall (22) Fatigue (23) Foot pain (24) Fracture of metatarsal bone (25) Hematuria (26) Hepatitis C (27) Hyperglycemia (28) Hypokalemia (29) Hypokalemia (30) Hypokalemia (31) Hypokalemia (32) Idiopathic pancreatitis (33) Left knee pain (34) Left leg paresthesias (35) Major depressive disorder, recurrent, moderate (36) Migraine (37) Nausea and vomiting (38) Nausea and vomiting (39) Pancreatitis (40) Pseudoseizure (41) Rectal bleeding (42) Right flank pain (43) Right rib fracture (44) Right sided abdominal pain (45) Scalp laceration (46) Seizure (47) Social anxiety disorder (48) Sprain of left foot (49) Sprain of left foot (50) Toe fracture, left (51) Toe fracture, left (52) Transaminitis (53) Vomiting Surgical Problems: (1) H/O hernia repair (2) Hx of appendectomy (3) Hx of cholecystectomy Family History FH: CAD (coronary artery disease) GRANDFATHER FH: breast cancer GRANDMOTHER Social History Smoking Status: Never Smoker Drug Use: none Marital Status: single Occupational Status: employed Immunizations History of Influenza Vaccine: Yes Influenza Vaccine Date: Aug 09, 2017 History of Tetanus Vaccine?: Yes Tetanus Immunization Date: Jul 17, 2013 Allergies Coded Allergies: Fentanyl (Unverified Allergy, Severe, RASH, 05/03/18) Ibuprofen (Unverified Allergy, Unknown, UNKNOWN, 05/03/18) Ketorolac Tromethamine (Unverified Allergy, Unknown, rash, 05/03/18) Penicillins (Verified Allergy, Unknown, rash, 05/03/18) Home Medications Scheduled Bupropion (Wellbutrin), 100 MG PO DAILY Cyanocobalamin (Vitamin B-12), 1 TAB PO DAILY Lamotrigine (Lamictal), 100 MG PO BID Multivitamins/Minerals (Mvi With Minerals), 1 TAB PO DAILY Omeprazole (Prilosec), 40 MG PO QAM Scheduled PRN Acetaminophen (Tylenol), 1,000 MG PO Q6H PRN for Headache or Pain Alprazolam (Xanax), 0.5 MG PO TID PRN for Anxiety Physical Exam Vital Signs Date Time Temp Pulse Resp B/P (MAP) Pulse Ox O2 Delivery O2 Flow Rate FiO2 05/03/18 19:39 81 20 138/82 100 Room Air 05/03/18 18:21 77 18 123/68 95 Room Air 05/03/18 17:20 37.1 79 19 126/71 95 Room Air Diagnostics Laboratory Results Results Past 24 Hours Test 05/03/18 17:50 05/03/18 19:17 Range/Units Human Chorionic Gonadotropin, Qual NEG NEG White Blood Count 5.49 4.8-10.8 K/uL Red Blood Count 4.35 4.2-5.4 M/uL Hemoglobin 12.3 12.0-16.0 g/dL Hematocrit 36.6 37-47 % Mean Corpuscular Volume 84.1 80-100 fL Mean Corpuscular Hemoglobin 28.3 25-34 pg Mean Corpuscular Hemoglobin Concent 33.6 32-36 g/dl Platelet Count 217 130-400 K/uL Mean Platelet Volume 9.0 7.4-10.4 fL Neutrophils (%) (Auto) 58.8 % Lymphocytes (%) (Auto) 34.6 % Monocytes (%) (Auto) 4.6 % Eosinophils (%) (Auto) 1.6 % Basophils (%) (Auto) 0.2 % Neutrophils # (Auto) 3.23 1.4-6.5 K/uL Lymphocytes # (Auto) 1.90 1.2-3.4 K/uL Monocytes # (Auto) 0.25 0.11-0.59 K/uL Eosinophils # (Auto) 0.09 0-0.5 K/uL Basophils # (Auto) 0.01 0-0.2 K/uL RDW Standard Deviation 40.8 36.4-46.3 fL RDW Coefficient of Variation 13.3 11.5-14.5 % Immature Granulocyte % (Auto) 0.2 % Immature Granulocyte # (Auto) 0.01 0.00-0.02 K/uL Prothrombin Time 10.0 9.0-12.0 SECONDS Prothromb Time International Ratio 1.0 0.9-1.1 Sodium Level 138 136-145 mmol/L Potassium Level 3.4 3.5-5.1 mmol/L Chloride Level 106 98-107 mmol/L Carbon Dioxide Level 25 21-32 mmol/L Anion Gap 7.0 3-11 mmol/L Blood Urea Nitrogen 7 7-18 mg/dl Creatinine 0.94 0.60-1.20 mg/dl Est Creatinine Clear Calc Drug Dose 87.0 ml/min Estimated GFR () 91.1 Estimated GFR (Non- 78.6 BUN/Creatinine Ratio 7.1 10-20 Random Glucose 92 70-99 mg/dl Calcium Level 7.7 8.5-10.1 mg/dl Total Bilirubin 0.5 0.2-1 mg/dl Aspartate Amino Transf (AST/SGOT) 51 15-37 U/L Alanine Aminotransferase (ALT/SGPT) 63 12-78 U/L Alkaline Phosphatase 106 45-117 U/L Total Protein 7.3 6.4-8.2 gm/dl Albumin 3.4 3.4-5.0 gm/dl Globulin 3.9 2.5-4.0 gm/dl Albumin/Globulin Ratio 0.9 0.9-2 Impression Resuscitation Status Resident Tracking Resident Involvement: Resident Care Provided Care Provided: Adult [facility]
--- NOTE | 2018-05-03 21:30 | History and Physical ---
History & Physical Date & Time of Service: May 03, 2018 at 21:30 Chief Complaint: Abd Pain Primary Care Physician: Ninfa Bustamante C.R.N.PAnahi History of Present Illness Source: patient, family, hospital records 37 yo F PMHx of of recurrent pancreatitis, Anxiety, pseudoseizures with several ED visits in the past few months for Abdominal pain and/or GI bleed presenting with abdominal pain , bright red blood per rectum, hematemesis . She presents with 1.5 wks of dark stools. Additionally she vomiting bright red blood x 3 episodes. She also reports pain is epigastric, constant, 7.5/10. NO aggravating factors. Pain was somewhat better with Tylenol. She does have history of recurrent pancreatitis, but this pain feels different. She also reports fatigue. She denies Chest pain, SOB, palpitation, presyncope, syncope Yesterday, She was seen by ED. H/H unremarkable. She got normal saline, Zofran , Zantac, morphine. GI recommended increasing Prilosec to twice daily, starting Carafate, and having her follow up with [facility] gastroenterology today to set an appointment for endoscopy. Given the negative labs, CT imaging, and her history of a normal EUS in December emergent endoscopy was felt to be unnecessary. She was admitted February 06- for bright red blood per rectum. seen by Gastroenterology. He was started on Protonix. 02/08/18 had colonoscopy, Hematochezia appears to be related to Internal hemorrhoids. Past Medical/Surgical History Medical Problems: (1) Abdominal pain (2) Abdominal pain (3) Abdominal pain (4) Abdominal pain (5) Anemia (6) Bleeding hemorrhoids (7) Bleeding hemorrhoids (8) Cellulitis of nasal tip (9) Chronic abdominal pain (10) Chronic abdominal pain (11) Chronic abdominal pain (12) Concussion (13) Contusion of multiple sites (14) Depression with anxiety (15) Elevated transaminase level (16) Elevated transaminase level (17) Epigastric abdominal pain (18) Epigastric abdominal pain (19) Epigastric abdominal pain (20) Epigastric pain (21) Fall (22) Fatigue (23) Foot pain (24) Fracture of metatarsal bone (25) Hematuria (26) Hepatitis C (27) Hyperglycemia (28) Hypokalemia (29) Hypokalemia (30) Hypokalemia (31) Hypokalemia (32) Idiopathic pancreatitis (33) Left knee pain (34) Left leg paresthesias (35) Major depressive disorder, recurrent, moderate (36) Migraine (37) Nausea and vomiting (38) Nausea and vomiting (39) Pancreatitis (40) Pseudoseizure (41) Rectal bleeding (42) Right flank pain (43) Right rib fracture (44) Right sided abdominal pain (45) Scalp laceration (46) Seizure (47) Social anxiety disorder (48) Sprain of left foot (49) Sprain of left foot (50) Toe fracture, left (51) Toe fracture, left (52) Transaminitis (53) Vomiting Surgical Problems: (1) H/O hernia repair (2) Hx of appendectomy (3) Hx of cholecystectomy Family History FH: CAD (coronary artery disease) GRANDFATHER FH: breast cancer GRANDMOTHER Social History Smoking Status: Never Smoker Smokeless Tobacco Use: No Alcohol Use: occasionally Drug Use: none Marital Status: single Housing status: lives alone Occupational Status: employed Immunizations History of Influenza Vaccine: Yes Influenza Vaccine Date: Aug 09, 2017 History of Tetanus Vaccine?: Yes Tetanus Immunization Date: Jul 17, 2013 Allergies Coded Allergies: Fentanyl (Unverified Allergy, Severe, RASH, 05/03/18) Ibuprofen (Unverified Allergy, Unknown, UNKNOWN, 05/03/18) Ketorolac Tromethamine (Unverified Allergy, Unknown, rash, 05/03/18) Penicillins (Verified Allergy, Unknown, rash, 05/03/18) Home Medications Scheduled Bupropion (Wellbutrin), 100 MG PO DAILY Cyanocobalamin (Vitamin B-12), 1 TAB PO DAILY Lamotrigine (Lamictal), 100 MG PO BID Multivitamins/Minerals (Mvi With Minerals), 1 TAB PO DAILY Omeprazole (Prilosec), 40 MG PO QAM Scheduled PRN Acetaminophen (Tylenol), 1,000 MG PO Q6H PRN for Headache or Pain Alprazolam (Xanax), 0.5 MG PO TID PRN for Anxiety Review of Systems Constitutional: No fever, No chills, No fatigue Respiratory: No cough, No sputum, No shortness of breath Cardiovascular: No chest pain, No edema, No palpitations Abdomen: + pain, + nausea, + vomiting, + GI bleeding Genitourinary - Female: No dysuria, No urinary frequency, No urinary urgency Neurologic: No weakness, No numbness/tingling Integumentary: No rash, No itch Physical Exam Vital Signs Date Time Temp Pulse Resp B/P (MAP) Pulse Ox O2 Delivery O2 Flow Rate FiO2 05/03/18 19:39 81 20 138/82 100 Room Air 05/03/18 18:21 77 18 123/68 95 Room Air 05/03/18 17:20 37.1 79 19 126/71 95 Room Air GENERAL: alert,no distress, non-toxic EYE EXAM: normal conjunctiva, PERRL and EOM's grossly intact OROPHARYNX: no exudate, no erythema, lips, buccal mucosa, and tongue normal and mucous membranes are moist NECK: supple, no adenopathy, non-tender LUNGS: Clear to auscultation. Normal chest wall mechanics HEART: no murmurs, S1 normal and S2 normal ABDOMEN: Epigastric Tenderness, normo-active bowel sounds, no masses, no rebound or guarding. BACK: Back is symmetrical on inspection and there is no deformity SKIN: no rashes and no bruising UPPER EXTREMITIES: upper extremities are grossly normal. LOWER EXTREMITIES: No pitting edema. NEURO EXAM: AOx3 , cranial nerves II-XII intact, normal speech, no gross weakness of arms, no gross weakness of legs. Diagnostics Laboratory Results Results Past 24 Hours Test 05/03/18 17:50 05/03/18 19:17 Range/Units Human Chorionic Gonadotropin, Qual NEG NEG White Blood Count 5.49 4.8-10.8 K/uL Red Blood Count 4.35 4.2-5.4 M/uL Hemoglobin 12.3 12.0-16.0 g/dL Hematocrit 36.6 37-47 % Mean Corpuscular Volume 84.1 80-100 fL Mean Corpuscular Hemoglobin 28.3 25-34 pg Mean Corpuscular Hemoglobin Concent 33.6 32-36 g/dl Platelet Count 217 130-400 K/uL Mean Platelet Volume 9.0 7.4-10.4 fL Neutrophils (%) (Auto) 58.8 % Lymphocytes (%) (Auto) 34.6 % Monocytes (%) (Auto) 4.6 % Eosinophils (%) (Auto) 1.6 % Basophils (%) (Auto) 0.2 % Neutrophils # (Auto) 3.23 1.4-6.5 K/uL Lymphocytes # (Auto) 1.90 1.2-3.4 K/uL Monocytes # (Auto) 0.25 0.11-0.59 K/uL Eosinophils # (Auto) 0.09 0-0.5 K/uL Basophils # (Auto) 0.01 0-0.2 K/uL RDW Standard Deviation 40.8 36.4-46.3 fL RDW Coefficient of Variation 13.3 11.5-14.5 % Immature Granulocyte % (Auto) 0.2 % Immature Granulocyte # (Auto) 0.01 0.00-0.02 K/uL Prothrombin Time 10.0 9.0-12.0 SECONDS Prothromb Time International Ratio 1.0 0.9-1.1 Sodium Level 138 136-145 mmol/L Potassium Level 3.4 3.5-5.1 mmol/L Chloride Level 106 98-107 mmol/L Carbon Dioxide Level 25 21-32 mmol/L Anion Gap 7.0 3-11 mmol/L Blood Urea Nitrogen 7 7-18 mg/dl Creatinine 0.94 0.60-1.20 mg/dl Est Creatinine Clear Calc Drug Dose 87.0 ml/min Estimated GFR () 91.1 Estimated GFR (Non- 78.6 BUN/Creatinine Ratio 7.1 10-20 Random Glucose 92 70-99 mg/dl Calcium Level 7.7 8.5-10.1 mg/dl Total Bilirubin 0.5 0.2-1 mg/dl Aspartate Amino Transf (AST/SGOT) 51 15-37 U/L Alanine Aminotransferase (ALT/SGPT) 63 12-78 U/L Alkaline Phosphatase 106 45-117 U/L Total Protein 7.3 6.4-8.2 gm/dl Albumin 3.4 3.4-5.0 gm/dl Globulin 3.9 2.5-4.0 gm/dl Albumin/Globulin Ratio 0.9 0.9-2 Diagnostic Radiology 05/02/[address] WITH IV AND ORAL CONTRAST CT DOSE: 1027.43 mGycm HISTORY: upper abd pain, hx of pancreatitis TECHNIQUE: Multiaxial CT images of the abdomen and pelvis were performed following the use of intravenous and oral contrast. A dose lowering technique was utilized adhering to the principles of ALA. COMPARISON STUDY: Abdomen and pelvis CT 03/04/2018. FINDINGS: The lung bases are clear. No pneumoperitoneum. No pneumatosis. No fractures within the visualized osseous structures. Cholecystectomy. There are 2 subcentimeter hypodense lesions within the right hepatic dome with the largest measuring 5 mm. These are too small to characterize. These remain stable. Therefore, these are likely benign. The pancreas, spleen, adrenal glands are unremarkable. There are few punctate stones within the kidneys. No hydronephrosis. No ureteral stones. The bladder is unremarkable. Stable prominent periportal lymph node. Otherwise, no retroperitoneal lymphadenopathy. The uterus and ovaries are within normal limits. No bowel wall thickening or obstruction. The appendix is surgically absent. Hepatic steatosis. IMPRESSION: 1. No bowel wall thickening or obstruction. 2. Prior cholecystectomy and appendectomy. 3. The pancreas enhances normally. 4. Bilateral nephrolithiasis. No ureteral stones. No hydronephrosis. Impression Assessment and Plan 37 yo F PMHx of of recurrent pancreatitis, Anxiety, pseudoseizures with several ED visits in the past few months for Abdominal pain and/or GI bleed presenting with abdominal pain , bright red blood per rectum, hematemesis. Possible Hematemesis/Hematochezia - frequent ED visits for suspected GI bleed, abdominal pain - admitted 02/2018 for similar symptoms, Colonoscopy showed hemorrhoids - Following ED visit yesterday, had been scheduled to see Dr. Rey today to set up repeat colonoscopy outpatient - Gastroenterology consulted - H/H normal on arrival, Trend q4H - NPO - Pain control: IV Tylenol prn, ( previous notes suggested possible pain drug seeking behavior) ( Patient requested Dilaudid specifically) - PRN Zofran for nausea - Star IV fluids Pseudoseizures -Lamictal Depression/Anxiety - Xanax prn held - Bupropion DVT PPX: contraindicated for possible GI bleed Dispositional: Admit to Med Surg Code status: FULL Attending addendum: I have physically seen this patient, have supervised the medical residents activities, and agree with the H&P unless as otherwise noted. Assessment and Plan: Patient reported hematemesis and hematochezia-- Multiple ED assessments for similar symptoms. Colonoscopy during admission 02/2018 showed hemorrhoids. Patient's outpatient appointment for Dr. Rey will be canceled today, and he will be consulted C as inpatient. H&H every 6 hours. N.p.o. except essential medications. Zofran 4 mg IV every 6 hours as needed nausea Acetaminophen 1000 mg IV every 8 hours as needed. No Dilaudid to be given to this patient, who requested as such in the ED. IV fluids. Remainder of notes and orders as above. Advanced Directives Existing Advance Directive: No Existing Living Will: No Existing Power of Childcare Center Director: No Resuscitation Status VTE Prophylaxis Will order VTE Prophylaxis: Yes Social Service Consult None Apply Note Total Time: Critical Care 30 - 74 minutes Resident Tracking Resident Involvement: Resident Care Provided Care Provided: Adult Hospital Medicine
[2018-05-03] MEDS ORDERED: GI COCKTAIL PO PRN (21:45)
[2018-05-03] MEDS ORDERED: MAGNESIUM HYDROXIDE SUSP 30 ML UDC PO PRN (21:45)
[2018-05-03] MEDS ORDERED: ALUMINUM/MAGNESIUM/SIMETH (MAALOX MAX) 30 ML UDC PO PRN (21:45)
[2018-05-03] MEDS ORDERED: POLYETHYLENE (MIRALAX) 17 GM PACK PO PRN (21:45)
[2018-05-03 22:30] VITALS: BP 142/90; PULSE 88; TEMP 36.6; Ht 154.9 cm; Wt 93.3 kg
[2018-05-03 22:35] VITALS: BP 142/90; PULSE 88; TEMP 36.6; O2SAT 99
[2018-05-03] MEDS ORDERED: ALUMINUM/MAGNESIUM SUSP 72 ML, LIDOCAINE HCL 2% VISCOUS SOLN 24 ML, BARCODE IDENTIFIER ... PO PRN ×2 (22:45)
[2018-05-03] MEDS ORDERED: IV FLUIDS COMPLETED PRN (23:00)
[2018-05-03] MEDS: ONDANSETRON INJ 2 MG/ML 2 ML VIAL IV PRN (23:39)
[2018-05-03] MEDS: SODIUM CHLORIDE 0.9% 1000ML 1,000 ML IV SCH (23:40)
[2018-05-03 23:51] LABS: HEMATOCRIT 35.8 % (37-47); HEMOGLOBIN 11.9 g/dL (12.0-16.0)
[2018-05-04] MEDS ORDERED: ALUMINUM/MAGNESIUM SUSP 72 ML, LIDOCAINE HCL 2% VISCOUS SOLN 24 ML, BARCODE IDENTIFIER ... PO PRN ×2 (02:15)
[2018-05-04 04:29] LABS: BASO % 0.5 %; BASO ABS # 0.02 K/uL (0-0.2); EOS % 3.1 %; EOS ABS # 0.13 K/uL (0-0.5); HEMATOCRIT 34.3 % (37-47); HEMOGLOBIN 11.6 g/dL (12.0-16.0); LYMPH % 49.2 %; LYMPH ABS # 2.08 K/uL (1.2-3.4); MEAN CELL VOLUME 84.1 fL (80-100); MEAN CORPUSCULAR HEMOGLOBIN 28.4 pg (25-34); MEAN CORPUSCULAR HGB CONC 33.8 g/dl (32-36); MONO % 5.7 %; MONO ABS # 0.24 K/uL (0.11-0.59); NEUT % 41.5 %; NEUT ABS # 1.76 K/uL (1.4-6.5); PLATELET COUNT 224 K/uL (130-400); RED CELL DISTRIBUTION WIDTH CV 13.2 % (11.5-14.5); RED CELL DISTRIBUTION WIDTH SD 40.3 fL (36.4-46.3); WHITE BLOOD COUNT 4.23 K/uL (4.8-10.8)
[2018-05-04 04:51] LABS: ALBUMIN 3.3 gm/dl (3.4-5.0); CALCIUM 7.5 mg/dl (8.5-10.1); CREATININE 0.78 mg/dl (0.60-1.20); POTASSIUM 3.4 mmol/L (3.5-5.1); TOTAL PROTEIN 6.8 gm/dl (6.4-8.2)
[2018-05-04] MEDS: ACETAMINOPHEN IV 100 ML IV PRN ×3 (05:17→22:15)
[2018-05-04] MEDS: SODIUM CHLORIDE 0.9% 1000ML 1,000 ML IV SCH ×3 (05:17→18:41)
--- NOTE | 2018-05-04 07:13 | Family Medicine Progress Note ---
Progress Note Date of Service May 04, 2018. Subjective 37 yo F PMHx of of recurrent pancreatitis, Anxiety, pseudoseizures with several ED visits in the past few months for Abdominal pain and/or GI bleed presenting with abdominal pain , bright red blood per rectum, hematemesis . She presents with 1.5 wks of dark stools. Additionally she vomiting bright red blood x 3 episodes. She also reports pain is epigastric, constant, 7.5/10. NO aggravating factors. Pain was somewhat better with Tylenol. She does have history of recurrent pancreatitis, but this pain feels different. She also reports fatigue. She denies Chest pain, SOB, palpitation, presyncope, syncope Yesterday, She was seen by ED. H/H unremarkable. She got normal saline, Zofran , Zantac, morphine. GI recommended increasing Prilosec to twice daily, starting Carafate, and having her follow up with [facility] gastroenterology today to set an appointment for endoscopy. Given the negative labs, CT imaging, and her history of a normal EUS in December emergent endoscopy was felt to be unnecessary. She was admitted February 06- for bright red blood per rectum. seen by Gastroenterology. He was started on Protonix. 02/08/18 had colonoscopy, Hematochezia appears to be related to Internal hemorrhoids. Constitutional: No fever, No chills, No sweats Abdomen: + vomiting, + diarrhea, + constipation Musculoskeletal: No joint pain Skin: No rash, No itch Medications Current Inpatient Medications Medications (Trade) Dose Ordered Sig/Jannie Route Start Time Stop Time Status Last Admin Dose Admin Al Hydrox/Mg Hydrox/Simethicone (Maalox Max Susp) 15 ml Q4H PRN PO 05/03/18 21:45 06/02/18 21:44 Magnesium Hydroxide (Milk Of Magnesia Susp) 30 ml Q6H PRN PO 05/03/18 21:45 06/02/18 21:44 Polyethylene (Miralax Powder Packet) 17 gm DAILY PRN PO 05/03/18 21:45 06/02/18 21:44 Ondansetron HCl (Zofran Inj) 4 mg Q6H PRN IV 05/03/18 21:45 06/02/18 21:44 05/03/18 23:39 4 MG Pantoprazole Sodium 40 mg/ Syringe 10 ml @ 5 mls/min DAILY@ IV 05/04/18 09:00 06/03/18 08:59 Acetaminophen 100 ml @ 400 mls/hr Q8H PRN IV 05/03/18 21:45 06/02/18 21:44 05/04/18 05:17 400 MLS/HR Sodium Chloride 1,000 ml @ 150 mls/hr Q6H40M IV 05/03/18 23:00 06/02/18 22:59 05/04/18 05:17 150 MLS/HR Bupropion HCl (Wellbutrin Tab) 100 mg DAILY PO 05/04/18 09:00 06/03/18 08:59 Lamotrigine (Lamictal Tab) 100 mg BID PO 05/04/18 09:00 06/03/18 08:59 Miscellaneous (Iv Fluids Completed) 1 ea PRN PRN N/A 05/03/18 23:00 05/03/19 22:59 Al Hydroxide/Mg Hydroxide/ Lidocaine HCl/ Barcode TID PRN PO 05/04/18 02:15 06/02/18 22:44 05/04/18 02:08 24 ML Objective Vital Signs Date Time Temp Pulse Resp B/P (MAP) Pulse Ox O2 Delivery O2 Flow Rate FiO2 05/04/18 00:00 Room Air 05/03/18 22:35 36.6 88 20 142/90 (107) 99 Room Air 05/03/18 22:30 36.6 88 20 142/90 Room Air 05/03/18 22:24 76 20 147/92 98 Room Air 05/03/18 21:05 80 20 147/92 98 Room Air 05/03/18 19:39 81 20 138/82 100 Room Air 05/03/18 18:21 77 18 123/68 95 Room Air 05/03/18 17:20 37.1 79 19 126/71 95 Room Air Physical Exam General Appearance: WD/WN, no apparent distress Eyes: normal inspection Respiratory/Chest: chest non-tender, lungs clear, normal breath sounds, no respiratory distress Abdomen: normal bowel sounds, soft, no organomegaly, no pulsatile mass, + tenderness Laboratory Results Last Resulted 05/04/18 03:57 Red Blood Count 4.08, Mean Corpuscular Volume 84.1, Mean Corpuscular Hemoglobin 28.4, Mean Corpuscular Hemoglobin Concent 33.8, Mean Platelet Volume 9.0, Neutrophils (%) (Auto) 41.5, Lymphocytes (%) (Auto) 49.2, Monocytes (%) (Auto) 5.7, Eosinophils (%) (Auto) 3.1, Basophils (%) (Auto) 0.5, Neutrophils # (Auto) 1.76, Lymphocytes # (Auto) 2.08, Monocytes # (Auto) 0.24, Eosinophils # (Auto) 0.13, Basophils # (Auto) 0.02 Last Resulted 05/04/18 03:57 Past 24 Hours Test 05/03/18 19:17 05/04/18 03:57 Range/Units Prothromb Time International Ratio 1.0 1.0 0.9-1.1 Prothrombin Time 10.0 10.7 9.0-12.0 SECONDS Assessment and Plan 7 yo F PMHx of of recurrent pancreatitis, Anxiety, pseudoseizures with several ED visits in the past few months for Abdominal pain and/or GI bleed presenting with abdominal pain , bright red blood per rectum, hematemesis. Possible Hematemesis/Hematochezia - frequent ED visits for suspected GI bleed, abdominal pain - admitted 02/2018 for similar symptoms, Colonoscopy showed hemorrhoids - Following ED visit yesterday, had been scheduled to see Dr. Rey today to set up repeat colonoscopy outpatient - Gastroenterology consulted - H/H normal on arrival, Trend q4H - NPO - Pain control: IV Tylenol prn, ( previous notes suggested possible pain drug seeking behavior) ( Patient requested Dilaudid specifically) - PRN Zofran for nausea - Star IV fluids Pseudoseizures -Lamictal Depression/Anxiety - Xanax prn held - Bupropion DVT PPX: contraindicated for possible GI bleed Dispositional: Admit to Med Surg Code status: FULL Resident Tracking Resident Involvement: Resident Care Provided Care Provided: Adult Hospital Medicine
[2018-05-04 07:18] LABS: HEMATOCRIT 34.5 % (37-47); HEMOGLOBIN 11.7 g/dL (12.0-16.0)
[2018-05-04 07:40] VITALS: BP 107/71; PULSE 70; TEMP 36.7; O2SAT 97
[2018-05-04] MEDS: PANTOprazole INJ 40 MG in SYRINGE 0 ML IV SCH ×2 (08:49→22:14)
[2018-05-04] MEDS: ONDANSETRON INJ 2 MG/ML 2 ML VIAL IV PRN ×2 (08:50→18:42)
[2018-05-04 09:17] VITALS: O2SAT 97
[2018-05-04] MEDS ORDERED: ANUSOL SUPP 1 EA PR PRN (11:00)
[2018-05-04 12:09] LABS: HEMATOCRIT 36.1 % (37-47); HEMOGLOBIN 12.1 g/dL (12.0-16.0)
[2018-05-04] MEDS: SUCRALFATE 1 GM/10 ML UDC PO SCH ×3 (12:11→22:15)
--- NOTE | 2018-05-04 12:58 | Gastrointestinal Consultation ---
Gastrointestinal Consultation Date of Consultation: May 04, 2018 Attending Physician: Antelmo Mcnamara Consulting Physician: Moises Wilson Reason for Consultation: GI bleed History of Present Illness Patient is a 37 year old female w PMHx of recurrent pancreatitis, anxiety, pseudoseizures, chronic abd pain, HCV (treated), depression/anxiety, migraines, fractures who presented to ED w c/o rectal bleeding which was dark red in colon , n/v x3 w some blood in emesis. H/H been stable and normalized now since admission. No more vomiting since admission and only one BM overnight not witnessed by RN. She had several ED visit within this year w c/o pain and also rectal bleeding. Last seen by our service in February for rectal bleeding and had Colonoscopy 02/08/18 which showed internal hemorrhoids. Pt currently not using any creams or suppository for hemorrhoids, states "they don't bother me". She c/o epigastric pain. Denies any NSAIDs, steroids, tobacco, ETOH, illicit drugs. She does have hx of recurrent pancreatitis but CT abd/pelvis yesterday is grossly normal. LFTs WNL. EGD done in 2010, 2014, 2015 showed signs of esophagitis and some food residue in stomach. She takes Protonix 40mg BID at home. EUS 2013, 2017 w findings of fatty liver. Past Medical/Surgical History Medical Problems: (1) Abdominal pain Status: Acute (2) Abdominal pain Status: Acute (3) Abdominal pain Status: Acute (4) Anemia Status: Acute (5) Bleeding hemorrhoids Status: Acute (6) Cellulitis of nasal tip Status: Acute (7) Chronic abdominal pain Status: Acute (8) Chronic abdominal pain Status: Acute (9) Concussion Status: Acute (10) Contusion of multiple sites Status: Acute (11) Elevated transaminase level Status: Acute (12) Epigastric abdominal pain Status: Acute (13) Epigastric abdominal pain Status: Acute (14) Epigastric abdominal pain Status: Acute (15) Epigastric abdominal pain Status: Acute (16) Epigastric pain Status: Acute (17) Fall Status: Acute (18) Fatigue Status: Acute (19) Foot pain Status: Acute (20) Fracture of metatarsal bone Status: Acute (21) GI bleed Status: Acute (22) Hematuria Status: Acute (23) Hyperglycemia Status: Acute (24) Hypokalemia Status: Acute (25) Hypokalemia Status: Acute (26) Hypokalemia Status: Acute (27) Hypokalemia Status: Acute (28) Left knee pain Status: Acute (29) Left leg paresthesias Status: Acute (30) Nausea and vomiting Status: Acute (31) Right flank pain Status: Acute (32) Right rib fracture Status: Acute (33) Right sided abdominal pain Status: Acute (34) Scalp laceration Status: Acute (35) Seizure Status: Acute (36) Sprain of left foot Status: Acute (37) Toe fracture, left Status: Acute (38) Transaminitis Status: Acute (39) Vomiting Status: Acute Past Medical History: See HPI Past Surgical History: Hernia repair, appendectomy, cholecystectomy Family History FH: CAD (coronary artery disease) GRANDFATHER FH: breast cancer GRANDMOTHER Social History Smoking Status: Unknown if Ever Smoked Alcohol Use: none Drug Use: none Marital Status: single Housing Status: lives alone Occupation Status: employed Allergies Coded Allergies: Fentanyl (Unverified Allergy, Severe, RASH, 05/03/18) Ibuprofen (Unverified Allergy, Unknown, UNKNOWN, 05/03/18) Ketorolac Tromethamine (Unverified Allergy, Unknown, rash, 05/03/18) Penicillins (Verified Allergy, Unknown, rash, 05/03/18) Current Medications Home Meds and Scripts Medications Dose Route/Sig Max Daily Dose Days Date Category Wellbutrin (Bupropion HCl) 100 Mg Tab 100 Mg PO DAILY 05/03/18 Reported Xanax (Alprazolam) 0.5 Mg Tab 0.5 Mg PO TID PRN 03/06/18 Reported Prilosec (Omeprazole) 20 Mg Capcr 40 Mg PO QAM 02/06/18 Reported Lamictal (Lamotrigine) 100 Mg Tab 100 Mg PO BID 02/06/18 Reported Mvi With Minerals (Multivitamins/Minerals) Tab 1 Tab PO DAILY 01/06/18 Reported Vitamin B-12 (Cyanocobalamin) Unknown Strength Tab 1 Tab PO DAILY 01/06/18 Reported Tylenol (Acetaminophen) 500 Mg Tab 1,000 Mg PO Q6H PRN 11/24/17 Reported Review of Systems Constitutional: No fever, No chills Respiratory: No cough, No shortness of breath Cardiac: No chest pain Abdomen: + see HPI, + pain (epigastric ), + nausea, + vomiting, + GI bleeding Physical Exam Date Time Temp Pulse Resp B/P (MAP) Pulse Ox O2 Delivery O2 Flow Rate FiO2 05/04/18 09:17 97 Room Air 05/04/18 07:50 Room Air 05/04/18 07:40 36.7 70 18 107/71 (83) 97 Room Air 05/04/18 00:00 Room Air 05/03/18 22:35 36.6 88 20 142/90 (107) 99 Room Air 05/03/18 22:30 36.6 88 20 142/90 Room Air 05/03/18 22:24 76 20 147/92 98 Room Air 05/03/18 21:05 80 20 147/92 98 Room Air 05/03/18 19:39 81 20 138/82 100 Room Air 05/03/18 18:21 77 18 123/68 95 Room Air 05/03/18 17:20 37.1 79 19 126/71 95 Room Air General Appearance: WD/WN, no apparent distress, + obese Eyes: normal inspection, PERRL, EOMI Neck: supple, no JVD, trachea midline Respiratory/Chest: normal breath sounds, no respiratory distress, no accessory muscle use Cardiovascular: regular rate, rhythm, no gallop, no murmur Abdomen: normal bowel sounds, non tender, soft Extremities: normal inspection, no pedal edema, no calf tenderness Neurologic/Psych: alert, normal mood/affect, oriented x 3 Skin: normal color, no jaundice, no rash Laboratory Results Last 24 Hours Test 05/03/18 17:50 05/03/18 19:17 05/03/18 23:36 05/04/18 03:57 Human Chorionic Gonadotropin, Qual NEG White Blood Count 5.49 K/uL 4.23 K/uL Red Blood Count 4.35 M/uL 4.08 M/uL Hemoglobin 12.3 g/dL 11.9 g/dL 11.6 g/dL Hematocrit 36.6 % 35.8 % 34.3 % Mean Corpuscular Volume 84.1 fL 84.1 fL Mean Corpuscular Hemoglobin 28.3 pg 28.4 pg Mean Corpuscular Hemoglobin Concent 33.6 g/dl 33.8 g/dl Platelet Count 217 K/uL 224 K/uL Mean Platelet Volume 9.0 fL 9.0 fL Neutrophils (%) (Auto) 58.8 % 41.5 % Lymphocytes (%) (Auto) 34.6 % 49.2 % Monocytes (%) (Auto) 4.6 % 5.7 % Eosinophils (%) (Auto) 1.6 % 3.1 % Basophils (%) (Auto) 0.2 % 0.5 % Neutrophils # (Auto) 3.23 K/uL 1.76 K/uL Lymphocytes # (Auto) 1.90 K/uL 2.08 K/uL Monocytes # (Auto) 0.25 K/uL 0.24 K/uL Eosinophils # (Auto) 0.09 K/uL 0.13 K/uL Basophils # (Auto) 0.01 K/uL 0.02 K/uL RDW Standard Deviation 40.8 fL 40.3 fL RDW Coefficient of Variation 13.3 % 13.2 % Immature Granulocyte % (Auto) 0.2 % 0.0 % Immature Granulocyte # (Auto) 0.01 K/uL 0.00 K/uL Prothrombin Time 10.0 SECONDS 10.7 SECONDS Prothromb Time International Ratio 1.0 1.0 Sodium Level 138 mmol/L 139 mmol/L Potassium Level 3.4 mmol/L 3.4 mmol/L Chloride Level 106 mmol/L 109 mmol/L Carbon Dioxide Level 25 mmol/L 24 mmol/L Anion Gap 7.0 mmol/L 6.0 mmol/L Blood Urea Nitrogen 7 mg/dl 5 mg/dl Creatinine 0.94 mg/dl 0.78 mg/dl Est Creatinine Clear Calc Drug Dose 87.0 ml/min 61.8 ml/min Estimated GFR () 91.1 114.2 Estimated GFR (Non- 78.6 98.5 BUN/Creatinine Ratio 7.1 6.4 Random Glucose 92 mg/dl 95 mg/dl Calcium Level 7.7 mg/dl 7.5 mg/dl Total Bilirubin 0.5 mg/dl 0.7 mg/dl Aspartate Amino Transf (AST/SGOT) 51 U/L 38 U/L Alanine Aminotransferase (ALT/SGPT) 63 U/L 53 U/L Alkaline Phosphatase 106 U/L 93 U/L Total Protein 7.3 gm/dl 6.8 gm/dl Albumin 3.4 gm/dl 3.3 gm/dl Globulin 3.9 gm/dl 3.5 gm/dl Albumin/Globulin Ratio 0.9 0.9 Test 05/04/18 06:47 05/04/18 11:54 Hemoglobin 11.7 g/dL 12.1 g/dL Hematocrit 34.5 % 36.1 % Impression Patient is a 37 year old female who presented to ED yesterday w c/o n/v x 3 episodes w some blood mixed in, dark red rectal bleeding, epigastric abd pain. No more vomiting since admitted, one stool not witnessed by RN overnight. H/H remained stable and now has normalized. CT abd/pelvis w contrast 05/02/18 w/o acute processes. She had multiple ED visits this year already mostly w c/o pain and also for GI bleeding. Hx of esophagitis, fatty liver, and food residue in stomach during previous EGD/EUS eval (EGD 2010, 2014, 2015, EUS 2013, 2017). Last colonoscopy showed int hemorrhoids. Plan - I do not think she has a significant UGI bleeding such as from ulcer given no rise in BUN, H/H remained stable, now normal. Blood in emesis may be from esophagitis, rectal bleeding could be from hemorrhoids. - Hx of recurrent pancreatitis, pancreas normal on CT scan, LFTs normal. Will add on Lipase to AM labs - Keep Protonix 40mg PO BID; add Carafate 1g QID - She may have gastroparesis given several findings of food residue in stomach during EGD. I don't see she's ever had gastric emptying study and maybe this can be done in outpt setting. - CL diet, advance as tolerated to low residue diet/gastroparesis diet as tolerated - Anusol MN suppository 1 BID prn hemorrhoidal bleeding. - F/U with [facility] upon DC to discuss further workup with repeat endoscopy if indicated; will defer inpt endoscopic evaluation unless she has any more signs of active GI bleeding and drop in blood count. ATTESTATION: I have performed a history and physical examination of this patient and reviewed the electronic record. Specifically on physical examination there is no abdominal tenderness and no sign of ongoing hemorrhage. I have discussed my findings with BILL Yost. The above note reflects my findings, conclusions and recommendations. Moises Wilson MD
[2018-05-04 15:09] VITALS: BP 106/61; PULSE 90; TEMP 36.9; O2SAT 94
[2018-05-04 16:21] LABS: HEMATOCRIT 34.5 % (37-47); HEMOGLOBIN 11.6 g/dL (12.0-16.0)
[2018-05-04] MEDS ORDERED: TRAMADOL HCL 50 MG TAB PO STA (17:15)
--- NOTE | 2018-05-04 17:57 | Discharge Instructions ---
Discharge Instructions Date of Service May 04, 2018. Admission Reason for Admission: Gi Bleed Discharge Discharge Diagnosis / Problem: abdominal pain Discharge Goals Goal(s): Diagnostic testing Activity Recommendations Activity Limitations: resume your previous activity . Instructions / Follow-Up Instructions / Follow-Up bleeding -fortunately your vitals and blood counts have remained stable, showing that the bleeding fortunately is not at all major. the gastroenterologists suspected that the bloody vomitus was from an irritated esophagus (esophagitis) and that the rectal bleeding was more than likely from hemorrhoids abdominal pain -as we discussed, when someone has had an extensive workup for causes of abdominal pain without a clear cut cause, the answer is very frequently in the family of functional abdominal pain diseases (technically it could be categorized as irritable bowel syndrome, but because of the connotations that can sometimes imply outside of the actual medical diagnosis, i usually use the more vague term functional abdominal pain) -- basically what happens with this family of problems is a discoordination of the nervous system influences that make your intestines squeeze. the most "rudimentary" is the enteric nervous system - it works on stretch-recoil. the parasympathetic (rest and digest) moves things through your intestinal tract appropriately; whereas the sympathetic (fight or flight) acts sort of as a "brake line" slowing things down. the most frequent pattern we'll see with functional abdominal pain is that the sympathetic nervous system influence on the intestines becomes dominant - slowing things down. because the stretch-recoil mechanism keeps working anyway, there is more stuff that it's squeezing against - and since things aren't moving through quickly, when the intestines squeeze they are met with back pressure from what they're squeezing not moving forward. this pressure, or stretch, on the intestinal wall creates pain (again to reiterate, it's not a stretch or pressure that leads to breakdown of the wall, but still can create a significant amount of pain). -to manage this, we find it often helpful to work at multiple parts of the picture at once: -stress management - because stress fires up the fight or flight nervous system, unmanaged stress will usually lead to worsening abdominal pain - by slowing down GI transit, and allowing things to get squeezed in the stretch recoil mechanism as above outlined. since you used to be a runner but can't anymore, and exercise is absolutely a well-proven well to help manage stress and anxiety, we'd recommend doing something similar for exercise (cycling, swimming) or some other regular physical activity to "get the stress out." in addition, talk with your psychiatrist about the benzodiazepines - as we discussed, and as you pointed out, over time when someone needs those kinds of medications regularly, their body can get tolerant of the medication. when tolerance occurs, people can experience withdrawal symptoms when they're not taking the medication --- with benzos, the tricky problem is that withdrawal feels like anxiety for a lot of people --> making it hard to tell if the problem is that the anxiety is still bad, or that you're in the middle of a "mild withdrawal cycle" -bowel medications - given that the most common pattern we see with functional bowel disorders is a slow transit kind of situation, frequently in your intestines things are a bit constipated --> and usually in that situation the diarrhea you're experiencing is more of an overflow of the softer or more liquid stool that can get around the "backup" -- while your CT scan from the other day technically is normal (for actual disease states, etc) it does appear to have a fairly large amount of stool scattered throughout your colon. it would be worth (gently) managing this portion of the problem with stool softeners (like miralax or colace) and slowly increase the dose if needed to make sure things are moving through your intestines better -manipulative medicine - thinking to the analogy i made about if you sit on your foot, the pressure creates nerve dysfunction; similarly, the muscles and fascia that are on top of and around the nerves that go to your intestines can put pressure on the nerves creating dysfunction. -the sympathetic nervous system to your intestines comes out of your thoracic spine - most commonly from about T5-12, tight muscles in that area can put pressure on those nerves, creating dysfunction. -the parasympathetics to your intestines are predominantly from the vagus nerve, which comes out of your skull right behind your ears, tracks down the side of your neck, and into your chest behind your collarbones. the last part of the colon has parasympathetic nerves from the sacrum (bottom of spine above your tailbone) -doing hands-on manipulative medicine to help alleviate muscle and facia tightness around these areas has actually been studied to show improvement in symptoms with people with functional abdominal pain - to this end, we'd recommend you start working with Win Valdes DO, [facility] - to work on the areas above. Current Hospital Diet Patient's current hospital diet: Regular Diet Discharge Diet Recommended Diet: Regular Diet Pending Studies Studies pending at discharge: no Medical Emergencies . Who to Call and When: Medical Emergencies: If at any time you feel your situation is an emergency, please call 911 immediately. . Non-Emergent Contact Non-Emergency issues call your: Primary Care Provider . . "Provider Documentation" section prepared by Matt Anne. .
--- NOTE | 2018-05-04 18:39 | Discharge Summary ---
Discharge Summary Date of Service May 04, 2018. Discharge Summary Admission Date: May 03, 2018 at 21:54 Discharge Date: May 04, 2018 Discharge Disposition: Home Principal Diagnosis: abdominal pain, nonspecific GI bleeding without hemorrhage Immunizations: Have You Had Influenza Vaccine: Yes Influenza Vaccine Date: Aug 09, 2017 History of Tetanus Vaccine?: Yes Tetanus Immunization Date: Jul 17, 2013 Procedures: Last 24 Hours Test 05/03/18 19:17 05/03/18 23:36 05/04/18 03:57 05/04/18 06:47 White Blood Count 5.49 K/uL 4.23 K/uL Red Blood Count 4.35 M/uL 4.08 M/uL Hemoglobin 12.3 g/dL 11.9 g/dL 11.6 g/dL 11.7 g/dL Hematocrit 36.6 % 35.8 % 34.3 % 34.5 % Mean Corpuscular Volume 84.1 fL 84.1 fL Mean Corpuscular Hemoglobin 28.3 pg 28.4 pg Mean Corpuscular Hemoglobin Concent 33.6 g/dl 33.8 g/dl Platelet Count 217 K/uL 224 K/uL Mean Platelet Volume 9.0 fL 9.0 fL Neutrophils (%) (Auto) 58.8 % 41.5 % Lymphocytes (%) (Auto) 34.6 % 49.2 % Monocytes (%) (Auto) 4.6 % 5.7 % Eosinophils (%) (Auto) 1.6 % 3.1 % Basophils (%) (Auto) 0.2 % 0.5 % Neutrophils # (Auto) 3.23 K/uL 1.76 K/uL Lymphocytes # (Auto) 1.90 K/uL 2.08 K/uL Monocytes # (Auto) 0.25 K/uL 0.24 K/uL Eosinophils # (Auto) 0.09 K/uL 0.13 K/uL Basophils # (Auto) 0.01 K/uL 0.02 K/uL RDW Standard Deviation 40.8 fL 40.3 fL RDW Coefficient of Variation 13.3 % 13.2 % Immature Granulocyte % (Auto) 0.2 % 0.0 % Immature Granulocyte # (Auto) 0.01 K/uL 0.00 K/uL Prothrombin Time 10.0 SECONDS 10.7 SECONDS Prothromb Time International Ratio 1.0 1.0 Sodium Level 138 mmol/L 139 mmol/L Potassium Level 3.4 mmol/L 3.4 mmol/L Chloride Level 106 mmol/L 109 mmol/L Carbon Dioxide Level 25 mmol/L 24 mmol/L Anion Gap 7.0 mmol/L 6.0 mmol/L Blood Urea Nitrogen 7 mg/dl 5 mg/dl Creatinine 0.94 mg/dl 0.78 mg/dl Est Creatinine Clear Calc Drug Dose 87.0 ml/min 61.8 ml/min Estimated GFR () 91.1 114.2 Estimated GFR (Non- 78.6 98.5 BUN/Creatinine Ratio 7.1 6.4 Random Glucose 92 mg/dl 95 mg/dl Calcium Level 7.7 mg/dl 7.5 mg/dl Total Bilirubin 0.5 mg/dl 0.7 mg/dl Aspartate Amino Transf (AST/SGOT) 51 U/L 38 U/L Alanine Aminotransferase (ALT/SGPT) 63 U/L 53 U/L Alkaline Phosphatase 106 U/L 93 U/L Total Protein 7.3 gm/dl 6.8 gm/dl Albumin 3.4 gm/dl 3.3 gm/dl Globulin 3.9 gm/dl 3.5 gm/dl Albumin/Globulin Ratio 0.9 0.9 Lipase 85 U/L Test 05/04/18 11:54 05/04/18 16:00 Hemoglobin 12.1 g/dL 11.6 g/dL Hematocrit 36.1 % 34.5 % Consultations: GI Impression Patient is a 37 year old female who presented to ED yesterday w c/o n/v x 3 episodes w some blood mixed in, dark red rectal bleeding, epigastric abd pain. No more vomiting since admitted, one stool not witnessed by RN overnight. H/H remained stable and now has normalized. CT abd/pelvis w contrast 05/02/18 w/o acute processes. She had multiple ED visits this year already mostly w c/o pain and also for GI bleeding. Hx of esophagitis, fatty liver, and food residue in stomach during previous EGD/EUS eval (EGD 2010, 2014, 2016, EUS 2013, 2017). Last colonoscopy showed int hemorrhoids. Plan - I do not think she has a significant UGI bleeding such as from ulcer given no rise in BUN, H/H remained stable, now normal. Blood in emesis may be from esophagitis, rectal bleeding could be from hemorrhoids. - Hx of recurrent pancreatitis, pancreas normal on CT scan, LFTs normal. Will add on Lipase to AM labs - Keep Protonix 40mg PO BID; add Carafate 1g QID - She may have gastroparesis given several findings of food residue in stomach during EGD. I don't see she's ever had gastric emptying study and maybe this can be done in outpt setting. - CL diet, advance as tolerated to low residue diet/gastroparesis diet as tolerated - Anusol MA suppository 1 BID prn hemorrhoidal bleeding. - F/U with [facility] [place] DC to discuss further workup with repeat endoscopy if indicated; will defer inpt endoscopic evaluation unless she has any more signs of active GI bleeding and drop in blood count Medication Reconciliation Continued Medications: Acetaminophen (Tylenol) 500 Mg Tab 1000 MG PO Q6H PRN for Headache or Pain Alprazolam (Xanax) 0.5 Mg Tab 0.5 MG PO TID PRN for Anxiety, TAB Bupropion (Wellbutrin) 100 Mg Tab 100 MG PO DAILY, TAB Cyanocobalamin (Vitamin B-12) Unknown Strength Tab 1 TAB PO DAILY, TAB Lamotrigine (Lamictal) 100 Mg Tab 100 MG PO BID, TAB Multivitamins/Minerals (Mvi With Minerals) Tab 1 TAB PO DAILY, TAB Omeprazole (Prilosec) 20 Mg Capcr 40 MG PO QAM, CAP Discharge Exam Physical Exam: General Appearance: no apparent distress Eyes: EOMI ENT: hearing grossly normal Neck: trachea midline Respiratory/Chest: no respiratory distress, no accessory muscle use Extremities: normal inspection 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 as above noted, pt has had recent endoscopic w/u and without significant ongoing bleeding GI did not see benefit to urgent repeat scopes as inpt. stable for discharge to home with outpt f/u in this respect -abdominal pain: has had rather extensive w/u - given her symptoms as well as negative w/u - suspect functional abdominal pain / constipation predominant IBS type mechanism. -discussed stress management, stool softeners, OMT (rec'd f/u w Morris Valdes DO) -anxiety: ongoing outpt f/u, discussed how chronic benzo use can create a vicious cycle of physical dependancy --> withdrawal that can truly mimic worsening anxiety. to d/w pcp and prescribing physician. discussed better stress management and exercise. stable for home Total Time Spent: Greater than 30 minutes This includes examination of the patient, discharge planning, medication reconciliation, and communication with other providers. Discharge Instructions Please refer to the electronic Patient Visit Report (Discharge Instructions) for additional information. Additional Copies To Win Valdes, Alicia.Lin.; Ninfa Bustamante, C.R.N.P.
[2018-05-04] MEDS ORDERED: PROMETHAZINE HCL INJ 25 MG in SODIUM CHLORIDE 0.9% 50ML 50 ML IV STA (21:23)
[2018-05-04 23:49] VITALS: BP 117/67; PULSE 93; TEMP 36.8; O2SAT 99
[2018-05-05] MEDS: SODIUM CHLORIDE 0.9% 1000ML 1,000 ML IV SCH ×2 (01:13→08:20)
[2018-05-05 06:24] VITALS: BP 129/83; PULSE 73; TEMP 36.8; O2SAT 96
[2018-05-05 07:35] VITALS: BP 112/73; PULSE 84; TEMP 36.9; O2SAT 95
[2018-05-05 08:06] LABS: HEMATOCRIT 37.1 % (37-47); HEMOGLOBIN 12.2 g/dL (12.0-16.0); MEAN CELL VOLUME 85.5 fL (80-100); MEAN CORPUSCULAR HEMOGLOBIN 28.1 pg (25-34); MEAN CORPUSCULAR HGB CONC 32.9 g/dl (32-36); MEAN PLATELET VOLUME 9.1 fL (7.4-10.4); PLATELET COUNT 231 K/uL (130-400); RED CELL DISTRIBUTION WIDTH CV 13.2 % (11.5-14.5); RED CELL DISTRIBUTION WIDTH SD 41.4 fL (36.4-46.3)
[2018-05-05] MEDS: SUCRALFATE 1 GM/10 ML UDC PO SCH (08:25)
[2018-05-05] MEDS: PANTOprazole INJ 40 MG in SYRINGE 0 ML IV SCH (08:26)
[2018-05-05 10:05] VITALS: BP 140/62; PULSE 66; TEMP 36.9; O2SAT 98
[2018-05-05 11:20] VITALS: BP 140/62; PULSE 66; TEMP 36.9; O2SAT 98
--- NOTE | 2018-05-05 17:41 | Progress Note ---
Progress Note Date of Service May 05, 2018. Progress Note feeling better ate breakfast no new pain feeling up to going home vitals noted nad breathing unlabored no pallor or icterus possible GI bleeding - totally stable, safe for home. outpt f/u as per dc summary abdominal pain - likely functional - see yesterday's notes/dc summary and instructions stable for home
== END 2018-05-05 12:17 | disposition home or self-care (01) ==
LOC: C.EDB 16:58 → C.MSN 21:54 → ENRESERV 22:05
PROVIDERS: ADMIT Hospitalist; ATTEND Family Medicine
DX: K92.2 Gastrointestinal hemorrhage, unspecified (principal); Z79.899 Other long term (current) drug therapy; F41.8 Other specified anxiety disorders; Z88.0 Allergy status to penicillin; Z88.6 Allergy status to analgesic agent

== ENCOUNTER 2019-05-05 14:36 | Inpatient (IN) ==
--- OUTSIDE RECORDS SUMMARY | 2019-05-05 14:39 | External Medical Summary | Continuity of Care Document ---
:1980 Author Name Adore Lombardi, Provider Address Unavailable Unavailable , Care Team Providers Name Role Phone Unavailable Unavailable Unavailable Cale SCOTT, Livia Amado Unavailable [email or web address] Robby KHAN Unavailable [email or web address] Deanne Bustamante Unavailable Unavailable Unavailable Unavailable Unavailable Problems Hematuria (599.70) (R31.9) Elevated transaminase level (790.4) (R74.0) Sore throat (462) (J02.9) Kidney stone (592.0) (N20.0) Attention deficit disorder without hyperactivity (314.00) (F 98.8) Abdominal tenderness (789.60) (R10.819) Fever (780.60) (R50.9) Black stool (792.1) (K92.1) Pancreatitis, recurrent (577.1) (K85.90) Nausea (787.02) (R11.0) Acid reflux (530.81) (K21.9) Depression (311) (F32.9) Anxiety (300.00) (F41.9) Stomach ulcer (531.90) (K25.9) Allergies and Adverse Reactions Morphine Derivatives (Allergy) Toradol Oral TABS (Allergy) Medications Ondansetron HCl - 4 MG Oral Tablet; TAKE 1 TABLET BY MOUTH EVERY 6 HOURS NEEDED BILL Bustamante Start: 04-Dec-2017 Quantity: 60 Refills: 2 LaMICtal 100 MG Oral Tablet; TAKE 1 TABLET TWICE DAILY. , Lyle DAnahi Start: 02-May-2018 Refills: 0 buPROPion HCl ER (SR) 100 MG Oral Tablet Extended Release 12 Hour; TAKE 1 TABLET DAILY. , LyleDAnahi Start: 02-May-2018 Quantity: 30 Refills: 3 ALPRAZolam 0.5 MG Oral Tablet; TAKE 1 TABLET DAILY NEEDED. SONIA Madsen Start: 12-Sep-2017 Quantity: 30 Refills: 0 Protonix 40 MG Oral Packet; 1 Pill Once A Day , M.D. Start: 12-Sep-2017 Refills: 0 Procedures History of gallbladder surgery Status: C ompleted History of appendectomy Status: Complete d History of hernia repair Status: Complet ed Immunizations Immunizations not documented Family History Mother Family history of malignant neoplasm of breast (V16.3) (Z80. 3) Status: Active Grandmother Family history of malignant neoplasm of breast (V16.3) (Z80. 3) Status: Active Father Family history of myocardial infarction (V17.3) (Z82.49) Sta tus: Active Grandfather Family history of myocardial infarction (V17.3) (Z82.49) Sta tus: Active Social History - Smoking Status Never smoker Plan of Treatment Planned Observations Planned Goals not documented Results No Known Results Results not documented Encounters Appointment; Ninfa Bustamante CRNP 06-Jun-2018 10:30 Encounter Diagnosis: Problem not documented Appointment; Ninfa Bustamante CRNP 16-May-2018 14:15 Encounter Diagnosis: Problem not documented Appointment; Melo Rivas M.D. 02-May-2018 16:00 Encounter Diagnosis: Problem not documented Appointment; Ninfa Bustamante CRNP 04-Dec-2017 13:30 Encounter Diagnosis: Problem not documented Appointment; Ninfa Bustamante CRNP 27-Nov-2017 10:00 Encounter Diagnosis: Problem not documented Appointment; Sebastián Shi M.D. 30-Oct-2017 15:40 Encounter Diagnosis: Problem not documented Appointment; Livia Madsen PA-C 12-Sep-2017 15:00 Encounter Diagnosis: Problem not documented Appointment; [place] [id number] 12-Sep-2017 14:45 Encounter Diagnosis: Problem not documented
[2019-05-05] MEDS ORDERED: SODIUM CHLORIDE 0.9% 1000ML 1,000 ML IV ONE (15:17)
[2019-05-05] MEDS ORDERED: ONDANSETRON INJ 2 MG/ML 2 ML VIAL IV STA ×2 (15:17→16:42)
[2019-05-05] MEDS ORDERED: PROMETHAZINE HCL 6.25 MG in SODIUM CHLORIDE 0.9% 50 ML IV STA (15:17)
[2019-05-05 15:24] LABS: Basophils # (auto) 0.02 K/uL (0-0.2); Basophils % (auto) 0.5 %; Eosinophils # (auto) 0.02 K/uL (0-0.5); Eosinophils % (auto) 0.5 %; Hematocrit (blood only) 38.6 % (37-47); Hemoglobin 13.7 g/dL (12.0-16.0); Immature Granulocytes # (auto) 0.01 K/uL (0.00-0.02); Immature Granulocytes % (auto) 0.2 %; Lymphocytes # (auto) 1.69 K/uL (1.2-3.4); Lymphocytes % (auto) 39.8 %; Mean Corpuscular Hgb Conc 35.5 g/dL (32-36); Mean Corpuscular Volume 86.5 fL (80-100); Mean Platelet Volume 9.2 fL (7.4-10.4); Monocytes % (auto) 4.7 %; Neutrophils # (auto) 2.31 K/uL (1.4-6.5); Neutrophils % (auto) 54.3 %; Platelet Count 275 K/uL (130-400); RDW Coefficient of Variation 12.7 % (11.5-14.5); RDW Standard Deviation 40.6 fL (36.4-46.3); Red Blood Count 4.46 M/uL (4.2-5.4); White Blood Count 4.25 K/uL (4.8-10.8)
[2019-05-05] MEDS: MoRPHine SULFATE 4 MG/ML 1 ML CARP\\VIAL IV PRN ×5 (15:25→21:44)
[2019-05-05 15:52] LABS: Albumin Globulin Ratio 0.9 (0.9-2); Albumin Level 3.4 gm/dl (3.4-5.0); BUN Creatinine Ratio 7.8 (10-20); Bilirubin,Total 0.2 mg/dl (0.2-1); Calcium 8.5 mg/dl (8.5-10.1); Creatinine Clr Calc Pharmacy 92.9 ml/min; Est GFR (African American) 109.9; Est GFR (Non-African American) 94.9; Globulin 3.9 gm/dl (2.5-4.0); Magnesium 2.1 mg/dl (1.8-2.4); Total Protein 7.3 gm/dl (6.4-8.2)
[2019-05-05 15:53] LABS: Pregnancy Test, Serum Negative (Negative)
--- NOTE | 2019-05-05 16:26 | XRay Report ---
PA CHEST WITH ABDOMINAL SERIES CLINICAL HISTORY: Vomiting. Generalized abdominal pain. FINDINGS: A PA chest radiograph is compared to study dated 10/31/2018. The cardiomediastinal silhouette is unrem arkable. The lungs and pleural spaces are clear. No pneumothorax is seen. The bony thorax is grossly intact. Supine and erect abdominal radiographs are compared abdominal radiograph and CT dated 10/31/2018. Chol ecystectomy clips are noted in the right upper quadrant. Moderate fecal retention is noted in the col on. There is a nonobstructed abdominal bowel gas pattern. No evidence of intraperitoneal free air is seen. There are no abnormal abdominal calcifications. Surgical clips and phleboliths are noted in the pelvis. The lumbosacral spine and bony pelvis appear intact. IMPRESSION: 1. No active disease in the chest. 2. Nonobstructed abdominal bowel gas pattern. Electronically signed by: Ashwin Kathleen M.D. 05/05/2019 4:24 PM
[2019-05-05] MEDS ORDERED: SODIUM CHLORIDE 0.9% 1000ML 500 ML IV ONE (16:42)
[2019-05-05 17:06] LABS: Appearance Urine Cloudy (Clear); Color Urine Dark Yellow; Epithelial Cell Urine Auto >30 /lpf (0-5); Glucose Urine UA Negative (Negative); Ketones Urine Trace (Negative); Leukocyte Esterase Urine 1+ (Negative); Nitrite Urine Positive (Negative); Protein Urine 1+ (Negative); Specific Gravity Urine 1.025 (1.000-1.030); Urobilinogen Urine Negative (Negative)
--- NOTE | 2019-05-05 17:23 | Emergency Department Note ---
Entered by Geri Rea acting as a scribe for Ashwin Aguilar MD History of Present Illness General Chief complaint: GI Assessment Stated complaint: VOMITING, NAUSEA, SEVERE STOMACH PAIN-PANCREATITIS Time Seen by Provider: 05/05/19 14:46 Source: patient History of Present Illness Onset (ago): day(s) 1 Location: abdomen Radiation: back Severity: severe and similar to prior episodes Pain Consistency: + constant Maximum Pain Intensity: 7 Current Pain Intensity: 8 Quality: + other (Abdominal pain) Relieved By: + medication (Zofran) Exacerbated By: + eating Associated symptoms: + nausea/vomiting and + other (Positive abdominal pain. Negative dysuria, polyuria. ) Treatments prior to arrival: other (Zofran) The patient is a 38 year old female presenting to the Emergency Department complaining of constant abdominal pain starting 1 day ago. The patient reports that she has severe upper abdominal pain that radiates to her back. She cur rently rates this pain 8/10. She states that she is nauseous and has been vomiting. She explains that she ate ribs last night that she believes onset her abdominal pain. She notes that she has experienced this pain before in May 2018 when she had a flare up of her pancreatitis. She adds that she took Zofran for her symptoms that helped to relieve her nausea and vomiting. The patient reports that she has been admitted to the hospital before for her pancreatitis. She denies dysuria and polyuria. Home Medications Home Medications Medication Instructions Recorded Confirmed Type lamotrigine [Lamictal] 100 mg PO BID 06/20/18 05/05/19 History clonazepam 0.5 mg PO BID PRN 10/24/18 05/05/19 History cetirizine 10 mg PO DAILY 05/05/19 05/05/19 History dextroamphetamine-amphetamine 20 mg PO BID 05/05/19 05/05/19 History tramadol 100 mg PO Q6H PRN 05/05/19 05/05/19 History Allergies Allergy/AdvReac Type Severity Reaction Status Date / Time fentanyl Allergy Severe RASH Unverified 05/05/19 16:48 ibuprofen Allergy Unknown UNKNOWN Unverified 05/05/19 16:48 ketorolac Allergy Unknown rash Unverified 05/05/19 16:48 Penicillins Allergy Unknown rash Verified 05/05/19 16:48 adhesive tape AdvReac Rash Unverified 05/05/19 16:48 Past Med/Surg History Medical History Migraine (Chronic) Pseudoseizure (Chronic) Hepatitis C (Chronic) Depression with anxiety (Chronic) Idiopathic pancreatitis (Chronic) Pancreatitis (Chronic) Surgical History Hx of cholecystectomy (Chronic) Hx of appendectomy (Chronic) H/O hernia repair (Chronic) Family History Other Chronic pancreatitis Social History Preferred Language: [place]ian 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 Home: Yes Smoking Status: Former smoker Hx Alcohol Use: No Review of Systems See HPI for pertinent positives & negatives. and A total of 10 systems reviewed and were otherwise negative Physical Exam Vital Signs Vital Signs - 24 hr 05/05/19 14:41 05/05/19 15:28 05/05/19 16:51 Temperature 36.7 C Temperature Source Oral Sepsis Recent Fever Within 48 Hours No Sepsis New/Unexplained Change in Mental Status No Sepsis Action Taken by Nursing No Action Required Pulse Rate 104 H Pulse Rate [Left Finger] 72 77 Pulse Rhythm [Left Finger] Regular Regular Pulse Strength [Left Finger] Normal Normal Respiratory Rate 18 20 20 Respiratory Effort / Characteristics Non-Labored Spontaneous Non-Labored Spontaneous Non-Labored Spontaneous Respiratory Depth Normal Normal Normal Respiratory Pattern Regular Regular Regular Blood Pressure 145/78 H Blood Pressure [Right Arm] 140/85 130/89 Blood Pressure Mean 100 Blood Pressure Mean [Right Arm] 103 102 Blood Pressure Position Sitting Blood Pressure Position [Right Arm] Sitting Sitting Pulse Oximetry 94 96 96 Oxygen Delivery Method Room Air Room Air Room Air 05/05/19 18:34 Temperature Temperature Source Sepsis Recent Fever Within 48 Hours Sepsis New/Unexplained Change in Mental Status Sepsis Action Taken by Nursing Pulse Rate 76 Pulse Rate [Left Finger] Pulse Rhythm [Left Finger] Pulse Strength [Left Finger] Respiratory Rate 16 Respiratory Effort / Characteristics Respiratory Depth Respiratory Pattern Blood Pressure 135/97 Blood Pressure [Right Arm] Blood Pressure Mean 109 Blood Pressure Mean [Right Arm] Blood Pressure Position Blood Pressure Position [Right Arm] Pulse Oximetry 93 Oxygen Delivery Method Room Air GENERAL: Patient is in no acute distress. HEENT: No acute trauma, normocephalic atraumatic, mucous membranes moist, no nasal congestion, no scleral icterus. NECK: No stridor, no adenopathy, no meningismus, trachea is midline. LUNGS: Clear to auscultation bilaterally, no wheeze, no rhonchi, breath sounds equal. HEART: Without murmurs gallops or rubs, regular rate and rhythm. ABDOMEN: Soft, bowel sounds positive, no hernias, no peritonitis. Moderately tender to epigastrium and left upper quadrant. EXTREMITIES: No cyanosis or edema, full range of motion of all the joints without pain or difficulty, no signs for acute trauma. NEUROLOGIC: Oriented x 3, no acute motor or sensory deficits, no focal weakness. SKIN: No rash, no jaundice, no diaphoresis. Course 1514: The patient was evaluated in room C11B, and a complete history and physical examination were performed. 1730: I reevaluated the patient at this time who reported that she feels generally better but does not feel like she can go home. 1749: I discussed the patients case with Dr. Gregorio MARIEE hospitalist. She will evaluate the patient for further management. Consultations Consultation #1: I discussed the patients case with Dr. Gregorio MARIEE ospitalist. She will evaluate the patient for further management. Time: 17:49 Administered Medications Lactated Ringer's (Lr) 1,000 mls @ 250 mls/hr IV .Q4H TANISHA Stop: 06/04/19 18:44 Last Admin: 05/05/19 18:54 Dose: 250 mls/hr Documented by: [id number] Morphine Sulfate (Morphine Sulfate) 4 mg IV Q15M PRN PRN Reason: Pain Stop: 05/19/19 15:16 Last Admin: 05/05/19 18:34 Dose: 4 mg Documented by: [id number] Admin: 05/05/19 17:21 Dose: 4 mg Documented by: [id number] Admin: 05/05/19 15:56 Dose: 4 mg Documented by: [id number] Admin: 05/05/19 15:25 Dose: 4 mg Documented by: [id number] Discontinued Medications Sodium Chloride (Nss 1000ml) 1,000 mls @ 999 mls/hr IV .Q1H1M ONE Stop: 05/05/19 16:17 Last Infusion: 05/05/19 16:41 Dose: 0 mls/hr Documented by: [id number] Admin: 05/05/19 15:24 Dose: 999 mls/hr Documented by: [id number] Promethazine HCl 6.25 mg/ (Sodium Chloride) 50.25 mls @ 201 mls/hr IV NOW STA Stop: 05/05/19 15:31 Last Admin: 05/05/19 15:25 Dose: Not Given Documented by: [id number] Sodium Chloride (Nss 1000ml) 500 mls @ 999 mls/hr IV .Q31M ONE Stop: 05/05/19 17:12 Last Infusion: 05/05/19 17:18 Dose: 0 mls/hr Documented by: [id number] Admin: 05/05/19 16:51 Dose: 999 mls/hr Documented by: [id number] Ondansetron HCl (Zofran) 4 mg IV NOW STA Stop: 05/05/19 15:18 Last Admin: 05/05/19 15:24 Dose: 4 mg Documented by: [id number] Ondansetron HCl (Zofran) 4 mg IV NOW STA Stop: 05/05/19 16:43 Last Admin: 05/05/19 16:51 Dose: 4 mg Documented by: [id number] Medical Decision Making Differential Diagnosis Differentials include pancreatitis, bowel obstruction, food borne illness, viral illness, UTI, , dehydration, pneumonia and reflux amongst others. Medical Records Attestation: I reviewed the patient's medical records. Home Medications Current Medication List: was personally reviewed by me Laboratory Data Attestation: I reviewed the patient's lab results. Result diagrams: 05/05/19 15:15 05/05/19 15:15 Lab Results 05/05/19 05/05/19 05/05/19 Range/Units 15:15 15:15 15:15 WBC 4.25 L (4.8-10.8) K/uL RBC 4.46 (4.2-5.4) M/uL Hgb 13.7 (12.0-16.0) g/dL Hct 38.6 (37-47) % MCV 86.5 (80-100) fL MCH 30.7 (25-34) pg MCHC 35.5 (32-36) g/dL RDW Std Deviation 40.6 (36.4-46.3) fL RDW Coeff of Jess 12.7 (11.5-14.5) % Plt Count 275 (130-400) K/uL MPV 9.2 (7.4-10.4) fL Immature Gran % (Auto) 0.2 % Neut % (Auto) 54.3 % Lymph % (Auto) 39.8 % [place] % (Auto) 4.7 % Eos % (Auto) 0.5 % Baso % (Auto) 0.5 % Immature Gran # (Auto) 0.01 (0.00-0.02) K/uL Neut # (Auto) 2.31 (1.4-6.5) K/uL Lymph # (Auto) 1.69 (1.2-3.4) K/uL [place] # (Auto) 0.20 (0.11-0.59) K/uL Eos # (Auto) 0.02 (0-0.5) K/uL Baso # (Auto) 0.02 (0-0.2) K/uL Sodium 144 (136-145) mmol/L Potassium 3.0 L (3.5-5.1) mmol/L Chloride 107 (98-107) mmol/L Carbon Dioxide 30 (21-32) mmol/L Anion Gap 7.0 (3-11) BUN 6 L (7-18) mg/dl Creatinine 0.80 (0.6-1.2) mg/dl Est Cr Clr Drug Dosing 92.9 ml/min Est GFR ( Amer) 109.9 Est GFR (Non-Af Amer) 94.9 BUN/Creatinine Ratio 7.8 L (10-20) Glucose 130 H (70-99) mg/dl Calcium 8.5 (8.5-10.1) mg/dl Magnesium 2.1 (1.8-2.4) mg/dl Total Bilirubin 0.2 (0.2-1) mg/dl AST 35 (15-37) U/L ALT 45 (12-78) U/L Alkaline Phosphatase 128 H (45-117) U/L Total Protein 7.3 (6.4-8.2) gm/dl Albumin 3.4 (3.4-5.0) gm/dl Globulin 3.9 (2.5-4.0) gm/dl Albumin/Globulin Ratio 0.9 (0.9-2) Lipase 169 (73-393) U/L HCG, Qual Negative (Negative) Specimen Hemolysis Urine Color Urine Appearance (Clear) Urine pH (4.5-7.5) Ur Specific [place] (1.000-1.030) Urine Protein (Negative) Urine Glucose (UA) (Negative) Urine Ketones (Negative) Urine Blood (Negative) Urine Nitrite (Negative) Urine Bilirubin (Negative) Urine Urobilinogen (Negative) Ur Leukocyte Esterase (Negative) Urine WBC (Auto) (0-5) /hpf Urine RBC (Auto) (0-4) /hpf U Hyaline Cast (Auto) (0-5) /lpf U Epithel Cells (Auto) (0-5) /lpf Urine Bacteria (Auto) (Negative) Ur Renal Epithelial Cell Urine Crystals (None Prsent) Urine Mucus (None Prsent) 05/05/19 Range/Units 16:45 WBC (4.8-10.8) K/uL RBC (4.2-5.4) M/uL Hgb (12.0-16.0) g/dL Hct (37-47) % MCV (80-100) fL MCH (25-34) pg MCHC (32-36) g/dL RDW Std Deviation (36.4-46.3) fL RDW Coeff of Jess (11.5-14.5) % Plt Count (130-400) K/uL MPV (7.4-10.4) fL Immature Gran % (Auto) % Neut % (Auto) % Lymph % (Auto) % [place] % (Auto) % Eos % (Auto) % Baso % (Auto) % Immature Gran # (Auto) (0.00-0.02) K/uL Neut # (Auto) (1.4-6.5) K/uL Lymph # (Auto) (1.2-3.4) K/uL [place] # (Auto) (0.11-0.59) K/uL Eos # (Auto) (0-0.5) K/uL Baso # (Auto) (0-0.2) K/uL Sodium (136-145) mmol/L Potassium (3.5-5.1) mmol/L Chloride (98-107) mmol/L Carbon Dioxide (21-32) mmol/L Anion Gap (3-11) BUN (7-18) mg/dl Creatinine (0.6-1.2) mg/dl Est Cr Clr Drug Dosing ml/min Est GFR ( Amer) Est GFR (Non-Af Amer) BUN/Creatinine Ratio (10-20) Glucose (70-99) mg/dl Calcium (8.5-10.1) mg/dl Magnesium (1.8-2.4) mg/dl Total Bilirubin (0.2-1) mg/dl AST (15-37) U/L ALT (12-78) U/L Alkaline Phosphatase (45-117) U/L Total Protein (6.4-8.2) gm/dl Albumin (3.4-5.0) gm/dl Globulin (2.5-4.0) gm/dl Albumin/Globulin Ratio (0.9-2) Lipase (73-393) U/L HCG, Qual (Negative) Specimen Hemolysis Urine Color Dark Yellow Urine Appearance Cloudy A (Clear) Urine pH 7.0 (4.5-7.5) Ur Specific [place] 1.025 (1.000-1.030) Urine Protein 1+ H (Negative) Urine Glucose (UA) Negative (Negative) Urine Ketones Trace H (Negative) Urine Blood 2+ H (Negative) Urine Nitrite Positive A (Negative) Urine Bilirubin Negative (Negative) Urine Urobilinogen Negative (Negative) Ur Leukocyte Esterase 1+ H (Negative) Urine WBC (Auto) 5-10 H (0-5) /hpf Urine RBC (Auto) 10-30 H (0-4) /hpf U Hyaline Cast (Auto) 1-5 (0-5) /lpf U Epithel Cells (Auto) >30 H (0-5) /lpf Urine Bacteria (Auto) 1+ H (Negative) Ur Renal Epithelial Cell Not Reportable Urine Crystals Calcium Oxalate A (None Prsent) Urine Mucus Present A (None Prsent) Imaging Data Radiologist's Impression: Radiology results as stated below per my review and the radiologist's interpretation: PA CHEST WITH ABDOMINAL SERIES CLINICAL HISTORY: Vomiting. Generalized abdominal pain. FINDINGS: A PA chest radiograph is compared to study dated 10/31/2018. The cardiomediastinal silhouette is unremarkable. The lungs and pleural spaces are clear. No pneumothorax is seen. The bony thorax is grossly intact. Supine and erect abdominal radiographs are compared abdominal radiograph and CT dated 10/31/2018. Cholecystectomy clips are noted in the right upper quadrant. Moderate fecal retention is noted in the colon. There is a nonobstructed abdominal bowel gas pattern. No evidence of intraperitoneal free air is seen. There are no abnormal abdominal calcifications. Surgical clips and phleboliths are noted in the pelvis. The lumbosacral spine and bony pelvis appear intact. IMPRESSION: 1. No active disease in the chest. 2. Nonobstructed abdominal bowel gas pattern. Electronically signed by: Ashwin Kathleen M.D. 05/05/2019 4:24 PM Blood Pressure Blood Pressure Findings: Normal blood pressure Blood Pressure Disposition: further management by hospitalist [facility] Narrative There is no leukocytosis, in fact, the white count is slightly low. No concerning anemia. Potassium somewhat low at 3, this value is not critical. No kidney failure. No concerning liver enzyme elevation. Lipase is not elevated. testing is negative. Urinalysis shows contamination versus infection, some red cells were seen. Calcium oxalate crystals were noted. Ultrasound of the kidneys has been ordered, the results are pending. Abdominal series showed no pneumonia, free air or bowel obstruction. The patient presents with what she thought was pancreatitis, she has had similar symptoms in the past from pancreatitis. The patient was given IV morphine for pain-several doses were needed. She received IV Zofran for nausea, a second Zofran dose was given. She received IV saline 1.5 L. Patient still has upper epigastric abdominal pain and nausea. She is afraid to be discharged as she has always been brought into the hospital for her pancreatitis. The patient will be hospitalized. I did speak with case management and the on- call hospitalist. An ultrasound of the kidneys will be performed to look for the possibility of hydronephrosis. I suppose a renal stone caught in the ureter could present similarly. Impression & Plan Acute pancreatitis, Epigastric abdominal pain, Vomiting, Dehydration Discharge Plan Visit Data Chief Complaint: GI Assessment Stated Complaint: VOMITING, NAUSEA, SEVERE STOMACH PAIN-PANCREATITIS ED Provider: Ashwin Aguilar Discharge Problem: Acute pancreatitis, Epigastric abdominal pain, Vomiting, Dehydration Patient Disposition: Being Evaluated by Hospitalist Forms Stand Alone Forms: My [place] Prescriptions Prescriptions: No Action lamotrigine [Lamictal] 100 mg Tablet 100 mg PO BID RF: 0 clonazepam 0.5 mg tablet 0.5 mg PO BID PRN (Reason: Anxiety) RF: 0 cetirizine 10 mg Tablet 10 mg PO DAILY RF: 0 tramadol 50 mg tablet 100 mg PO Q6H PRN (Reason: Pain) RF: 0 dextroamphetamine-amphetamine 20 mg tablet 20 mg PO BID RF: 0 Referrals Referrals: Thien Kohli DO [Primary Care Provider] - Discharge Problem: Acute pancreatitis Qualifiers: Pancreatitis type: unspecified pancreatitis type Acute pancreatitis complication: unspecified Qualified Code(s): K85.90 - Acute pancreatitis without necrosis or infection, unspecified Vomiting Qualifiers: Vomiting type: unspecified Vomiting Intractability: non-intractable Nausea presence: with nausea Qualified Code(s): R11.2 - Nausea with vomiting, unspecified The scribe's documentation has been prepared under my direction and personally reviewed by me in its entirety. I confirm that the note above accurately reflects all work, treatment, procedures, and medical decision making performed by me.
[2019-05-05 17:39] LABS: Bilirubin Urine Negative (Negative); Ictotest Urine Negative (Negative)
[2019-05-05 17:46] LABS: Mucus Urine Present (None Prsent)
[2019-05-05 17:47] LABS: Bacteria Urine Automated 1+ (Negative)
--- NOTE | 2019-05-05 18:41 | History & Physical Report ---
Date of Service May 05, 2019 Assessment & Plan (1) Idiopathic pancreatitis: This pt is a 38 yo female with a h/o recurrent idiopathic pancreatitis, treated HCV, esophagitis, seizure disorder vs pseudoseizures, migraines, nephrolithiasis, ADHD, chronic mid back pain s/p T-spine fracture, Gen Anxiety disorder and h/o benzo abuse, allergies, esophagitis and GI bleeding who presents with over 12 hours of severe epigastric abdominal pain radiating straight through to her left mid back, along with nausea and vomiting. This came on shortly after she ate ribs; she reports she doesn't usually eat fatty foods. She states it feels exactly like her previous episodes of acute pancreatitis in the past (has had approximately 15 episodes over the last 4 years). Some of her pancreatitis episodes showed normal lipase, and others have been elevated with no corresponding abnormality on CT scan abd/pel upon review of records in this system. SHe has had several EUSs including one in 2018 which were all normal as per GI notes from previous. She had her GB removed several years ago and denies any EtOH use. She follows with [facility] in [place]. Here was found to have a normal CBC, normal BMP except hypokalemia, and normal lipase and LFTs. Because of her persistent nausea and pain, she was admitted. Likely recurrent mild pancreatitis. Review of PDMP website and previous admissions/ER visits/PCP visits show concern for drug-seeking behaviors and multiple Rxs for tramadol 8 tabs daily of the 50mg tabs (despite the fact that pt tells me she takes tramadol very rarely for back pain when there is rainy weather) -admit for observation -hydrate with LR at 250mLs/hr -pain control with IV morphine -antiemetics prn -replace lytes and follow lipase, LFTs -no need to repeat imaging of abdomen as she has had numerous CTs of her abdomen over the years and no fevers, normal labs -keep NPO with ice chips/sips only -GI consult due to multiple recurrent episodes of abdominal pain (2) Vomiting: Likely secondary to pancreatitis Has had esophagitis previously Benign abdomen on exam -phenergan and zofran prn -keep NPO -add Pepcid 20mg IV q12h (3) Depression with anxiety: has uncontrolled anxiety Review of previous Psych consult reveals was previously on SSRI and on Wellbutrin, as well as a h/o Xanax abuse--> now on nothing except prn clonazepam -continue prn clonazepam -suggested outpt f/u for anxiety (4) Pseudoseizure: Pt reports she has a h/o Epilepsy, but couldn't tell me the name of her Neurologist Last seizure she reports was 4 months ago -continue on Lamictal (5) Nephrolithiasis: bilateral stones on renal US and previous CT scans Blood in UA but also on menses currently Pain does not seem clinically like renal colic -follow clinically (6) Environmental allergies: continue Zyrtec (7) UTI (urinary tract infection): Abnormal UA but is also menstruating. Although, would not expect to see nitrites with vaginal contamination Previous Ur cxs only mixed organisms -treat empirically with Cipro for now -follow Ur cx (8) Hypokalemia: due to vomiting -replace with KCl IV 30 meq and with LR -follow BMP in AM (9) DVT prophylaxis: Lovenox, SCDs Dispo-admit under obs to medical floor History of Present Illness Chief Complaint: Abdominal pain Primary Care Provider: Thien Kohli, This pt is a 38 yo female with a h/o recurrent idiopathic pancreatitis, treated HCV, esophagitis, seizure disorder vs pseudoseizures, migraines, nephrolithiasis, ADHD, chronic mid back pain s/p T-spine fracture, Gen Anxiety disorder and h/o benzo abuse, allergies, esophagitis and GI bleeding who presents to the ER today with over 12 hours of severe epigastric abdominal pain radiating straight through to her left mid back, along with nausea and vomiting. This came on shortly after she ate ribs last evening; she reports she doesn't usually eat fatty foods. She states it feels exactly like her previous episodes of acute pancreatitis in the past (has had approximately 15 episodes over the last 4 years). Some of her pancreatitis episodes showed normal lipase, and others have been elevated with no corresponding abnormality on CT scan abd/pel upon review of records in this system. SHe has had several EUSs including one in 2018 which were all normal as per GI notes from previous. She had her GB removed several years ago and denies any EtOH use. She follows with [facility] in [place]. Here was found to have a normal CBC, normal BMP except hypokalemia, and normal lipase and LFTs. Because of her persistent nausea and pain, she will be admitted. Here in the ER, she was treated with IV morphine, IV Zofran and phenergan, as well as IVFs. Allergies Allergy/AdvReac Type Severity Reaction Status Date / Time fentanyl Allergy Severe RASH Unverified 05/05/19 16:48 ibuprofen Allergy Unknown UNKNOWN Unverified 05/05/19 16:48 ketorolac Allergy Unknown rash Unverified 05/05/19 16:48 Penicillins Allergy Unknown rash Verified 05/05/19 16:48 adhesive tape AdvReac Rash Unverified 05/05/19 16:48 Home Medications Home Medications Medication Instructions Recorded Confirmed Type lamotrigine [Lamictal] 100 mg PO BID 06/20/18 05/05/19 History clonazepam 0.5 mg PO BID PRN 10/24/18 05/05/19 History cetirizine 10 mg PO DAILY 05/05/19 05/05/19 History dextroamphetamine-amphetamine 20 mg PO BID 05/05/19 05/05/19 History tramadol 100 mg PO Q6H PRN 05/05/19 05/05/19 History Past Med/Surg History Medical History Migraine (Chronic) Pseudoseizure (Chronic) Hepatitis C (Chronic) Depression with anxiety (Chronic) Idiopathic pancreatitis (Chronic) Pancreatitis (Chronic) Chronic back pain Environmental allergies History of esophagitis Nephrolithiasis Surgical History Hx of cholecystectomy (Chronic) Hx of appendectomy (Chronic) H/O hernia repair (Chronic) Family History Other Chronic pancreatitis Social History Preferred Language: Georgian Communication Ability: 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 She currently is menstruating. Physical Exam Constitutional: WD/WN, vitals as above Eyes: PERRL, conjunctivae normal, anicteric sclerae ENMT: external ear and nose normal, oropharynx normal Neck: trachea midline, no thyromegaly Respiratory: normal respiratory effort, lungs clear to auscultation Cardiovascular: RRR, no murmur, no edema Gastrointestinal (Abdomen): Inspection/Auscultation: abdomen normal to inspection and normal bowel sounds; abdomen not distended Percussion/Palpation: + abdomen tender (diffusely but moreso in epigastric and LUQ regions without guarding/rebound) and abdomen soft; no guarding, abdomen not rigid, no hepatosplenomegaly, no abdominal mass and no ascites Musculoskeletal: Extremities: extremities normal to inspection; no cyanosis and no clubbing Skin: no rashes, warm and dry Neurologic: moves all extremities and awake; no focal motor deficits Psychiatric: A+Ox3, euthymic affect Results & Data Vital Signs (Past 12 Hours) Vital Signs Temp Pulse Pulse Resp BP BP Pulse Ox 05/05/19 18:34 76 16 135/97 93 05/05/19 16:51 77 20 130/89 96 05/05/19 15:28 72 20 140/85 96 05/05/19 14:41 36.7 C 104 H 18 145/78 H 94 Laboratory Results 05/05/19 05/05/19 05/05/19 Range/Units 16:45 15:15 15:15 WBC (4.8-10.8) K/uL RBC (4.2-5.4) M/uL Hgb (12.0-16.0) g/dL Hct (37-47) % MCV (80-100) fL MCH (25-34) pg MCHC (32-36) g/dL RDW Std Deviation (36.4-46.3) fL RDW Coeff of Jess (11.5-14.5) % Plt Count (130-400) K/uL MPV (7.4-10.4) fL Immature Gran % (Auto) % Neut % (Auto) % Lymph % (Auto) % [place] % (Auto) % Eos % (Auto) % Baso % (Auto) % Immature Gran # (Auto) (0.00-0.02) K/uL Neut # (Auto) (1.4-6.5) K/uL Lymph # (Auto) (1.2-3.4) K/uL [place] # (Auto) (0.11-0.59) K/uL Eos # (Auto) (0-0.5) K/uL Baso # (Auto) (0-0.2) K/uL Sodium 144 (136-145) mmol/L Potassium 3.0 L (3.5-5.1) mmol/L Chloride 107 (98-107) mmol/L Carbon Dioxide 30 (21-32) mmol/L Anion Gap 7.0 (3-11) BUN 6 L (7-18) mg/dl Creatinine 0.80 (0.6-1.2) mg/dl Est Cr Clr Drug Dosing 92.9 ml/min Est GFR ( Amer) 109.9 Est GFR (Non-Af Amer) 94.9 BUN/Creatinine Ratio 7.8 L (10-20) Glucose 130 H (70-99) mg/dl Calcium 8.5 (8.5-10.1) mg/dl Magnesium 2.1 (1.8-2.4) mg/dl Total Bilirubin 0.2 (0.2-1) mg/dl AST 35 (15-37) U/L ALT 45 (12-78) U/L Alkaline Phosphatase 128 H (45-117) U/L Total Protein 7.3 (6.4-8.2) gm/dl Albumin 3.4 (3.4-5.0) gm/dl Globulin 3.9 (2.5-4.0) gm/dl Albumin/Globulin Ratio 0.9 (0.9-2) Lipase 169 (73-393) U/L HCG, Qual Negative (Negative) Specimen Hemolysis Urine Color Dark Yellow Urine Appearance Cloudy A (Clear) Urine pH 7.0 (4.5-7.5) Ur Specific [place] 1.025 (1.000-1.030) Urine Protein 1+ H (Negative) Urine Glucose (UA) Negative (Negative) Urine Ketones Trace H (Negative) Urine Blood 2+ H (Negative) Urine Nitrite Positive A (Negative) Urine Bilirubin Negative (Negative) Urine Urobilinogen Negative (Negative) Ur Leukocyte Esterase 1+ H (Negative) Urine WBC (Auto) 5-10 H (0-5) /hpf Urine RBC (Auto) 10-30 H (0-4) /hpf U Hyaline Cast (Auto) 1-5 (0-5) /lpf U Epithel Cells (Auto) >30 H (0-5) /lpf Urine Bacteria (Auto) 1+ H (Negative) Ur Renal Epithelial Cell Not Reportable Urine Crystals Calcium Oxalate A (None Prsent) Urine Mucus Present A (None Prsent) 05/05/19 Range/Units 15:15 WBC 4.25 L (4.8-10.8) K/uL RBC 4.46 (4.2-5.4) M/uL Hgb 13.7 (12.0-16.0) g/dL Hct 38.6 (37-47) % MCV 86.5 (80-100) fL MCH 30.7 (25-34) pg MCHC 35.5 (32-36) g/dL RDW Std Deviation 40.6 (36.4-46.3) fL RDW Coeff of Jess 12.7 (11.5-14.5) % Plt Count 275 (130-400) K/uL MPV 9.2 (7.4-10.4) fL Immature Gran % (Auto) 0.2 % Neut % (Auto) 54.3 % Lymph % (Auto) 39.8 % [place] % (Auto) 4.7 % Eos % (Auto) 0.5 % Baso % (Auto) 0.5 % Immature Gran # (Auto) 0.01 (0.00-0.02) K/uL Neut # (Auto) 2.31 (1.4-6.5) K/uL Lymph # (Auto) 1.69 (1.2-3.4) K/uL [place] # (Auto) 0.20 (0.11-0.59) K/uL Eos # (Auto) 0.02 (0-0.5) K/uL Baso # (Auto) 0.02 (0-0.2) K/uL Sodium (136-145) mmol/L Potassium (3.5-5.1) mmol/L Chloride (98-107) mmol/L Carbon Dioxide (21-32) mmol/L Anion Gap (3-11) BUN (7-18) mg/dl Creatinine (0.6-1.2) mg/dl Est Cr Clr Drug Dosing ml/min Est GFR ( Amer) Est GFR (Non-Af Amer) BUN/Creatinine Ratio (10-20) Glucose (70-99) mg/dl Calcium (8.5-10.1) mg/dl Magnesium (1.8-2.4) mg/dl Total Bilirubin (0.2-1) mg/dl AST (15-37) U/L ALT (12-78) U/L Alkaline Phosphatase (45-117) U/L Total Protein (6.4-8.2) gm/dl Albumin (3.4-5.0) gm/dl Globulin (2.5-4.0) gm/dl Albumin/Globulin Ratio (0.9-2) Lipase (73-393) U/L HCG, Qual (Negative) Specimen Hemolysis Urine Color Urine Appearance (Clear) Urine pH (4.5-7.5) Ur Specific [place] (1.000-1.030) Urine Protein (Negative) Urine Glucose (UA) (Negative) Urine Ketones (Negative) Urine Blood (Negative) Urine Nitrite (Negative) Urine Bilirubin (Negative) Urine Urobilinogen (Negative) Ur Leukocyte Esterase (Negative) Urine WBC (Auto) (0-5) /hpf Urine RBC (Auto) (0-4) /hpf U Hyaline Cast (Auto) (0-5) /lpf U Epithel Cells (Auto) (0-5) /lpf Urine Bacteria (Auto) (Negative) Ur Renal Epithelial Cell Urine Crystals (None Prsent) Urine Mucus (None Prsent) Diagnostic Findings Renal US negative for hydronephrosis, but with bilateral intrarenal stones Code Status & VTE Plan Code Status FULL CODE VTE Prophylaxis Plan VTE Prophylaxis will be ordered: Yes PG Care Time/CCT Total # of Minutes Spent Total Time Spent with Patient: Total time spent is greater than 50% in coordination of care (as documented) at patient's floor/unit and/or counseling patient: (1) Idiopathic pancreatitis Chronicity: acute Acute pancreatitis complication: unspecified Qualified Code(s): K85.00 - Idiopathic acute pancreatitis without necrosis or infection (2) Vomiting Nausea presence: with nausea Vomiting Intractability: non-intractable Vomiting type: unspecified Qualified Code(s): R11.2 - Nausea with vomiting, unspecified
[2019-05-05] MEDS: LACTATED RINGER'S 1,000 ML IV SCH ×2 (18:54→23:51)
--- NOTE | 2019-05-05 19:42 | Ultrasound Report ---
ULTRASOUND KIDNEYS AND BLADDER CLINICAL HISTORY: Left upper quadrant abdominal pain. COMPARISON STUDY: Abdominal radiographs dated 05/05/2019. Abdominal CT dated 10/31/2018. TECHNIQUE: Real-time, grayscale, and color flow sonography of the kidneys and bladder is performed. I mages are reviewed in the transverse and longitudinal planes. FINDINGS: Kidneys: The kidneys are normal in size and echotexture. The right kidney measures 10.5 cm in length and the left kidney measures 10.5 cm in length. There is no hydronephrosis. A 5 mm nonobstructing aby culus is present in both kidneys. There is no sonographic evidence of contour deforming renal mass le leonela. No perinephric fluid is identified. Bladder: The bladder is partially decompressed and grossly normal in appearance. Ureteral jets were n ot seen. IMPRESSION: 1. The kidneys are normal in size and without hydronephrosis. 2. Nonobstructing calculi are seen bilaterally. 3. The bladder was partially decompressed and grossly unremarkable. Electronically signed by: Ashwin Kathleen M.D. 05/05/2019 7:41 PM
[2019-05-05] MEDS ORDERED: clonazePAM 0.5 MG TAB PO PRN (19:51)
[2019-05-05] MEDS ORDERED: PROMETHAZINE HCL 12.5 MG in SODIUM CHLORIDE 0.9% 50 ML IV PRN (19:51)
[2019-05-05] MEDS: ACETAMINOPHEN 1,000 MG/100 ML VIAL IV PRN (20:52)
[2019-05-05] MEDS: lamoTRIgine 100 MG TAB PO SCH (20:58)
[2019-05-05] MEDS: ENOXAPARIN INJ 40 MG/0.4 ML SYR SQ SCH (20:59)
[2019-05-05] MEDS: POTASSIUM CHLORIDE / WTR 10 MEQ/100 ML PLCT IV SCH (23:51)
[2019-05-05] MEDS: FAMOTIDINE 20 MG in SYRINGE 3 ML IV SCH (23:52)
[2019-05-05] MEDS: CIPROFLOXACIN 400 MG/200 ML BAG IV SCH (23:52)
[2019-05-06] MEDS: MoRPHine SULFATE 4 MG/ML 1 ML CARP\\VIAL IV PRN ×7 (00:58→22:30)
[2019-05-06] MEDS: POTASSIUM CHLORIDE / WTR 10 MEQ/100 ML PLCT IV SCH ×2 (01:21→01:35)
[2019-05-06] MEDS: LACTATED RINGER'S 1,000 ML IV SCH ×5 (04:01→21:19)
[2019-05-06 06:10] LABS: Hematocrit (blood only) 37.4 % (37-47); Hemoglobin 13.1 g/dL (12.0-16.0); Mean Platelet Volume 9.2 fL (7.4-10.4); Platelet Count 242 K/uL (130-400); RDW Coefficient of Variation 12.8 % (11.5-14.5); RDW Standard Deviation 41.1 fL (36.4-46.3); White Blood Count 4.63 K/uL (4.8-10.8)
[2019-05-06 06:40] LABS: Basophils # (auto) 0.02 K/uL (0-0.2); Basophils % (auto) 0.4 %; Eosinophils # (auto) 0.03 K/uL (0-0.5); Eosinophils % (auto) 0.6 %; Immature Granulocytes # (auto) 0.01 K/uL (0.00-0.02); Immature Granulocytes % (auto) 0.2 %; Lymphocytes % (auto) 51.8 %; Monocytes # (auto) 0.19 K/uL (0.11-0.59); Monocytes % (auto) 4.1 %; Neutrophils # (auto) 1.98 K/uL (1.4-6.5); Neutrophils % (auto) 42.9 %
[2019-05-06 06:47] LABS: Calcium 7.7 mg/dl (8.5-10.1); Creatinine Clr Calc Pharmacy 117.4 ml/min; Est GFR (African American) 133.1; Est GFR (Non-African American) 114.8; Magnesium 1.9 mg/dl (1.8-2.4)
[2019-05-06 06:52] LABS: Albumin Globulin Ratio 0.9 (0.9-2); Bilirubin,Total 0.9 mg/dl (0.2-1); Globulin 3.4 gm/dl (2.5-4.0); Phosphorus 3.3 mg/dl (2.5-4.9); Total Protein 6.4 gm/dl (6.4-8.2)
[2019-05-06] MEDS: ONDANSETRON INJ 2 MG/ML 2 ML VIAL IV PRN (07:15)
[2019-05-06] MEDS: CETIRIZINE HCL 10 MG TABLET PO SCH (08:47)
[2019-05-06] MEDS: lamoTRIgine 100 MG TAB PO SCH ×2 (08:47→20:41)
[2019-05-06] MEDS: FAMOTIDINE 20 MG in SYRINGE 3 ML IV SCH ×2 (08:47→21:28)
[2019-05-06] MEDS ORDERED: POTASSIUM CHLORIDE / WTR 10 MEQ/100 ML PLCT IV SCH (10:25)
[2019-05-06] MEDS ORDERED: MAGNESIUM SULFATE / D5W 1 GM/100 ML BAG IV ONE (10:25)
[2019-05-06] MEDS ORDERED: POTASSIUM CHLORIDE 20 MEQ TABCR PO STA ×2 (10:25→11:20)
[2019-05-06] MEDS: ACETAMINOPHEN 1,000 MG/100 ML VIAL IV PRN ×2 (10:52→20:45)
--- NOTE | 2019-05-06 11:06 | Gastrointestinal Consultation ---
Date of Consultation May 06, 2019 Assessment & Plan (1) Acute pancreatitis: Will obtain a RUQ ultrasound. Would follow LFTs. Keep NPO for now - patient still taking pain meds. Anti-emetics and pain control. Will check a lipid panel. If not previously done, would consider genetic testing for hereditary pancreatitis vs autoimmune markers. (2) Elevated LFTs: As above. Supervising Physician Co-Signing Physician Notes I have seen and examined the patient with Damion Ulloa PA-C whose note reflects our findings and plan. Still with some mild abd pain, but feels better overall. Asking for clear liquids but has still required pain meds. She has had gallstone panc in past s/p jeanie. Transaminases aside from AP initially normal. AP was 128. today mild transaminase elevated as well as lipase of 450. TB from 0.2 to 0.9. Imaging with CBD of 5mm. - Abd mildly tender - Continue with supportive care. Bowel rest, IVF, PRN analgesia and antiemetics. - Would not advance doet today. - If not already done, she should have w/u for other potential causes of pancreatitis (hereditary, etc). History of Present Illness Attending Physician: Shannan Perkins MD 38 year old female with a hx of multiple episodes of recurrent pancreatitis, admitted with n/v and abdominal pain which started Monday morning. Additional medical hx listed below. She reports epigastric/LUQ abdominal pain, radiating to the left-mid back. On admission, her ALP was mildly elevated at 128, but LFTs were otherwise normal. Lipase was normal. This morning, her ALP has normalized, but her transaminases are elevated. AST is 192 and ALT is 116. Lipase is 407. No imaging has been done. She reports that she feels a little better today - pain is less. No further emesis, but she was mildly nauseous this morning. Hx gs panc s/p cholecystectomy, however she does have an aunt with a hx of idiopathic panc as well. She denies any ETOH use. No new meds. No herbals. EUS - December of [address] Hines, which was normal. Allergies Allergy/AdvReac Type Severity Reaction Status Date / Time fentanyl Allergy Severe RASH Unverified 05/05/19 16:48 ibuprofen Allergy Unknown UNKNOWN Unverified 05/05/19 16:48 ketorolac Allergy Unknown rash Unverified 05/05/19 16:48 Penicillins Allergy Unknown rash Verified 05/05/19 16:48 adhesive tape AdvReac Rash Unverified 05/05/19 16:48 Home Medications Home Medications Medication Instructions Recorded Confirmed Type lamotrigine [Lamictal] 100 mg PO BID 06/20/18 05/05/19 History clonazepam 0.5 mg PO BID PRN 10/24/18 05/05/19 History cetirizine 10 mg PO DAILY 05/05/19 05/05/19 History dextroamphetamine-amphetamine 20 mg PO BID 05/05/19 05/05/19 History tramadol 100 mg PO Q6H PRN 05/05/19 05/05/19 History Patient History Medical History Migraine (Chronic) Pseudoseizure (Chronic) Hepatitis C (Chronic) Depression with anxiety (Chronic) Idiopathic pancreatitis (Chronic) Pancreatitis (Chronic) Chronic back pain Environmental allergies History of esophagitis Nephrolithiasis Surgical History Hx of cholecystectomy (Chronic) Hx of appendectomy (Chronic) H/O hernia repair (Chronic) Family History Other Chronic pancreatitis Social History Preferred Language: Irish Communication Ability: Effective Beliefs That Will Affect Care: None marital status: Current Living Situation: Significant Other current occupational status: employed 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[employer] 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 Home: Yes Smoking Status: Never smoker Hx Alcohol Use: No Hx Substance Use: Yes substance use type: marijuana Substance Use Type Other:: occasional marijuana 1x/6 months Review of Systems Constitutional: no fever, no chills, no fatigue and no weight loss Eyes: no eye pain and no worsening vision Ear, Nose, Mouth, Throat: no ear pain, no hearing loss, no nasal congestion and no sore throat Respiratory: no cough, no chest congestion and no wheezing Cardiovascular: no chest pain and no dyspnea Gastrointestinal: as per Subjective / HPI Genitourinary: no dysuria and no urinary incontinence Musculoskeletal: no joint pain Integumentary: no rash and no pruritus Neurologic: no tingling, no numbness and no dizziness Psychiatric: no suicidal ideation and no confusion Endocrine: no cold intolerance and no heat intolerance Hematologic / Lymphatic: no easy bleeding and no easy bruising Allergy / Immunological: no problem reported Physical Exam Constitutional: WD/WN, vitals as above healthy appearing; no acute distress Eyes: + anicteric sclerae ENMT: external ear and nose normal, oropharynx normal Neck: normal visual inspection Respiratory: normal respiratory effort, lungs clear to auscultation Cardiovascular: Rate/Rhythm: regular rate and regular rhythm Heart Sounds: no murmur Gastrointestinal (Abdomen): Percussion/Palpation: + abdomen tender (LUQ) and abdomen soft Musculoskeletal: Head/Neck/Chest: normocephalic and head atraumatic Skin: no rashes, warm and dry Neurologic: moves all extremities; no focal motor deficits Psychiatric: Orientation: alert and oriented x 3 Results & Data Vital Signs (Past 12 Hours) Vital Signs Temp Pulse Resp BP Pulse Ox 05/06/19 07:21 36.7 C 66 18 132/87 97 05/05/19 23:08 36.9 C 73 20 142/82 H 95 Laboratory Results Laboratory Results - last 24 hr 05/05/19 05/05/19 05/05/19 15:15 15:15 15:15 WBC 4.25 L RBC 4.46 Hgb 13.7 Hct 38.6 MCV 86.5 MCH 30.7 MCHC 35.5 RDW Std Deviation 40.6 RDW Coeff of Jess 12.7 Plt Count 275 MPV 9.2 Immature Gran % (Auto) 0.2 Neut % (Auto) 54.3 Lymph % (Auto) 39.8 [place] % (Auto) 4.7 Eos % (Auto) 0.5 Baso % (Auto) 0.5 Immature Gran # (Auto) 0.01 Neut # (Auto) 2.31 Lymph # (Auto) 1.69 [place] # (Auto) 0.20 Eos # (Auto) 0.02 Baso # (Auto) 0.02 Sodium 144 Potassium 3.0 L Chloride 107 Carbon Dioxide 30 Anion Gap 7.0 BUN 6 L Creatinine 0.80 Est Cr Clr Drug Dosing 92.9 Est GFR ( Amer) 109.9 Est GFR (Non-Af Amer) 94.9 BUN/Creatinine Ratio 7.8 L Glucose 130 H Calcium 8.5 Phosphorus Magnesium 2.1 Total Bilirubin 0.2 AST 35 ALT 45 Alkaline Phosphatase 128 H Total Protein 7.3 Albumin 3.4 Globulin 3.9 Albumin/Globulin Ratio 0.9 Triglycerides Cholesterol LDL Cholesterol, Calc VLDL Cholesterol, Calc HDL Cholesterol Cholesterol/HDL Ratio Lipase 169 HCG, Qual Negative Specimen Hemolysis Urine Color Urine Appearance Urine pH Ur Specific [place] Urine Protein Urine Glucose (UA) Urine Ketones Urine Blood Urine Nitrite Urine Bilirubin Urine Urobilinogen Ur Leukocyte Esterase Urine WBC (Auto) Urine RBC (Auto) U Hyaline Cast (Auto) U Epithel Cells (Auto) Urine Bacteria (Auto) Ur Renal Epithelial Cell Urine Crystals Urine Mucus 05/05/19 05/06/19 05/06/19 16:45 05:31 05:31 WBC 4.63 L RBC 4.20 Hgb 13.1 Hct 37.4 MCV 89.0 MCH 31.2 MCHC 35.0 RDW Std Deviation 41.1 RDW Coeff of Jess 12.8 Plt Count 242 MPV 9.2 Immature Gran % (Auto) 0.2 Neut % (Auto) 42.9 Lymph % (Auto) 51.8 [place] % (Auto) 4.1 Eos % (Auto) 0.6 Baso % (Auto) 0.4 Immature Gran # (Auto) 0.01 Neut # (Auto) 1.98 Lymph # (Auto) 2.40 [place] # (Auto) 0.19 Eos # (Auto) 0.03 Baso # (Auto) 0.02 Sodium 142 Potassium 3.0 L Chloride 106 Carbon Dioxide 28 Anion Gap 8.0 BUN 4 L Creatinine 0.64 Est Cr Clr Drug Dosing 117.4 Est GFR ( Amer) 133.1 Est GFR (Non-Af Amer) 114.8 BUN/Creatinine Ratio 7.0 L Glucose 95 Calcium 7.7 L Phosphorus 3.3 Magnesium 1.9 Total Bilirubin 0.9 D AST 192 H ALT 116 H Alkaline Phosphatase 96 Total Protein 6.4 Albumin 3.0 L Globulin 3.4 Albumin/Globulin Ratio 0.9 Triglycerides Cholesterol LDL Cholesterol, Calc VLDL Cholesterol, Calc HDL Cholesterol Cholesterol/HDL Ratio Lipase 407 H HCG, Qual Specimen Hemolysis Urine Color Dark Yellow Urine Appearance Cloudy A Urine pH 7.0 Ur Specific [place] 1.025 Urine Protein 1+ H Urine Glucose (UA) Negative Urine Ketones Trace H Urine Blood 2+ H Urine Nitrite Positive A Urine Bilirubin Negative Urine Urobilinogen Negative Ur Leukocyte Esterase 1+ H Urine WBC (Auto) 5-10 H Urine RBC (Auto) 10-30 H U Hyaline Cast (Auto) 1-5 U Epithel Cells (Auto) >30 H Urine Bacteria (Auto) 1+ H Ur Renal Epithelial Cell Not Reportable Urine Crystals Calcium Oxalate A Urine Mucus Present A 05/06/19 05:31 WBC RBC Hgb Hct MCV MCH MCHC RDW Std Deviation RDW Coeff of Jess Plt Count MPV Immature Gran % (Auto) Neut % (Auto) Lymph % (Auto) [place] % (Auto) Eos % (Auto) Baso % (Auto) Immature Gran # (Auto) Neut # (Auto) Lymph # (Auto) [place] # (Auto) Eos # (Auto) Baso # (Auto) Sodium Potassium Chloride Carbon Dioxide Anion Gap BUN Creatinine Est Cr Clr Drug Dosing Est GFR ( Amer) Est GFR (Non-Af Amer) BUN/Creatinine Ratio Glucose Calcium Phosphorus Magnesium Total Bilirubin AST ALT Alkaline Phosphatase Total Protein Albumin Globulin Albumin/Globulin Ratio Triglycerides Pending Cholesterol Pending LDL Cholesterol, Calc Pending VLDL Cholesterol, Calc Pending HDL Cholesterol Pending Cholesterol/HDL Ratio Pending Lipase HCG, Qual Specimen Hemolysis Urine Color Urine Appearance Urine pH Ur Specific [place] Urine Protein Urine Glucose (UA) Urine Ketones Urine Blood Urine Nitrite Urine Bilirubin Urine Urobilinogen Ur Leukocyte Esterase Urine WBC (Auto) Urine RBC (Auto) U Hyaline Cast (Auto) U Epithel Cells (Auto) Urine Bacteria (Auto) Ur Renal Epithelial Cell Urine Crystals Urine Mucus (1) Acute pancreatitis Acute pancreatitis complication: unspecified Pancreatitis type: unspecified pancreatitis type Qualified Code(s): K85.90 - Acute pancreatitis without necrosis or infection, unspecified
[2019-05-06 11:54] LABS: Chol HDL Ratio 4; Cholesterol 165 mg/dl (0-200); HDL Cholesterol 41 mg/dl; LDL Cholesterol Calculated 87 mg/dl; Triglycerides 183 mg/dl (0-150); VLDL Cholesterol 37 mg/dl
[2019-05-06] MEDS: CIPROFLOXACIN 400 MG/200 ML BAG IV SCH (12:26)
--- NOTE | 2019-05-06 13:48 | Ultrasound Report ---
ABDOMINAL ULTRASOUND, RIGHT UPPER QUADRANT HISTORY: elevated LFTs with hx of pancreatitis. COMPARISON: Abdomen and pelvis CT 10/31/2018. FINDINGS: Pancreas: Obscured by overlying bowel gas. Liver: Slightly heterogeneous. No hepatic masses identified. Gallbladder: The gallbladder is surgically absent. CBD: 5 mm. Right kidney: No hydronephrosis. IMPRESSION: Slightly heterogeneous echotexture within the liver. However, no definite masses identified. Electronically signed by: Malcom Esteban M.D. 05/06/2019 1:46 PM
--- NOTE | 2019-05-06 18:52 | Hospitalist Progress Note ---
Date of Service May 06, 2019 Assessment & Plan (1) Idiopathic pancreatitis: This pt is a 38 yo female with a h/o recurrent idiopathic pancreatitis, treated HCV, esophagitis, seizure disorder vs pseudoseizures, migraines, nephrolithiasis, ADHD, chronic mid back pain s/p T-spine fracture, Gen Anxiety disorder and h/o benzo abuse, allergies, esophagitis and GI bleeding who presents with over 12 hours of severe epigastric abdominal pain radiating straight through to her left mid back, along with nausea and vomiting. This came on shortly after she ate ribs; she reports she doesn't usually eat fatty foods. She states it feels exactly like her previous episodes of acute pancreatitis in the past (has had approximately 15 episodes over the last 4 years). Some of her pancreatitis episodes showed normal lipase, and others have been elevated with no corresponding abnormality on CT scan abd/pel upon review of records in this system. SHe has had several EUSs including one in 2018 which were all normal as per GI notes from previous. She had her GB removed several years ago and denies any EtOH use. She follows with [facility] in [place]. Here was initially found to have a normal CBC, normal BMP except hypokalemia, and normal lipase and LFTs. Because of her persistent nausea and pain, she was admitted. With recurrent mild pancreatitis. Lipase and LFTs are now mildly elevated the day after admission Pain is improving but continues to take frequent IV morphine -Review of PDMP website and previous admissions/ER visits/PCP visits show concern for drug-seeking behaviors and multiple Rxs for tramadol 8 tabs daily of the 50mg tabs (despite the fact that pt tells me she takes tramadol very rarely for back pain when there is rainy weather) Right upper quadrant ultrasound with fatty liver and CBD 5 mm, otherwise no abnormalities -Advance diet to clears but advised to not overdo it -Continue to hydrate with LR at 250mLs/hr -Continue pain control with IV morphine but decrease dose to 3 mg IV and reduce frequency to every 4 hours as needed -antiemetics prn -Continue to replace lytes and follow lipase, LFTs -no need to repeat imaging of abdomen as she has had numerous CTs of her abdomen over the years and no fevers, normal labs -GI consult due to multiple recurrent episodes of abdominal pain-appreciate recommendations (2) Vomiting: Likely secondary to pancreatitis Has had esophagitis previously Benign abdomen on exam Now resolved -Continue Phenergan and zofran prn -Advance diet to clear liquids as above -Continue Pepcid 20mg IV q12h (3) Depression with anxiety: has uncontrolled anxiety Review of previous Psych consult reveals was previously on SSRI and on Wellbutrin, as well as a h/o Xanax abuse--> now on nothing except prn clonazepam -continue prn clonazepam -suggested outpt f/u for anxiety (4) Pseudoseizure: Pt reports she has a h/o Epilepsy, but couldn't tell me the name of her Neurologist Last seizure she reports was 4 months ago -continue on Lamictal (5) Nephrolithiasis: bilateral stones on renal US and previous CT scans Blood in UA but also on menses currently Pain does not seem clinically like renal colic -follow clinically (6) Environmental allergies: continue Zyrtec (7) UTI (urinary tract infection): Abnormal UA but is also menstruating. Although, would not expect to see nitrites with vaginal contamination Previous Ur cxs only mixed organisms -treat empirically with Cipro for now -follow Ur cx-pinpoint growth (8) Hypokalemia: due to vomiting, persists today - patient refuses IV potassium -Replaced with potassium chloride 60 M EQ p.o. today -follow BMP in AM (9) DVT prophylaxis: Joshua, SCDs Dispo-continued stay for pain control Subjective Patient reports her abdominal pain is definitely improved today but remains. She was advanced to clears diet and is tolerating that without increased pain. She is still taking morphine fairly regularly, but when I asked that she decrease the frequency and told her I would lower the dose, she was agreeable to that. Denies chest pain or shortness of breath, denies lightheadedness. She has not moved her bowels since yesterday. She is making plenty of urine. Denies nausea or vomiting today. She had a headache earlier which was relieved with drinking a cup of coffee. Review of Systems Review of Systems: All systems reviewed & are unremarkable except as noted in HPI & below Physical Exam Constitutional: WD/WN, vitals as above Eyes: PERRL, conjunctivae normal, anicteric sclerae ENMT: external ear and nose normal, oropharynx normal Neck: trachea midline, no thyromegaly Respiratory: normal respiratory effort, lungs clear to auscultation Cardiovascular: RRR, no murmur, no edema Gastrointestinal (Abdomen): Inspection/Auscultation: abdomen normal to i nspection and normal bowel sounds; abdomen not distended Percussion/Palpation: + abdomen tender (Much less tender than previous, only mild epigastric and left upper quadrant tenderness without guarding) and abdomen soft; no guarding, abdomen not rigid, no hepatosplenomegaly, no abdominal mass and no ascites Musculoskeletal: Extremities: extremities normal to inspection; no cyanosis and no clubbing Skin: no rashes, warm and dry Neurologic: moves all extremities and awake; no focal motor deficits Psychiatric: A+Ox3, euthymic affect Results & Data Vital Signs (Past 12 Hours) Vital Signs Temp Pulse Resp BP Pulse Ox 05/06/19 15:34 36.9 C 74 18 158/89 H 96 05/06/19 07:21 36.7 C 66 18 132/87 97 Laboratory Results 05/06/19 05/06/19 05/06/19 Range/Units 05:31 05:31 05:31 WBC 4.63 L (4.8-10.8) K/uL RBC 4.20 (4.2-5.4) M/uL Hgb 13.1 (12.0-16.0) g/dL Hct 37.4 (37-47) % MCV 89.0 (80-100) fL MCH 31.2 (25-34) pg MCHC 35.0 (32-36) g/dL RDW Std Deviation 41.1 (36.4-46.3) fL RDW Coeff of Jess 12.8 (11.5-14.5) % Plt Count 242 (130-400) K/uL MPV 9.2 (7.4-10.4) fL Immature Gran % (Auto) 0.2 % Neut % (Auto) 42.9 % Lymph % (Auto) 51.8 % [place] % (Auto) 4.1 % Eos % (Auto) 0.6 % Baso % (Auto) 0.4 % Immature Gran # (Auto) 0.01 (0.00-0.02) K/uL Neut # (Auto) 1.98 (1.4-6.5) K/uL Lymph # (Auto) 2.40 (1.2-3.4) K/uL [place] # (Auto) 0.19 (0.11-0.59) K/uL Eos # (Auto) 0.03 (0-0.5) K/uL Baso # (Auto) 0.02 (0-0.2) K/uL Sodium 142 (136-145) mmol/L Potassium 3.0 L (3.5-5.1) mmol/L Chloride 106 (98-107) mmol/L Carbon Dioxide 28 (21-32) mmol/L Anion Gap 8.0 (3-11) BUN 4 L (7-18) mg/dl Creatinine 0.64 (0.6-1.2) mg/dl Est Cr Clr Drug Dosing 117.4 ml/min Est GFR ( Amer) 133.1 Est GFR (Non-Af Amer) 114.8 BUN/Creatinine Ratio 7.0 L (10-20) Glucose 95 (70-99) mg/dl Calcium 7.7 L (8.5-10.1) mg/dl Phosphorus 3.3 (2.5-4.9) mg/dl Magnesium 1.9 (1.8-2.4) mg/dl Total Bilirubin 0.9 D (0.2-1) mg/dl AST 192 H (15-37) U/L ALT 116 H (12-78) U/L Alkaline Phosphatase 96 (45-117) U/L Total Protein 6.4 (6.4-8.2) gm/dl Albumin 3.0 L (3.4-5.0) gm/dl Globulin 3.4 (2.5-4.0) gm/dl Albumin/Globulin Ratio 0.9 (0.9-2) Triglycerides 183 H (0-150) mg/dl Cholesterol 165 (0-200) mg/dl LDL Cholesterol, Calc 87 mg/dl VLDL Cholesterol, Calc 37 mg/dl HDL Cholesterol 41 mg/dl Cholesterol/HDL Ratio 4 Lipase 407 H (73-393) U/L Diagnostic Findings Right upper quadrant ultrasound-fatty liver, CBD 5 mm PG Care Time/CCT Total # of Minutes Spent Total Time Spent with Patient: Total time spent is greater than 50% in coordination of care (as documented) at patient's floor/unit and/or counseling patient: (1) Idiopathic pancreatitis Acute pancreatitis complication: unspecified Chronicity: acute Qualified Code(s): K85.00 - Idiopathic acute pancreatitis without necrosis or infection (2) Vomiting Nausea presence: with nausea Vomiting Intractability: non-intractable Vomiting type: unspecified Qualified Code(s): R11.2 - Nausea with vomiting, unspecified
[2019-05-06] MEDS: ENOXAPARIN INJ 40 MG/0.4 ML SYR SQ SCH (20:41)
[2019-05-07] MEDS: CIPROFLOXACIN 400 MG/200 ML BAG IV SCH ×2 (00:16→11:38)
[2019-05-07] MEDS: LACTATED RINGER'S 1,000 ML IV SCH ×3 (01:43→10:33)
[2019-05-07] MEDS ORDERED: Nursing to Pharmacy Communication ONE (01:51)
[2019-05-07] MEDS: MoRPHine SULFATE 4 MG/ML 1 ML CARP\\VIAL IV PRN ×2 (04:33→09:48)
[2019-05-07 06:19] LABS: Hematocrit (blood only) 39.2 % (37-47); Hemoglobin 13.6 g/dL (12.0-16.0); Mean Corpuscular Hgb Conc 34.7 g/dL (32-36); Mean Corpuscular Volume 87.9 fL (80-100); Mean Platelet Volume 9.1 fL (7.4-10.4); Platelet Count 229 K/uL (130-400); RDW Coefficient of Variation 12.8 % (11.5-14.5); RDW Standard Deviation 40.7 fL (36.4-46.3); Red Blood Count 4.46 M/uL (4.2-5.4); White Blood Count 2.57 K/uL (4.8-10.8)
[2019-05-07 06:54] LABS: Basophils # (auto) 0.02 K/uL (0-0.2); Basophils % (auto) 0.8 %; Eosinophils # (auto) 0.17 K/uL (0-0.5); Eosinophils % (auto) 6.6 %; Lymphocytes % (auto) 50.6 %; Monocytes # (auto) 0.16 K/uL (0.11-0.59); Monocytes % (auto) 6.2 %; Neutrophils # (auto) 0.92 K/uL (1.4-6.5); Neutrophils % (auto) 35.8 %
[2019-05-07 06:59] LABS: Albumin Level 3.2 gm/dl (3.4-5.0); BUN Creatinine Ratio 3.5 (10-20); Bilirubin Direct 0.2 mg/dl (0-0.2); Calcium 8.4 mg/dl (8.5-10.1); Creatinine Clr Calc Pharmacy 93.9 ml/min; Est GFR (African American) 109.9; Est GFR (Non-African American) 94.9; Magnesium 2.2 mg/dl (1.8-2.4); Potassium 3.2 mmol/L (3.5-5.1)
[2019-05-07 07:01] LABS: Bilirubin,Total 0.6 mg/dl (0.2-1); Total Protein 6.8 gm/dl (6.4-8.2)
[2019-05-07] MEDS: CETIRIZINE HCL 10 MG TABLET PO SCH (08:58)
[2019-05-07] MEDS: lamoTRIgine 100 MG TAB PO SCH (08:58)
[2019-05-07] MEDS: ACETAMINOPHEN 1,000 MG/100 ML VIAL IV PRN (09:01)
[2019-05-07] MEDS: FAMOTIDINE 20 MG in SYRINGE 3 ML IV SCH (09:01)
[2019-05-07] MEDS ORDERED: POTASSIUM CHLORIDE 20 MEQ TABCR PO STA (11:03)
--- NOTE | 2019-05-07 11:55 | Discharge Summary ---
Date of Service May 07, 2019 Admission HPI Per Admitting Provider This pt is a 38 yo female with a h/o recurrent idiopathic pancreatitis, treated HCV, esophagitis, seizure disorder vs pseudoseizures, migraines, nephrolithiasis, ADHD, chronic mid back pain s/p T-spine fracture, Gen Anxiety disorder and h/o benzo abuse, allergies, esophagitis and GI bleeding who presents to the ER today with over 12 hours of severe epigastric abdominal pain radiating straight through to her left mid back, along with nausea and vomiting. This came on shortly after she ate ribs last evening; she reports she doesn't usually eat fatty foods. She states it feels exactly like her previous episodes of acute pancreatitis in the past (has had approximately 15 episodes over the last 4 years). Some of her pancreatitis episodes showed normal lipase, and others have been elevated with no corresponding abnormality on CT scan abd/pel upon review of records in this system. SHe has had several EUSs including one in 2018 which were all normal as per GI notes from previous. She had her GB removed several years ago and denies any EtOH use. She follows with [facility] in [place]. Here was found to have a normal CBC, normal BMP except hypokalemia, and normal lipase and LFTs. Because of her persistent nausea and pain, she will be admitted. Here in the ER, she was treated with IV morphine, IV Zofran and phenergan, as well as IVFs. Principal Diagnosis Acute pancreatitis Discharge Exam Constitutional WD/WN, vitals as above Eyes PERRL, conjunctivae normal, anicteric sclerae ENMT external ear and nose normal, oropharynx normal Neck trachea midline, no thyromegaly Respiratory normal respiratory effort, lungs clear to auscultation Cardiovascular RRR, no murmur, no edema Gastrointestinal (Abdomen) normal bowel sounds, soft, nontender, no hepatosplenomegaly Musculoskeletal Extremities: extremities normal to inspection; no cyanosis and no clubbing Skin no rashes, warm and dry Neurologic moves all extremities and awake; no focal motor deficits Psychiatric A+Ox3, euthymic affect Discharge Data Allergies Allergy/AdvReac Type Severity Reaction Status Date / Time fentanyl Allergy Severe RASH Unverified 05/05/19 16:48 ibuprofen Allergy Unknown UNKNOWN Unverified 05/05/19 16:48 ketorolac Allergy Unknown rash Unverified 05/05/19 16:48 Penicillins Allergy Unknown rash Verified 05/05/19 16:48 adhesive tape AdvReac Rash Unverified 05/05/19 16:48 Consultations Gastroenterology Ordered Studies 05/05/19 18:00 US renal/blad retro comp Stat 05/06/19 11:10 US liver Routine Hospital Course (1) Idiopathic pancreatitis: This pt is a 38 yo female with a h/o recurrent idiopathic pancreatitis, treated HCV, esophagitis, seizure disorder vs pseudoseizures, migraines, nephrolithiasis, ADHD, chronic mid back pain s/p T-spine fracture, Gen Anxiety disorder and h/o benzo abuse, allergies, esophagitis and GI bleeding who presents with over 12 hours of severe epigastric abdominal pain radiating straight through to her left mid back, along with nausea and vomiting. This came on shortly after she ate ribs; she reports she doesn't usually eat fatty foods. She states it feels exactly like her previous episodes of acute pancreatitis in the past (has had approximately 15 episodes over the last 4 years). Some of her pancreatitis episodes showed normal lipase, and others have been elevated with no corresponding abnormality on CT scan abd/pel upon review of records in this system. SHe has had several EUSs including one in 2018 which were all normal as per GI notes from previous. She had her GB removed several years ago and denies any EtOH use. She follows with [facility] in [place]. Here was initially found to have a normal CBC, normal BMP except hypokalemia, and normal lipase and LFTs. Because of her persistent nausea and pain, she was admitted. With recurrent mild pancreatitis. Lipase and LFTs were then mildly elevated the day after admission. Improved on day of discharge Pain much improved but continues to take morphine frequently Patient admitted she often takes more tramadol than prescribed at home and admits she has an issue with abuse of medications. Discussed alternative ways to deal with chronic pain such as PT, acupuncture, etc. She will discuss with her PCP about weaning off tramadol. -Review of PDMP website and previous admissions/ER visits/PCP visits show concern for drug-seeking behaviors and multiple Rxs for tramadol 8 tabs daily of the 50mg tabs -pt states she has run out of her 30 day supply after a little over 2 weeks of filling the Rx. Right upper quadrant ultrasound with fatty liver and CBD 5 mm, otherwise no abnormalities -Advance diet to low fat as tolerated, stable for dc to home - hydrated with LR at 250mLs/hr -will not be sent home with pain meds -antiemetics prn-gave Rx for po Zofran -follow LFTs as outpt and f/u with GI as outpt -there was no need to repeat imaging of abdomen as she has had numerous CTs of her abdomen over the years and no fevers, normal labs -GI consult due to multiple recurrent episodes of abdominal pain-appreciate recommendations (2) Vomiting: Likely secondary to pancreatitis Has had esophagitis previously Benign abdomen on exam Now resolved, treated with pepcid and antiemetics -Continue zofran prn (3) Depression with anxiety: has uncontrolled anxiety, OCD type symptoms, picks at her skin Review of previous Psych consult reveals was previously on SSRI and on Wellbutrin, as well as a h/o Xanax abuse--> now on nothing except prn clonazepam -continue prn clonazepam -suggested outpt f/u for anxiety and possibly restarting Zoloft for OCD,JUAN FRANCISCO (4) Pseudoseizure: Pt reports she has a h/o Epilepsy, but couldn't tell me the name of her Neurologist Last seizure she reports was 4 months ago -continue on Lamictal (5) Nephrolithiasis: bilateral stones on renal US and previous CT scans Blood in UA but also on menses currently Pain does not seem clinically like renal colic -follow clinically (6) Environmental allergies: continue Zyrtec (7) UTI (urinary tract infection): Abnormal UA but is also menstruating. Although, would not expect to see nitrites with vaginal contamination Previous Ur cxs only mixed organisms -treat empirically with Cipro for now x 3 day course-needs one more day after discharge -follow Ur cx-pinpoint growth, still pending at time of discharge (8) Hypokalemia: due to vomiting and then poor po intake, improved but still mildly low on day of dc replaced - patient refuses IV potassium -Replaced with potassium chloride 60 M EQ p.o. today Should improve with eating regular food after dc (9) DVT prophylaxis: Lovenox, SCDs were provided Dispo-stable for dc to home Total Time Total Time Spent Total Time Spent (In Minutes): >30 min Total Time Includes: Examination of the Patient, Discharge Planning and Medication Reconciliation Discharge Plan Discharge Items Patient Disposition: Home - Self-Care Reason For Visit: ACUTE PANCREATITIS Discharge Diagnosis: Acute pancreatitis Condition: Good Discharge Goals: Decrease discomfort, Diagnostic testing, Improve disease control, Learn about illness and Therapeutic intervention Activity: Resume your previous activity Bathing: No limitations Non-emergency contact: Primary Care Provider and [employer] Call non-emergency contact if: you have any medication questions, your symptoms worsen, your pain is not controlled, your pain is worsening, your pain is unusual for you, your pain is concerning for you and your temperature is above 100.5 Follow-up/Referrals: Thien Kohli, [Primary Care Provider] - Diet: Low Fat Addtl Provider Instructions: Please slowly advance your diet back to low fat as tolerated. Please follow up with your PCP and your GI doctor within 2 weeks. Please talk to your doctor about your opioid dependence and overuse of your tramadol. There are many alternative and better ways to deal with chronic back pain as we discussed. You were treated for a UTI while you were here and need to complete 1 more day of antibiotics for that. Please also discuss with your doctor about going on medication to help better control your anxiety disorder as we discussed. Prescriptions: New ondansetron HCl [Zofran] 4 mg tablet 4 mg PO Q8H PRN (Reason: nausea and vomiting) 5 Days Qty: 15 RF: 0 ciprofloxacin HCl [Cipro] 500 mg tablet 500 mg PO BID Qty: 2 RF: 0 Continued lamotrigine [Lamictal] 100 mg Tablet 100 mg PO BID RF: 0 clonazepam 0.5 mg tablet 0.5 mg PO BID PRN (Reason: Anxiety) RF: 0 cetirizine 10 mg Tablet 10 mg PO DAILY RF: 0 dextroamphetamine-amphetamine 20 mg tablet 20 mg PO BID RF: 0 Discontinued tramadol 50 mg tablet 100 mg PO Q6H PRN (Reason: Pain) RF: 0 Stand-Alone Forms: [facility] [place] Discharge Orders: Discharge Order (Routine); Ordered 05/07/19 Ordered By: Shannan Perkins Admission Data Admit Date/Time: 05/05/19 18:40 Attending Provider: Shannan Perkins Admit Provider: Shannan Perkins Primary Care Provider: Thien Kohli Other Providers: Shannan Perkins ; Allen Nicole Service: Medical Other Pending Studies at Discharge: Yes (Final urine culture)
[2019-05-07] MEDS: ONDANSETRON INJ 2 MG/ML 2 ML VIAL IV PRN (13:40)
[2019-05-07] MEDS ORDERED: TRAMADOL HCL 50 MG TABLET PO STA (13:59)
--- NOTE | 2019-05-07 15:55 | Gastroenterology Progress Note ---
Date of Service May 07, 2019 Assessment & Plan (1) Acute pancreatitis: Patient continues to improve. Would continue a low fat diet and monitor symptoms. OP follow up recommended if symptoms do not continue to improve. (2) Elevated LFTs: As above. Supervising Physician Co-Signing Physician Notes Late entry: patient was seen and examined on 05/07. her note reflects our fi ndings and plan. Subjective Patient feeling better today. Less abdominal pain, n/v. RUQ ultrasound showed a heterogeneous echotexture of the liver, and a normal CBD. LFTs have improved and Lipase has normalized. Triglyceride was 183. Tolerating diet. Review of Systems Constitutional: no fever, no chills, no fatigue and no weight loss Eyes: no eye pain and no worsening vision Ear, Nose, Mouth, Throat: no ear pain, no hearing loss, no nasal congestion and no sore throat Respiratory: no cough, no chest congestion and no wheezing Cardiovascular: no chest pain and no dyspnea Gastrointestinal: as per Subjective / HPI Genitourinary: no dysuria and no urinary incontinence Musculoskeletal: no joint pain Integumentary: no rash and no pruritus Neurologic: no tingling, no numbness and no dizziness Psychiatric: no suicidal ideation and no confusion Endocrine: no cold intolerance and no heat intolerance Hematologic / Lymphatic: no easy bleeding and no easy bruising Allergy / Immunological: no problem reported Physical Exam Constitutional: WD/WN, vitals as above no acute distress Eyes: + anicteric sclerae ENMT: external ear and nose normal, oropharynx normal Neck: normal visual inspection Respiratory: normal respiratory effort, lungs clear to auscultation Cardiovascular: Rate/Rhythm: regular rate and regular rhythm Heart Sounds: no murmur Gastrointestinal (Abdomen): normal bowel sounds, soft, nontender, no hepatosplenomegaly Musculoskeletal: Head/Neck/Chest: normocephalic and head atraumatic Skin: no rashes, warm and dry Neurologic: moves all extremities; no focal motor deficits Psychiatric: Orientation: alert and oriented x 3 Results & Data Vital Signs (Past 12 Hours) Vital Signs Temp Pulse Pulse Resp BP Pulse Ox 05/07/19 15:35 36.7 C 69 18 159/83 H 94 05/07/19 13:34 36.7 C 74 69 16 150/53 H 100 05/07/19 07:17 36.7 C 69 16 150/53 H 100 Laboratory Results - last 24 hr 05/07/19 05/07/19 05/07/19 06:08 06:08 06:08 WBC 2.57 L RBC 4.46 Hgb 13.6 Hct 39.2 MCV 87.9 MCH 30.5 MCHC 34.7 RDW Std Deviation 40.7 RDW Coeff of Jess 12.8 Plt Count 229 MPV 9.1 Immature Gran % (Auto) 0.0 Neut % (Auto) 35.8 Lymph % (Auto) 50.6 [place] % (Auto) 6.2 Eos % (Auto) 6.6 Baso % (Auto) 0.8 Immature Gran # (Auto) 0.00 Neut # (Auto) 0.92 L* Lymph # (Auto) 1.30 [place] # (Auto) 0.16 Eos # (Auto) 0.17 Baso # (Auto) 0.02 Sodium 143 Potassium 3.2 L Chloride 104 Carbon Dioxide 32 Anion Gap 7.0 BUN 3 L Creatinine 0.80 Est Cr Clr Drug Dosing 93.9 Est GFR ( Amer) 109.9 Est GFR (Non-Af Amer) 94.9 BUN/Creatinine Ratio 3.5 L Glucose 165 H Calcium 8.4 L Magnesium 2.2 Total Bilirubin 0.6 Direct Bilirubin 0.2 AST 80 H ALT 109 H Alkaline Phosphatase 108 Total Protein 6.8 Albumin 3.2 L Lipase 177 IgG Pending IgG1 Pending IgG2 Pending IgG3 Pending IgG4 Pending Rheumatoid Factor Pending GRACIE Screen Pending Anti-Mitochondrial Ab Pending Anti-Smooth Muscle Ab Pending Thyroid Antimicrosomal Pending (1) Acute pancreatitis Acute pancreatitis complication: unspecified Pancreatitis type: unspecified pancreatitis type Qualified Code(s): K85.90 - Acute pancreatitis without n ecrosis or infection, unspecified
[2019-05-12 17:22] LABS: Anti Nuclear Antibody Screen NEGATIVE (NEGATIVE); IgG Serum 1081 mg/dL (600-1640); Immunoglobulin G1 552 mg/dL (382-929); Immunoglobulin G2 375 mg/dL (241-700); Immunoglobulin G3 42 mg/dL (22-178); Microsomal Ab <1 IU/ML (<9); Rheumatoid Factor < 14 IU/ML (<14)
== END 2019-05-07 15:53 | disposition home or self-care (01) | DRG 439 ==
LOC: 4W 14:36 → ED 14:36 → OBSVTOIN 18:55 → 4W 19:15
DX: Z88.5 Allergy status to narcotic agent; F41.8 Other specified anxiety disorders; R11.2 Nausea with vomiting, unspecified; K85.90 Acute pancreatitis without necrosis or infection, unspecified; F44.5 Conversion disorder with seizures or convulsions; R94.5 Abnormal results of liver function studies; K86.1 Other chronic pancreatitis; N39.0 Urinary tract infection, site not specified; K76.0 Fatty (change of) liver, not elsewhere classified; Z87.891 Personal history of nicotine dependence; F11.10 Opioid abuse, uncomplicated; Z88.0 Allergy status to penicillin; Z79.899 Other long term (current) drug therapy; Z88.6 Allergy status to analgesic agent; E87.6 Hypokalemia; N20.0 Calculus of kidney; Z91.048 Other nonmedicinal substance allergy status

== ENCOUNTER 2020-10-24 09:44 | Observation (INO) ==
[2020-10-24] MEDS ORDERED: HYDROmorphone INJ 1 MG/ML SYRINGE IV STA (10:03)
[2020-10-24] MEDS ORDERED: ONDANSETRON INJ 2 MG/ML 2 ML VIAL IV STA (10:03)
[2020-10-24] MEDS ORDERED: SODIUM CHLORIDE 0.9% 1000ML 1,000 ML IV SCH (10:15)
[2020-10-24 10:19] LABS: Basophils # (auto) 0.02 K/uL (0-0.2); Basophils % (auto) 0.3 %; Eosinophils % (auto) 1.6 %; Hematocrit (blood only) 37.2 % (37-47); Hemoglobin 12.7 g/dL (12.0-16.0); Immature Granulocytes # (auto) 0.01 K/uL (0.00-0.02); Immature Granulocytes % (auto) 0.2 %; Lymphocytes # (auto) 1.53 K/uL (1.2-3.4); Mean Corpuscular Hemoglobin 31.6 pg (25-34); Mean Corpuscular Hgb Conc 34.1 g/dL (32-36); Mean Corpuscular Volume 92.5 fL (80-100); Mean Platelet Volume 8.9 fL (7.4-10.4); Monocytes # (auto) 0.31 K/uL (0.11-0.59); Monocytes % (auto) 4.9 %; Platelet Count 230 K/uL (130-400); RDW Coefficient of Variation 12.3 % (11.5-14.5); Red Blood Count 4.02 M/uL (4.2-5.4); White Blood Count 6.37 K/uL (4.8-10.8)
[2020-10-24 10:44] LABS: Albumin Globulin Ratio 0.9 (0.9-2); Albumin Level 3.1 gm/dl (3.4-5.0); BUN Creatinine Ratio 7.1 (10-20); Bilirubin,Total 0.4 mg/dl (0.2-1); Calcium 8.1 mg/dl (8.5-10.1); Creatinine Clr Calc Pharmacy 96.9 ml/min; Est GFR (Non-African American) 91.4; Globulin 3.5 gm/dl (2.5-4.0); Magnesium 1.8 mg/dl (1.8-2.4); Potassium 3.1 mmol/L (3.5-5.1); Total Protein 6.6 gm/dl (6.4-8.2)
[2020-10-24] MEDS ORDERED: HYDROmorphone INJ 0.5 MG/0.5 ML SYR IV STA (11:07)
[2020-10-24] MEDS ORDERED: IOVERSOL 100ml IV ONE (11:07)
[2020-10-24 11:14] LABS: Appearance Urine Clear (Clear); Bacteria Urine Automated Negative (Negative); Bilirubin Urine Negative (Negative); Blood Urine Trace (Negative); Cast Urine Automated 0 /lpf (0-5); Color Urine Yellow; Epithelial Cell Urine Auto 0-5 /lpf (0-5); Glucose Urine UA Negative (Negative); Ketones Urine Negative (Negative); Leukocyte Esterase Urine Negative (Negative); Nitrite Urine Negative (Negative); Protein Urine Negative (Negative); RBC Urine Automated 0-4 /hpf (0-4); Specific Gravity Urine 1.008 (1.000-1.030); Urobilinogen Urine Negative (Negative); pH Urine 7.5 (4.5-7.5)
--- NOTE | 2020-10-24 11:26 | CT Scan Report ---
CT OF THE ABDOMEN AND PELVIS WITH CONTRAST CLINICAL HISTORY: RUQ and epigastric abdominal pain COMPARISON STUDY: CT of the abdomen and pelvis June 13, 2020. TECHNIQUE: Following IV administration of 94 mL of Optiray-320, axial images of the abdomen and pelvi s were obtained from the lung bases to the proximal femurs. Images were reviewed in the axial, sagitt al, and coronal planes. IV contrast was administered without complication. Automated exposure contro l was utilized for the study. A dose lowering technique was utilized adhering to the principles of A ALEXIS. CT DOSE: 679.44 mGy.cm FINDINGS: Visualized portions of the lower chest demonstrate mild groundglass opacities within the bi lateral lower lobes, greater on the right. A subcentimeter left breast nodule is unchanged from earli er exams. This is benign. There is no biliary ductal dilatation status post cholecystectomy. There is probable hepatic steatosis. The spleen, adrenal glands and pancreas are unremarkable. A few small bi lateral renal calculi are noted. There are no ureteral calculi. There is no hydronephrosis or hydrour eter. There is no evidence for a bowel obstruction. The appendix is surgically absent. The caliber an d wall thickness of small and large bowel are normal. There is no ascites. No lymphadenopathy is pres ent. No acute fracture or suspicious lesion is identified within the visualized skeletal structures. Major vasculature is patent. Colonic diverticulosis is noted without evidence for acute diverticuliti s. IMPRESSION: 1. Mild groundglass opacities within the bilateral lower lobe suggestive of an infectious process. 2. Bilateral nephrolithiasis. No ureteral calculi or hydronephrosis. 3. No acute process within the abdomen or pelvis. No bowel obstruction. ACT 112: Negative or not required by law. Electronically signed by: Calvin Waller M.D. 10/24/2020 11:24 AM
--- NOTE | 2020-10-24 12:37 | Emergency Department Note ---
History of Present Illness General Chief complaint: Abdominal Pain Stated complaint: SEVERE ABD PAIN/VOMITING Time Seen by Provider: 10/24/20 09:51 History of Present Illness Maximum Pain Intensity: 6 This is a 39-year-old female that presents to the emergency department via private vehicle with complaints of "severe abdominal pain, vomiting". The patient notes that she has a history of pancreatitis. She notes that she was here last night for similar. The discomfort began in the epigastric region/right upper quadrant yesterday around noon time. She has associated nausea, vomiting, diarrhea and chills. No trauma, injury or fevers. She notes that she no longer has the gallbladder. She denies any chest pain, shortness of breath. Current discomfort 05/18. Home Medications Medication Instructions Recorded Confirmed Type lamotrigine [Lamictal] 0 mg PO BID 06/20/18 10/24/20 History dextroamphetamine-amphetamine 20 mg PO TID 05/05/19 10/24/20 History tramadol 100 mg PO Q6H PRN 06/13/20 10/24/20 History ondansetron 4 mg PO Q6H PRN #20 tab 10/23/20 10/24/20 Rx Allergies Allergy/AdvReac Type Severity Reaction Status Date / Time ibuprofen Allergy Unknown Hives Verified 10/24/20 10:45 ketorolac Allergy Unknown Rash Verified 10/24/20 10:45 adhesive tape AdvReac Unknown Rash Verified 10/24/20 10:45 Past Med/Surg History Medical History (Updated 10/24/20 @ 17:27 by Tay Mayo PA-C) Chronic back pain Depression with anxiety Environmental allergies Hepatitis C History of esophagitis Idiopathic pancreatitis Migraine Nephrolithiasis Pseudoseizure Social anxiety disorder Surgical History H/O hernia repair Hx of appendectomy Hx of cholecystectomy Family History Other Chronic pancreatitis Social History Smoking Status: Never smoker Hx Alcohol Use: Yes Hx Substance Use: Yes Substance Use Type Other:: occasional marijuana 1x/6 months Preferred Language: Malay Communication Ability: Effective Patrol Supervisor Required: No Beliefs That Will Affect Care: None Current Living Situation: Significant Other current occupational status: employed 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[employer] 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 Home: Yes Assistive Devices: None Review of Systems A total of 10 systems reviewed and were otherwise negative Physical Exam Vital Signs Vital Signs - 24 hr 10/24/20 09:50 10/24/20 10:18 10/24/20 11:22 Temperature 36.7 C Temperature Source Oral Pulse Rate 104 H Pulse Rate [Right Finger] 108 H 100 H Respiratory Rate 20 20 20 Respiratory Effort / Characteristics Non-Labored Respiratory Depth Normal Respiratory Pattern Blood Pressure 161/108 H Blood Pressure [Right Arm] 153/87 H 131/85 Blood Pressure Mean 125 Blood Pressure Mean [Right Arm] 109 100 Blood Pressure Position [Right Arm] Pulse Oximetry 98 98 97 Oxygen Delivery Method Room Air Room Air Sepsis Recent Fever Within 48 Hours No Sepsis New/Unexplained Change in Mental Status No Sepsis Action Taken by Nursing No Action Required 10/24/20 13:12 10/24/20 14:15 10/24/20 14:48 Temperature Temperature Source Pulse Rate Pulse Rate [Right Finger] 85 57 L 93 H Respiratory Rate 16 16 16 Respiratory Effort / Characteristics Respiratory Depth Respiratory Pattern Blood Pressure Blood Pressure [Right Arm] 157/102 H 123/82 126/91 Blood Pressure Mean Blood Pressure Mean [Right Arm] 120 95 102 Blood Pressure Position [Right Arm] Pulse Oximetry Oxygen Delivery Method Sepsis Recent Fever Within 48 Hours Sepsis New/Unexplained Change in Mental Status Sepsis Action Taken by Nursing 10/24/20 16:12 Temperature Temperature Source Pulse Rate Pulse Rate [Right Finger] 83 Respiratory Rate 18 Respiratory Effort / Characteristics Non-Labored Spontaneous Respiratory Depth Normal Respiratory Pattern Regular Blood Pressure Blood Pressure [Right Arm] 164/110 H Blood Pressure Mean Blood Pressure Mean [Right Arm] 128 Blood Pressure Position [Right Arm] Lying Pulse Oximetry 96 Oxygen Delivery Method Room Air Sepsis Recent Fever Within 48 Hours Sepsis New/Unexplained Change in Mental Status Sepsis Action Taken by Nursing VITAL SIGNS - Vital signs and nursing notes were reviewed. Stable and afebrile. GENERAL - 39-year-old female appearing his stated age who is in no acute distress but appears to be in pain. Communicates well with provider and answers questions appropriately. SKIN - Without rashes. LUNGS - Chest wall symmetric without accessory muscle use, intercostals retractions, or central cyanosis. Normal vesicular breath sounds CTA B/L. No wheezes, rales, or rhonchi appreciated. CARDIAC - RRR with S1/S2. No murmur, rubs, or gallops appreciated. ABDOMEN - Abdominal contour normal without pulsations or visible masses. BS normoactive all four quadrants. No tenderness, palpable masses, hepa tosplenomegaly, or ascites noted. EXTREMITIES - No clubbing or peripheral cyanosis. No pretibial edema present.+5/5 strength noted in UE/LE bilaterally. NEUROLOGIC - Cranial nerves II through XII grossly intact. PSYCH - A&O, and cooperates fully with examiner. Pt is very pleasant and interacts well with examiner. Course Administered Medications Discontinued Medications Hydromorphone HCl (Hydromorphone Inj 1 Mg/Ml Syringe) 1 mg IV NOW STA Stop: 10/24/20 10:04 Last Admin: 10/24/20 10:20 Dose: 1 mg Documented by: [id number] Hydromorphone HCl (Hydromorphone Inj 0.5 Mg/0.5 Ml Syr) 0.5 mg IV NOW STA Stop: 10/24/20 11:08 Last Admin: 10/24/20 11:24 Dose: 0.5 mg Documented by: [id number] Sodium Chloride (Nss 1000ml) 1,000 mls @ 999 mls/hr IV .Q1H1M TANISHA Stop: 10/24/20 11:15 Last Infusion: 10/24/20 11:23 Dose: 0 mls/hr Documented by: [id number] Admin: 10/24/20 10:20 Dose: 999 mls/hr Documented by: [id number] Potassium Chloride (K Shiv / Wtr) 10 meq in 100 mls @ 100 mls/hr IV ONE ONE Stop: 10/24/20 16:31 Last Admin: 10/24/20 16:05 Dose: 100 mls/hr Documented by: [id number] Ioversol (Ioversol 100ml) 94 ml IV ONCE ONE Stop: 10/24/20 11:08 Last Admin: 10/24/20 11:07 Dose: 94 ml Documented by: [id number] Ondansetron HCl (Ondansetron Inj 2 Mg/Ml 2 Ml Vial) 4 mg IV NOW STA Stop: 10/24/20 10:04 Last Admin: 10/24/20 10:20 Dose: 4 mg Documented by: [id number] Medical Decision Making Laboratory Data Result diagrams: 10/24/20 10:10 10/24/20 10:10 Lab Results 10/24/20 10/24/20 10/24/20 Range/Units 10:10 10:10 10:10 WBC 6.37 (4.8-10.8) K/uL RBC 4.02 L (4.2-5.4) M/uL Hgb 12.7 (12.0-16.0) g/dL Hct 37.2 (37-47) % MCV 92.5 (80-100) fL MCH 31.6 (25-34) pg MCHC 34.1 (32-36) g/dL RDW Std Deviation 42.0 (36.4-46.3) fL RDW Coeff of Jess 12.3 (11.5-14.5) % Plt Count 230 (130-400) K/uL MPV 8.9 (7.4-10.4) fL Immature Gran % (Auto) 0.2 % Neut % (Auto) 69.0 % Lymph % (Auto) 24.0 % Norman % (Auto) 4.9 % Eos % (Auto) 1.6 % Baso % (Auto) 0.3 % Neut # (Auto) 4.40 (1.4-6.5) K/uL Lymph # (Auto) 1.53 (1.2-3.4) K/uL Norman # (Auto) 0.31 (0.11-0.59) K/uL Eos # (Auto) 0.10 (0-0.5) K/uL Baso # (Auto) 0.02 (0-0.2) K/uL Immature Gran # (Auto) 0.01 (0.00-0.02) K/uL ESR (0-21) mm/hr D-Dimer (0-500) ug/L FEU Sodium 140 (136-145) mmol/L Potassium 3.1 L (3.5-5.1) mmol/L Chloride 105 (98-107) mmol/L Carbon Dioxide 28 (21-32) mmol/L Anion Gap 7.0 (3-11) BUN 6 L (7-18) mg/dl Creatinine 0.82 (0.6-1.2) mg/dl Est Cr Clr Drug Dosing 96.9 ml/min Est GFR ( Amer) 106.0 Est GFR (Non-Af Amer) 91.4 BUN/Creatinine Ratio 7.1 L (10-20) Glucose 167 H (70-99) mg/dl Calcium 8.1 L (8.5-10.1) mg/dl Magnesium 1.8 (1.8-2.4) mg/dl Total Bilirubin 0.4 (0.2-1) mg/dl AST 35 (15-37) U/L ALT 81 H (12-78) U/L Alkaline Phosphatase 118 H (45-117) U/L Total Creatine Kinase 129 (26-192) U/L Troponin I (0-0.045) ng/ml C-Reactive Protein (0-0.29) mg/dl Total Protein 6.6 (6.4-8.2) gm/dl Albumin 3.1 L (3.4-5.0) gm/dl Globulin 3.5 (2.5-4.0) gm/dl Albumin/Globulin Ratio 0.9 (0.9-2) Lipase 132 (73-393) U/L Specimen Hemolysis Urine Color Urine Appearance (Clear) Urine pH (4.5-7.5) Ur Specific Stacy (1.000-1.030) Urine Protein (Negative) Urine Glucose (UA) (Negative) Urine Ketones (Negative) Urine Blood (Negative) Urine Nitrite (Negative) Urine Bilirubin (Negative) Urine Urobilinogen (Negative) Ur Leukocyte Esterase (Negative) Urine WBC (Auto) (0-5) /hpf Urine RBC (Auto) (0-4) /hpf U Hyaline Cast (Auto) (0-5) /lpf U Epithel Cells (Auto) (0-5) /lpf Urine Bacteria (Auto) (Negative) POC Ur Test (NEG) Urine Opiates Screen (Neg) Ur Methadone, Qual (Neg) Urine Barbiturates (Neg) Ur Phencyclidine (PCP) (Neg) U Amphetamin/Meth Scrn (Neg) MDMA (Ecstasy) Screen (Neg) U Benzodiazepines Scrn (Neg) Ur Cocaine Metabolite (Neg) U Marijuana (THC) Screen (Neg) COVID-19 Eval Order SARS-CoV-2 (PCR) (Negative) Influenza Type A (PCR) (Neg) Influenza Type B (PCR) (Neg) RSV (RT-PCR) (Neg) 10/24/20 10/24/20 10/24/20 Range/Units 10:10 11:00 11:00 WBC (4.8-10.8) K/uL RBC (4.2-5.4) M/uL Hgb (12.0-16.0) g/dL Hct (37-47) % MCV (80-100) fL MCH (25-34) pg MCHC (32-36) g/dL RDW Std Deviation (36.4-46.3) fL RDW Coeff of Jess (11.5-14.5) % Plt Count (130-400) K/uL MPV (7.4-10.4) fL Immature Gran % (Auto) % Neut % (Auto) % Lymph % (Auto) % Norman % (Auto) % Eos % (Auto) % Baso % (Auto) % Neut # (Auto) (1.4-6.5) K/uL Lymph # (Auto) (1.2-3.4) K/uL Norman # (Auto) (0.11-0.59) K/uL Eos # (Auto) (0-0.5) K/uL Baso # (Auto) (0-0.2) K/uL Immature Gran # (Auto) (0.00-0.02) K/uL ESR 13 (0-21) mm/hr D-Dimer (0-500) ug/L FEU Sodium (136-145) mmol/L Potassium (3.5-5.1) mmol/L Chloride (98-107) mmol/L Carbon Dioxide (21-32) mmol/L Anion Gap (3-11) BUN (7-18) mg/dl Creatinine (0.6-1.2) mg/dl Est Cr Clr Drug Dosing ml/min Est GFR ( Amer) Est GFR (Non-Af Amer) BUN/Creatinine Ratio (10-20) Glucose (70-99) mg/dl Calcium (8.5-10.1) mg/dl Magnesium (1.8-2.4) mg/dl Total Bilirubin (0.2-1) mg/dl AST (15-37) U/L ALT (12-78) U/L Alkaline Phosphatase (45-117) U/L Total Creatine Kinase (26-192) U/L Troponin I (0-0.045) ng/ml C-Reactive Protein (0-0.29) mg/dl Total Protein (6.4-8.2) gm/dl Albumin (3.4-5.0) gm/dl Globulin (2.5-4.0) gm/dl Albumin/Globulin Ratio (0.9-2) Lipase (73-393) U/L Specimen Hemolysis Urine Color Yellow Urine Appearance Clear (Clear) Urine pH 7.5 (4.5-7.5) Ur Specific Stacy 1.008 (1.000-1.030) Urine Protein Negative (Negative) Urine Glucose (UA) Negative (Negative) Urine Ketones Negative (Negative) Urine Blood Trace H (Negative) Urine Nitrite Negative (Negative) Urine Bilirubin Negative (Negative) Urine Urobilinogen Negative (Negative) Ur Leukocyte Esterase Negative (Negative) Urine WBC (Auto) 1-5 (0-5) /hpf Urine RBC (Auto) 0-4 (0-4) /hpf U Hyaline Cast (Auto) 0 (0-5) /lpf U Epithel Cells (Auto) 0-5 (0-5) /lpf Urine Bacteria (Auto) Negative (Negative) POC Ur Test NEG (NEG) Urine Opiates Screen (Neg) Ur Methadone, Qual (Neg) Urine Barbiturates (Neg) Ur Phencyclidine (PCP) (Neg) U Amphetamin/Meth Scrn (Neg) MDMA (Ecstasy) Screen (Neg) U Benzodiazepines Scrn (Neg) Ur Cocaine Metabolite (Neg) U Marijuana (THC) Screen (Neg) COVID-19 Eval Order SARS-CoV-2 (PCR) (Negative) Influenza Type A (PCR) (Neg) Influenza Type B (PCR) (Neg) RSV (RT-PCR) (Neg) 10/24/20 10/24/20 10/24/20 Range/Units 11:00 13:10 13:10 WBC (4.8-10.8) K/uL RBC (4.2-5.4) M/uL Hgb (12.0-16.0) g/dL Hct (37-47) % MCV (80-100) fL MCH (25-34) pg MCHC (32-36) g/dL RDW Std Deviation (36.4-46.3) fL RDW Coeff of Jess (11.5-14.5) % Plt Count (130-400) K/uL MPV (7.4-10.4) fL Immature Gran % (Auto) % Neut % (Auto) % Lymph % (Auto) % Norman % (Auto) % Eos % (Auto) % Baso % (Auto) % Neut # (Auto) (1.4-6.5) K/uL Lymph # (Auto) (1.2-3.4) K/uL Norman # (Auto) (0.11-0.59) K/uL Eos # (Auto) (0-0.5) K/uL Baso # (Auto) (0-0.2) K/uL Immature Gran # (Auto) (0.00-0.02) K/uL ESR (0-21) mm/hr D-Dimer (0-500) ug/L FEU Sodium (136-145) mmol/L Potassium (3.5-5.1) mmol/L Chloride (98-107) mmol/L Carbon Dioxide (21-32) mmol/L Anion Gap (3-11) BUN (7-18) mg/dl Creatinine (0.6-1.2) mg/dl Est Cr Clr Drug Dosing ml/min Est GFR ( Amer) Est GFR (Non-Af Amer) BUN/Creatinine Ratio (10-20) Glucose (70-99) mg/dl Calcium (8.5-10.1) mg/dl Magnesium (1.8-2.4) mg/dl Total Bilirubin (0.2-1) mg/dl AST (15-37) U/L ALT (12-78) U/L Alkaline Phosphatase (45-117) U/L Total Creatine Kinase (26-192) U/L Troponin I 0.250 H* (0-0.045) ng/ml C-Reactive Protein < 0.29 (0-0.29) mg/dl Total Protein (6.4-8.2) gm/dl Albumin (3.4-5.0) gm/dl Globulin (2.5-4.0) gm/dl Albumin/Globulin Ratio (0.9-2) Lipase (73-393) U/L Specimen Hemolysis Urine Color Urine Appearance (Clear) Urine pH (4.5-7.5) Ur Specific Stacy (1.000-1.030) Urine Protein (Negative) Urine Glucose (UA) (Negative) Urine Ketones (Negative) Urine Blood (Negative) Urine Nitrite (Negative) Urine Bilirubin (Negative) Urine Urobilinogen (Negative) Ur Leukocyte Esterase (Negative) Urine WBC (Auto) (0-5) /hpf Urine RBC (Auto) (0-4) /hpf U Hyaline Cast (Auto) (0-5) /lpf U Epithel Cells (Auto) (0-5) /lpf Urine Bacteria (Auto) (Negative) POC Ur Test (NEG) Urine Opiates Screen Pos H (Neg) Ur Methadone, Qual Neg (Neg) Urine Barbiturates Neg (Neg) Ur Phencyclidine (PCP) Neg (Neg) U Amphetamin/Meth Scrn Neg (Neg) MDMA (Ecstasy) Screen Neg (Neg) U Benzodiazepines Scrn Neg (Neg) Ur Cocaine Metabolite Neg (Neg) U Marijuana (THC) Screen Neg (Neg) COVID-19 Eval Order SARS-CoV-2 (PCR) (Negative) Influenza Type A (PCR) (Neg) Influenza Type B (PCR) (Neg) RSV (RT-PCR) (Neg) 10/24/20 10/24/20 10/24/20 Range/Units 14:52 15:00 15:00 WBC (4.8-10.8) K/uL RBC (4.2-5.4) M/uL Hgb (12.0-16.0) g/dL Hct (37-47) % MCV (80-100) fL MCH (25-34) pg MCHC (32-36) g/dL RDW Std Deviation (36.4-46.3) fL RDW Coeff of Jess (11.5-14.5) % Plt Count (130-400) K/uL MPV (7.4-10.4) fL Immature Gran % (Auto) % Neut % (Auto) % Lymph % (Auto) % Norman % (Auto) % Eos % (Auto) % Baso % (Auto) % Neut # (Auto) (1.4-6.5) K/uL Lymph # (Auto) (1.2-3.4) K/uL Norman # (Auto) (0.11-0.59) K/uL Eos # (Auto) (0-0.5) K/uL Baso # (Auto) (0-0.2) K/uL Immature Gran # (Auto) (0.00-0.02) K/uL ESR (0-21) mm/hr D-Dimer 260 (0-500) ug/L FEU Sodium (136-145) mmol/L Potassium (3.5-5.1) mmol/L Chloride (98-107) mmol/L Carbon Dioxide (21-32) mmol/L Anion Gap (3-11) BUN (7-18) mg/dl Creatinine (0.6-1.2) mg/dl Est Cr Clr Drug Dosing ml/min Est GFR ( Amer) Est GFR (Non-Af Amer) BUN/Creatinine Ratio (10-20) Glucose (70-99) mg/dl Calcium (8.5-10.1) mg/dl Magnesium (1.8-2.4) mg/dl Total Bilirubin (0.2-1) mg/dl AST (15-37) U/L ALT (12-78) U/L Alkaline Phosphatase (45-117) U/L Total Creatine Kinase (26-192) U/L Troponin I (0-0.045) ng/ml C-Reactive Protein (0-0.29) mg/dl Total Protein (6.4-8.2) gm/dl Albumin (3.4-5.0) gm/dl Globulin (2.5-4.0) gm/dl Albumin/Globulin Ratio (0.9-2) Lipase (73-393) U/L Specimen Hemolysis Urine Color Urine Appearance (Clear) Urine pH (4.5-7.5) Ur Specific Stacy (1.000-1.030) Urine Protein (Negative) Urine Glucose (UA) (Negative) Urine Ketones (Negative) Urine Blood (Negative) Urine Nitrite (Negative) Urine Bilirubin (Negative) Urine Urobilinogen (Negative) Ur Leukocyte Esterase (Negative) Urine WBC (Auto) (0-5) /hpf Urine RBC (Auto) (0-4) /hpf U Hyaline Cast (Auto) (0-5) /lpf U Epithel Cells (Auto) (0-5) /lpf Urine Bacteria (Auto) (Negative) POC Ur Test (NEG) Urine Opiates Screen (Neg) Ur Methadone, Qual (Neg) Urine Barbiturates (Neg) Ur Phencyclidine (PCP) (Neg) U Amphetamin/Meth Scrn (Neg) MDMA (Ecstasy) Screen (Neg) U Benzodiazepines Scrn (Neg) Ur Cocaine Metabolite (Neg) U Marijuana (THC) Screen (Neg) COVID-19 Eval Order CovFluRsv at [facility] SARS-CoV-2 (PCR) NEGATIVE (Negative) Influenza Type A (PCR) Negative (Neg) Influenza Type B (PCR) Negative (Neg) RSV (RT-PCR) Negative (Neg) Imaging Data Radiologist's Impression: XR chest 1V portable CLINICAL HISTORY: Epigastric abd pain, eval for pneumonia COMPARISON STUDY: Chest radiograph April 27, 2019. FINDINGS: Lung volumes are at the lower limits of normal. Lungs are clear. There is no pneumothorax or pleural effusion. Cardiac size is normal. Mediastinal contours are normal. There is no evidence for pulmonary edema. IMPRESSION: Prominent bilateral lower lung markings which likely reflects normal vessels or atelectasis. An infectious process could appear similar but is considered less likely. ACT 112: Negative or not required by law. Electronically signed by: Calvin Waller M.D. 10/24/2020 1:[address] OF THE ABDOMEN AND PELVIS WITH CONTRAST CLINICAL HISTORY: RUQ and epigastric abdominal pain COMPARISON STUDY: CT of the abdomen and pelvis June 13, 2020. TECHNIQUE: Following IV administration of 94 mL of Optiray-320, axial images of the abdomen and pelvis were obtained from the lung bases to the proximal femurs. Images were reviewed in the axial, sagittal, and coronal planes. IV contrast was administered without complication. Automated exposure control was utilized for the study. A dose lowering technique was utilized adhering to the principles of ALARA. CT DOSE: 679.44 mGy.cm FINDINGS: Visualized portions of the lower chest demonstrate mild groundglass opacities within the bilateral lower lobes, greater on the right. A subcentimeter left breast nodule is unchanged from earlier exams. This is benign. There is no biliary ductal dilatation status post cholecystectomy. There is probable hepatic steatosis. The spleen, adrenal glands and pancreas are unremarkable. A few small bilateral renal calculi are noted. There are no ureteral calculi. There is no hydronephrosis or hydroureter. There is no evidence for a bowel obstruction. The appendix is surgically absent. The caliber and wall thickness of small and large bowel are normal. There is no ascites. No lymphadenopathy is present. No acute fracture or suspicious lesion is identified within the visualized skeletal structures. Major vasculature is patent. Colonic diverticulosis is noted without evidence for acute diverticulitis. IMPRESSION: 1. Mild groundglass opacities within the bilateral lower lobe suggestive of an infectious process. 2. Bilateral nephrolithiasis. No ureteral calculi or hydronephrosis. 3. No acute process within the abdomen or pelvis. No bowel obstruction. ACT 112: Negative or not required by law. Electronically signed by: Calvin Waller M.D. 10/24/2020 11:24 AM MDM Narrative Patient was seen and evaluated as above in room A3. Review was performed of nursing notes and vital signs. I did review pertinent previous visits and patient history. After obtaining a thorough history and physical examination the above work up was performed. Patient presents to us today with epigastric and upper quadrant pain that has been persistent since yesterday. Patient notes that this is the exact kind of pain she experiences when she has pancreatitis. She was evaluated here yesterday and had a complete work-up. Given the patient' s persistence of discomfort and presentation here today did discuss benefit versus risk of imaging. Patient notes that she has not had a CT scan of the abdomen in quite some time. It is felt that this is reasonable today. IV access was established and labs are drawn. No leukocytosis or anemia. There is hypokalemia at 3.1 with borderline low magnesium. Mild elevation of ALT. Alk phos mildly elevated. Lipase within normal limits. Urinalysis does not suggest infection. UPT negative. CT scan of the abdomen pelvis was obtained and is as above. CT scan reveals mild groundglass opacities within the bilateral lower lobes suggestive of an infectious process. Interestingly, the patient does not have any chest pain, shortness of breath or cough. Given this finding and the patient's persistence of pain and nonreproducible abdominal pain it was felt that a chest x-ray, EKG and troponin would be reasonable to broaden the work-up. The patient's EKG does reveal normal sinus rhythm at a rate of 84 bpm. TWI lead III which appears to be new compared to October [id number]. QTc is now 510. I will note the patient does not have any chest pain. I was then called by the ER charge nurse with the patient's troponin elevation at 0.25. I then discussed this with the patient and that that was when she did note that she has been experiencing right calf pain for the past 2 weeks. She thought it was just a charley horse. A D-dimer was added. This was negative. CK also added and was negative. I believe the patient would be best served in the inpatient setting for further evaluation and management given her nonreproducible epigastric abdominal pain in the setting of elevated troponin. While in the department, I personally reevaluated the patient several times and each time the patient was found to be resting comfortably. The patient was educated upon management, educated upon todays findings/results, case discussed with attending physician, hospitalist service, and please refer to further documentation regarding her stay. GCS: 15 In the evaluation and treatment of this patient the following differential diagnoses were entertained: ME, PE, pericarditis, costochondritis, pneumonia, bowel obstruction, ascending cholangitis, dissection, among others. Impression & Plan Elevated troponin, Abdominal pain, epigastric Discharge Plan Visit Data Chief Complaint: Abdominal Pain Stated Complaint: SEVERE ABD PAIN/VOMITING ED Provider: Natalie Curiel ED Midlevel Provider: Tay Mayo Discharge Problem: Elevated troponin, Abdominal pain, epigastric Patient Disposition: Admitted As Inpatient Condition: Good Discharge Instructions Interventions: ED Discharge Assessment Last Done: 10/24/20 16:53
--- NOTE | 2020-10-24 13:12 | XRay Report ---
XR chest 1V portable CLINICAL HISTORY: Epigastric abd pain, eval for pneumonia COMPARISON STUDY: Chest radiograph April 27, 2019. FINDINGS: Lung volumes are at the lower limits of normal. Lungs are clear. There is no pneumothorax o r pleural effusion. Cardiac size is normal. Mediastinal contours are normal. There is no evidence for pulmonary edema. IMPRESSION: Prominent bilateral lower lung markings which likely reflects normal vessels or atelecta sis. An infectious process could appear similar but is considered less likely. ACT 112: Negative or not required by law. Electronically signed by: Calvin Waller M.D. 10/24/2020 1:11 PM
[2020-10-24 15:09] LABS: Amphetamines+Metham, Urine Neg (Neg); Barbiturates, Urine Neg (Neg); Benzodiazepine, Urine Neg (Neg); Cocaine, Urine Neg (Neg); MDMA (Ecstacy), Urine Neg (Neg); Methadone, Urine Neg (Neg); Opiate, Urine Pos (Neg); Phencyclidine, Urine Neg (Neg)
[2020-10-24 15:25] LABS: D Dimer 260 ug/L FEU (0-500)
[2020-10-24] MEDS ORDERED: POTASSIUM CHLORIDE / WTR 10 MEQ/100 ML PLCT IV ONE (15:32)
[2020-10-24 15:45] LABS: Influenza A virus by PCR Negative (Neg); Influenza B virus by PCR Negative (Neg); RSV by PCR Negative (Neg); SARS CoV2 RNA(COVID-19) InHosp NEGATIVE (Negative)
--- NOTE | 2020-10-24 16:07 | History & Physical Report ---
Date of Service October 24, 2020 Assessment & Plan (1) Elevated troponin: -Admit to med tele -Can consider viral pericarditis causing referred pain and causing elevated trop/EKG findings, vs printzmetals angina - checking CRP and ESR now, follow -Trend cardiac biomarkers, initial set was elevated at 0.250, will trend x 2 more sets -EKG reviewed showing possibly new T wave inversions in inferior leads -Check 2 D echo - never had one before -Consider cardiology consult (2) Abdominal pain, epigastric: Acute on chronic, diagnosed in the past with acute pancreatitis but does not have that here today Mildly elevated troponin as above, question if pain is cardiac in nature Lipase noted lower today than it was yesterday, 260 versus 132 on arrival today -Patient was given morphine sulfate here in the ER last night, sent home with narcotics last night with home pack, positive opiates on tox screen is appropriate. Denies other hx of ilicit drug use. -Nonreproducible on exam -S/p cholecystectomy and appendectomy -CT of the abdomen and pelvis essentially negative other than findings of ground glass opacities on lower lung keith, Covid negative -Continue IV Pepcid daily -Glucose stable, allow clear liquid diet for now, can advance as tolerated -Has had RUQ ultrasound showing fatty liver CBD 5 mm previously during admission in April 2019. -Follows with GI in [place] as outpatient (3) Nausea and vomiting: -As above -Zofran, Tylenol as needed (4) Depression with anxiety: -History of uncontrolled anxiety, OCD-like tendencies -Has multiple psychiatric evaluations in the past, consider psych eval during this admission- denies SI/HI. -PDMP checked and does NOT have Rx hx for Clonazepam. She reports taking 1 mg TID at bedside. HOLD this. Do not give Rx upon dc as appears the patient may be attempting to manipulate the system. -Lamictal reported by pt 50 mg BID rather than the 100 mg twice daily reported in the med rec, will continue for now. Recheck with PCP - Dr. Thien Kohli from [facility] - will need to call prior to dc to confirm dose. Will help with mood stabilization. (5) Idiopathic pancreatitis: -Multiple episodes of this in the past, recurrent mild pancreatitis, lipase as above, nonelevated on admission -Was dosed with pain medication last evening while in the ER as well as today, would hold on further narcotics with her [id number] tendencies and behaviors. Has previously admitted to taking too many tramadol to attending provider on different admission. -Alk phos and ALT slightly elevated on admission, follow a.m. LFTs (6) Hepatitis C: -History of such, s/p treatment -Follows with DANIEL Clemente in [place] (7) Morbid obesity with BMI of 40.0-44.9, adult: - BMI of 43.8 - Recommend diet and exercise prior to dc (8) History of opioid abuse: As noted above, will only give home tramadol this admission as she appears to not be in any pain at all despite asking for pain medication (9) Substance use disorder: History of benzodiazepine abuse Avoid benzodiazepines Follow-up with psychiatry (10) Hyperglycemia: Blood sugar 164 on admission, nonfasting Check hemoglobin A1c in the morning (11) DVT prophylaxis: - teds CODE: Full code Dispo: From home, likely to remain in the hospital x 1-2 days History of Present Illness Primary Care Provider: Thien Kohli DO This is a 39 yo F with PMHx of recurrent idiopathic pancreatitis, treated HCV, esophagitis, seizure disorder vs pseudoseizures, migraines, nephrolithiasis, ADHD, chronic mid back pain s/p T-spine fracture, JUAN FRANCISCO, h/o benzo and opioid abuse, allergies, esophagitis and GI bleeding who presents to the ER today with recurrent RUQ abdominal pain, nausea, vomiting x 2 days. She presented to the ER last night and was treated with fluids and given morphine in the ER x 2 doses and sent home with a oxycodone IR home pack with Oxy 5 mg PO Q4-6 hours for pain, zofran and instructed to use colace. Her CT abdomen was scanned today, e ssentially negative except for ground glass opacities seen in the lower lung keith, and abdominal pain is nonreproducible on exam. S/p appendectomy and cholecystectomy. Her CXR and EKG showing T wave inversions which is new, and elevated trop has never been recorded here before. The patient is well known to the ER and on previous admissions for narcotic seeking, has PCP who prescribes tramadol and Adderall. Pt asks for medication for pain, tearful and anxious during conservation. She reports the pain is RUQ and epigastric, that nothing seems to alleviate it, and that it comes in waves. She feels it is very similar to prior episodes of pancreatitis, which she has had numerous times before. She denies drinking alcohol except on social occasions, but none recently. Dry heaving was very severe overnight, and has no longer been able to vomit. Denies diarrhea, and states her last BM was this morning, soft and formed, without melena, blood or pain. Pt denies being able to eat or drink much today due to pain. At one point her boyfriend calls her cell phone, and I updated him and answered all his questions and concerns. During this time the patient seems very calm, and once he is off the phone begin crying and states "I'm just so overwhelmed". We discussed her medications, and states she has been taking 1 mg clonazepam up to 3x daily (although urine drug screen here is negative for benzodiazepines), and does so normally. Denies smoking, tobacco use, other illicit drug use. Pt also uses tramadol 100 mg 4x per day, and lamictal 50 mg BID. She follows with psychiatry in [facility]. Pt does not currently do counseling but would like to get back into participating in this. Family Hx: no cardiac hx of mother or father that the patient is aware of. Allergies Allergy/AdvReac Type Severity Reaction Status Date / Time ibuprofen Allergy Unknown Hives Verified 10/24/20 10:45 ketorolac Allergy Unknown Rash Verified 10/24/20 10:45 adhesive tape AdvReac Unknown Rash Verified 10/24/20 10:45 Home Medications Medication Instructions Recorded Confirmed Type lamotrigine [Lamictal] 50 mg PO BID 06/20/18 10/24/20 History dextroamphetamine-amphetamine 20 mg PO TID 05/05/19 10/24/20 History tramadol 100 mg PO Q6H PRN 06/13/20 10/24/20 History ondansetron 4 mg PO Q6H PRN #20 tab 10/23/20 10/24/20 Rx Past Med/Surg History Medical History (Updated 10/24/20 @ 21:00 by Shannan Perkins MD) Chronic back pain Depression with anxiety Environmental allergies Hepatitis C History of esophagitis History of opioid abuse Idiopathic pancreatitis Migraine Nephrolithiasis Pseudoseizure Social anxiety disorder Substance use disorder Surgical History H/O hernia repair Hx of appendectomy Hx of cholecystectomy Family History Other Chronic pancreatitis Social History Smoking Status: Never smoker Hx Alcohol Use: Yes Hx Substance Use: Yes Substance Use Type Other:: occasional marijuana 1x/6 months Preferred Language: Italian Communication Ability: Effective Telesales Team Leader Required: No Beliefs That Will Affect Care: None Current Living Situation: Alone current occupational status: employed 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[employer] 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 Home: Yes Safety Concerns: Feels Safe At This Time Assistive Devices: None Review of Systems Review of Systems: Constitutional: No fever, sweats or chills Eyes: No diplopia, no worsening or blurred vision ENT: normal hearing, no trouble swallowing Respiratory: No cough, sputum, dyspnea at rest or on exertion Cardiovascular: No chest pain, tightness or palpitations Abdomen: + epigastric and RUQ pain, +nausea, +vomiting, no diarrhea or constipation Back: Chronic back pain s/p injury at age 25 where she broke a vertebrae s/p falling from wearing stiletto heels, chronic tramadol use Musculoskeletal: No joint pain, calf pain, swelling Neurologic: No weakness, numbness/tingling, or balance problems Psychiatric: + anxiety and depression Skin: No rash or itch Physical Exam Physical Exam: General: awake, alert, +acutely anxious and tearful at times, + obese with BMI of 43.8 Head: Normocephalic, atraumatic ENT: PERRL, EOMI, no pharyngeal exudate, mucous membranes moist Chest: Clear to auscultation, on room air, no adventitious breath sounds Cardiac: Regular rate and rhythm, no murmur, no reproducible chest pain with palpation, no JVD, normal peripheral pulses, good capillary refill Abdominal: NABS x 4 quadrants, soft, nondistended, +tender to palpation in epigastric region and RUQ with facial grimacing, no rebound or guarding Extremities: Normal inspection, no peripheral edema or erythema, calfs nontender to palpation Psych: Depressed mood and anxious affect, tearful at time, laughing at another point Neuro: AAO x 3, strength intact bilaterally and rated 5/5, no motor deficits, speech is clear and normal rate, no peripheral sensory deficits Results & Data Results & Data ([facility]) Vital Signs (Past 12 Hours) Vital Signs Temp Pulse Pulse Resp BP BP Pulse Ox 10/24/20 14:48 93 H 16 126/91 10/24/20 14:15 57 L 16 123/82 10/24/20 13:12 85 16 157/102 H 10/24/20 11:22 100 H 20 131/85 97 10/24/20 10:18 108 H 20 153/87 H 98 10/24/20 09:50 36.7 C 104 H 20 161/108 H 98 Laboratory Results 10/24/20 10/24/20 10/24/20 Range/Units 15:00 15:00 14:52 WBC (4.8-10.8) K/uL RBC (4.2-5.4) M/uL Hgb (12.0-16.0) g/dL Hct (37-47) % MCV (80-100) fL MCH (25-34) pg MCHC (32-36) g/dL RDW Std Deviation (36.4-46.3) fL RDW Coeff of Jess (11.5-14.5) % Plt Count (130-400) K/uL MPV (7.4-10.4) fL Immature Gran % (Auto) % Neut % (Auto) % Lymph % (Auto) % [place] % (Auto) % Eos % (Auto) % Baso % (Auto) % Neut # (Auto) (1.4-6.5) K/uL Lymph # (Auto) (1.2-3.4) K/uL [place] # (Auto) (0.11-0.59) K/uL Eos # (Auto) (0-0.5) K/uL Baso # (Auto) (0-0.2) K/uL Immature Gran # (Auto) (0.00-0.02) K/uL ESR (0-21) mm/hr D-Dimer 260 (0-500) ug/L FEU Sodium (136-145) mmol/L Potassium (3.5-5.1) mmol/L Chloride (98-107) mmol/L Carbon Dioxide (21-32) mmol/L Anion Gap (3-11) BUN (7-18) mg/dl Creatinine (0.6-1.2) mg/dl Est Cr Clr Drug Dosing ml/min Est GFR ( Amer) Est GFR (Non-Af Amer) BUN/Creatinine Ratio (10-20) Glucose (70-99) mg/dl Calcium (8.5-10.1) mg/dl Magnesium (1.8-2.4) mg/dl Total Bilirubin (0.2-1) mg/dl AST (15-37) U/L ALT (12-78) U/L Alkaline Phosphatase (45-117) U/L Total Creatine Kinase (26-192) U/L Troponin I (0-0.045) ng/ml C-Reactive Protein (0-0.29) mg/dl Total Protein (6.4-8.2) gm/dl Albumin (3.4-5.0) gm/dl Globulin (2.5-4.0) gm/dl Albumin/Globulin Ratio (0.9-2) Lipase (73-393) U/L Specimen Hemolysis Urine Color Urine Appearance (Clear) Urine pH (4.5-7.5) Ur Specific [place] (1.000-1.030) Urine Protein (Negative) Urine Glucose (UA) (Negative) Urine Ketones (Negative) Urine Blood (Negative) Urine Nitrite (Negative) Urine Bilirubin (Negative) Urine Urobilinogen (Negative) Ur Leukocyte Esterase (Negative) Urine WBC (Auto) (0-5) /hpf Urine RBC (Auto) (0-4) /hpf U Hyaline Cast (Auto) (0-5) /lpf U Epithel Cells (Auto) (0-5) /lpf Urine Bacteria (Auto) (Negative) POC Ur Test (NEG) Urine Opiates Screen (Neg) U Codeine Confrm GC/MS Ur Morphine (GC/MS) Ur Hydrocodone (GC/MS) Ur Norhydrocodone Ur Noroxycodone Urine Oxycodone (GC/MS) U Oxymorphone GC/MS Ur Methadone, Qual (Neg) Ur Hydromorphone (GC/MS) Urine Barbiturates (Neg) Ur Phencyclidine (PCP) (Neg) U Amphetamin/Meth Scrn (Neg) MDMA (Ecstasy) Screen (Neg) U Benzodiazepines Scrn (Neg) Ur Cocaine Metabolite (Neg) U Marijuana (THC) Screen (Neg) Drug Screen Comment COVID-19 Eval Order CovFluRsv at [facility] SARS-CoV-2 (PCR) NEGATIVE (Negative) Influenza Type A (PCR) Negative (Neg) Influenza Type B (PCR) Negative (Neg) RSV (RT-PCR) Negative (Neg) 10/24/20 10/24/20 10/24/20 Range/Units 13:10 13:10 11:00 WBC (4.8-10.8) K/uL RBC (4.2-5.4) M/uL Hgb (12.0-16.0) g/dL Hct (37-47) % MCV (80-100) fL MCH (25-34) pg MCHC (32-36) g/dL RDW Std Deviation (36.4-46.3) fL RDW Coeff of Jess (11.5-14.5) % Plt Count (130-400) K/uL MPV (7.4-10.4) fL Immature Gran % (Auto) % Neut % (Auto) % Lymph % (Auto) % [place] % (Auto) % Eos % (Auto) % Baso % (Auto) % Neut # (Auto) (1.4-6.5) K/uL Lymph # (Auto) (1.2-3.4) K/uL [place] # (Auto) (0.11-0.59) K/uL Eos # (Auto) (0-0.5) K/uL Baso # (Auto) (0-0.2) K/uL Immature Gran # (Auto) (0.00-0.02) K/uL ESR (0-21) mm/hr D-Dimer (0-500) ug/L FEU Sodium (136-145) mmol/L Potassium (3.5-5.1) mmol/L Chloride (98-107) mmol/L Carbon Dioxide (21-32) mmol/L Anion Gap (3-11) BUN (7-18) mg/dl Creatinine (0.6-1.2) mg/dl Est Cr Clr Drug Dosing ml/min Est GFR ( Amer) Est GFR (Non-Af Amer) BUN/Creatinine Ratio (10-20) Glucose (70-99) mg/dl Calcium (8.5-10.1) mg/dl Magnesium (1.8-2.4) mg/dl Total Bilirubin (0.2-1) mg/dl AST (15-37) U/L ALT (12-78) U/L Alkaline Phosphatase (45-117) U/L Total Creatine Kinase (26-192) U/L Troponin I 0.250 H* (0-0.045) ng/ml C-Reactive Protein < 0.29 (0-0.29) mg/dl Total Protein (6.4-8.2) gm/dl Albumin (3.4-5.0) gm/dl Globulin (2.5-4.0) gm/dl Albumin/Globulin Ratio (0.9-2) Lipase (73-393) U/L Specimen Hemolysis Urine Color Urine Appearance (Clear) Urine pH (4.5-7.5) Ur Specific [place] (1.000-1.030) Urine Protein (Negative) Urine Glucose (UA) (Negative) Urine Ketones (Negative) Urine Blood (Negative) Urine Nitrite (Negative) Urine Bilirubin (Negative) Urine Urobilinogen (Negative) Ur Leukocyte Esterase (Negative) Urine WBC (Auto) (0-5) /hpf Urine RBC (Auto) (0-4) /hpf U Hyaline Cast (Auto) (0-5) /lpf U Epithel Cells (Auto) (0-5) /lpf Urine Bacteria (Auto) (Negative) POC Ur Test (NEG) Urine Opiates Screen (Neg) U Codeine Confrm GC/MS Pending Ur Morphine (GC/MS) Pending Ur Hydrocodone (GC/MS) Pending Ur Norhydrocodone Pending Ur Noroxycodone Pending Urine Oxycodone (GC/MS) Pending U Oxymorphone GC/MS Pending Ur Methadone, Qual (Neg) Ur Hydromorphone (GC/MS) Pending Urine Barbiturates (Neg) Ur Phencyclidine (PCP) (Neg) U Amphetamin/Meth Scrn (Neg) MDMA (Ecstasy) Screen (Neg) U Benzodiazepines Scrn (Neg) Ur Cocaine Metabolite (Neg) U Marijuana (THC) Screen (Neg) Drug Screen Comment Pending COVID-19 Eval Order SARS-CoV-2 (PCR) (Negative) Influenza Type A (PCR) (Neg) Influenza Type B (PCR) (Neg) RSV (RT-PCR) (Neg) 10/24/20 10/24/20 10/24/20 Range/Units 11:00 11:00 11:00 WBC (4.8-10.8) K/uL RBC (4.2-5.4) M/uL Hgb (12.0-16.0) g/dL Hct (37-47) % MCV (80-100) fL MCH (25-34) pg MCHC (32-36) g/dL RDW Std Deviation (36.4-46.3) fL RDW Coeff of Jess (11.5-14.5) % Plt Count (130-400) K/uL MPV (7.4-10.4) fL Immature Gran % (Auto) % Neut % (Auto) % Lymph % (Auto) % [place] % (Auto) % Eos % (Auto) % Baso % (Auto) % Neut # (Auto) (1.4-6.5) K/uL Lymph # (Auto) (1.2-3.4) K/uL [place] # (Auto) (0.11-0.59) K/uL Eos # (Auto) (0-0.5) K/uL Baso # (Auto) (0-0.2) K/uL Immature Gran # (Auto) (0.00-0.02) K/uL ESR (0-21) mm/hr D-Dimer (0-500) ug/L FEU Sodium (136-145) mmol/L Potassium (3.5-5.1) mmol/L Chloride (98-107) mmol/L Carbon Dioxide (21-32) mmol/L Anion Gap (3-11) BUN (7-18) mg/dl Creatinine (0.6-1.2) mg/dl Est Cr Clr Drug Dosing ml/min Est GFR ( Amer) Est GFR (Non-Af Amer) BUN/Creatinine Ratio (10-20) Glucose (70-99) mg/dl Calcium (8.5-10.1) mg/dl Magnesium (1.8-2.4) mg/dl Total Bilirubin (0.2-1) mg/dl AST (15-37) U/L ALT (12-78) U/L Alkaline Phosphatase (45-117) U/L Total Creatine Kinase (26-192) U/L Troponin I (0-0.045) ng/ml C-Reactive Protein (0-0.29) mg/dl Total Protein (6.4-8.2) gm/dl Albumin (3.4-5.0) gm/dl Globulin (2.5-4.0) gm/dl Albumin/Globulin Ratio (0.9-2) Lipase (73-393) U/L Specimen Hemolysis Urine Color Yellow Urine Appearance Clear (Clear) Urine pH 7.5 (4.5-7.5) Ur Specific [place] 1.008 (1.000-1.030) Urine Protein Negative (Negative) Urine Glucose (UA) Negative (Negative) Urine Ketones Negative (Negative) Urine Blood Trace H (Negative) Urine Nitrite Negative (Negative) Urine Bilirubin Negative (Negative) Urine Urobilinogen Negative (Negative) Ur Leukocyte Esterase Negative (Negative) Urine WBC (Auto) 1-5 (0-5) /hpf Urine RBC (Auto) 0-4 (0-4) /hpf U Hyaline Cast (Auto) 0 (0-5) /lpf U Epithel Cells (Auto) 0-5 (0-5) /lpf Urine Bacteria (Auto) Negative (Negative) POC Ur Test NEG (NEG) Urine Opiates Screen Pos H (Neg) U Codeine Confrm GC/MS Ur Morphine (GC/MS) Ur Hydrocodone (GC/MS) Ur Norhydrocodone Ur Noroxycodone Urine Oxycodone (GC/MS) U Oxymorphone GC/MS Ur Methadone, Qual Neg (Neg) Ur Hydromorphone (GC/MS) Urine Barbiturates Neg (Neg) Ur Phencyclidine (PCP) Neg (Neg) U Amphetamin/Meth Scrn Neg (Neg) MDMA (Ecstasy) Screen Neg (Neg) U Benzodiazepines Scrn Neg (Neg) Ur Cocaine Metabolite Neg (Neg) U Marijuana (THC) Screen Neg (Neg) Drug Screen Comment COVID-19 Eval Order SARS-CoV-2 (PCR) (Negative) Influenza Type A (PCR) (Neg) Influenza Type B (PCR) (Neg) RSV (RT-PCR) (Neg) 10/24/20 10/24/2021 Range/Units 10:10 10:10 10:10 WBC (4.8-10.8) K/uL RBC (4.2-5.4) M/uL Hgb (12.0-16.0) g/dL Hct (37-47) % MCV (80-100) fL MCH (25-34) pg MCHC (32-36) g/dL RDW Std Deviation (36.4-46.3) fL RDW Coeff of Jess (11.5-14.5) % Plt Count (130-400) K/uL MPV (7.4-10.4) fL Immature Gran % (Auto) % Neut % (Auto) % Lymph % (Auto) % [place] % (Auto) % Eos % (Auto) % Baso % (Auto) % Neut # (Auto) (1.4-6.5) K/uL Lymph # (Auto) (1.2-3.4) K/uL [place] # (Auto) (0.11-0.59) K/uL Eos # (Auto) (0-0.5) K/uL Baso # (Auto) (0-0.2) K/uL Immature Gran # (Auto) (0.00-0.02) K/uL ESR 13 (0-21) mm/hr D-Dimer (0-500) ug/L FEU Sodium 140 (136-145) mmol/L Potassium 3.1 L (3.5-5.1) mmol/L Chloride 105 (98-107) mmol/L Carbon Dioxide 28 (21-32) mmol/L Anion Gap 7.0 (3-11) BUN 6 L (7-18) mg/dl Creatinine 0.82 (0.6-1.2) mg/dl Est Cr Clr Drug Dosing 96.9 ml/min Est GFR ( Amer) 106.0 Est GFR (Non-Af Amer) 91.4 BUN/Creatinine Ratio 7.1 L (10-20) Glucose 167 H (70-99) mg/dl Calcium 8.1 L (8.5-10.1) mg/dl Magnesium 1.8 (1.8-2.4) mg/dl Total Bilirubin 0.4 (0.2-1) mg/dl AST 35 (15-37) U/L ALT 81 H (12-78) U/L Alkaline Phosphatase 118 H (45-117) U/L Total Creatine Kinase 129 (26-192) U/L Troponin I (0-0.045) ng/ml C-Reactive Protein (0-0.29) mg/dl Total Protein 6.6 (6.4-8.2) gm/dl Albumin 3.1 L (3.4-5.0) gm/dl Globulin 3.5 (2.5-4.0) gm/dl Albumin/Globulin Ratio 0.9 (0.9-2) Lipase 132 (73-393) U/L Specimen Hemolysis Urine Color Urine Appearance (Clear) Urine pH (4.5-7.5) Ur Specific [place] (1.000-1.030) Urine Protein (Negative) Urine Glucose (UA) (Negative) Urine Ketones (Negative) Urine Blood (Negative) Urine Nitrite (Negative) Urine Bilirubin (Negative) Urine Urobilinogen (Negative) Ur Leukocyte Esterase (Negative) Urine WBC (Auto) (0-5) /hpf Urine RBC (Auto) (0-4) /hpf U Hyaline Cast (Auto) (0-5) /lpf U Epithel Cells (Auto) (0-5) /lpf Urine Bacteria (Auto) (Negative) POC Ur Test (NEG) Urine Opiates Screen (Neg) U Codeine Confrm GC/MS Ur Morphine (GC/MS) Ur Hydrocodone (GC/MS) Ur Norhydrocodone Ur Noroxycodone Urine Oxycodone (GC/MS) U Oxymorphone GC/MS Ur Methadone, Qual (Neg) Ur Hydromorphone (GC/MS) Urine Barbiturates (Neg) Ur Phencyclidine (PCP) (Neg) U Amphetamin/Meth Scrn (Neg) MDMA (Ecstasy) Screen (Neg) U Benzodiazepines Scrn (Neg) Ur Cocaine Metabolite (Neg) U Marijuana (THC) Screen (Neg) Drug Screen Comment COVID-19 Eval Order SARS-CoV-2 (PCR) (Negative) Influenza Type A (PCR) (Neg) Influenza Type B (PCR) (Neg) RSV (RT-PCR) (Neg) 10/24/20 Range/Units 10:10 WBC 6.37 (4.8-10.8) K/uL RBC 4.02 L (4.2-5.4) M/uL Hgb 12.7 (12.0-16.0) g/dL Hct 37.2 (37-47) % MCV 92.5 (80-100) fL MCH 31.6 (25-34) pg MCHC 34.1 (32-36) g/dL RDW Std Deviation 42.0 (36.4-46.3) fL RDW Coeff of Jess 12.3 (11.5-14.5) % Plt Count 230 (130-400) K/uL MPV 8.9 (7.4-10.4) fL Immature Gran % (Auto) 0.2 % Neut % (Auto) 69.0 % Lymph % (Auto) 24.0 % [place] % (Auto) 4.9 % Eos % (Auto) 1.6 % Baso % (Auto) 0.3 % Neut # (Auto) 4.40 (1.4-6.5) K/uL Lymph # (Auto) 1.53 (1.2-3.4) K/uL [place] # (Auto) 0.31 (0.11-0.59) K/uL Eos # (Auto) 0.10 (0-0.5) K/uL Baso # (Auto) 0.02 (0-0.2) K/uL Immature Gran # (Auto) 0.01 (0.00-0.02) K/uL ESR (0-21) mm/hr D-Dimer (0-500) ug/L FEU Sodium (136-145) mmol/L Potassium (3.5-5.1) mmol/L Chloride (98-107) mmol/L Carbon Dioxide (21-32) mmol/L Anion Gap (3-11) BUN (7-18) mg/dl Creatinine (0.6-1.2) mg/dl Est Cr Clr Drug Dosing ml/min Est GFR ( Amer) Est GFR (Non-Af Amer) BUN/Creatinine Ratio (10-20) Glucose (70-99) mg/dl Calcium (8.5-10.1) mg/dl Magnesium (1.8-2.4) mg/dl Total Bilirubin (0.2-1) mg/dl AST (15-37) U/L ALT (12-78) U/L Alkaline Phosphatase (45-117) U/L Total Creatine Kinase (26-192) U/L Troponin I (0-0.045) ng/ml C-Reactive Protein (0-0.29) mg/dl Total Protein (6.4-8.2) gm/dl Albumin (3.4-5.0) gm/dl Globulin (2.5-4.0) gm/dl Albumin/Globulin Ratio (0.9-2) Lipase (73-393) U/L Specimen Hemolysis Urine Color Urine Appearance (Clear) Urine pH (4.5-7.5) Ur Specific [place] (1.000-1.030) Urine Protein (Negative) Urine Glucose (UA) (Negative) Urine Ketones (Negative) Urine Blood (Negative) Urine Nitrite (Negative) Urine Bilirubin (Negative) Urine Urobilinogen (Negative) Ur Leukocyte Esterase (Negative) Urine WBC (Auto) (0-5) /hpf Urine RBC (Auto) (0-4) /hpf U Hyaline Cast (Auto) (0-5) /lpf U Epithel Cells (Auto) (0-5) /lpf Urine Bacteria (Auto) (Negative) POC Ur Test (NEG) Urine Opiates Screen (Neg) U Codeine Confrm GC/MS Ur Morphine (GC/MS) Ur Hydrocodone (GC/MS) Ur Norhydrocodone Ur Noroxycodone Urine Oxycodone (GC/MS) U Oxymorphone GC/MS Ur Methadone, Qual (Neg) Ur Hydromorphone (GC/MS) Urine Barbiturates (Neg) Ur Phencyclidine (PCP) (Neg) U Amphetamin/Meth Scrn (Neg) MDMA (Ecstasy) Screen (Neg) U Benzodiazepines Scrn (Neg) Ur Cocaine Metabolite (Neg) U Marijuana (THC) Screen (Neg) Drug Screen Comment COVID-19 Eval Order SARS-CoV-2 (PCR) (Negative) Influenza Type A (PCR) (Neg) Influenza Type B (PCR) (Neg) RSV (RT-PCR) (Neg) Diagnostic Findings CT OF THE ABDOMEN AND PELVIS WITH CONTRAST CLINICAL HISTORY: RUQ and epigastric abdominal pain COMPARISON STUDY: CT of the abdomen and pelvis June 13, 2020. TECHNIQUE: Following IV administration of 94 mL of [id number]-320, axial images of the abdomen and pelvis were obtained from the lung bases to the proximal femurs. Images were reviewed in the axial, sagittal, and coronal planes. IV contrast was administered without complication. Automated exposure control was utilized for the study. A dose lowering technique was utilized adhering to the principles of ALARA. CT DOSE: 679.44 mGy.cm FINDINGS: Visualized portions of the lower chest demonstrate mild groundglass opacities within the bilateral lower lobes, greater on the right. A subcentimeter left breast nodule is unchanged from earlier exams. This is benign. There is no biliary ductal dilatation status post cholecystectomy. There is probable hepatic steatosis. The spleen, adrenal glands and pancreas are unremarkable. A few small bilateral renal calculi are noted. There are no ureteral calculi. There is no hydronephrosis or hydroureter. There is no evidence for a bowel obstruction. The appendix is surgically absent. The caliber and wall thickness of small and large bowel are normal. There is no ascites. No lymphadenopathy is present. No acute fracture or suspicious lesion is identified within the visualized skeletal structures. Major vasculature is patent. Colonic diverticulosis is noted without evidence for acute diverticulitis. IMPRESSION: 1. Mild groundglass opacities within the bilateral lower lobe suggestive of an infectious process. 2. Bilateral nephrolithiasis. No ureteral calculi or hydronephrosis. 3. No acute process within the abdomen or pelvis. No bowel obstruction. ECG Additional Comments: 24-OCT-2020 13:09:51 [facility]-EDSTAT ROUTINE RETRIEVAL Normal sinus rhythm Moderate voltage criteria for LVH, may be normal variant Nonspecific T wave abnormality Prolonged QT Abnormal ECG When compared with ECG of 09-OCT-2017 01:41, No significant change was found 25mm/s 10mm/mV 150Hz 9.0.9 12SL 241 SHARONDA: 10 Referred by: REFERRED SELF Unconfirmed Vent. rate 84 BPM MT interval 136 ms QRS duration 90 ms QT/QTc 432/510 ms Code Status & VTE Plan Code Status Full code - discussed with the pt at bedside Supervising Physician Co-Signing Physician Notes PA Supervision Note: I personally saw and examined the patient. I verified all vasquez points and agree with EPIFANIO Woods with the following exceptions and/or additions: This patient is a 39-year-old female known to me from previous admission who presents with epigastric abdominal pain and intractable nausea/vomiting. She initially had denied chest pain to the ER provider, but I saw her after admiss ion and she was aware of her elevated troponin. At this point, she reported that she has been having sharp chest pains constantly for 2 days. She reports that it is better when she lies flat. She is currently eating a purple ice cream when I saw her and smiling, however later then asks for pain meds that are stronger than tramadol. She is not having any diarrhea or constipation. No fevers or chills, no cough or shortness of breath. Troponin is mildly elevated at 0.25 and her D-dimer is normal History and ROS reviewed as above Vitals reviewed Gen: AAOx3, NAD, morbidly obese HEENT: Anicteric sclerae, EOMI CV: RRR no mgr nl S1S2, positive tenderness palpation over anterior chest wall in the sternal area Pulm: CTAB no wcr Abd: +BS soft NT ND no masses or hernias Ext: No edema, 2+ DP pulses Skin: No rashes, warm/dry Neuro: Full strength throughout Laboratory values reviewed Imaging results reviewed ECG reviewed 39-year-old female with history noted as above, here with nausea/vomiting and epigastric pain, with positive troponin, no significant ECG changes -Admit for cardiac work-up to include serial troponin, echocardiogram, cardiology consultation ESR and CRP are normal, and her pain is better with lying flat-this does not support a diagnosis of pericarditis Covid-19 is negative Suspect mild elevation in troponin due to strain on the heart from intractable nausea/vomiting which also now seems to be resolved PG Care Time/CCT Total # of Minutes Spent Total Time Spent with Patient: Total time spent is greater than 50% in coordination of care (as documented) at patient's floor/unit and/or counseling patient: Coding Level of Care Code 79439 Initial Inpt Care Lvl 3 Diagnoses Elevated troponin R77.8 Abdominal pain, epigastric R10.13 Nausea and vomiting R11.2 Depression with anxiety F41.8 Idiopathic pancreatitis K85.00 Acute pancreatitis complication: unspecified Chronicity: acute Hepatitis C B19.20 Morbid obesity with BMI of 40.0-44.9, adult E66.01; Z68.41 History of opioid abuse F11.11 Substance use disorder F19.90 Hyperglycemia R73.9 DVT prophylaxis Z29.9 (1) Idiopathic pancreatitis Acute pancreatitis complication: unspecified Chronicity: acute Qualified Code(s): K85.00 - Idiopathic acute pancreatitis without necrosis or infection
[2020-10-24 16:38] LABS: Creatine Kinase 129 U/L (26-192)
[2020-10-24] MEDS ORDERED: ONDANSETRON INJ 2 MG/ML 2 ML VIAL IV PRN (17:35)
[2020-10-24] MEDS ORDERED: ACETAMINOPHEN 325 MG TAB PO PRN (17:35)
[2020-10-24] MEDS: traMADol HCL 50 MG TABLET PO PRN (20:14)
[2020-10-24] MEDS: AMPHETAMINE ASP/SULF/DEXTRAMPH 20 MG TAB PO SCH (20:20)
[2020-10-24] MEDS ORDERED: lamoTRIgine 100 MG TAB PO SCH (21:00)
--- NOTE | 2020-10-24 22:44 | Electrocardiogram Report ---
Test Reason : Blood Pressure : / mmHG Vent. Rate : 084 BPM Atrial Rate : 084 BPM P-R Int : 136 ms QRS Dur : 090 ms QT Int : 432 ms P-R-T Axes : 010 -15 006 degrees QTc Int : 510 ms Normal sinus rhythm Moderate voltage criteria for LVH, may be normal variant Nonspecific T wave abnormality Prolonged QT Abnormal ECG When compared with ECG of 09-OCT-2017 01:41, No significant change was found Confirmed by Sridhar Campos ([id number]) on 10/24/2020 10:44:05 PM Referred By: REFERRED SELF Confirmed By:Sridhar Campos
[2020-10-25] MEDS: traMADol HCL 50 MG TABLET PO PRN ×3 (02:55→21:17)
[2020-10-25 04:35] LABS: Hematocrit (blood only) 38.9 % (37-47); Hemoglobin 13.2 g/dL (12.0-16.0); Mean Corpuscular Hgb Conc 33.9 g/dL (32-36); Mean Corpuscular Volume 91.3 fL (80-100); Mean Platelet Volume 9.1 fL (7.4-10.4); Platelet Count 256 K/uL (130-400); RDW Coefficient of Variation 12.2 % (11.5-14.5); Red Blood Count 4.26 M/uL (4.2-5.4); White Blood Count 5.21 K/uL (4.8-10.8)
[2020-10-25 04:44] LABS: Albumin Level 3.5 gm/dl (3.4-5.0); BUN Creatinine Ratio 4.4 (10-20); Calcium 8.3 mg/dl (8.5-10.1); Creatinine Clr Calc Pharmacy 134.6 ml/min; Est GFR (African American) 135.7; Est GFR (Non-African American) 117.1; Potassium 2.9 mmol/L (3.5-5.1)
[2020-10-25 04:46] LABS: Bilirubin,Total 0.5 mg/dl (0.2-1); Globulin 3.6 gm/dl (2.5-4.0); Total Protein 7.1 gm/dl (6.4-8.2)
[2020-10-25] MEDS: FAMOTIDINE 20 MG in SYRINGE 3 ML IV SCH (07:40)
[2020-10-25] MEDS: lamoTRIgine 25 MG TAB PO SCH ×2 (07:40→20:16)
[2020-10-25] MEDS: AMPHETAMINE ASP/SULF/DEXTRAMPH 20 MG TAB PO SCH ×3 (07:40→21:17)
[2020-10-25] MEDS ORDERED: POTASSIUM PHOS 3 MMOL/1 ML INFUSION IV STA ×2 (08:47)
[2020-10-25] MEDS ORDERED: POTASSIUM CHLORIDE CRTAB 20 MEQ TABCR PO STA (08:55)
[2020-10-25 09:22] LABS: Magnesium 2.1 mg/dl (1.8-2.4); Phosphorus 3.3 mg/dl (2.5-4.9)
--- NOTE | 2020-10-25 11:15 | Hospitalist Progress Note ---
Date of Service October 25, 2020 Assessment & Plan (1) Atypical chest pain: 39 yo F with hx recurrent idiopathic pancreatitis, depression, anxiety, heroin abuse, drug seeking behavior, treated hepatitis C, who presented to the ER for worsening N/V/D and abdominal pain, found to have an elevated troponin and admitted for atypical chest pain. 1. Atypical chest pain - epigastric/RUQ pain - no dyspnea/orthopnea - elevated troponin 0.25 -> 0.31 -> 0.172 - ASA daily - metoprolol tartrate 25 mg BID - strong fhx of early CAD however no personal Dm2, HTN, HLD to increase risk factors - cardiology recommendations appreciated - ECHO: 50-55%, low-normal systolic function, moderate concentric LVH, no significant diastolic dysfunction, no valvular abnormalities, normal RVP 2. Epigastric pain - famotidine 20 mg daily - zofran - GI cocktail 3. Mood ds - cont lamictal 50 BID from home Chronic pain? - on home dose of tramadol 100 pO Q6 DVT ppx: low risk, walk adlib FEN/GI: heart healthy, NPO at midnight Code Status: Full Code Dispo: home after workup (2) Abnormal ECG: (3) History of opioid abuse: Admission and Anticipated Discharge Date Admission Date: October 24, 2020 Supervising Physician Co-Signing Physician Notes Resident Physician Supervision Note: I independently interviewed and examined the patient and verified the vasquez histo ry and physical, reviewed labs and image studies, discussed the case with the resident Dr. Gutierrez and agree with the findings and care plan. Subjective states chest pain and SOB have improved this morning, feeling much better. Concerned that her family has a strong history of early coronary artery disease leading to . Pt's mother was sick last week and saw her on preceding admission. Pt was experiencing nausea, vomiting, one day of diarrhea at home prior to coming to ER for epigastric vs RUQ abdominal pain. Review of Systems Constitutional: no fever, no chills, no body aches and no fatigue Respiratory: no cough and no dyspnea Cardiovascular: no chest pain, no dyspnea and no edema Gastrointestinal: + abdominal pain; no nausea, no vomiting, no constipation and no diarrhea/loose stools Physical Exam Constitutional: cooperative; no acute distress and not ill appearing Neck: normal visual inspection Respiratory: normal respiratory effort and able to speak in complete sentences; no respiratory distress, no labored breathing, no retractions, no cough and no audible wheezes Auscultation: lungs clear to auscultation bilaterally; no crackles, no rales, no rhonchi and no wheezes Cardiovascular: Rate/Rhythm: regular rate and regular rhythm Heart Sounds: normal S1 and normal S2; no gallop, no murmur and no cardiac rub Vessels: posterior tibial pulses present Extremities: no pedal edema and no edema Gastrointestinal (Abdomen): Inspection/Auscultation: abdomen normal to in spection and normal bowel sounds; abdomen not distended Percussion/Palpation: + abdomen tender (epigastric) and abdomen soft; no guarding, abdomen not rigid and no abdominal mass Psychiatric: Affect: + anxious affect and + tearful affect Results & Data Results & Data ([facility]) Vital Signs (Past 12 Hours) Vital Signs Temp Pulse Pulse Resp BP Pulse Ox 10/25/20 08:00 92 H 10/25/20 07:24 36.6 C 91 H 18 145/89 H 94 10/25/20 04:00 36.6 C 91 H 18 144/86 H 98 10/25/20 00:00 36.8 C 105 H 18 167/90 H 95 Laboratory Results WBC 5.21 K/uL (4.8-10.8) 10/25/20 04:08 RBC 4.26 M/uL (4.2-5.4) 10/25/20 04:08 Hgb 13.2 g/dL (12.0-16.0) 10/25/20 04:08 Hct 38.9 % (37-47) 10/25/20 04:08 MCV 91.3 fL (80-100) 10/25/20 04:08 MCH 31.0 pg (25-34) 10/25/20 04:08 MCHC 33.9 g/dL (32-36) 10/25/20 04:08 RDW Std Deviation 41.0 fL (36.4-46.3) 10/25/20 04:08 RDW Coeff of Jess 12.2 % (11.5-14.5) 10/25/20 04:08 Plt Count 256 K/uL (130-400) 10/25/20 04:08 MPV 9.1 fL (7.4-10.4) 10/25/20 04:08 Immature Gran % (Auto) 0.2 % 10/24/20 10:10 Neut % (Auto) 69.0 % 10/24/20 10:10 Lymph % (Auto) 24.0 % 10/24/20 10:10 [place] % (Auto) 4.9 % 10/24/20 10:10 Eos % (Auto) 1.6 % 10/24/20 10:10 Baso % (Auto) 0.3 % 10/24/20 10:10 Neut # (Auto) 4.40 K/uL (1.4-6.5) 10/24/20 10:10 Lymph # (Auto) 1.53 K/uL (1.2-3.4) 10/24/20 10:10 [place] # (Auto) 0.31 K/uL (0.11-0.59) 10/24/20 10:10 Eos # (Auto) 0.10 K/uL (0-0.5) 10/24/20 10:10 Baso # (Auto) 0.02 K/uL (0-0.2) 10/24/20 10:10 Immature Gran # (Auto) 0.01 K/uL (0.00-0.02) 10/24/20 10:10 ESR 13 mm/hr (0-21) 10/24/20 10:10 D-Dimer 260 ug/L FEU (0-500) 10/24/20 14:52 Sodium 133 mmol/L (136-145) L D 10/25/20 12:14 Potassium 3.0 mmol/L (3.5-5.1) L 10/25/20 12:14 Chloride 106 mmol/L (98-107) 10/25/20 12:14 Carbon Dioxide 31 mmol/L (21-32) 10/25/20 12:14 Anion Gap -4.0 (3-11) L 10/25/20 12:14 BUN 3 mg/dl (7-18) L 10/25/20 12:14 Creatinine 0.55 mg/dl (0.6-1.2) L 10/25/20 12:14 Est Cr Clr Drug Dosing 144.4 ml/min 10/25/20 12:14 Est GFR ( Amer) 138.9 10/25/20 12:14 Est GFR (Non-Af Amer) 119.8 10/25/20 12:14 BUN/Creatinine Ratio 5.6 (10-20) L 10/25/20 12:14 Glucose 97 mg/dl (70-99) 10/25/20 12:14 Lactate 1.8 mmol/L (0.4-2.0) 10/25/20 10:19 Calcium 8.3 mg/dl (8.5-10.1) L 10/25/20 12:14 Phosphorus 3.3 mg/dl (2.5-4.9) 10/25/20 04:08 Magnesium 2.1 mg/dl (1.8-2.4) 10/25/20 04:08 Total Bilirubin 0.5 mg/dl (0.2-1) 10/25/20 04:08 AST 27 U/L (15-37) 10/25/20 04:08 ALT 72 U/L (12-78) 10/25/20 04:08 Alkaline Phosphatase 98 U/L (45-117) 10/25/20 04:08 Total Creatine Kinase 129 U/L (26-192) 10/24/20 10:10 Troponin I 0.172 ng/ml (0-0.045) H* 10/25/20 08:35 C-Reactive Protein < 0.29 mg/dl (0-0.29) 10/24/20 13:10 Total Protein 7.1 gm/dl (6.4-8.2) 10/25/20 04:08 Albumin 3.5 gm/dl (3.4-5.0) 10/25/20 04:08 Globulin 3.6 gm/dl (2.5-4.0) 10/25/20 04:08 Albumin/Globulin Ratio 1.0 (0.9-2) 10/25/20 04:08 Triglycerides 112 mg/dl (0-150) 10/25/20 04:08 Cholesterol 204 mg/dl (0-200) H 10/25/20 04:08 LDL Cholesterol, Calc 124 mg/dl 10/25/20 04:08 VLDL Cholesterol, Calc 22 mg/dl 10/25/20 04:08 HDL Cholesterol 58 mg/dl 10/25/20 04:08 Cholesterol/HDL Ratio 4 10/25/20 04:08 Lipase 132 U/L (73-393) 10/24/20 10:10 Specimen Hemolysis 10/24/20 10:10 Specimen Hemolysis 10/24/20 10:10 Urine Color Yellow 10/24/20 11:00 Urine Appearance Clear (Clear) 10/24/20 11:00 Urine pH 7.5 (4.5-7.5) 10/24/20 11:00 Ur Specific [place] 1.008 (1.000-1.030) 10/24/20 11:00 Urine Protein Negative (Negative) 10/24/20 11:00 Urine Glucose (UA) Negative (Negative) 10/24/20 11:00 Urine Ketones Negative (Negative) 10/24/20 11:00 Urine Blood Trace (Negative) H 10/24/20 11:00 Urine Nitrite Negative (Negative) 10/24/20 11:00 Urine Bilirubin Negative (Negative) 10/24/20 11:00 Urine Urobilinogen Negative (Negative) 10/24/20 11:00 Ur Leukocyte Esterase Negative (Negative) 10/24/20 11:00 Urine WBC (Auto) 1-5 /hpf (0-5) 10/24/20 11:00 Urine RBC (Auto) 0-4 /hpf (0-4) 10/24/20 11:00 U Hyaline Cast (Auto) 0 /lpf (0-5) 10/24/20 11:00 U Epithel Cells (Auto) 0-5 /lpf (0-5) 10/24/20 11:00 Urine Bacteria (Auto) Negative (Negative) 10/24/20 11:00 POC Ur Test NEG (NEG) 10/24/20 11:00 Urine Opiates Screen Pos (Neg) H 10/24/20 11:00 Ur Methadone, Qual Neg (Neg) 10/24/20 11:00 Urine Barbiturates Neg (Neg) 10/24/20 11:00 Ur Phencyclidine (PCP) Neg (Neg) 10/24/20 11:00 U Amphetamin/Meth Scrn Neg (Neg) 10/24/20 11:00 MDMA (Ecstasy) Screen Neg (Neg) 10/24/20 11:00 U Benzodiazepines Scrn Neg (Neg) 10/24/20 11:00 Ur Cocaine Metabolite Neg (Neg) 10/24/20 11:00 U Marijuana (THC) Screen Neg (Neg) 10/24/20 11:00 COVID-19 Eval Order [facility] at [facility] 10/24/20 15:00 SARS-CoV-2 (PCR) NEGATIVE (Negative) 10/24/20 15:00 Influenza Type A (PCR) Negative (Neg) 10/24/20 15:00 Influenza Type B (PCR) Negative (Neg) 10/24/20 15:00 RSV (RT-PCR) Negative (Neg) 10/24/20 15:00 Resident Activity Tracking Resident Involvement: Resident Care Provided Care Provided: Adult [facility]
--- NOTE | 2020-10-25 12:37 | XCELERA ---
[id number]
[2020-10-25 13:09] LABS: BUN Creatinine Ratio 5.6 (10-20); Calcium 8.3 mg/dl (8.5-10.1); Creatinine Clr Calc Pharmacy 144.4 ml/min; Est GFR (African American) 138.9; Est GFR (Non-African American) 119.8
[2020-10-25] MEDS: ASPIRIN 81 MG ECTAB PO SCH (13:32)
--- NOTE | 2020-10-25 15:01 | Cardiology Consultation ---
Date of Consultation October 25, 2020 Assessment & Plan (1) Atypical chest pain: (2) Elevated troponin: (3) Abnormal ECG: (4) Nausea and vomiting: (5) Right upper quadrant abdominal pain: (6) Elevated blood pressure reading: ASSESSMENT/PLAN: 1. Elevated troponin: 0.25 and peaked at 0.31 before decreasing. Her symptoms are not classic for ischemic heart disease but given this trend and nonspecific T-wave abnormalities that have since improved with resolution of her chest pain, cannot exclude ischemic heart disease. She was very emotional and after our initial visit, she called a family member who happens to be a physician habilitation assistant. They recommended that she undergo a cardiac catheterization and she very much so wants to undergo a cardiac catheterization to definitively evaluate for coronary artery disease. Cardiac catheterization was discussed and risks and benefits were discussed with her in detail. Because she is chest pain-free, there is no urgency and will plan for cardiac catheterization tomorrow. For recurrent chest pain, would consider heparin drip. For now, aspirin 81 mg daily was ordered. While awaiting catheterization findings, metoprolol 25 mg twice daily ordered given elevated blood pressure readings and mild tachycardia, which could be due to her overall abdominal discomfort. 2. Atypical chest pain: Plan as above. The majority of her symptoms appear to be GI in origin. 3. Abnormal ECG: Plan as above. 4. Right upper quadrant/epigastric pain with nausea and vomiting: As per primary service. She does have a history of recurrent pancreatitis however lipase levels have not been significantly elevated this hospital stay. 5. Disposition: Cardiology will continue to follow along. Patient care discussed with primary hospitalist, Dr. Jackson. Highly complex medical issues. Thank you for allowing me to participate in the care of your patient. Please call for any other questions or concerns. Sincerely, Hernán Campos M.D. History of Present Illness Reason for Consultation: Elevated troponin Requesting Physician: Dr. Gutierrez Attending Physician: Janae Jackson MD History of Present Illness Ms. Bai is a pleasant 39-year-old female with a history significant for recurrent idiopathic pancreatitis, hepatitis C (treated), seizure disorder versus pseudoseizures, chronic mid back pain following thoracic spine fracture, generalized anxiety disorder, history of benzo and opioid abuse, esophagitis, and GI bleeding (did not require PRBC). She was hospitalized on 10/24/2020 due to epigastric and right upper quadrant, with nausea and vomiting. States that the right upper quadrant pain, nausea, and vomiting is similar to her prior pancreatitis episodes but on this occasion, her lipase was not elevated. A new symptom for her however is epigastric discomfort. She states it has been pretty constant but waxing and waning in severity. Her symptoms began on Monday, 2 days ago but worsened on Monday. She also felt dizzy. Initially when asked about chest pain, she denied any chest discomfort. Later in the conversation however she described a discomfort in her chest as a heaviness. She states it is like a fat man sitting on my chest. This has also been constant over the past few days. Another new symptom, beginning 2 days ago is dyspnea with exertion. When walking her dog, she developed dyspnea, for an activity that she typically can do without such. Her mother also developed a similar illness earlier this month with vomiting and diarrhea. She was tested for COVID-19, which was negative. She herself denies diarrhea but did have a greenish stool. She denies melena, hematochezia, hematuria, or other bleeding. She reports a history of GI bleeding but did not require any blood transfusion at that time. She denies current chest discomfort or heaviness. On presentation, ECG demonstrated nonspecific T-wave abnormality in the inferior and anterior leads, with improvement of her T-waves on repeat ECG today. She was noted to be hypokalemic. She was able to keep down her breakfast this morning which consisted of a popsicle and a cup of coffee and denies recent vomiting today. Shortly after entering the room and discussing the fact that I was a network support administrator and her troponin levels, which were mildly abnormal but not diagnostic of myocardial infarction, she became very tearful and emotional. She called her mother and her mother was present via speaker phone for our visit. Review of systems: As above. Review of systems otherwise negative/unremarkable. Family history: Father had CABG at the age of 73. Cousin from [place] at the age of 34. Maternal grandmother at 45 with [place]. Maternal uncle at 50 with [place]. Social history: She denies tobacco abuse. No alcohol. Previous IV heroin abuser from the age [age] but reports being sober now. She is not . No children. Allergies Allergy/AdvReac Type Severity Reaction Status Date / Time ibuprofen Allergy Unknown Hives Verified 10/24/20 10:45 ketorolac Allergy Unknown Rash Verified 10/24/20 10:45 adhesive tape AdvReac Unknown Rash Verified 10/24/20 10:45 Home Medications Medication Instructions Recorded Confirmed Type lamotrigine [Lamictal] 50 mg PO BID 06/20/18 10/24/20 History dextroamphetamine-amphetamine 20 mg PO TID 05/05/19 10/24/20 History tramadol 100 mg PO Q6H PRN 06/13/20 10/24/20 History ondansetron 4 mg PO Q6H PRN #20 tab 10/23/20 10/24/20 Rx Patient History Medical History Chronic back pain Depression with anxiety Environmental allergies Hepatitis C History of esophagitis History of opioid abuse Idiopathic pancreatitis Migraine Nephrolithiasis Pseudoseizure Social anxiety disorder Substance use disorder Surgical History H/O hernia repair Hx of appendectomy Hx of cholecystectomy Family History Other Chronic pancreatitis Social History Smoking Status: Never smoker Hx Alcohol Use: Yes Hx Substance Use: Yes Substance Use Type Other:: occasional marijuana 1x/6 months Preferred Language: Peruvian Communication Ability: Effective Office Coordinator Required: No Beliefs That Will Affect Care: None Current Living Situation: Alone current occupational status: employed 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 Alert and oriented. Became emotional during our discussion. HEENT: Anicteric sclera. Neck: No JVD. No bruits. Normal carotid upstrokes bilaterally. Cardiac: PMI was nondisplaced. No ventricular heave. Regular. Normal S1-S2. No murmurs, rubs, or gallops. Pulmonary: Clear to auscultation bilaterally without wheezes, rales, or rhonchi. Abdomen: Soft, nondistended, with normoactive bowel sounds. No bruits noted. Right upper quadrant and epigastric tenderness. Extremities: 2+ radial pulses bilaterally. 2+ posterior tibialis pulses bilaterally. No edema or cyanosis. No palpable cords. Psychiatric: Affect appears appropriate. Chest: Tender to palpation but different than the heaviness she described in HPI. Results & Data ([facility]) Vital Signs (Past 12 Hours) Vital Signs Temp Pulse Pulse Resp BP Pulse Ox 10/25/20 11:33 37 C 109 H 18 162/98 H 95 10/25/20 08:00 92 H 10/25/20 07:24 36.6 C 91 H 18 145/89 H 94 10/25/20 04:00 36.6 C 91 H 18 144/86 H 98 Laboratory Results Laboratory Results - last 24 hr 10/24/20 10/24/20 10/24/20 10:10 10:10 13:10 WBC RBC Hgb Hct MCV MCH MCHC RDW Std Deviation RDW Coeff of Jess Plt Count MPV ESR 13 D-Dimer Sodium Potassium Chloride Carbon Dioxide Anion Gap BUN Creatinine Est Cr Clr Drug Dosing Est GFR ( Amer) Est GFR (Non-Af Amer) BUN/Creatinine Ratio Glucose Estimat Average Glucose Hemoglobin A1c Lactate Calcium Phosphorus Magnesium Total Bilirubin AST ALT Alkaline Phosphatase Total Creatine Kinase 129 Troponin I C-Reactive Protein < 0.29 Total Protein Albumin Globulin Albumin/Globulin Ratio Triglycerides Cholesterol LDL Cholesterol, Calc VLDL Cholesterol, Calc HDL Cholesterol Cholesterol/HDL Ratio Specimen Hemolysis SARS-CoV-2 (PCR) Influenza Type A (PCR) Influenza Type B (PCR) RSV (RT-PCR) 10/24/20 10/24/20 10/24/20 14:52 15:00 20:34 WBC RBC Hgb Hct MCV MCH MCHC RDW Std Deviation RDW Coeff of Jess Plt Count MPV ESR D-Dimer 260 Sodium Potassium Chloride Carbon Dioxide Anion Gap BUN Creatinine Est Cr Clr Drug Dosing Est GFR ( Amer) Est GFR (Non-Af Amer) BUN/Creatinine Ratio Glucose Estimat Average Glucose Hemoglobin A1c Lactate Calcium Phosphorus Magnesium Total Bilirubin AST ALT Alkaline Phosphatase Total Creatine Kinase Troponin I 0.310 H* C-Reactive Protein Total Protein Albumin Globulin Albumin/Globulin Ratio Triglycerides Cholesterol LDL Cholesterol, Calc VLDL Cholesterol, Calc HDL Cholesterol Cholesterol/HDL Ratio Specimen Hemolysis SARS-CoV-2 (PCR) NEGATIVE Influenza Type A (PCR) Negative Influenza Type B (PCR) Negative RSV (RT-PCR) Negative 01/10/25/20 10/25/20 04:08 04:08 04:08 WBC 5.21 RBC 4.26 Hgb 13.2 Hct 38.9 MCV 91.3 MCH 31.0 MCHC 33.9 RDW Std Deviation 41.0 RDW Coeff of Jess 12.2 Plt Count 256 MPV 9.1 ESR D-Dimer Sodium 141 Potassium 2.9 L Chloride 105 Carbon Dioxide 34 H Anion Gap 2.0 L BUN 3 L Creatinine 0.59 L Est Cr Clr Drug Dosing 134.6 Est GFR ( Amer) 135.7 Est GFR (Non-Af Amer) 117.1 BUN/Creatinine Ratio 4.4 L Glucose 94 Estimat Average Glucose Pending Hemoglobin A1c Pending Lactate Calcium 8.3 L Phosphorus Magnesium Total Bilirubin 0.5 AST 27 ALT 72 Alkaline Phosphatase 98 Total Creatine Kinase Troponin I C-Reactive Protein Total Protein 7.1 Albumin 3.5 Globulin 3.6 Albumin/Globulin Ratio 1.0 Triglycerides 112 Cholesterol 204 H LDL Cholesterol, Calc 124 VLDL Cholesterol, Calc 22 HDL Cholesterol 58 Cholesterol/HDL Ratio 4 Specimen Hemolysis SARS-CoV-2 (PCR) Influenza Type A (PCR) Influenza Type B (PCR) RSV (RT-PCR) 10/25/20 10/25/20 10/25/20 04:08 08:27 08:35 WBC RBC Hgb Hct MCV MCH MCHC RDW Std Deviation RDW Coeff of Jess Plt Count MPV ESR D-Dimer Sodium Potassium Chloride Carbon Dioxide Anion Gap BUN Creatinine Est Cr Clr Drug Dosing Est GFR ( Amer) Est GFR (Non-Af Amer) BUN/Creatinine Ratio Glucose Estimat Average Glucose Hemoglobin A1c Lactate 2.8 H* Calcium Phosphorus 3.3 Magnesium 2.1 Total Bilirubin AST ALT Alkaline Phosphatase Total Creatine Kinase Troponin I 0.172 H* C-Reactive Protein Total Protein Albumin Globulin Albumin/Globulin Ratio Triglycerides Cholesterol LDL Cholesterol, Calc VLDL Cholesterol, Calc HDL Cholesterol Cholesterol/HDL Ratio Specimen Hemolysis SARS-CoV-2 (PCR) Influenza Type A (PCR) Influenza Type B (PCR) RSV (RT-PCR) 10/25/20 10/25/20 10:19 12:14 WBC RBC Hgb Hct MCV MCH MCHC RDW Std Deviation RDW Coeff of Jess Plt Count MPV ESR D-Dimer Sodium 133 L D Potassium 3.0 L Chloride 106 Carbon Dioxide 31 Anion Gap -4.0 L BUN 3 L Creatinine 0.55 L Est Cr Clr Drug Dosing 144.4 Est GFR ( Amer) 138.9 Est GFR (Non-Af Amer) 119.8 BUN/Creatinine Ratio 5.6 L Glucose 97 Estimat Average Glucose Hemoglobin A1c Lactate 1.8 Calcium 8.3 L Phosphorus Magnesium Total Bilirubin AST ALT Alkaline Phosphatase Total Creatine Kinase Troponin I C-Reactive Protein Total Protein Albumin Globulin Albumin/Globulin Ratio Triglycerides Cholesterol LDL Cholesterol, Calc VLDL Cholesterol, Calc HDL Cholesterol Cholesterol/HDL Ratio Specimen Hemolysis SARS-CoV-2 (PCR) Influenza Type A (PCR) Influenza Type B (PCR) RSV (RT-PCR) Diagnostic Findings Telemetry personally reviewed: Sinus rhythm. Chart reviewed. CT abdomen/pelvis 10/24/2020: Mild ground-glass opacities bilateral lower lobes. Bilateral nephrolithiasis. No acute process within the abdomen/pelvis. Chest x-ray 10/24/2020: Prominent bilateral lower lung markings likely reflecting normal vessels or atelectasis per radiology. ECGs personally reviewed: ECG 10/24/2020 at 1:09 p.m.: Sinus rhythm 84 beats per minute. Nonspecific T- wave abnormality in the inferior and anterior leads. ECG 10/25/2020 at 10:46 a.m.: Sinus tachycardia 103 beats per minute. T-wave abnormality no longer present in the anterior leads. Artifact in the inferior leads. Echo 10/25/2020: Normal LV size with low-normal systolic function. EF 50-55%. No definite wall motion abnormalities. Moderate LVH. No significant diastolic dysfunction. No significant valvular abnormalities. Medications Administered Current Inpatient Medications Acetaminophen (Acetaminophen 325 Mg Tab) 650 mg PO Q4H PRN PRN Reason: Moderate Pain Stop: 11/23/20 17:34 Amphetamine/Dextroamphetamine (Amphetamine Asp/Sulf/Dextramph 20 Mg Tab) 20 mg PO TID [facility] Stop: 11/08/20 13:59 Last Admin: 10/25/20 13:32 Dose: 20 mg Documented by: Aspirin (Aspirin 81 Mg Ectab) 81 mg PO QAM [facility] Stop: 11/24/20 12:59 Last Admin: 10/25/20 13:32 Dose: 81 mg Documented by: Famotidine 20 mg/ Syringe 5 mls @ 2.5 mls/min IV DAILY [facility] Stop: 11/24/20 08:59 Last Admin: 10/25/20 07:40 Dose: 2.5 mls/min Documented by: Lamotrigine (Lamotrigine 25 Mg Tab) 50 mg PO BID [facility] Stop: 11/24/20 08:59 Last Admin: 10/25/20 07:40 Dose: 50 mg Documented by: Metoprolol Tartrate (Metoprolol Tartrate 25 Mg Tab) 25 mg PO BID [facility] Stop: 11/24/20 14:59 Ondansetron HCl (Ondansetron Inj 2 Mg/Ml 2 Ml Vial) 4 mg IV Q4H PRN PRN Reason: Nausea And Vomiting Stop: 11/23/20 17:34 Last Admin: 10/25/20 07:43 Dose: 4 mg Documented by: Tramadol HCl (Tramadol Hcl 50 Mg Tablet) 100 mg PO Q6H PRN PRN Reason: Pain Stop: 11/23/20 17:34 Last Admin: 10/25/20 15:03 Dose: 100 mg Documented by: PG Care Time/CCT Total # of Minutes Spent Total Time Spent with Patient: Total time spent is greater than 50% in coordination of care (as documented) at patient's floor/unit and/or counseling patient: Coding Level of Care Code 29750 Initial Inpt Care Lvl 3 Diagnoses Atypical chest pain R07.89 Elevated troponin R77.8 Abnormal ECG R94.31 Nausea and vomiting R11.2 Right upper quadrant abdominal pain R10.11 Elevated blood pressure reading R03.0
[2020-10-25] MEDS: METOPROLOL TARTRATE 25 MG TAB PO SCH ×2 (15:26→20:15)
[2020-10-25] MEDS ORDERED: ALUMINUM/MAGNESIUM SUSP 18 ML, LIDOCAINE HCL VISCOUS 2% 6 ML, BARCODE IDENTIFIER 1 EA PO SCH (17:30)
--- NOTE | 2020-10-26 06:12 | Electrocardiogram Report ---
Test Reason : Blood Pressure : / mmHG Vent. Rate : 103 BPM Atrial Rate : 103 BPM P-R Int : 122 ms QRS Dur : 080 ms QT Int : 380 ms P-R-T Axes : 023 -03 007 degrees QTc Int : 497 ms Poor data quality, interpretation may be adversely affected Sinus tachycardia Prolonged QT When compared with ECG of 24-OCT-2020 13:09, Nonspecific T wave abnormality no longer evident in Anterior leads Confirmed by Sridhar Campos ([id number]) on 10/26/2020 6:11:59 AM Referred By: REFERRED SELF Confirmed By:Sridhar Campos
[2020-10-26 06:28] LABS: Estimated Average Glucose 111 mg/dl; Hemoglobin A1C 5.5 % (4.5-5.6)
[2020-10-26 06:31] LABS: Hematocrit (blood only) 42.8 % (37-47); Hemoglobin 14.6 g/dL (12.0-16.0); Mean Corpuscular Hemoglobin 31.1 pg (25-34); Mean Corpuscular Hgb Conc 34.1 g/dL (32-36); Mean Corpuscular Volume 91.3 fL (80-100); Mean Platelet Volume 9.3 fL (7.4-10.4); Platelet Count 278 K/uL (130-400); RDW Coefficient of Variation 12.2 % (11.5-14.5); RDW Standard Deviation 40.8 fL (36.4-46.3); Red Blood Count 4.69 M/uL (4.2-5.4)
[2020-10-26 07:06] LABS: Albumin Level 3.6 gm/dl (3.4-5.0); BUN Creatinine Ratio 11.3 (10-20); Calcium 9.1 mg/dl (8.5-10.1); Creatinine Clr Calc Pharmacy 116.7 ml/min; Est GFR (African American) 132.1; Potassium 2.9 mmol/L (3.5-5.1)
[2020-10-26 07:09] LABS: Albumin Globulin Ratio 0.9 (0.9-2); Bilirubin,Total 0.8 mg/dl (0.2-1); Globulin 4.2 gm/dl (2.5-4.0); Total Protein 7.8 gm/dl (6.4-8.2)
[2020-10-26] MEDS: lamoTRIgine 25 MG TAB PO SCH (07:34)
[2020-10-26] MEDS: METOPROLOL TARTRATE 25 MG TAB PO SCH (07:34)
[2020-10-26] MEDS: ASPIRIN 81 MG ECTAB PO SCH (07:34)
[2020-10-26] MEDS: AMPHETAMINE ASP/SULF/DEXTRAMPH 20 MG TAB PO SCH ×2 (07:34→13:48)
[2020-10-26] MEDS: FAMOTIDINE 20 MG in SYRINGE 3 ML IV SCH (07:37)
[2020-10-26] MEDS: POTASSIUM CHLORIDE / WTR 10 MEQ/100 ML PLCT IV SCH ×7 (08:42→15:42)
[2020-10-26] MEDS ORDERED: POTASSIUM CHLORIDE CRTAB 20 MEQ TABCR PO STA (09:44)
[2020-10-26] MEDS ORDERED: PANTOprazole 40 MG TAB PO SCH ×2 (10:00→21:00)
--- NOTE | 2020-10-26 10:04 | Hospitalist Progress Note ---
Date of Service October 26, 2020 Assessment & Plan (1) Atypical chest pain: 39 yo F with hx recurrent idiopathic pancreatitis, depression, anxiety, heroin abuse, drug seeking behavior, treated hepatitis C, who presented to the ER for worsening N/V/D and abdominal pain, found to have an elevated troponin and admitted for atypical chest pain. 1. Atypical chest pain - elevated troponin 0.25 -> 0.31 -> 0.172 - cath today per patient concern and cards agreement - ASA daily - metoprolol tartrate 25 mg BID - strong fhx of early CAD however no personal Dm2, HTN, HLD to increase risk factors - cardiology recommendations appreciated - ECHO: 50-55%, low-normal systolic function, moderate concentric LVH, no significant diastolic dysfunction, no valvular abnormalities, normal RVP 2. Epigastric pain - famotidine 20 mg + omeprazole 40 daily - zofran - GI cocktail improved symptoms - possible GB disease? hepatic panel unimpressive for hyperbilirubinemia. equivocal abd exam, no fevers. V/D have stopped. 3. Mood stabilization - cont lamictal 50 BID from home Chronic pain? - on home dose of tramadol 100 pO Q6 DVT ppx: low risk, walk adlib FEN/GI: heart healthy, Code Status: Full Code Dispo: home after workup (2) Abnormal ECG: (3) History of opioid abuse: Admission and Anticipated Discharge Date Admission Date: October 24, 2020 Subjective feels well this morning. says GI cocktail yesterday helped the burning sensation but not the stabbing component in her epigastric region. Review of Systems Constitutional: no fever, no chills, no body aches and no fatigue Respiratory: no cough and no dyspnea Cardiovascular: no chest pain, no dyspnea and no edema Gastrointestinal: + abdominal pain; no nausea, no vomiting, no constipation and no diarrhea/loose stools Physical Exam Constitutional: cooperative; no acute distress and not ill appearing Neck: normal visual inspection Respiratory: normal respiratory effort and able to speak in complete sentences; no respiratory distress, no labored breathing, no retractions, no cough and no audible wheezes Auscultation: lungs clear to auscultation bilaterally; no crackles, no rales, no rhonchi and no wheezes Cardiovascular: Rate/Rhythm: regular rate and regular rhythm Heart Sounds: normal S1 and normal S2; no gallop, no murmur and no cardiac rub Vessels: posterior tibial pulses present Extremities: no pedal edema and no edema Gastrointestinal (Abdomen): Inspection/Auscultation: abdomen normal to inspection and normal bowel sounds; abdomen not distended Percussion/Palpation: + abdomen tender (RUQ) and abdomen soft; no guarding, abdomen not rigid and no abdominal mass equivocal Jj's sign. patient unable to take deep breath due to pain, was unable to tell if due to RUQ pain or epigastric pain Psychiatric: Affect: no anxious affect and no tearful affect Results & Data Results & Data ([facility]) Vital Signs (Past 12 Hours) Vital Signs Temp Pulse Pulse Resp BP Pulse Ox 10/26/20 08:00 63 10/26/20 07:37 36.6 C 77 18 139/92 97 10/26/20 04:00 36.8 C 83 18 123/78 96 10/26/20 00:00 36.8 C 79 18 158/97 H 93 10/25/20 23:45 83 Laboratory Results WBC 6.80 K/uL (4.8-10.8) 10/26/20 05:25 RBC 4.69 M/uL (4.2-5.4) 10/26/20 05:25 Hgb 14.6 g/dL (12.0-16.0) 10/26/20 05:25 Hct 42.8 % (37-47) 10/26/20 05:25 MCV 91.3 fL (80-100) 10/26/20 05:25 MCH 31.1 pg (25-34) 10/26/20 05:25 MCHC 34.1 g/dL (32-36) 10/26/20 05:25 RDW Std Deviation 40.8 fL (36.4-46.3) 10/26/20 05:25 RDW Coeff of Jess 12.2 % (11.5-14.5) 10/26/20 05:25 Plt Count 278 K/uL (130-400) 10/26/20 05:25 MPV 9.3 fL (7.4-10.4) 10/26/20 05:25 Immature Gran % (Auto) 0.2 % 10/24/20 10:10 Neut % (Auto) 69.0 % 10/24/20 10:10 Lymph % (Auto) 24.0 % 10/24/20 10:10 [place] % (Auto) 4.9 % 10/24/20 10:10 Eos % (Auto) 1.6 % 10/24/20 10:10 Baso % (Auto) 0.3 % 10/24/20 10:10 Neut # (Auto) 4.40 K/uL (1.4-6.5) 10/24/20 10:10 Lymph # (Auto) 1.53 K/uL (1.2-3.4) 10/24/20 10:10 [place] # (Auto) 0.31 K/uL (0.11-0.59) 10/24/20 10:10 Eos # (Auto) 0.10 K/uL (0-0.5) 10/24/20 10:10 Baso # (Auto) 0.02 K/uL (0-0.2) 10/24/20 10:10 Immature Gran # (Auto) 0.01 K/uL (0.00-0.02) 10/24/20 10:10 ESR 13 mm/hr (0-21) 10/24/20 10:10 D-Dimer 260 ug/L FEU (0-500) 10/24/20 14:52 Sodium 142 mmol/L (136-145) 10/26/20 05:25 Potassium 2.9 mmol/L (3.5-5.1) L 10/26/20 05:25 Chloride 107 mmol/L (98-107) 10/26/20 05:25 Carbon Dioxide 25 mmol/L (21-32) 10/26/20 05:25 Anion Gap 10.0 (3-11) 10/26/20 05:25 BUN 7 mg/dl (7-18) 10/26/20 05:25 Creatinine 0.64 mg/dl (0.6-1.2) 10/26/20 05:25 Est Cr Clr Drug Dosing 116.7 ml/min 10/26/20 05:25 Est GFR ( Amer) 132.1 10/26/20 05:25 Est GFR (Non-Af Amer) 114.0 10/26/20 05:25 BUN/Creatinine Ratio 11.3 (10-20) 10/26/20 05:25 Glucose 111 mg/dl (70-99) H 10/26/20 05:25 Estimat Average Glucose 111 mg/dl 10/25/20 04:08 Hemoglobin A1c 5.5 % (4.5-5.6) 10/25/20 04:08 Lactate 1.8 mmol/L (0.4-2.0) 10/25/20 10:19 Calcium 9.1 mg/dl (8.5-10.1) 10/26/20 05:25 Phosphorus 3.3 mg/dl (2.5-4.9) 10/25/20 04:08 Magnesium 2.1 mg/dl (1.8-2.4) 10/25/20 04:08 Total Bilirubin 0.8 mg/dl (0.2-1) 10/26/20 05:25 AST 29 U/L (15-37) 10/26/20 05:25 ALT 62 U/L (12-78) 10/26/20 05:25 Alkaline Phosphatase 95 U/L (45-117) 10/26/20 05:25 Total Creatine Kinase 129 U/L (26-192) 10/24/20 10:10 Troponin I 0.172 ng/ml (0-0.045) H* 10/25/20 08:35 C-Reactive Protein < 0.29 mg/dl (0-0.29) 10/24/20 13:10 Total Protein 7.8 gm/dl (6.4-8.2) 10/26/20 05:25 Albumin 3.6 gm/dl (3.4-5.0) 10/26/20 05:25 Globulin 4.2 gm/dl (2.5-4.0) H 10/26/20 05:25 Albumin/Globulin Ratio 0.9 (0.9-2) 10/26/20 05:25 Triglycerides 112 mg/dl (0-150) 10/25/20 04:08 Cholesterol 204 mg/dl (0-200) H 10/25/20 04:08 LDL Cholesterol, Calc 124 mg/dl 10/25/20 04:08 VLDL Cholesterol, Calc 22 mg/dl 10/25/20 04:08 HDL Cholesterol 58 mg/dl 10/25/20 04:08 Cholesterol/HDL Ratio 4 10/25/20 04:08 Lipase 132 U/L (73-393) 10/24/20 10:10 Specimen Hemolysis 10/24/20 10:10 Specimen Hemolysis 10/24/20 10:10 Urine Color Yellow 10/24/20 11:00 Urine Appearance Clear (Clear) 10/24/20 11:00 Urine pH 7.5 (4.5-7.5) 10/24/20 11:00 Ur Specific [place] 1.008 (1.000-1.030) 10/24/20 11:00 Urine Protein Negative (Negative) 10/24/20 11:00 Urine Glucose (UA) Negative (Negative) 10/24/20 11:00 Urine Ketones Negative (Negative) 10/24/20 11:00 Urine Blood Trace (Negative) H 10/24/20 11:00 Urine Nitrite Negative (Negative) 10/24/20 11:00 Urine Bilirubin Negative (Negative) 10/24/20 11:00 Urine Urobilinogen Negative (Negative) 10/24/20 11:00 Ur Leukocyte Esterase Negative (Negative) 10/24/20 11:00 Urine WBC (Auto) 1-5 /hpf (0-5) 10/24/20 11:00 Urine RBC (Auto) 0-4 /hpf (0-4) 10/24/20 11:00 U Hyaline Cast (Auto) 0 /lpf (0-5) 10/24/20 11:00 U Epithel Cells (Auto) 0-5 /lpf (0-5) 10/24/20 11:00 Urine Bacteria (Auto) Negative (Negative) 10/24/20 11:00 POC Ur Test NEG (NEG) 10/24/20 11:00 Urine Opiates Screen Pos (Neg) H 10/24/20 11:00 Ur Methadone, Qual Neg (Neg) 10/24/20 11:00 Urine Barbiturates Neg (Neg) 10/24/20 11:00 Ur Phencyclidine (PCP) Neg (Neg) 10/24/20 11:00 U Amphetamin/Meth Scrn Neg (Neg) 10/24/20 11:00 MDMA (Ecstasy) Screen Neg (Neg) 10/24/20 11:00 U Benzodiazepines Scrn Neg (Neg) 10/24/20 11:00 Ur Cocaine Metabolite Neg (Neg) 10/24/20 11:00 U Marijuana (THC) Screen Neg (Neg) 10/24/20 11:00 COVID-19 Eval Order [facility]sv at [facility] 10/24/20 15:00 SARS-CoV-2 (PCR) NEGATIVE (Negative) 10/24/20 15:00 Influenza Type A (PCR) Negative (Neg) 10/24/20 15:00 Influenza Type B (PCR) Negative (Neg) 10/24/20 15:00 RSV (RT-PCR) Negative (Neg) 10/24/20 15:00 Resident Activity Tracking Resident Involvement: Resident Care Provided Care Provided: Adult Hospital Medicine
[2020-10-26] MEDS ORDERED: HEPARIN (PORCINE) 1000 UNIT/ML 10 ML (CATH LAB USE ONLY) ONE (11:49)
[2020-10-26] MEDS ORDERED: fentaNYL citrate 100 MCG/2 ML VIAL ONE ×2 (11:49→12:51)
[2020-10-26] MEDS ORDERED: NITROGLYCERIN/D5W 100MCG/ML 20ML SYR ONE (11:49)
[2020-10-26] MEDS ORDERED: niCARdipine HCL INJ 2.5 MG/ML 10 ML AMP ONE (11:49)
[2020-10-26] MEDS ORDERED: MIDAZOLAM HCL 1 MG/ML 2ML VIAL ONE ×4 (11:49→12:51)
--- NOTE | 2020-10-26 12:28 | Pre Anesthesia Assessment ---
Date of Service October 26, 2020 Pre Sedation Assessment Vital Signs Temp Pulse Pulse Resp BP Pulse Ox 10/26/20 11:40 37.3 C 80 20 145/93 H 95 10/26/20 08:00 63 10/26/20 07:37 36.6 C 77 18 139/92 97 10/26/20 04:00 36.8 C 83 18 123/78 96 10/26/20 00:00 36.8 C 79 18 158/97 H 93 10/25/20 23:45 83 10/25/20 19:48 36.7 C 85 18 152/95 H 95 10/25/20 15:08 37.0 C 113 H 20 169/101 H 93 10/25/20 14:20 111 H Cardiovascular + regular rate Respiratory normal respiratory effort, lungs clear to auscultation Pre-Sedation Airway Assessment Smoking Status: Never smoker Mallampati Class: III ASA: ASA3 NPO Status Date of Last Intake of Fluids: 10/26/20 Time of Last Intake of Fluids: 00:00 Date of Last Intake of Solid Food: 10/26/20 Time of Last Intake of Solid Foods: 00:00 Procedure Planning Contraindications for Sedation: none Current Medications Reviewed: Yes Notes The planned sedation has been discussed with the patient. Informed Consent was obtained. I have identified the patient, determined the appropriateness of sedation and have assessed the patient immediately prior to the procedure. All medicine(s) and interventions are by my order.
--- NOTE | 2020-10-26 13:04 | Cardiac Catheterization ---
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 Cardiac Status Clinical evaluation leading to the procedure CAD Presenation: No Sxs, No angina (atypical chest pain and elevated troponin) Anginal Classification: No Symptoms Heart Failure: No Cardiogenic Shock within 24 Hours: No Cardiac Arrest within 24 Hours: No Imaging Studies Past 6 Months: Yes Stress Studies Past 6 Months: No Standard Exercise Test: No Stress Echocardiogram: No Stress Testing w/SPECT MPI: No Cardiac CTA: No Coronary Anatomy Dominant: Right Left Ventricular Angiography EF (%): n/a Diagnostic Physicians Name: Sridhar Campos MD Status: Elective Closure Device Percutaneous Entry Location: Radial Closure Device: Radial Band Recommendations: Management Recommendatons (as above) Cardiac Cath Procedure Full Procedure Date October 26, 2020 Pre-Procedure Diagnosis Pre-Procedure Diagnosis: Cardiothoracic Symptom (Atypical chest pain with abnormal and changing ECG with elevated troponins. ) AUC Score AUC Score: 7 Post-Procedure Diagnosis Post-Procedure Diagnosis: Normal Coronary Arteries and Normal Intracardiac Pressures Procedure(s) Performed Procedure(s) Performed: Coronary Angiography and Left Heart Cath School Photograph Editor Sridhar Campos MD Road Grader Operator(s) Katya Estimated Blood Loss Estimated Blood Loss: < 20 ml Medication(s) Medication(s): Fentanyl, Heparin, Lidocaine 1%, Nicardipine and Versed Summary of Findings Procedures: 1. Coronary angiography 2. Left heart catheterization 3. Moderate sedation Coronary angiography: 1. Left main coronary artery: No significant CAD. 2. Left anterior descending: No significant CAD within the LAD or D1 vessel. 3. Circumflex: The circumflex is a large-caliber vessel. High OM1 and OM 2. No significant CAD within the circumflex system. 4. Right coronary artery: RCA is dominant. No significant CAD within the RCA, PL, or PDA. Left heart catheterization: 1. Left ventriculography was not performed. 2. No aortic stenosis. 3. Normal LVEDP; 11 mmHg. Moderate sedation: 1. Sedation start time: 12:30 PM 2. Sedation end time: 12:57 PM Impression: 1. No significant CAD. 2. No aortic stenosis. 3. Normal left-sided filling pressure. 4. Presenting symptoms not likely cardiac in nature. Plan: 1. Continue evaluation by primary service for the cause of her presenting symptoms. 2. Follow-up with PCP. Hemodynamics Rest Ao:: 132/89 Final Ao: 147/90 LV: 154/3/11 Recommendations Recommendations: Management Recommendatons (as above) Specimens Specimens: None Radiation Exposure (mGy) 693 mGy. Fluoro time 4.1 min. 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 Any exceptions are noted below. [facility] Card Cath Procedure Codes Cardiac Catheterization Procedure 1: Cardiovascular Cath Procedures: 67797 Coronaries and LHC (+/-LV) Moderate Sedation Procedure 1: Sedation/Anesthesia: 12020 Mod Sedation by the same physician;Init15 Min Child Age 5 & Up Procedure 2: Sedation/Anesthesia: 58016 Mod Sedation by the same physician; Ea [id number] Minutes PG Care Time/CCT Total # of Minutes Spent Total Time Spent with Patient: Total time spent is greater than 50% in coordination of care (as documented) at patient's floor/unit and/or counseling patient:
--- NOTE | 2020-10-26 13:21 | Post Anesthesia Assessment ---
Date of Service October 26, 2020 Post Sedation Assessment Vital Signs Temp Pulse Pulse Resp BP Pulse Ox 10/26/20 13:05 80 16 130/61 92 10/26/20 11:40 37.3 C 80 20 145/93 H 95 10/26/20 08:00 63 10/26/20 07:37 36.6 C 77 18 139/92 97 10/26/20 04:00 36.8 C 83 18 123/78 96 10/26/20 00:00 36.8 C 79 18 158/97 H 93 10/25/20 23:45 83 10/25/20 19:48 36.7 C 85 18 152/95 H 95 10/25/20 15:08 37.0 C 113 H 20 169/101 H 93 10/25/20 14:20 111 H Recovery Score Activity: Moves 4 extremities Respiration: Deep Breath/Cough Circulation: +/-20% PreAnes Value Consciousness: Fully Awake Oxygen Saturation: > 92% On Room Air Post Anesthesia Score: 10 Discharge Sedation Level of Care: Fast Track Phase II Post Sedation Plan On clinical assessment, the patient appears to have tolerated the sedation without complications. Patient is recovering as anticipated. Patient will continue to be monitored by nursing and may be discharged when sedation discharge criteria are met per below protocol. Upon Completions of procedure up to 15 minutes continue every 5 minute vital signs and the P.A.R. score; then discharge to a Phase I or Fast Track to Phase II per the following guidelines: * Discharge Patient to appropriate Phase II area if PAR is 8 or greater or return to pre- procedure baseline. The post - procedure orders will be as directed. * If PAR score is less than 8 or not return to pre-procedure baseline then patient will follow Phase I monitoring till PAR is reached for Phase II. The Phase I may be done in procedure room or may call to secure a Phase I area. * If naloxone or flumazenil are used for reversal, hold in Phase I for continued monitoring from when last reversal dose was given for a minimum of 60 minutes or longer pending the nurse and/or physician discretion of patient condition before discharge to Phase II. Please call the Sedation Physician to re-evaluate and complete post-note for discharge to Phase II area. Do NOT discharge from procedure sedation or Phase 1 until post- sedation evaluation note is complete by procedure /sedation MD Sedation Discharge Instructions to be given to the patient at discharge to home.
[2020-10-26] MEDS ORDERED: SODIUM CHLORIDE 0.9% 1000ML 1,000 ML IV SCH (13:30)
[2020-10-26] MEDS: traMADol HCL 50 MG TABLET PO PRN (13:50)
--- NOTE | 2020-10-26 14:47 | Cardiology Progress Note ---
Date of Service October 26, 2020 Assessment & Plan (1) Atypical chest pain: (2) Elevated troponin: (3) Abnormal ECG: (4) Nausea and vomiting: (5) Right upper quadrant abdominal pain: (6) Hypokalemia: (7) Elevated blood pressure reading: ASSESSMENT/PLAN: 1. Elevated troponin: Troponin elevation was not diagnostic of myocardial infarction and her symptoms appeared most consistent with GI etiology. Cardiac catheterization without CAD. No further cardiac evaluation necessary at this time. She was reassured. Can discontinue aspirin and beta-wander. 2. Atypical chest pain: Her chest pain was atypical and in the absence of CAD, likely GI in origin given her other GI complaints. 3. Abnormal ECG: Plan as above. Possibly due to electrolyte imbalance. 4. Right upper quadrant/epigastric pain with nausea and vomiting: As per primary service. She does have a history of recurrent pancreatitis however lipase levels have not been significantly elevated this hospital stay. Symptoms are improving. 5. Elevated blood pressure: Blood pressure overall has improved but still mildly elevated at times. Beta-wander was initiated yesterday while evaluating for ischemic heart disease. Metoprolol will be discontinued. If she requires antihypertensive agent, will defer to primary service. 6. Hypokalemia: Potassium chloride was ordered this morning prior to cardiac catheterization. Will defer further evaluation and treatment to primary service. 7. Disposition: Cardiology will sign off at this time. She should follow-up with her PCP. Patient care discussed with Dr. Anne of the primary hospitalist service. Admission and Anticipated Discharge Date Admission Date: October 24, 2020 Subjective She had some chest discomfort overnight but otherwise mostly right upper quadrant and epigastric pain. Overall, her abdominal pain has improved. She has not had any further nausea or vomiting. She denies syncope, near-syncope, shortness of breath, palpitations, or bleeding. She had a cardiac catheterization done earlier today which demonstrated no significant CAD. Review of systems: As above. Physical Exam Physical Exam: Gen.: No acute distress. Alert and oriented. HEENT: Anicteric sclera. Neck: No JVD. Cardiac: Regular. Normal S1-S2. No murmurs, rubs, or gallops. Pulmonary: Clear to auscultation bilaterally without wheezes, rales, or rhonchi. Abdomen: Soft, nondistended, with normoactive bowel sounds. No bruits noted. Right upper quadrant and epigastric tenderness (improved). Extremities: 2+ radial pulses bilaterally. No edema or cyanosis. Psychiatric: Affect appears appropriate. Results & Data ([facility]) Vital Signs (Past 12 Hours) Vital Signs Temp Pulse Pulse Resp BP Pulse Ox 10/26/20 14:36 88 18 151/79 H 94 10/26/20 14:24 108 H 18 144/92 H 93 10/26/20 14:03 80 10/26/20 14:00 80 18 134/75 95 10/26/20 13:45 78 18 135/91 96 10/26/20 13:30 36.6 C 75 18 155/99 H 93 10/26/20 13:05 80 16 130/61 92 10/26/20 11:40 37.3 C 80 20 145/93 H 95 10/26/20 08:00 63 10/26/20 07:37 36.6 C 77 18 139/92 97 10/26/20 04:00 36.8 C 83 18 123/78 96 Laboratory Results Laboratory Results - last 24 hr 10/25/20 10/25/20 10/26/20 04:08 12:14 05:25 WBC 6.80 RBC 4.69 Hgb 14.6 Hct 42.8 MCV 91.3 MCH 31.1 MCHC 34.1 RDW Std Deviation 40.8 RDW Coeff of Jess 12.2 Plt Count 278 MPV 9.3 Sodium 140 Potassium Chloride Carbon Dioxide Anion Gap 3.0 BUN Creatinine Est Cr Clr Drug Dosing Est GFR ( Amer) Est GFR (Non-Af Amer) BUN/Creatinine Ratio Glucose Estimat Average Glucose 111 Hemoglobin A1c 5.5 Calcium Total Bilirubin AST ALT Alkaline Phosphatase Total Protein Albumin Globulin Albumin/Globulin Ratio 10/26/20 05:25 WBC RBC Hgb Hct MCV MCH MCHC RDW Std Deviation RDW Coeff of Jess Plt Count MPV Sodium 142 Potassium 2.9 L Chloride 107 Carbon Dioxide 25 Anion Gap 10.0 BUN 7 Creatinine 0.64 Est Cr Clr Drug Dosing 116.7 Est GFR ( Amer) 132.1 Est GFR (Non-Af Amer) 114.0 BUN/Creatinine Ratio 11.3 Glucose 111 H Estimat Average Glucose Hemoglobin A1c Calcium 9.1 Total Bilirubin 0.8 AST 29 ALT 62 Alkaline Phosphatase 95 Total Protein 7.8 Albumin 3.6 Globulin 4.2 H Albumin/Globulin Ratio 0.9 Diagnostic Findings Telemetry personally reviewed: Sinus rhythm. No arrhythmia. Cardiac catheterization 10/26/2020: Coronary angiography: 1. Left main coronary artery: No significant CAD. 2. Left anterior descending: No significant CAD within the LAD or D1 vessel. 3. Circumflex: The circumflex is a large-caliber vessel. High OM1 and OM 2. No significant CAD within the circumflex system. 4. Right coronary artery: RCA is dominant. No significant CAD within the RCA, PL, or PDA. Left heart catheterization: 1. Left ventriculography was not performed. 2. No aortic stenosis. 3. Normal LVEDP; 11 mmHg. Medications Administered Current Inpatient Medications Acetaminophen (Acetaminophen 325 Mg Tab) 650 mg PO Q4H PRN PRN Reason: Moderate Pain Stop: 11/23/20 17:34 Amphetamine/Dextroamphetamine (Amphetamine Asp/Sulf/Dextramph 20 Mg Tab) 20 mg PO TID [facility] Stop: 11/08/20 13:59 Last Admin: 10/26/20 13:48 Dose: 20 mg Documented by: Aspirin (Aspirin 81 Mg Ectab) 81 mg PO QAM [facility] Stop: 11/24/20 12:59 Last Admin: 10/26/20 07:34 Dose: 81 mg Documented by: Al Hydrox/Mg Hydrox/Simethicone 50 ml/Diphenhydramine HCl 125 mg/Lidocaine HCl 40 ml/Sucralfate 10,000 mg/ BARCODE IDENTIFIER 1 ea 0 ml PO Q4H [facility] Stop: 11/25/20 14:29 Famotidine (Famotidine 20 Mg Tab) 20 mg PO BID [facility] Stop: 11/25/20 20:59 Sodium Chloride (Nss 1000ml) 1,000 mls @ 125 mls/hr IV .Q8H [facility] Stop: 10/26/20 18:00 Last Admin: 10/26/20 13:48 Dose: 125 mls/hr Documented by: Lamotrigine (Lamotrigine 25 Mg Tab) 50 mg PO BID [facility] Stop: 11/24/20 08:59 Last Admin: 10/26/20 07:34 Dose: 50 mg Documented by: Metoprolol Tartrate (Metoprolol Tartrate 25 Mg Tab) 25 mg PO BID [facility] Stop: 11/24/20 14:59 Last Admin: 10/26/20 07:34 Dose: 25 mg Documented by: Ondansetron HCl (Ondansetron Inj 2 Mg/Ml 2 Ml Vial) 4 mg IV Q4H PRN PRN Reason: Nausea And Vomiting Stop: 11/23/20 17:34 Last Admin: 10/25/20 07:43 Dose: 4 mg Documented by: Pantoprazole Sodium (Pantoprazole 40 Mg Tab) 40 mg PO BID TANIS[facility] Stop: 11/25/20 20:59 Tramadol HCl (Tramadol Hcl 50 Mg Tablet) 100 mg PO Q6H PRN PRN Reason: Pain Stop: 11/23/20 17:34 Last Admin: 10/26/20 13:50 Dose: 100 mg Documented by: PG Care Time/CCT Total # of Minutes Spent Total Time Spent with Patient: Total time spent is greater than 50% in coordination of care (as documented) at patient's floor/unit and/or counseling patient: Coding Level of Care Code 18402 Subseq Hosp Care Lvl 3 Diagnoses Atypical chest pain R07.89 Elevated troponin R77.8 Abnormal ECG R94.31 Nausea and vomiting R11.2 Right upper quadrant abdominal pain R10.11 Hypokalemia E87.6 Elevated blood pressure reading R03.0
--- NOTE | 2020-10-26 19:31 | Discharge Summary ---
Date of Service October 26, 2020 Admission HPI Per Admitting Provider This is a 39 yo F with PMHx of recurrent idiopathic pancreatitis, treated HCV, esophagitis, seizure disorder vs pseudoseizures, migraines, nephrolithiasis, ADHD, chronic mid back pain s/p T-spine fracture, JU[place]ANCIS[place], h/o benzo and opioid abuse, allergies, esophagitis and GI bleeding who presents to the ER today with recurrent RUQ abdominal pain, nausea, vomiting x 2 days. She presented to the ER last night and was treated with fluids and given morphine in the ER x 2 doses and sent home with a oxycodone IR home pack with Oxy 5 mg PO Q4-6 hours for pain, zofran and instructed to use colace. Her CT abdomen was scanned today, essentially negative except for ground glass opacities seen in the lower lung keith, and abdominal pain is nonreproducible on exam. S/p appendectomy and cholecystectomy. Her CXR and EKG showing T wave inversions which is new, and elevated trop has never been recorded here before. The patient is well known to the ER and on previous admissions for narcotic seeking, has PCP who prescribes tramadol and Adderall. Pt asks for medication for pain, tearful and anxious during conservation. She reports the pain is RUQ and epigastric, that nothing seems to alleviate it, and that it comes in waves. She feels it is very similar to prior episodes of pancreatitis, which she has had numerous times before. She denies drinking alcohol except on social occasions, but none recently. Dry heaving was very severe overnight, and has no longer been able to vomit. Denies diarrhea, and states her last BM was this morning, soft and formed, without melena, blood or pain. Pt denies being able to eat or drink much today due to pain. At one point her boyfriend calls her cell phone, and I updated him and answered all his questions and concerns. During this time the patient seems very calm, and once he is off the phone begin crying and states "I'm just so overwhelmed". We discussed her medications, and states she has been taking 1 mg clonazepam up to 3x daily (although urine drug screen here is negative for benzodiazepines), and does so normally. Denies smoking, tobacco use, other illicit drug use. Pt also uses tramadol 100 mg 4x per day, and lamictal 50 mg BID. She follows with psychiatry in [facility]. Pt does not currently do counseling but would like to get back into participating in this. Family Hx: no cardiac hx of mother or father that the patient is aware of. Principal Diagnosis abdominal pain - most likely gastritis (stress induced) and constipation Discharge Exam gen aaox3 pleasant nad heent nc at mmm breathing unlabored no accessory muscles good effort skin no rashes no pallor or icterus abd soft nd mild epigastric ttp Discharge Data Allergies Allergy/AdvReac Type Severity Reaction Status Date / Time ibuprofen Allergy Intermediate Hives Verified 10/26/20 13:22 ketorolac Allergy Intermediate Rash Verified 10/26/20 13:22 adhesive tape AdvReac Intermediate Rash Verified 10/26/20 13:22 Consultations 10/24/20 15:36 ED Decision to Admit Stat 10/25/20 08:22 Consult Cardiology Routine Procedures Performed Operation Date: 10/26/20 13:00 Actual Procedures p Cath, Left with Cors and Vent - Sridhar Campos MD s Cineradiography w/Routine Exam - Sridhar Campos MD Ordered Studies 10/24/20 10:03 CT abd pelvis IV con only Stat 10/26/20 09:39 CL Cath Imgs for PACS use only Routine Hospital Course (1) Atypical chest pain: 39 yo F with hx recurrent idiopathic pancreatitis, depression, anxiety, heroin abuse, drug seeking behavior, treated hepatitis C, who presented to the ER for worsening N/V/D and abdominal pain, found to have an elevated troponin and admitted for atypical chest pain. 1. Atypical chest pain - elevated troponin 0.25 -> 0.31 -> 0.172 - ECHO: 50-55%, low-normal systolic function, moderate concentric LVH, no significant diastolic dysfunction, no valvular abnormalities, normal RVP - LHC without obstructive CAD - pain most likely GI 2. Epigastric pain - most likely stress related gastritis and constipation - PPI, stress management (she's just started counselling, walks dog daily, working on anxiety, will d/w PCP re ?SSRI or other) - if not improved over ~3-4 weeks then consider GI eval/EGD as outpt 3. Mood ds - cont lamictal 50 BID from home Chronic pain? - on home dose of tramadol 100 pO Q6 but discussed that this could also worsen constipation - she expressed good understanding stable for home (2) Abnormal ECG: (3) History of opioid abuse: Total Time Total Time Spent Total Time Spent (In Minutes): GI related pain Discharge Plan Discharge Items Patient Disposition: Home - Self-Care Reason For Visit: NSTEMI Discharge Diagnosis: Elevated troponin, epigastric pain Condition on Discharge: Good Activity: Per Instructions section Non-emergency contact: Primary Care Provider Call non-emergency contact if: your symptoms worsen and your pain is worsening Follow-up/Referrals: Thien Kohli DO [Primary Care Provider] - Diet: Heart Healthy and Low Fat Addtl Attending Provider Instructions: ACTIVITY RECOMMENDATIONS: Excess manipulation of the wrist should be avoided for the next 24-48 hours. * No lifting over 2 pounds (approximately a 1/2 gallon of milk) with the utilized arm for 24 hours. * No strenuous activity such as bowling or tennis for 3 days. * Keep the site of the procedure covered with a bandage for 24 hours. *You may shower the day after the procedure. Do not take a tub bath or submerge the puncture site in water for the next 3 days. *Do not operate any motorized equipment for 3 days. SPECIAL CARE INSTRUCTIONS: The site may be slightly bruised and sore following your procedure. Should any of the following occur, contact the Dr. who performed your procedure. 1. Redness/inflammation, swelling, chills, or fever, or colored drainage at procedure site within 3-7 days after your procedure. 2. Coldness, discoloration, ongoing numbness, severe pain, or swelling. Expect mild tingling of hand and tenderness at the puncture site for up to three days. If this persists beyond three days, or other symptoms develop, notify the Dr. who performed your procedure. BLEEDING: If the procedure site on your wrist begins to bleed, do not panic 1. Place 1 or 2 fingers firmly just slightly above the insertion site to stop the bleeding. You may be able to feel your pulse as you hold pressure. 2. Lift your finger after 5 minutes to see if the bleeding has stopped. 3. Once the bleeding has stopped, gently wipe the wrist area clean with a bandage. * If the bleeding from your wrist does not stop after 10 minutes, or if there is a large amount of bleeding or spurting, call 911 (do not drive yourself to the hospital). SKIN IRRITATION: * You may experience some redness and/or swelling in the area where radiation was administered. If any skin irritation occurs, please contact your family physician. FOLLOW UP VISIT: Keep any scheduled doctor appointments. Addtl Aircraft Maintenance Engineer Provider Instructions: You were seen in the hospital for stomach pain and chest tightness. you were found to have an elevated heart enzyme level (troponin) in the ER which showed some degree of concern for your heart being the source of the discomfort. you were seen by the cardiology team and had a catheterization to assess if you have any coronary artery disease. this was negative. your burning stomach pain did improve with treatment of a GI cocktail, which helps treat gastritis and ulcers in the stomach. you were started on famotidine and pantoprazole to help decrease the amount of acid in your stomach. at this time it is not urgent to do endoscopy to look for an ulcer, but if your symptoms do not get better in the next 6 weeks on treatment or if it gets worse while on medication, it is reasonable to get an upper endoscopy with GI sooner. we also discussed your anxiety and stress control measures like meditation, exercise and a different SSRI+therapy to give you the tools to improve your stress. talk with your primary care provider about going back on celexa or another SSRI like lexapro (which is almost exactly like celexa). New medications: Famotidine 20 mg twice a day, Omeprazole 40 mg twice a day, Sucralfate tab twice a day Pending Studies at Discharge: No Stand-Alone Forms: [facility], Smoking Cessation Medications and DC Order Prescriptions: New famotidine 20 mg Tablet 20 mg PO BID 30 Days Qty: 60 RF: 0 pantoprazole 40 mg Tablet,Delayed Release (Dr/Ec) 40 mg PO BID 30 Days Qty: 60 RF: 0 sucralfate 1 gram tablet 1 g PO BID 56 Days Qty: 112 RF: 0 Continued lamotrigine [Lamictal] 100 mg Tablet 50 mg PO BID RF: 0 dextroamphetamine-amphetamine 20 mg tablet 20 mg PO TID RF: 0 tramadol 50 mg Tablet 100 mg PO Q6H PRN (Reason: Pain) RF: 0 ondansetron 4 mg tablet,disintegrating 4 mg PO Q6H PRN (Reason: nausea and vomiting) Qty: 20 RF: 0 Discharge Orders: Discharge Order (Routine); Ordered 10/26/20 Ordered By: Angella Greene/Other Patient Handouts: Cardiac Catheterization Dc Admission Data Admit Date/Time: 10/24/20 16:18 Attending Provider: Matt Anne Admit Provider: Shannan Perkins Primary Care Provider: Thien Kohli Other Providers: Shannan Perkins ; Angella Gutierrez ; Sridhar Campos ; Janae Jackson Other Interventions: Discharge Summary Assessment (RN) Last Done: 10/26/20 17:14 Coding Level of Care Code D/C Day Management <30 mins Diagnoses Atypical chest pain R07.89 Abnormal ECG R94.31 History of opioid abuse F11.11
[2020-10-26] MEDS ORDERED: FAMOTIDINE 20 MG TAB PO SCH (21:00)
[2020-10-28 06:10] LABS: Codeine Urine NEGATIVE ng/mL (<50); Hydrocodone Urine NEGATIVE ng/mL (<50); Hydromor Urine 207 ng/mL (<50); Morphine Urine 211 ng/mL (<50); Norhydrocodone Conf Ur NEGATIVE ng/mL (<50); Noroxycodone Urine 235 ng/mL (<50); Oxycodone Urine 350 ng/mL (<50); Oxymorph Urine 119 ng/mL (<50)
== END 2020-10-26 17:57 | disposition home or self-care (01) ==
LOC: ED 09:44 → INTOOBSV 16:18 → SUATTDRO 16:18 → 2N 16:18 → 2S 10-26 13:23